=== PATIENT | female | born 1945 | race Caucasian/White ===

== ENCOUNTER 2021-01-22 10:49 | Inpatient (IN) | payer MEDICARE, SELFPAY ==
[2021-01-22] VITALS (12 sets, daily range): BP systolic 117–151; BP diastolic 52–74; PULSE 49–67; RESP 18–26; TEMP 36.3–36.6; O2SAT 0–100
--- NOTE | ~2021-01-22 | XR_ITS ---
EXAMINATION: XR knee RT 3V DATE: 01/22/2021 12:14 INDICATION: Right patellar pain post fall TECHNIQUE: AP, crosstable lateral and sunrise views of the right knee were obtained. COMPARISON: None. FINDINGS: Alignment is normal. No fracture. Joint spaces appear normal on nonweightbearing imaging. Minimal neda int effusion at the right suprapatellar pouch without evident layering lipohemarthrosis. Small enthes ophyte at the proximal pole of the patella. Prominent dense prepatellar soft tissue swelling which gi jennifer the history of trauma would favor hematoma over bursitis. Multiple surgical clips project along t he medial side of the right knee which may be related to prior saphenous vein graft harvest. IMPRESSION: 1. Likely prepatellar hematoma. No acute osseous abnormality. Reviewed, dictated and finalized at location A.
--- NOTE | ~2021-01-22 | US_ITS ---
EXAMINATION: US carotid duplex BI DATE: 01/23/2021 09:10 INDICATION: Syncope TECHNIQUE: Grayscale, color Doppler, and pulsed Doppler images of the cervical carotid arteries were obtained. The degree of vessel stenosis is placed in one of the following categories: normal, <50%, 5 0-69%, >=70% but less than near-occlusion, near-occlusion, or total occlusion. Note that percent sten osis relative to normal distal artery lumen diameter is indirectly measured from velocity measurement s as described by Chavez, et al. Radiology 2003; [id number]. Notes: Normal: Peak systolic velocity <125 centimeters/sec and no plaque <50%. Peak systolic velocity <125 ( EDV <40; ICA/CCA PSV ratio <2.0; used these factors only a tandem lesions or low cardiac output or co ntralateral disease) 50-69 %: PSV 125-230 (EDV 40-100; ratio 2-4) >= 70% but less than near occlusion: PSV greater than 230 (EDV > 100; ratio> 4.0) Near Occlusion: PSV that is variable; markedly narrowed lumen Occlusion: Absent flow on color/spectral Doppler and no lumen on gonsales scale. COMPARISON: None. FINDINGS: RIGHT: The right common carotid artery (CCA) peak systolic velocity (PSV) is 68 cm/s. The right internal car otid artery (ICA) PSV is 67 cm/s. The right ICA end-diastolic velocity (EDV) is 17 cm/s. The right IC A/CCA PSV ratio is 1.0. The external carotid artery (ECA) PSV is 103 cm/s. There is antegrade flow in the right vertebral artery. LEFT: The left CCA PSV is 76 cm/s. The left ICA PSV is 74 cm/s. The left ICA EDV is 15 cm/s. The left ICA/C CA PSV ratio is 1.0. The ECA PSV is 126 cm/s. There is antegrade flow in the left vertebral artery. IMPRESSION: 1. Less than 50% stenosis in the right internal carotid artery by sonographic criteria. 2. Less than 50% stenosis in the left internal carotid artery by sonographic criteria. Reviewed, dictated and finalized at location A. IMPRESSION: 1. Less than 50% stenosis in the right internal carotid artery by sonographic edd hall. 2. Less than 50% stenosis in the left internal carotid artery by sonographic oliver pena.
--- NOTE | ~2021-01-22 | CT_ITS ---
EXAMINATION: CT brain wo con DATE: 01/22/2021 12:01 INDICATION: Head injury post fall TECHNIQUE: Computed tomography (CT) of the head was performed without intravenous contrast. Sagittal and coronal reconstructions were performed. The mA was adjusted according to patient size. Iterative reconstruction technique was employed. The dose-length product was 605.33 mGy-cm. COMPARISON: Brain MR dated 12/09/2017 FINDINGS: No fracture. No acute intracranial hemorrhage, acute infarction or abnormal extra axial fluid collect ion. Again seen is a small left pontine old lacunar infarct. Symmetric prominence of subarachnoid spa [place] overlying the convexities consistent with mild age-appropriate diffuse cerebral volume loss. Yobany tricles are normal and symmetric. No mass/mass effect. Changes of bilateral intraocular lens replacem ent. Chronic right mastoid effusion. Partial opacification of the left sphenoid sinus. Intracranial c alcified cerebral atherosclerosis is noted. IMPRESSION: 1. No fracture or acute intracranial process. 2. Age-related mild diffuse volume loss with symmetric increased prominence of the subarachnoid space s overlying the convexities. 3. Small old left pontine lacunar infarct. 4. Chronic right mastoid effusion. Reviewed, dictated and finalized at location A. IMPRESSION: 1. No fracture or acute intracranial process. 2. Age-related mild diffuse volume loss with symmetric increased prominence of the subarachnoid spaces overlying the convexities. 3. Small old left pontine lacunar infarct. 4. Chronic right mastoid effusion.
--- NOTE | ~2021-01-22 | XR_ITS ---
EXAMINATION: XR hip BI 2V w AP pelvis DATE: 01/22/2021 12:14 INDICATION: Bilateral hip pain post fall TECHNIQUE: Anteroposterior view of the pelvis and anteroposterior and frog-leg lateral views of the l eft hip and anteroposterior and frog-leg lateral views of the right hip and were obtained. COMPARISON: CT abdomen and pelvis dated 11/12/2018 FINDINGS: Alignment is normal. No fracture. Mild bilateral hip osteoarthritis. Small metallic suture projecting over the central pelvis. Again seen are multiple calcified bladder stones projecting over the inferi or pelvis. IMPRESSION: 1. Mild bilateral hip osteoarthritis. No acute osseous abnormality. 2. Multiple bladder stones. Reviewed, dictated and finalized at location A.
--- NOTE | ~2021-01-22 | CT_ITS ---
EXAMINATION: CT lumbar spine wo con DATE: 01/22/2021 12:01 INDICATION: Low back pain post fall TECHNIQUE: Computed tomography (CT) of the lumbar spine was performed without intravenous contrast. A utomated exposure control and iterative reconstruction technique were employed. The dose-length produ ct was 1064.81 mGy-cm. COMPARISON: Lumbar spine MR dated 11/12/2018 FINDINGS: Alignment is normal. Vertebral body heights with Schmorl's nodes along the inferior endplat es of T12-L2. No fracture. Mild disc height loss at T11-T12 and L1-L2. Postoperative change at the th oracic hiatus which may be related to prior hiatal hernia repair. There is calcified atherosclerosis of the aorta and many of the other arteries. Fusiform infrarenal abdominal aortic aneurysm, anterior margin which is excluded from the [id number] but which measures up to 4.1 cm in maximal left-to-r ight diameter. Cervical sigmoid diverticula without adjacent inflammatory change to suggest diverticu litis. The uterus is not identified and has likely been surgically resected. Bilateral approximately 2 cm ovarian cysts/follicles. The following disc levels are specifically discussed: T11-T12: Disc is mildly bulging. There is moderate right and mild to moderate left facet joint osteoa rthritis. There is mild left neural foraminal stenosis. There is minimal central canal stenosis. T12-L1: Disc is mildly bulging. There is moderate right and mild to moderate left facet joint osteoar thritis. There is minimal left neural foraminal stenosis. There is minimal central canal stenosis. L1-L2: Disc is bulging. There is mild left and moderate right facet joint osteoarthritis. There is no neural foraminal stenosis. There is minimal central canal stenosis. L2-L3: Disc is bulging. There is moderate right and mild to moderate left facet joint osteoarthritis. There is mild bilateral neural foraminal stenosis. There is mild central canal stenosis. L3-L4: Disc is bulging. There is hypertrophy of the ligamentum flavum. There is severe right and mod erate left facet joint osteoarthritis. There is mild to moderate left and moderate right neural dustin inal stenosis. There is mild central canal stenosis. L4-L5: Disc is bulging. There is hypertrophy of the ligamentum flavum. There is severe bilateral face t joint osteoarthritis. There is moderate bilateral neural foraminal stenosis. There is mild central canal stenosis. L5-S1: Disc is bulging. There is severe bilateral facet joint osteoarthritis. There is mild bilateral neural foraminal stenosis. There is mild central canal stenosis. IMPRESSION: 1. Moderate lumbar spondylosis. No acute osseous abnormality. 2. Incompletely visualized fusiform infrarenal abdominal aortic aneurysm measuring at least 4.1 cm in maximal diameter. 3. Diverticulosis. Reviewed, dictated and finalized at location A. IMPRESSION: 1. Moderate lumbar spondylosis. No acute osseous abnormality. 2. Incompletely visualized fusiform infrarenal abdominal aortic aneurysm measur ing at least 4.1 cm in maximal diameter. 3. Diverticulosis.
--- NOTE | ~2021-01-22 | MR_ITS ---
EXAMINATION: MR brain/brain stem wo con DATE: 01/24/2021 09:41 INDICATION: Dizziness and nausea. Near syncope. TECHNIQUE: Magnetic resonance imaging (MRI) of the brain and brainstem was performed without intraven ous contrast. Sequences included sagittal and axial T1-weighted SE, axial diffusion-weighted FS SE, a xial T2*-weighted GRE, axial T2-weighted FLAIR Propeller, and axial T2-weighted Propeller. Apparent d iffusion coefficient (ADC) maps were created. COMPARISON: CT dated 01/23/2020 and MRI dated 12/09/2017. FINDINGS: There is generalized atrophy. Small chronic left pontine infarct. There are scattered mild periventricular and subcortical white matter changes, most likely related to small vessel ischemic di sease (microangiopathy). No acute intracranial hemorrhage, infarction, mass or mass effect. Craniover tebral junction is unremarkable. Orbits are symmetric without disconjugate gaze. Paranasal sinuses ar e unremarkable. Structures of the posterior fossa are unremarkable. Right mastoid effusion. IMPRESSION: 1. No acute intracranial abnormality. 2: Chronic left pontine infarct. 3: Chronic age-related findings. Reviewed, dictated and finalized at location A.
--- NOTE | ~2021-01-22 | XR_ITS ---
EXAMINATION: XR chest 1V DATE: 01/22/2021 12:14 INDICATION: Syncope TECHNIQUE: frontal view of the chest was obtained. COMPARISON: Chest radiograph dated 02/05/[address] dated 02/06/2019 FINDINGS: Patient is rotated slightly towards the right. Lungs remain clear with no focal airspace opacities, p ulmonary edema, pleural effusion or pneumothorax. The cardiomediastinal silhouette is within normal l imits for AP technique. Median sternotomy wires and mediastinal surgical clips are seen, likely from prior coronary artery bypass grafting. Additional postoperative changes with suture line and numerous surgical clips in the upper abdomen. Incompletely visualized vertical raphael and lateral mass screw fix ation for lower cervical posterior spinal fusion. IMPRESSION: 1. No acute cardiopulmonary disease. Reviewed, dictated and finalized at location A.
--- NOTE | 2021-01-22 10:55 | ECG_ITS ---
Measurements Intervals [place] Rate: 59 P: 56 IN: 182 QRS: 63 QRSD: 133 T: 77 QT: 467 QTc: 465 Interpretive Statements SINUS BRADYCARDIA RIGHT BUNDLE BRANCH BLOCK MINIMAL Q WAVES- INFERIOR LEADS BASELINE ARTIFACT- I, II, III, AVR, AVL, AVF, V2-V6 ABNORMAL ECG Electronically Signed On 01-22-2021 16:50:04 CDT by Jhonathan Lloyd D.O.
[2021-01-22] MEDS: SODIUM CHLORIDE 0.9% IV 500 ML 999 ML IV CONT (11:04)
[2021-01-22 11:15] LABS: Basophils Absolute Auto 0.1 K/mm3 (0.0-0.1); Basophils Percent Auto 0.7 % (0.2-1.2); Eosinophils Absolute Auto 0.2 K/mm3 (0-0.3); Eosinophils Percent Auto 1.9 % (0-4.4); Hematocrit 43.8 % (37.0-47.0); Hemoglobin 14.4 g/dL (12.0-15.0); Immature Granulocyte Absolute 0.04 K/mm3 (0.00-0.031); Immature Granulocyte Percent A 0.4 % (0-0.5); Lymphocytes Percent Auto 22.1 % (18.3-44.2); Mean Corpuscular HGB Conc 32.9 g/dl (32-36); Mean Corpuscular Hemoglobin 30.1 pg (26-34); Mean Corpuscular Volume 91.4 fl (80-100); Mean Platelet Volume 9.6 fl (7.4-10.4); Monocytes Absolute Auto 0.6 K/mm3 (0.1-0.6); Monocytes Percent Auto 6.9 % (2.6-8.5); Neutrophils Absolute Auto 6.2 K/mm3 (1.3-6.7); Platelet Count Result 274 k/mm3 (150-375); Red Blood Count 4.79 M/mm3 (4.2-5.4); Red Cell Distribution Width 14.1 % (11.5-14.5); White Blood Count 9.1 K/mm3 (4.5-10.0)
[2021-01-22 11:26] LABS: INR 0.9; Partial Thromboplastin Time 26.2 SECONDS (22.3-36.8); Prothrombin Time 13.1 Seconds (11.1-14.7)
--- NOTE | 2021-01-22 11:50 | ED.GENADULT ---
HPI - General Adult General Chief complaint: Fall Stated complaint: fall Source: patient and EMS Mode of arrival: EMS Limitations: no limitations History of Present Illness HPI narrative: Patient 75-year-old female who presents from urgent care for evaluation of syncope and extremity injuries to include head injury that occurred yesterday patient lives at home by herself notes that she blacked out striking her head and injuring her knee patient also notes hip pain patient notes that she has intermittently had these episodes of leg has not been seen for a patient is an unreliable historian noting that she does not would know what medications she has been prescribed in the past and notes that she is noncompliant with her prescribed medications patient on arrival to emergency department complaints of lower extremity pain denying any other complaints at this time but notes she gets lightheaded at times Related Data Home Medications Medication Instructions Recorded Confirmed Unable to Obtain Home Medications 01/22/21 01/22/21 Allergies Allergy/AdvReac Type Severity Reaction Status Date / Time iodine Allergy Severe RASH,DIFFICULTY Verified 01/22/21 10:49 BREATHING erythromycin base Allergy Intermediate RASH, Verified 01/22/21 10:49 SORES IN MOUTH Sulfa (Sulfonamide Allergy Intermediate RASH,SORES Verified 01/22/21 10:49 Antibiotics) IN MOUTH cholestyramine Allergy Unknown RASH AND Verified 01/22/21 10:49 VOMITING Penicillins Allergy Unknown RASH,DIFFICULTY Verified 01/22/21 10:49 BREATHING sulfur dioxide Allergy Unknown Unknown Verified 01/22/21 10:49 MAGNESIUM HYDROXIDE Allergy Intermediate VOMITING Uncoded 06/05/19 07:37 Contrast Media Allergy Unknown RASH,DIFFICULTY Uncoded 06/05/19 07:37 BREATHING Review of Systems Review of Systems: All systems reviewed & are unremarkable except as noted in HPI and below PMFSH Past Medical History Medical History (Updated 01/22/21 @ 14:18 by Dharmesh Cesar PA-C) Coronary artery disease CVA (cerebral vascular accident) Hyperlipidemia Hypertension Tobacco abuse Surgical History Surgical History Stented coronary artery Social History Social History (Updated 01/22/21 @ 11:52 by Dharmesh Cesar PA-C) Smoking status: Current every day smoker Alcohol intake: never Substance use: never Living arrangements: alone Exam Narrative: Exam Narrative: GENERAL: Well-appearing, well-nourished, and in no acute distress. HEAD: Normocephalic, contusion to the right forehead. No cervical EYES: PERRLA and EOMI. ENT: Nares clear, no rhinorrhea or epistaxis. Mucous membranes moist. Oropharynx without tonsillar hypertrophy exudate or other lesions. NECK: Supple. No adenopathy or masses. CHEST: Clear to auscultation. No respiratory distress. No wheezes rales or rhonchi HEART: Regular rate and rhythm. No murmur heard. Normal peripheral pulses. ABDOMEN: Soft, nontender, nondistended EXTREMITIES: Normal range of motion. No edema. No midline cervical or thoracic tenderness. Midline paraspinal lumbar tenderness. Pelvis palpated and stable tenderness of the bilateral hips no deformities. Tenderness of the right knee with small contusion. SKIN: Warm, dry, no rash. NEURO: No focal deficits. Alert and oriented x3. Cranial nerves II through XII grossly intact. Normal speech. Neurovascularly intact. Capillary refill less than 2 seconds PSYCH: Normal mood and affect. Course Course Emergency Course: Patient evaluated at skeletal imaging no high risk changes in this area of her evaluation does have urinary tract infection will be brought into the hospital and evaluated by PT OT hospitalist service patient felt that high risk for discharge home with fall risk also given her syncope patient resting comfortably in no distress at this time. ABCs and vital signs stable and intact. Consultations Cons
[2021-01-22 13:13] LABS: Alanine Aminotransferase 12 U/L (4-35); Albumin Level 3.7 g/dL (3.5-5.1); Alkaline Phosphatase 175 U/L (38-126); Anion Gap 7 mmol/L (8-16); Aspartate Amino Transferase 17 U/L (14-36); Bilirubin,Total 0.4 mg/dL (0.2-1.3); Blood Urea Nitrogen 15 mg/dL (7-17); Carbon Dioxide 26 mmol/L (22-30); Chloride 108 mmol/L (98-107); Estimated CRCL calculation 41 ml/min; Estimated Glomerular Filt Rate > 60; Glucose 91 mg/dL (65-105); Potassium 3.8 mmol/L (3.4-5.0); Sodium 141 mmol/L (137-145)
[2021-01-22 13:36] LABS: Add Urine Microscopic? YES; Appearance Urine Cloudy (Clear); Bacteria Urine 4+ /hpf; Bilirubin Urine Negative (Negative); Blood Urine 2+ (Negative); Color Urine Yellow (Yellow); Glucose Urine UA Negative (Negative); Ketones Urine Negative (Negative); Leukocyte Esterase Ur 1+ LEU/UL (Negative); Mucus Urine Few /lpf; Nitrate Urine Positive (Negative); Protein Urine 1+ mg/dL (Negative); Specific Grav Ur 1.016 (1.001-1.035); Squamous Epithelial Cell Urine Moderate /hpf (Few); Urobilinogen Urine Negative mg/dL (<2.0); WBC Urine 51-75 /hpf
[2021-01-22 13:36] LABS: Troponin I < 0.012 ng/mL (0.000-0.034)
[2021-01-22] MEDS: HYDROcodone/acetaminophen (*CRX) 5-325 MG TABLET 1 TAB PO (14:30)
--- NOTE | 2021-01-22 15:00 | PM.IMHP ---
H&P: HPI History of Present Illness Date/Time: 01/22/21 18:00 Chief Complaint: Fall, possible syncope yesterday. Narrative: This is a 75-year-old female smoker with coronary artery disease status post three-vessel CABG, ischemic cardiomyopathy with an ejection fraction previously as low as 35%, hypertension, hyperlipidemia, COPD, and several other comorbidities who presented to the emergency department earlier today via EMS from a local urgent care for further evaluation after a possible syncopal episode and fall yesterday. 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 She has a difficult done describing these spells but says they have occurred approximately 4 times in the last 6 months. It sounds as though she starts to feel flush with nausea and occasional shortness of breath. At times she also feels lightheaded and will see stars or floaters. Yesterday she ?ended up on the ground? though is not certain how she got there or if she lost consciousness. She then spent some time crawling on the floor trying to find a waste can in order to vomit, and her knee has been hurting since that time. The patient told the provider in the emergency department that she did black out and hit her head however denies that to me. When she is describing episodes she points to her chest when she tells me that a feeling comes over her, but she specifically denies chest pain, pleuritic pain, palpitations, and feelings of racing or irregular heartbeat. She has not had any recent chest pain but several months ago she had mild midsternal chest discomfort with activity that went away with nitroglycerin. 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 At the time my evaluation she has no specific complaints but she is concerned as to what may have transpired yesterday. Review of Systems Review of Systems: Narrative: Twelve systems were reviewed with pertinent positives and negatives as per HPI. She wears a full set of dentures. She denies dysphagia and concerns for aspiration. She has a chronic smoker's cough and will occasionally have coughing jags. She wheezes quite a bit. She uses her rescue inhaler maybe 1 time per day. She also has nebulizers at home that she can use if needed. No recent cold or flu symptoms. She denies exposure to those positive for COVID. She is fully vaccinated for COVID. She has chronic orthopnea, sleeps with the head of her bed raised at on 2 pillows. She has intermittent lower extremity edema, right greater than left, which is unchanged. She suffers from restless legs and has frequent cramping of her legs at nighttime. No history of venous thromboembolism. Denies history of obstructive sleep apnea however she does snore quite a bit and wakes up often. She has issues with fecal incontinence since a hemorrhoidectomy and sphincterotomy. She denies abdominal and epigastric pain. No hematochezia. Occasional urinary issues. No dysuria or hematuria. Except as documented, all other systems were reviewed and are negative. [facility] Past Medical History Medical History (Updated 01/22/21 @ 21:07 by Linda Ross PA-C) Aneurysm of infrarenal abdominal aorta Measuring at least 4.1 centimeters on imaging dated 01/22/2021. Cerebrovascular accident Chronic obstructive pulmonary disease Coronary artery disease Non STEMI in January 2014. Status post angioplasty and three-vessel CABG. Degenerative disc disease History of anemia History of peptic ulcer disease Hyperlipidemia Hypertension Restless leg syndrome Spinal stenosis Tobacco abuse Surgical History Surgical History (Updated 01/22/21 @ 15:28 by Linda Ross PA-C) History of Billroth II operation History of bladder
--- NOTE | 2021-01-22 15:45 | PCPTNOTE ---
Orders received. Attempted eval, but patient has not arrived to room from ED. Will see tomorrow as able.
--- NOTE | 2021-01-22 15:48 | PCOTNOTE ---
Pt not yet in room from ED upon attempt for eval. Will see tomorrow for eval.
--- NOTE | 2021-01-22 16:32 | ADMGEN ---
This patient, Giulia Retana, was admitted to Medical Room 243-01. Patient/family oriented to hospital policies and general routines including ID bracelet, bed and alarms, visiting hours, pain management, procedures, bathroom and other care routines, personal items, smoking policy, room service/diet, and visiting hours. Information on how to activate the Rapid Response Team has been discussed. Patient/Family are encouraged to report perceived risks to care and to ask questions if they do not understand what they are told or what they should do.
[2021-01-22] MEDS: LACTATED RINGERS 1,000 ML 75 ML IV CONT (17:57)
[2021-01-22] MEDS: FAMOTIDINE 20 MG/2 ML VIAL IV PUSH (20:22)
[2021-01-22] MEDS: rOPINIRole HCL 1 MG TABLET PO (22:30)
[2021-01-22] MEDS: ACETAMINOPHEN/CODEINE (*CRX) 300/30 MG TABLET 1 TAB PO (22:32)
[2021-01-22] MEDS: FLUTICASONE/SALMETEROL 115-21 MCG INHALER 1 PUFF 2 PUFF INHALATION (23:02)
[2021-01-23] VITALS (14 sets, daily range): BP systolic 147–189; BP diastolic 53–70; PULSE 47–63; RESP 16–18; TEMP 35.9–36.7; O2SAT 87–98; BMI 29.2
[2021-01-23] MEDS: MORPHINE SULFATE (*CRX) 4 MG/ML INJ IV PUSH (02:40)
[2021-01-23 05:53] LABS: Cholesterol 133 mg/dL (0-200); HDL Direct 36 mg/dL; Triglycerides 152 mg/dL (<150)
[2021-01-23 06:04] LABS: LDL Cholesterol Direct 67 mg/dL
[2021-01-23] MEDS: FLUTICASONE/SALMETEROL 115-21 MCG INHALER 1 PUFF 2 PUFF INHALATION ×2 (08:40→20:02)
--- NOTE | 2021-01-23 08:51 | WPDURCON ---
Assessment and Plan Assessment and plan (1) Bladder stones: Code(s): N21.0 - Calculus in bladder Status: Acute Assessment and Plan: Will plan to follow up as an outpatient with Dr. Kenney for a Cystoscopy in the office for further evaluation. No urgent plans for surgery at this time. (2) Urinary tract infection: Code(s): N39.0 - Urinary tract infection, site not specified Status: Acute Assessment and Plan: Continue treatment with Ceftriaxone and tailor antibiotics to culture results. No other evaluation. Urology Consult Note HPI Date Seen: 01/23/21 Requesting Physician: Lee Guthrie MD Primary Care Provider: Pat MirandaHéctor Consult Narrative Narrative: Giulia Retana is a 75 year old female who initially presented to the ER yesterday after a syncopal episode where she fell and hit her head, hip and knee. She has a complicated medical history of COPD, cardiomyopathy with an ejection fraction of 35%, hypertension, hyperlipidemia, incluidng a history of kidney stones that were passed spontaneously in the past and currently has bladder stones noted on X-Ray which she was aware of already. She has a WBC of 9.1, creatinine 0.90, UA shows positive Nitrates and urine culture is pending. She is hypertensive and bradycardic currently. She denies hematuria, dysuria, flank pain, abdominal pain, frequency or urgency. She does c/o hesitancy occasionally, but normally has no urinary issues. She has not seen a urologist in the past. Review of Systems Cardiovascular: Cardiovascular: Denies chest pain Respiratory: Respiratory: Reports no additional respiratory complaints Gastrointestinal: Gastrointestinal: Denies abdominal pain, Denies nausea and Denies vomiting Genitourinary: Genitourinary: Denies hematuria, Denies dysuria, Denies pelvic pain, Denies flank pain, Reports urinary hesitancy and Denies urinary urgency [facility] Past Medical History Medical History Aneurysm of infrarenal abdominal aorta Measuring at least 4.1 centimeters on imaging dated 01/22/2021. Cerebrovascular accident Chronic obstructive pulmonary disease Coronary artery disease Non STEMI in January 2014. Status post angioplasty and three-vessel CABG. Degenerative disc disease History of anemia History of peptic ulcer disease Hyperlipidemia Hypertension Restless leg syndrome Spinal stenosis Tobacco abuse Surgical History Surgical History History of Billroth II operation History of bladder suspension procedure History of cervical spinal surgery Micro anterior cervical decompression diskectomy and fusion at C5-C6, C6-C7. History of cholecystectomy History of colonoscopy with polypectomy History of hemorrhoidectomy History of partial colectomy History of three vessel coronary artery bypass (~01/2014) [place] to LAD, vein graft to a diagonal, vein graft to PDA. Performed at [facility]. Stented coronary artery Family History Family History Father Suicide and self-inflicted injury Sibling COPD (chronic obstructive pulmonary disease) Heart disease Sibling Lung cancer Mother Alzheimer's dementia Social History Social History Social History: Surrogate decision maker: Anne-Marie Saldana, daughter. Code status: Full code. Smoking packs per day: 1 Smoking cigarettes per day: 20.0 Years smoked: 60 Smoking pack-years: 60.00 Smoking status: Current every day smoker Tobacco type: cigarettes Alcohol intake: never Substance use: never Substance use type: does not use Additional living arrangements comments: Lives alone in her own home in [place]. In the process of moving to [place]. Additional occupation/education comments: Retired. Gender identity (if verb
[2021-01-23] MEDS: ONDANSETRON INJ 4 MG/2 ML VIAL IV PUSH ×2 (09:19→14:47)
[2021-01-23] MEDS: ENOXAPARIN 40 MG/0.4 ML SYRINGE SUB-Q (09:42)
--- NOTE | 2021-01-23 11:42 | PM.CNCAR ---
Assessment and Plan Additional Plan 75-year-old lady with: Coronary artery disease about 7 years status post surgical revascularization by the chart notes apparently has a history of ischemic LV dysfunction. She has been off of all of her medications what ever they might be for the this period of time and despite this she is not in a state of decompensated heart failure. She enters the hospital with what sound to me like episodes of vertigo following which she has a lot of nausea and vomiting and sometimes incontinence of stool. It is not clear to me that she is having syncopal episodes. She states these episodes began about 6-7 months ago and have occurred about 4 5 times. I would recommend trying to contact either her physician or her pharmacy to identify what her baseline medical regimen is so it can be resumed while she is here at [facility]. At this point I do not believe she is having mukund syncopal episodes and I do not believe I have any additional cardiac recommendations to make. I would recommend that she follow-up with Dr. Niharika Booth who has been her longstanding paramedic instructor. As such I am not going to plan on arranging for follow-up in my office following her discharge. Cale Barbosa MD [facility] History of Present Illness History of Present Illness Consult date/time: 01/23/21 11:42 Reason For Visit: syncope/uti Narrative: This is a 75-year-old woman who has a known to me prior to this consultation I am seeing her at the request of the hospitalist according to the orders because of syncope. Patient is hospitalized room 243 she is comfortable sleeping flat in bed and was awakened for this interview. Upon awakening she is comfortable cooperative and offers no complaints. She says that she has been having spells where she feels unwell for about 6 or 7 months. She says that she will suddenly feel very strange inside and then noticed the sensation of her environment spinning or rotating. Following this she typically has the sensation of nausea and vomiting. When she has nausea and vomiting she also tends to frequently become incontinent of stool. She has had several of these episodes she will sometimes fall to the floor and have to crawl to a waste basket for the vomiting. She denies any sense of chest pain pressure or heaviness she does not believe that she has lost consciousness during these episodes. She states she was at her daughter's house watching her home while she was out of town on Saturday and had an episode like this. When her daughter came home on Saturday she told her about it and she brought her to the emergency room for evaluation. Her electrocardiogram shows sinus mechanism with a right bundle branch block. She has not had any significant arrhythmias since being hospitalized on telemetry Edgardo at times is in a sinus bradycardia but I do not see any evidence of AV node dysfunction or pathological Jitendra arrhythmias that would explain syncope. The patient has a history of coronary artery disease she states that she underwent a multivessel coronary bypass operation in 2013 at [facility]. Prior to that she states she was treated with percutaneous stenting by her paramedic instructor, Dr. Booth. She states she has not seen her physicians in the better part of a year because of the bernabe virus pandemic. She did have an appointment with her paramedic instructor during the pandemic but when she saw the waiting room environment she considered unsafe and she left without being seen. Because of that she is symptom been out of her medications for at least several months. The identity of her home medications are unknown to us at [facility]. The chart indicates she has a history of an ischemic cardiomyopathy with previous infarction and an ejection fraction of 30-35%. Once again her medical regimen for this is unknown to me. Review of Systems Constitutional: Constitutional: Reports no additional constitutional complaints Eyes:
[2021-01-23] MEDS: ACETAMINOPHEN/CODEINE (*CRX) 300/30 MG TABLET 0.5 TAB PO (14:47)
[2021-01-23] MEDS: rOPINIRole HCL 1 MG TABLET PO (20:02)
--- NOTE | 2021-01-23 21:09 | ECHO_ITS ---
Patient Info Name: Giulia Retana Age: 75 years : 1945 Gender: Female Ht: 64 in Wt: 152 lbs BSA: 1.78 m2 HR: 69 bpm BP: 147 / 53 mmHg Heart Rhythm: Sinus Rhythm Technical Quality: Good Exam Date: 01/23/2021 1:12 PM Exam Location: [facility] Pulmonary Exam Room: [facility] Patient Status: Inpatient Admit Date: 01/22/2021 Staff Ordering Physician: Linda Ross PA-C Bobj Developer: Madhuri Mills RDCS Attending Provider: Lee Guthrie MD Referring Physician: Vandana MEMBRENO; Exam Type: CA echo doppler color flow Study Info Indications - cda s/p cabg htn Complete two-dimensional, color flow and Doppler transthoracic echocardiogram is performed. Summary 1. Complete two-dimensional, color flow and Doppler transthoracic echocardiogram is performed. 2. Normal LV size, mild LVH, normal LV systolic function, EF more than 70%; normal diastolic function. Mild left atrial enlargement. Mitral valve leaflets mildly thickened, trivial MR. Aortic valve appears thickened, no significant stenosis by Doppler. Trace TR, unable to assess RVSP due to inadequate TR jet velocity. Sinus rhythm. Left Ventricle Left ventricular chamber dimension is normal. Left ventricular systolic function is hyperdynamic, estimated at >70%. There is mildly increased left ventricular wall thickness. The left ventricular diastolic function is normal. Right Ventricle Right ventricular chamber dimension is normal. Right ventricular systolic function is normal. Left Atria Left atrial chamber dimension is mildly enlarged. Right Atria Right atrial chamber dimension is normal. Aortic Valve There is mild aortic valve sclerosis. There is no aortic valve stenosis. Mitral Valve The mitral valve has thickened leaflets. There is trace mitral valve regurgitation. Tricuspid Valve The tricuspid valve leaflets are normal. There is trace tricuspid valve regurgitation. Pericardium/Pleural The pericardium appears epicardial fat pad. There is trivial pericardial effusion. Aorta The aortic root size at the sinus of Valsalva is normal. Left Ventricular Outflow Tract Name Value Normal LVOT 2D LVOT Diameter 2.0 cm LVOT Doppler LVOT Peak Gradient 6 mmHg LVOT Mean Gradient 3 mmHg LVOT VTI 28 cm LVOT VTI/AV VTI Ratio 0.9 LVOT Stroke Volume 84 ml LVOT CO 15.5 l/min LVOT CI 8.9 l/min/m2 Pulmonic Valve Name Value Normal PV Doppler PV Peak Gradient 3 mmHg Mitral Valve Name Value Normal
[2021-01-24] VITALS (11 sets, daily range): BP systolic 116–151; BP diastolic 46–146; PULSE 51–66; RESP 16–25; TEMP 36.3–36.6; O2SAT 93–97
[2021-01-24] MEDS: ACETAMINOPHEN/CODEINE (*CRX) 300/30 MG TABLET 0.5 TAB PO ×3 (03:01→22:00)
[2021-01-24 05:26] LABS: Hematocrit 37.7 % (37.0-47.0); Hemoglobin 12.1 g/dL (12.0-15.0); Mean Corpuscular HGB Conc 32.1 g/dl (32-36); Mean Corpuscular Hemoglobin 30.4 pg (26-34); Mean Corpuscular Volume 94.7 fl (80-100); Mean Platelet Volume 9.5 fl (7.4-10.4); Platelet Count Result 214 k/mm3 (150-375); Red Blood Count 3.98 M/mm3 (4.2-5.4); Red Cell Distribution Width 14.1 % (11.5-14.5); White Blood Count 6.2 K/mm3 (4.5-10.0)
[2021-01-24 05:41] LABS: Anion Gap 5 mmol/L (8-16); Blood Urea Nitrogen 15 mg/dL (7-17); Calcium 8.5 mg/dL (8.4-10.2); Carbon Dioxide 27 mmol/L (22-30); Chloride 107 mmol/L (98-107); Estimated CRCL calculation 44 ml/min; Estimated Glomerular Filt Rate > 60; Glucose 158 mg/dL (65-105); Magnesium 1.9 mg/dL (1.6-2.3); Potassium 3.7 mmol/L (3.4-5.0); Sodium 139 mmol/L (137-145)
--- NOTE | 2021-01-24 07:58 | PM.IMPN ---
Progress Note: A&P Assessment and Plan (1) Urinary tract infection: Code(s): N39.0 - Urinary tract infection, site not specified Status: Acute Assessment and Plan: continue Rocephin urine culture growing Klebsiella pneumoniae (2) Postural dizziness with near syncope: Code(s): R42 - Dizziness and giddiness; R55 - Syncope and collapse Status: Acute Assessment and Plan: improved likely secondary to urinary tract infection MRI of brain obtained and no acute findings (3) Fall from ground level: Code(s): W18.30XA - Fall on same level, unspecified, initial encounter Status: Acute Assessment and Plan: trauma to right hematoma in the patellar area ice packs to it (4) Aneurysm of infrarenal abdominal aorta: Code(s): I71.4 - Abdominal aortic aneurysm, without rupture Status: Chronic Assessment and Plan: stable monitor in the outpatient setting (5) Injury of knee, right: Code(s): S89.91XA - Unspecified injury of right lower leg, initial encounter Status: Acute Assessment and Plan: ice packs to the area no fracture (6) Head injury: Code(s): S09.90XA - Unspecified injury of head, initial encounter Status: Acute Assessment and Plan: CT head and MRI of brain with no acute findings (7) Bladder stones: Code(s): N21.0 - Calculus in bladder Status: Acute Assessment and Plan: follow-up in outpatient setting Subjective Date/time seen: 01/24/21 07:58 Patient was seen and examined on 01/23/21late entry note Review of Systems Review of Systems: Narrative: patient presented to the emergency room due to dizziness, generalized weakness. Constitutional: Constitutional: Reports chills Cardiovascular: Comments: no chest no PND no orthopnea Respiratory: Comments: no cough no sputum production Gastrointestinal: Comments: no nausea no vomiting had some diarrhea. Genitourinary: Comments: no pain or burning with urination Musculoskeletal: Comments: her right knee swelling after patient was crawling on the floor because she was unable to get up due to her dizziness Integumentary/Breasts: Comments: no rash Neurologic: Comments: no sensorimotor deficit Exam Const: General: comfortable, no acute distress, well developed, alert and awake Nutritional Appearance: average body habitus Orientation/consciousness: patient oriented x3 HENMT: Head: normal to inspection, normocephalic and atraumatic Ears: hearing grossly normal bilaterally Face and sinus: normal facial exam Eyes: General: appearance normal, both eyes and all related structures Pupils: Equal, round and reactive pupils present EOM: EOMs intact bilaterally Neck: Neck: full ROM, no lymphadenopathy and no JVD Thyroid: thyroid normal Lymphatic: no lymphadenopathy noted Resp: Effort & Inspection: normal respiratory effort and able to speak in complete sentences Auscultation: clear to auscultation bilaterally Cardio: Jugular venous distension: no JVD Rate: regular rate Rhythm: regular rhythm Heart sounds: S1 normal heart sound present and S2 normal heart sound present GI: GI Palp: Yes Soft to palpation and Yes No hepatosplenomegaly present : General: Yes deferred Skin: Rashes: no rashes Wounds: no wounds Neuro: General: patient oriented x3 and CN's II-XI intact bilaterally Cranial nerves: Yes CN's II-XII intact bilaterally and Yes Equal, round and reactive pupils present Cognition (Neuro): normal cognition Speech: normal speech Gait exam (Neuro): Normal gait present Motor exam (neuro): 5/5 motor strength present throughout Extrem: General: normal to inspection, full ROM, no joint enlargement and no pedal edema Objective Data Vital Signs Vital Signs: Vital Signs - 24 hr 01/23/21 08:00 01/23/21 11:40 01/23/21 12:00 Temperature Pulse Rate 58 L 63 Respiratory Rate Blood Pressure 181/58 H Pu
[2021-01-24] MEDS: FLUTICASONE/SALMETEROL 115-21 MCG INHALER 1 PUFF 2 PUFF INHALATION ×2 (08:55→20:08)
[2021-01-24] MEDS: ENOXAPARIN 40 MG/0.4 ML SYRINGE SUB-Q (08:55)
[2021-01-24] MEDS: EZETIMIBE 10 MG TABLET PO (08:56)
[2021-01-24] MEDS: lisinopriL 5 MG TABLET PO (08:56)
[2021-01-24] MEDS: CYCLOBENZAPRINE HCL 5 MG TABLET PO (15:55)
--- NOTE | 2021-01-24 15:55 | PM.IMPN ---
Progress Note: A&P Assessment and Plan (1) Urinary tract infection: Code(s): N39.0 - Urinary tract infection, site not specified Status: Acute Assessment and Plan: continue Rocephin urine culture identification sensitivities reviewed E coli 100 K CFU (2) Postural dizziness with near syncope: Code(s): R42 - Dizziness and giddiness; R55 - Syncope and collapse Status: Acute Assessment and Plan: likely secondary to urinary tract infection it has subsided (3) Bladder stones: Code(s): N21.0 - Calculus in bladder Status: Acute Assessment and Plan: will follow-up in the outpatient setting (4) Fall from ground level: Code(s): W18.30XA - Fall on same level, unspecified, initial encounter Status: Acute Assessment and Plan: trauma to the right knee with hematoma ice packs to the area PT/OT (5) Aneurysm of infrarenal abdominal aorta: Code(s): I71.4 - Abdominal aortic aneurysm, without rupture Status: Chronic Assessment and Plan: follow-up in the outpatient setting (6) Injury of knee, right: Code(s): S89.91XA - Unspecified injury of right lower leg, initial encounter Status: Acute Assessment and Plan: ice packs to the area Tylenol 3 p.r.n. Subjective Date/time seen: 01/24/21 15:55 ask when she can go Review of Systems Review of Systems: Narrative: no new issues Exam Const: General: comfortable, no acute distress, well developed, alert and awake Nutritional Appearance: average body habitus Orientation/consciousness: patient oriented x3 HENMT: Head: normal to inspection, normocephalic and atraumatic Ears: hearing grossly normal bilaterally Face and sinus: normal facial exam Eyes: General: appearance normal, both eyes and all related structures Pupils: Equal, round and reactive pupils present EOM: EOMs intact bilaterally Neck: Neck: full ROM, no lymphadenopathy and no JVD Thyroid: thyroid normal Lymphatic: no lymphadenopathy noted Resp: Effort & Inspection: normal respiratory effort and able to speak in complete sentences Auscultation: clear to auscultation bilaterally Cardio: Jugular venous distension: no JVD Rate: regular rate Rhythm: regular rhythm Heart sounds: S1 normal heart sound present and S2 normal heart sound present GI: GI Palp: Yes Soft to palpation and Yes No hepatosplenomegaly present : General: Yes deferred Skin: Rashes: no rashes Wounds: no wounds Neuro: General: patient oriented x3 and CN's II-XI intact bilaterally Cranial nerves: Yes CN's II-XII intact bilaterally and Yes Equal, round and reactive pupils present Cognition (Neuro): normal cognition Speech: normal speech Gait exam (Neuro): Normal gait present Motor exam (neuro): 5/5 motor strength present throughout Extrem: General: capillary refill normal and other ( right knee swelling) Objective Data Vital Signs Vital Signs: Vital Signs - 24 hr 01/23/21 16:00 01/23/21 20:00 01/23/21 21:16 Temperature 97.5 F L Pulse Rate 55 L 61 61 Respiratory Rate 18 Blood Pressure 149/58 H Pulse Oximetry 98 98 01/24/21 00:00 01/24/21 04:00 01/24/21 05:59 Temperature 97.6 F Pulse Rate 53 L 59 L 65 Respiratory Rate 16 Blood Pressure 151/63 H Pulse Oximetry 97 01/24/21 08:00 01/24/21 08:31 01/24/21 08:50 Temperature 98 F Pulse Rate 58 L 51 L Respiratory Rate 25 H Blood Pressure 147/146 H Pulse Oximetry 96 93 01/24/21 10:13 01/24/21 12:00 01/24/21 14:00 Temperature 97.9 F Pulse Rate 63 66 58 L Respiratory Rate 20 Blood Pressure 131/46 L Pulse Oximetry 95 Intake/Output Intake/Output: Intake & Output 01/21/21 01/22/21 01/23/21 01/24/21 23:59 23:59 23:59 23:59 Intake Total 1290 1970 820 Output Total 1250 750 Balance 1290 720 70 Meds/Results Medications: Active Medications Generic Name Dose Route Start Last Admin Trade Name Freq PRN Re
[2021-01-24] MEDS: rOPINIRole HCL 1 MG TABLET PO (20:11)
[2021-01-25] MEDS: CYCLOBENZAPRINE HCL 5 MG TABLET PO (01:40)
[2021-01-25 05:31] LABS: Hematocrit 35.7 % (37.0-47.0); Hemoglobin 11.6 g/dL (12.0-15.0); Mean Corpuscular HGB Conc 32.5 g/dl (32-36); Mean Corpuscular Hemoglobin 29.8 pg (26-34); Mean Corpuscular Volume 91.8 fl (80-100); Mean Platelet Volume 9.2 fl (7.4-10.4); Platelet Count Result 217 k/mm3 (150-375); Red Blood Count 3.89 M/mm3 (4.2-5.4); White Blood Count 5.5 K/mm3 (4.5-10.0)
[2021-01-25 05:46] LABS: Anion Gap 4 mmol/L (8-16); Blood Urea Nitrogen 13 mg/dL (7-17); Calcium 8.7 mg/dL (8.4-10.2); Carbon Dioxide 30 mmol/L (22-30); Chloride 107 mmol/L (98-107); Estimated CRCL calculation 50 ml/min; Estimated Glomerular Filt Rate > 60; Glucose 103 mg/dL (65-105); Potassium 3.8 mmol/L (3.4-5.0); Sodium 141 mmol/L (137-145)
[2021-01-25 06:00] VITALS: BP 119/54; PULSE 58; RESP 16; TEMP 36.4; O2SAT 96
[2021-01-25] MEDS: ACETAMINOPHEN/CODEINE (*CRX) 300/30 MG TABLET 0.5 TAB PO (07:19)
[2021-01-25 08:30] VITALS: BP 142/47; PULSE 52; RESP 20; TEMP 36.6; O2SAT 97
[2021-01-25] MEDS: lisinopriL 5 MG TABLET PO (08:52)
[2021-01-25] MEDS: ENOXAPARIN 40 MG/0.4 ML SYRINGE SUB-Q (08:52)
[2021-01-25] MEDS: EZETIMIBE 10 MG TABLET PO (08:52)
[2021-01-25] MEDS: FLUTICASONE/SALMETEROL 115-21 MCG INHALER 1 PUFF 2 PUFF INHALATION (08:58)
[2021-01-25 09:12] VITALS: O2SAT 99
--- NOTE | 2021-01-25 09:40 | PM.DS ---
DS: Admitting Diagnosis Admitting Diagnosis Admitting Diagnosis: syncope/vertigo DS: Discharge Diagnosis Discharge Diagnosis (1) Postural dizziness with near syncope: Code(s): R42 - Dizziness and giddiness; R55 - Syncope and collapse Status: Acute (2) Bladder stones: Code(s): N21.0 - Calculus in bladder Status: Acute (3) Fall from ground level: Code(s): W18.30XA - Fall on same level, unspecified, initial encounter Status: Acute (4) Aneurysm of infrarenal abdominal aorta: Code(s): I71.4 - Abdominal aortic aneurysm, without rupture Status: Chronic (5) Urinary tract infection: Code(s): N39.0 - Urinary tract infection, site not specified Status: Acute (6) Head injury: Code(s): S09.90XA - Unspecified injury of head, initial encounter Status: Acute (7) Injury of knee, right: Code(s): S89.91XA - Unspecified injury of right lower leg, initial encounter Status: Acute DS: Summary Hospital Course Reason for hospitalization: fall and syncope Hospital Course: Radiology Results:ITS Impressions Head CT 01/22/21 12:03 IMPRESSION: 1. No fracture or acute intracranial process. 2. Age-related mild diffuse volume loss with symmetric increased prominence of the subarachnoid spaces overlying the convexities. 3. Small old left pontine lacunar infarct. 4. Chronic right mastoid effusion. Lumbar Spine CT 01/22/21 12:09 IMPRESSION: 1. Moderate lumbar spondylosis. No acute osseous abnormality. 2. Incompletely visualized fusiform infrarenal abdominal aortic aneurysm measuring at least 4.1 cm in maximal diameter. 3. Diverticulosis. Chest X-Ray 01/22/21 12:21 IMPRESSION: 1. No acute cardiopulmonary disease. Hip/Pelvis X-Ray 01/22/21 12:24 IMPRESSION: 1. Mild bilateral hip osteoarthritis. No acute osseous abnormality. 2. Multiple bladder stones. Knee X-Ray 01/22/21 12:28 IMPRESSION: 1. Likely prepatellar hematoma. No acute osseous abnormality. Carotid Doppler Study 01/23/21 09:11 IMPRESSION: 1. Less than 50% stenosis in the right internal carotid artery by sonographic criteria. 2. Less than 50% stenosis in the left internal carotid artery by sonographic criteria. Brain MRI 01/24/21 09:46 IMPRESSION: 1. No acute intracranial abnormality. 2: Chronic left pontine infarct. 3: Chronic age-related findings. # Fall with postural dizziness and near syndope: noted uti. treated with ceftraixone. E coli 100 k CFU on culture. will switch to cephalexin for 5 more days at home for uti. # UTI see above. # possible syncope vs vertigo: CT brain with chornic left pontine stroke. MRI brain with no acute findings. ECHO with noraml EF. noted previous cardiomyopathy. Carotid us with insignificant stenosis bilaterally. # Bladder stones: fu with urology as op basis. # right knee pain: conservative mgmt. xray negative for fracture. # Aneurysm of infrarenal abdominal aorta: follow-up in the outpatient setting. 4.1 cm # hx of CAD s/p cabg and stents. start aspirin. bradycardic and hence no bb. on ezetimibe. # COPD: albuerol inaler. advair diskus # Cardiomyopathy: noted 25 % ef in the past. ECHO with normal EF this admission. fu with cardiology as op basis. # dspositioN :PT/OT suggest home health. wanting to go home. will discharge with close fu with pcp. counseled on PCP follow pu. she reports she had hard time gettting hold ofthem to fill her medications. she is not sure of her usual medications. I suggested she follow up with pcp right away after discharge to reconcile her medicaitons. Status at Discharge Functional status at discharge: uses cane/walker Overall status at discharge: patient is progressing back to baseline Time Spent with Patient Time attestation: Total time spent providing and/or coordinating discharge services:35 mins Exam Narrative: Exam Narrative: General: comfortable, no acute distress, well developed, alert and awake
--- NOTE | 2021-01-25 11:06 | PC.NURSE ---
On 01/25/21, the student, [Ana Wyman ], provided care and completed [facility] documentation on this patient. I have reviewed the student's documentation and agree with the findings.
== END 2021-01-25 11:04 | disposition home health service (06) | DRG 690 ==
LOC: ANHED 14:33 → ANH2MED 16:59
PROVIDERS: Emergency Medicine Emergency Medical Services; Physician Assistant; Admitting Provider Family Medicine; Emergency Provider Emergency Medicine; PCP Internal Medicine Infectious Disease; Visit Provider Internal Medicine
DX: N39.0 Urinary tract infection, site not specified (principal); I42.9 Cardiomyopathy, unspecified; B96.1 Klebsiella pneumoniae [K. pneumoniae] as the cause of diseases classified elsewhere; R42 Dizziness and giddiness; R55 Syncope and collapse; N21.0 Calculus in bladder; S00.83XA Contusion of other part of head, initial encounter; S80.01XA Contusion of right knee, initial encounter; M25.561 Pain in right knee; W18.30XA Fall on same level, unspecified, initial encounter; I65.23 Occlusion and stenosis of bilateral carotid arteries; I25.10 Atherosclerotic heart disease of native coronary artery without angina pectoris; I10 Essential (primary) hypertension; J44.9 Chronic obstructive pulmonary disease, unspecified; F17.210 Nicotine dependence, cigarettes, uncomplicated; I71.4 Abdominal aortic aneurysm, without rupture; E78.5 Hyperlipidemia, unspecified; I25.2 Old myocardial infarction; Z79.899 Other long term (current) drug therapy; Z86.73 Personal history of transient ischemic attack (TIA), and cerebral infarction without residual deficits; Z95.1 Presence of aortocoronary bypass graft; Z95.5 Presence of coronary angioplasty implant and graft; Z98.1 Arthrodesis status
CPT/HCPCS: 36415; 70450; 70551; 71045; 72131; 73521; 73562; 80048; 80053; 80061; 81001; 83735; 84484; 85025; 85027; 85610; 85730; 87077; 87086; 87088; 87186; 93005; 93306; 93880; 96361; 96374; 97110; 97116; 97161; 97165; 97530; 97535; 99285; A9270; J0131; J0696; J1650; J2270; J2405; J7040; J7120

== ENCOUNTER → 2021-03-20 01:21 | Outpatient (CLI) | payer MEDICARE, SELFPAY ==
[2021-03-20 18:48] LABS: SARS-CoV-2 RNA PCR Negative
== END ==
PROVIDERS: PCP Internal Medicine Infectious Disease; Visit Provider Urology
DX: Z01.812 Encounter for preprocedural laboratory examination (principal); Z20.822 Contact with and (suspected) exposure to COVID-19
CPT/HCPCS: C9803; U0003; U0005

== ENCOUNTER 2021-03-23 02:07 | Day surgery (SDC) | payer MEDICARE, SELFPAY ==
[2021-03-10 10:17] VITALS: BMI 27.1
[2021-03-23] VITALS (9 sets, daily range): BP systolic 149–179; BP diastolic 58–81; PULSE 48–60; RESP 16–18; TEMP 36.1–36.7; O2SAT 90–100
--- NOTE | 2021-03-23 06:33 | WPDHPUPDATE1 ---
History and Physical Update Update Date/Time: 03/23/21 06:33 History and Physical has been reviewed, including an updated exam of the patient. There are NO changes in the patient's condition. Risks, benefits, and alternatives have been discussed and questions answered. Patient agrees to proceed with procedure.
[2021-03-23] MEDS: LACTATED RINGERS 1,000 ML 30 ML IV CONT (12:27)
--- NOTE | 2021-03-23 12:56 | WPDANESEPPF ---
Anes - Initial Pre Proc Eval Procedure: Operation Date: 03/23/21 13:30 Proposed Procedures p Cystoscopy, Bladder Stone Extraction, - Corby Kenney MD s Laser Lithotripsy - Corby Kenney MD Date/Time: 03/23/21 12:56 Surgeon: Corby Kenney MD Pre Op Diagnosis: bladder stone Patient Data Age: 75 Gender: F Height: 1.57 m Weight: 67 kg Last Vital Signs Temp 36.7 C 03/23/21 11:45 Pulse 53 L 03/23/21 11:45 Resp 18 03/23/21 11:45 BP 149/58 H 03/23/21 11:45 Pulse Ox 96 03/23/21 11:45 Allergies Allergy/AdvReac Type Severity Reaction Status Date / Time iodine Allergy Severe RASH,DIFFICULTY Verified 03/23/21 12:41 BREATHING erythromycin base Allergy Intermediate RASH, Verified 03/23/21 12:41 SORES IN MOUTH Sulfa (Sulfonamide Allergy Intermediate RASH,SORES Verified 03/23/21 12:41 Antibiotics) IN MOUTH cholestyramine Allergy Unknown RASH AND Verified 03/23/21 12:41 VOMITING Penicillins Allergy Unknown RASH,DIFFICULTY Verified 03/23/21 12:41 BREATHING sulfur dioxide Allergy Unknown Unknown Verified 03/23/21 12:41 MAGNESIUM HYDROXIDE Allergy Intermediate VOMITING Uncoded 03/23/21 12:41 Contrast Media Allergy Unknown RASH,DIFFICULTY Uncoded 03/23/21 12:41 BREATHING Home Medications Medication Instructions Recorded Confirmed Type albuterol sulfate [ProAir HFA] 2 mcg INHALATION Q4-6H PRN 01/22/21 03/23/21 History fluticasone propion-salmeterol 1 inh INHALATION PRN PRN 01/22/21 03/23/21 History [Advair Diskus] acetaminophen-codeine 1 tablet PO Q12H PRN #20 tablet 01/25/21 03/23/21 Rx aspirin [Adult Aspirin Regimen] 81 mg PO DAILY #30 tablet 01/25/21 03/23/21 Rx ezetimibe 10 mg PO DAILY #30 tablet 01/25/21 03/23/21 Rx lisinopril 5 mg PO QAM 30 Days #30 tablet 01/25/21 03/23/21 Rx meclizine 25 mg PO TID PRN #30 tablet 01/25/21 03/23/21 Rx ropinirole 1 mg PO HS #30 tablet 01/25/21 03/23/21 Rx ibuprofen-diphenhydramine cit 1 cap PO HS PRN 03/10/21 03/23/21 History [Advil PM] Patient hx anesthesia problems: none Family hx anesthesia problems: none [facility] Past Medical History Medical History (Updated 01/25/21 @ 10:39 by Alex Kramer MD) Aneurysm of infrarenal abdominal aorta Measuring at least 4.1 centimeters on imaging dated 01/22/2021. Cerebrovascular accident Chronic obstructive pulmonary disease Coronary artery disease Non STEMI in January 2014. Status post angioplasty and three-vessel CABG. Degenerative disc disease History of anemia History of peptic ulcer disease Hyperlipidemia Hypertension Restless leg syndrome Spinal stenosis Tobacco abuse Surgical History Surgical History History of Billroth II operation History of bladder suspension procedure History of cervical spinal surgery Micro anterior cervical decompression diskectomy and fusion at C5-C6, C6-C7. History of cholecystectomy History of colonoscopy with polypectomy History of hemorrhoidectomy History of partial colectomy History of three vessel coronary artery bypass (~01/2014) F[place] to LAD, vein graft to a diagonal, vein graft to PDA. Performed at [facility]. Stented coronary artery Family History Family History Father Suicide and self-inflicted injury Sibling COPD (chronic obstructive pulmonary disease) Heart disease Sibling Lung cancer Mother Alzheimer's dementia Social History Social History Social History: Surrogate decision maker: Anne-Marie Saldana, daughter. Code status: Full code. Smoking packs per day: 1 Smoking cigarettes per day: 20.0 Years smoked: 60 Smoking pack-years: 60.00 Smoking status: Current every day smoker Tobacco type: cigarettes Alcohol intake: never Substance use: never Substance use type: does not use Living arrangements: alone
[2021-03-23] MEDS: GENTAMICIN 80MG/SOD CHL 50 ML 80 MG/50 ML BAG 100 MG IVPB (14:19)
--- NOTE | 2021-03-23 14:47 | P.OP_ITS ---
Procedure Note - Detailed Date of procedure: 03/23/21 Pre-op diagnosis: bladder stone Post-op diagnosis: other (Urethral stricture, bladder tumor) Procedure performed: Cystoscopy, urethral dilatation, TURBT (medium, 3-4cm) Description of procedure: Patient is brought to the operative suite where she is prepped and draped in routine sterile fashion while in a dorsal lithotomy position. Attempted cystoscopy with a 19 F rigid cystoscope but could not because of a tight bladder neck contracture. I dilated that from 14F to 28F with female dilators. I then placed the 19 F rigid cystoscope. The calcifications identified on CT scan were not in her bladder. I can palpate them in the anterior vaginal wall at the level of the bladder neck, between the urethra and vaginal mucosa. 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 The remainder bladder mucosa without hyperemia or additional neoplasms. She has a single orthotopic ureteral orifice bilaterally with clear reflux. With the resectoscope I removed that neoplasm in its entirety with an attempt made to include detrusor muscle for pathological evaluation of invasion. Base and periphery this was cauterized. Resectoscope was removed patient was taken recovery room in good condition. Anesthesia: GLMA Surgeon: Corby Kenney MD [place] Operator: None Estimated blood loss (mL): 0 Drains: No Packing: No Pathology: yes Complications: No immediate complications Condition: stable Disposition: PACU
--- NOTE | 2021-03-23 15:03 | SUR.PHASEI ---
O2 removed at 1502.
[2021-03-23] MEDS: fentaNYL CITRATE INJ (*CRX) 100 MCG/2 ML VIAL 25 MCG IV PUSH (15:10)
--- NOTE | 2021-03-23 17:07 | SUR.PHASEII ---
1645 PT STATES SHE DOESN'T WANT TO WAIT FOR DR LEES TO SIGN HER HYDROCODONE PRESCRIPTION. SHE JUST WANTS TO TAKE HER ANTIBIOTIC PRESCRIPTION AND GO HOME. DAUGHTER NINO AT BEDSIDE AND AGREES WITH PT. 1705 DR LEES AWARE PT NOT WANTING TO WAIT FOR HYDROCODONE PRESCRIPTION TO BE SIGNED. DR PAULAY WITH THIS DECISION.
== END 2021-03-23 16:49 | disposition home or self-care (01) ==
PROVIDERS: PCP Internal Medicine Infectious Disease; Visit Provider Urology
PROC: (CPT 52352; principal; 2021-03-23 13:30)
DX: C67.2 Malignant neoplasm of lateral wall of bladder (principal); N35.92 Unspecified urethral stricture, female; I71.4 Abdominal aortic aneurysm, without rupture; I25.10 Atherosclerotic heart disease of native coronary artery without angina pectoris; I25.2 Old myocardial infarction; I10 Essential (primary) hypertension; E78.5 Hyperlipidemia, unspecified; J44.9 Chronic obstructive pulmonary disease, unspecified; G25.81 Restless legs syndrome; Z86.73 Personal history of transient ischemic attack (TIA), and cerebral infarction without residual deficits; Z95.1 Presence of aortocoronary bypass graft; Z79.51 Long term (current) use of inhaled steroids; Z79.82 Long term (current) use of aspirin; F17.210 Nicotine dependence, cigarettes, uncomplicated
CPT/HCPCS: 52235; 88305; C1769; J1100; J1580; J2405; J2704; J3010; J7120

== ENCOUNTER 2021-05-19 00:38 | Day surgery (SDC) | payer MEDICARE, SELFPAY ==
[2021-05-02 13:15] VITALS: BMI 27.1
[2021-05-19 09:44] VITALS: BP 145/66; PULSE 68; RESP 18; TEMP 36.4; O2SAT 96; BMI 26.3
[2021-05-19] MEDS: LACTATED RINGERS 1,000 ML 150 ML IV CONT (10:08)
--- NOTE | 2021-05-19 10:16 | WPDGICN ---
Assessment and Plan Assessment and plan (1) History of colon polyps: Code(s): Z86.010 - Personal history of colonic polyps Status: Acute Assessment and Plan: Patient has a history of multiple large colon polyps resected 2019. Plan is for follow-up exam to remove any additional polyps that remain. GI Consult Note Consult date/time: 05/19/21 10:16 HPI: Giulia Retana is a 75 year old female Presents for colonoscopy. Patient has a history of multiple large colon polyps identified by colonoscopy in 2019. It was uncertain if all of these were resected. It was anticipated for patient to return last year by however this was delayed because of the COVID pandemic. Patient reports that her current weight appetite bowel movements are normal. She denies abdominal pain. She has had no bleeding. Her family history is noncontributory. Review of Systems Review of Systems: All systems reviewed & are unremarkable except as noted in HPI and below PMFSH Past Medical History Medical History Aneurysm of infrarenal abdominal aorta Measuring at least 4.1 centimeters on imaging dated 01/22/2021. Cerebrovascular accident Chronic obstructive pulmonary disease Coronary artery disease Non STEMI in January 2014. Status post angioplasty and three-vessel CABG. Degenerative disc disease History of anemia History of peptic ulcer disease Hyperlipidemia Hypertension Restless leg syndrome Spinal stenosis Tobacco abuse Surgical History Surgical History History of Billroth II operation History of bladder suspension procedure History of cervical spinal surgery Micro anterior cervical decompression diskectomy and fusion at C5-C6, C6-C7. History of cholecystectomy History of colonoscopy with polypectomy History of hemorrhoidectomy History of partial colectomy History of three vessel coronary artery bypass (~01/2014) FOUNTAIN to LAD, vein graft to a diagonal, vein graft to PDA. Performed at [facility]. Stented coronary artery Family History Family History Father Suicide and self-inflicted injury Sibling COPD (chronic obstructive pulmonary disease) Heart disease Sibling Lung cancer Mother Alzheimer's dementia Social History Social History Social History: Surrogate decision maker: Anne-Marie Saldana, daughter. Code status: Full code. Smoking packs per day: 1 Smoking cigarettes per day: 20.0 Years smoked: 60 Smoking pack-years: 60.00 Smoking status: Current every day smoker Tobacco type: cigarettes Alcohol intake: never Substance use: never Substance use type: does not use Living arrangements: alone Additional living arrangements comments: Lives alone in her own home in [place]. In the process of moving to [place]. Additional occupation/education comments: Retired. Gender identity (if verbalized by the patient): Female Spiritual care concerns: No Meds Home Medications and Allergies Home Medications Medication Instructions Recorded Confirmed Type albuterol sulfate [ProAir HFA] 2 mcg INHALATION Q4-6H PRN 01/22/21 05/02/21 History fluticasone propion-salmeterol 1 inh INHALATION PRN PRN 01/22/21 05/02/21 History [Advair Diskus] acetaminophen-codeine 1 tablet PO Q12H PRN #20 tablet 01/25/21 05/02/21 Rx ezetimibe 10 mg PO DAILY #30 tablet 01/25/21 05/02/21 Rx lisinopril 5 mg PO QAM 30 Days #30 tablet 01/25/21 05/02/21 Rx meclizine 25 mg PO TID PRN #30 tablet 01/25/21 05/02/21 Rx ropinirole 1 mg PO HS #30 tablet 01/25/21 05/02/21 Rx hydrocodone-acetaminophen 1 - 2 tablet PO Q6H PRN #20 tablet 03/23/21 05/02/21 Rx sodium,potassium,mag sulfates 17.5 See Rx Instructions PO .COMPLEX 05/01/21 Rx gram-3.13 gram-1.6 gram oral soln #354 ml All
--- NOTE | 2021-05-19 10:27 | WPDANESEPPF ---
Anes - Initial Pre Proc Eval Procedure: Operation Date: 05/19/21 11:00 Proposed Procedures p Screening Colonoscopy - Shimon Paul MD Date/Time: 05/19/21 10:27 Surgeon: Shimon Paul MD Pre Op Diagnosis: hx of colon polyps Patient Data Age: 75 Gender: F Height: 1.57 m Weight: 65.3 kg Last Vital Signs Temp 36.4 C 05/19/21 09:44 Pulse 68 05/19/21 09:44 Resp 18 05/19/21 09:44 BP 145/66 H 05/19/21 09:44 Pulse Ox 96 05/19/21 09:44 Allergies Allergy/AdvReac Type Severity Reaction Status Date / Time Iodinated Contrast Media Allergy Severe RASH, Verified 05/19/21 09:43 DIFFICULTY BREATHING iodine Allergy Severe RASH,DIFFICULTY Verified 05/19/21 09:43 BREATHING erythromycin base Allergy Intermediate RASH, Verified 05/19/21 09:43 SORES IN MOUTH magnesium hydroxide Allergy Intermediate Vomiting Verified 05/19/21 09:43 Sulfa (Sulfonamide Allergy Intermediate RASH,SORES Verified 05/19/21 09:43 Antibiotics) IN MOUTH cholestyramine Allergy Unknown RASH AND Verified 05/19/21 09:43 VOMITING Penicillins Allergy Unknown RASH,DIFFICULTY Verified 05/19/21 09:43 BREATHING sulfur dioxide Allergy Unknown Unknown Verified 05/19/21 09:43 Home Medications Medication Instructions Recorded Confirmed Type albuterol sulfate [ProAir HFA] 2 mcg INHALATION Q4-6H PRN 01/22/21 05/02/21 History fluticasone propion-salmeterol 1 inh INHALATION PRN PRN 01/22/21 05/02/21 History [Advair Diskus] acetaminophen-codeine 1 tablet PO Q12H PRN #20 tablet 01/25/21 05/02/21 Rx ezetimibe 10 mg PO DAILY #30 tablet 01/25/21 05/02/21 Rx lisinopril 5 mg PO QAM 30 Days #30 tablet 01/25/21 05/02/21 Rx meclizine 25 mg PO TID PRN #30 tablet 01/25/21 05/02/21 Rx ropinirole 1 mg PO HS #30 tablet 01/25/21 05/02/21 Rx hydrocodone-acetaminophen 1 - 2 tablet PO Q6H PRN #20 tablet 03/23/21 05/02/21 Rx sodium,potassium,mag sulfates 17.5 See Rx Instructions PO .COMPLEX 05/01/21 Rx gram-3.13 gram-1.6 gram oral soln #354 ml Patient hx anesthesia problems: none Family hx anesthesia problems: none PMFSH Past Medical History Medical History Aneurysm of infrarenal abdominal aorta Measuring at least 4.1 centimeters on imaging dated 01/22/2021. Cerebrovascular accident Chronic obstructive pulmonary disease Coronary artery disease Non STEMI in January 2014. Status post angioplasty and three-vessel CABG. Degenerative disc disease History of anemia History of peptic ulcer disease Hyperlipidemia Hypertension Restless leg syndrome Spinal stenosis Tobacco abuse Surgical History Surgical History History of Billroth II operation History of bladder suspension procedure History of cervical spinal surgery Micro anterior cervical decompression diskectomy and fusion at C5-C6, C6-C7. History of cholecystectomy History of colonoscopy with polypectomy History of hemorrhoidectomy History of partial colectomy History of three vessel coronary artery bypass (~01/2014) FOUNTAIN to LAD, vein graft to a diagonal, vein graft to PDA. Performed at [facility]. Stented coronary artery Family History Family History Father Suicide and self-inflicted injury Sibling COPD (chronic obstructive pulmonary disease) Heart disease Sibling Lung cancer Mother Alzheimer's dementia Social History Social History Social History: Surrogate decision maker: Anne-Marie Saldana, daughter. Code status: Full code. Smoking packs per day: 1 Smoking cigarettes per day: 20.0 Years smoked: 60 Smoking pack-years: 60.00 Smoking status: Current every day smoker Tobacco type: cigarettes Alcohol intake: never Substance use: never Substance use type: does not use Living arrangements: alone
[2021-05-19 11:30] VITALS: BP 133/67; PULSE 56; RESP 18; O2SAT 96
[2021-05-19 11:40] VITALS: BP 131/64; PULSE 55; RESP 23; O2SAT 95
[2021-05-19 11:50] VITALS: BP 145/67; PULSE 50; RESP 16; O2SAT 97
== END 2021-05-19 11:55 | disposition home or self-care (01) ==
PROVIDERS: PCP Internal Medicine Infectious Disease; Visit Provider Internal Medicine Gastroenterology
PROC: 0DJD8ZZ Inspection of Lower Intestinal Tract, Via Natural or Artificial Opening Endoscopic (ICD-10-PCS; CPT 45378; principal; 2021-05-19 11:00)
DX: Z12.11 Encounter for screening for malignant neoplasm of colon (principal); D12.2 Benign neoplasm of ascending colon; D12.5 Benign neoplasm of sigmoid colon; K63.5 Polyp of colon; K57.30 Diverticulosis of large intestine without perforation or abscess without bleeding; I71.4 Abdominal aortic aneurysm, without rupture; I25.10 Atherosclerotic heart disease of native coronary artery without angina pectoris; I25.2 Old myocardial infarction; I10 Essential (primary) hypertension; J44.9 Chronic obstructive pulmonary disease, unspecified; E78.5 Hyperlipidemia, unspecified; M48.00 Spinal stenosis, site unspecified; F17.210 Nicotine dependence, cigarettes, uncomplicated; G25.81 Restless legs syndrome; Z90.49 Acquired absence of other specified parts of digestive tract; Z86.73 Personal history of transient ischemic attack (TIA), and cerebral infarction without residual deficits; Z95.1 Presence of aortocoronary bypass graft; Z95.5 Presence of coronary angioplasty implant and graft
CPT/HCPCS: 45385; 88305; J2704; J7120

== ENCOUNTER 2021-06-13 13:14 | Emergency (ER) | payer MEDICARE, SELFPAY ==
[2021-06-13] VITALS (8 sets, daily range): BP systolic 120–157; BP diastolic 42–69; PULSE 43–60; RESP 17–21; TEMP 36.9; O2SAT 96–98
--- NOTE | ~2021-06-13 | NM_ITS ---
EXAMINATION: NM pulmonary perfusion DATE: 06/13/2021 19:49 INDICATION: Chest pain. Elevated d-dimer. TECHNIQUE: 5.5 mCi Tc-99m MAA by intravenous route. Scintigraphic images of the chest were obtained. COMPARISON: Chest radiograph dated 06/13/2021 FINDINGS: There is relatively homogeneous perfusion throughout the lungs. No discrete perfusion defects identi fied. IMPRESSION: 1. Low probability for pulmonary embolism. Reviewed, dictated and finalized at location A.
--- NOTE | ~2021-06-13 | XR_ITS ---
EXAMINATION: XR chest 2V DATE: 06/13/2021 13:34 INDICATION: Chest pain. TECHNIQUE: Frontal and lateral views of the chest were obtained. COMPARISON: Chest single view 01/22/2021, chest CT 02/06/2019 FINDINGS: The chest demonstrates clear lungs without pneumonia, pleural effusion, or pneumothorax. Th e heart size is normal. Median sternotomy wires and mediastinal surgical clips are seen, likely from prior coronary artery bypass grafting. There are surgical clips in the abdomen. There are changes of posterior fusion procedure in cervical spine. IMPRESSION: 1. No acute cardiopulmonary disease. Reviewed, dictated and finalized at location A.
--- NOTE | 2021-06-13 13:21 | ECG_ITS ---
Measurements Intervals [place] Rate: 53 P: 51 AL: 182 QRS: 20 QRSD: 154 T: 55 QT: 506 QTc: 475 Interpretive Statements SINUS BRADYCARDIA RIGHT BUNDLE BRANCH BLOCK BASELINE ARTIFACT- I, II, III, AVR, AVL, AVF ABNORMAL ECG Electronically Signed On 06-13-2021 13:33:22 CDT by Jhonathan Lloyd D.O.
--- NOTE | 2021-06-13 13:27 | ED.CHESTPAIN ---
HPI - Chest Pain General Chief Complaint: Chest Pain <Maria Teresa Allen MD - Last Filed: 06/13/21 19:23> Stated Complaint: CHEST PAIN <Maria Teresa Allen MD - Last Filed: 06/13/21 19:23> Time Seen by Provider: 06/13/21 13:27 <Maria Teresa Allen MD - Last Filed: 06/13/21 19:23> Source: patient, family and EMS <Maria Teresa Allen MD - Last Filed: 06/13/21 19:23> Mode of arrival: EMS <Maria Teresa Allen MD - Last Filed: 06/13/21 19:23> Limitations: no limitations <Maria Teresa Allen MD - Last Filed: 06/13/21 19:23> History of Present Illness HPI narrative: The patient is a 75-year-old female smoker with CAD, status post three-vessel CABG, ischemic cardiomyopathy EF of ~ 35%, hypertension, COPD, who presents for evaluation of chest pain. Patient reports onset of chest pain around 8:30 AM this morning, described as a sharp pressure over the center of her chest. No radiation to the jaw, neck, shoulder. Associated with dizziness, lightheadedness. Patient states that she is not currently having any chest pain. Denies current shortness of breath. Patient has been feeling unwell all week and, visited an urgent care on Saturday was diagnosed with double pneumonia and a urinary tract infection, placed on 2 antibiotics (doxycycline and cannot recall other one) and discharged home. <Maria Teresa Allen MD - Last Filed: 06/13/21 19:23> Related Data Home Medications: Home Medications Medication Instructions Recorded Confirmed albuterol sulfate [ProAir HFA] 2 mcg INHALATION Q4-6H PRN 01/22/21 05/02/21 fluticasone propion-salmeterol 1 inh INHALATION PRN PRN 01/22/21 05/02/21 [Advair Diskus] <Maria Teresa Allen MD - Last Filed: 06/13/21 19:23> Allergies/Adverse Reactions: Allergies Allergy/AdvReac Type Severity Reaction Status Date / Time Iodinated Contrast Media Allergy Severe RASH, Verified 06/13/21 13:22 DIFFICULTY BREATHING iodine Allergy Severe RASH,DIFFICULTY Verified 06/13/21 13:22 BREATHING erythromycin base Allergy Intermediate RASH, Verified 06/13/21 13:22 SORES IN MOUTH magnesium hydroxide Allergy Intermediate Vomiting Verified 06/13/21 13:22 Sulfa (Sulfonamide Allergy Intermediate RASH,SORES Verified 06/13/21 13:22 Antibiotics) IN MOUTH cholestyramine Allergy Unknown RASH AND Verified 06/13/21 13:22 VOMITING Penicillins Allergy Unknown RASH,DIFFICULTY Verified 06/13/21 13:22 BREATHING sulfur dioxide Allergy Unknown Unknown Verified 06/13/21 13:22 ibuprofen Allergy Difficulty Verified 06/13/21 13:22 Breathing <Maria Teresa Allen MD - Last Filed: 06/13/21 19:23> Review of Systems Review of Systems: CONSTITUTIONAL: Denies fever, chills, or sweats. EYES: Denies visual changes, redness, or discharge. ENT: Denies rhinorrhea, congestion, sore throat, or otalgia. CARDIOVASCULAR: Reports chest pain, now resolved, denies palpitations, denies edema RESPIRATORY: Reports chronic cough and shortness of breath GASTROINTESTINAL: Denies abdominal pain, nausea, vomiting, or diarrhea. GENITOURINARY: Denies dysuria or hematuria. SKIN: Denies rash or itching. MUSCULOSKELETAL: Denies back pain, joint pain, or myalgia. NEUROLOGIC: Denies headache, numbness, or weakness. <Maria Teresa Allen MD - Last Filed: 06/13/21 19:23> [facility] Past Medical History Medical History: Medical History Aneurysm of infrarenal abdominal aorta Measuring at least 4.1 centimeters on imaging dated 01/22/2021. Cerebrovascular accident Chronic obstructive pulmonary disease Coronary artery disease Non STEMI in January 2014. Status post angioplasty and three-vessel CABG. Degenerative disc disease History of anemia History of peptic ulcer disease Hyperlipidemia Hypertension Restless leg syndrome Spinal stenosis Tobacco abuse <Maria Teresa Allen MD - Last Filed: 06/13/21 19:23> Surgical History Surgical Hist
[2021-06-13 14:28] LABS: Basophils Percent Auto 0.2 % (0.2-1.2); Eosinophils Percent Auto 0.1 % (0-4.4); Hematocrit 42.5 % (37.0-47.0); Hemoglobin 13.4 g/dL (12.0-15.0); Immature Granulocyte Absolute 0.19 K/mm3 (0.00-0.031); Immature Granulocyte Percent A 1.4 % (0-0.5); Lymphocytes Absolute Auto 1.38 K/mm3 (0.9-3.2); Lymphocytes Percent Auto 10.2 % (18.3-44.2); Mean Corpuscular HGB Conc 31.5 g/dl (32-36); Mean Corpuscular Hemoglobin 29.4 pg (26-34); Mean Corpuscular Volume 93.2 fl (80-100); Mean Platelet Volume 9.5 fl (7.4-10.4); Monocytes Absolute Auto 0.6 K/mm3 (0.1-0.6); Monocytes Percent Auto 4.6 % (2.6-8.5); Neutrophils Absolute Auto 11.3 K/mm3 (1.3-6.7); Neutrophils Percent Auto 83.5 % (45.5-73.1); Platelet Count Result 406 k/mm3 (150-375); Red Blood Count 4.56 M/mm3 (4.2-5.4); Red Cell Distribution Width 14.3 % (11.5-14.5); White Blood Count 13.6 K/mm3 (4.5-10.0)
[2021-06-13 14:39] LABS: Anion Gap 11 mmol/L (8-16); Blood Urea Nitrogen 44 mg/dL (7-17); Calcium 10.3 mg/dL (8.4-10.2); Carbon Dioxide 22 mmol/L (22-30); Chloride 108 mmol/L (98-107); Estimated CRCL calculation 32 ml/min; Estimated Glomerular Filt Rate 44; Glucose 108 mg/dL (65-110); Potassium 4.1 mmol/L (3.4-5.0); Sodium 141 mmol/L (137-145)
[2021-06-13 14:41] LABS: INR 0.9; Prothrombin Time 12.3 Seconds (11.1-14.7)
[2021-06-13 14:42] LABS: Partial Thromboplastin Time 21.3 SECONDS (22.3-36.8)
[2021-06-13 14:51] LABS: Troponin I < 0.012 ng/mL (0.000-0.034)
[2021-06-13] MEDS: SODIUM CHLORIDE 0.9% IV 500 ML 999 ML IV CONT (15:10)
[2021-06-13 15:34] LABS: Add Urine Microscopic? YES; Appearance Urine Cloudy (Clear); Bilirubin Urine Negative (Negative); Blood Urine Negative (Negative); Color Urine Yellow (Yellow); Glucose Urine UA Negative (Negative); Ketones Urine Negative (Negative); Leukocyte Esterase Ur Negative LEU/UL (Negative); Mucus Urine Rare /lpf; Nitrate Urine Negative (Negative); Protein Urine Negative (Negative); RBC Urine 0-2 /hpf (0-2); Urobilinogen Urine Negative mg/dL (<2.0)
[2021-06-13 15:45] LABS: D Dimer 3.05 ug/mL (<0.48)
[2021-06-13 16:58] LABS: Troponin I < 0.012 ng/mL (0.000-0.034)
--- NOTE | 2021-06-13 17:57 | PC.NURSE ---
Spoke to Diamante in radiology, will call [facility] staff. Dr. Dunlap aware.
== END 2021-06-13 20:39 | disposition home or self-care (01) ==
PROVIDERS: Emergency Provider Emergency Medicine; PCP Internal Medicine Infectious Disease
DX: R07.89 Other chest pain (principal); R00.1 Bradycardia, unspecified; I25.10 Atherosclerotic heart disease of native coronary artery without angina pectoris; Z95.1 Presence of aortocoronary bypass graft; I10 Essential (primary) hypertension; J44.9 Chronic obstructive pulmonary disease, unspecified; E78.5 Hyperlipidemia, unspecified; F17.210 Nicotine dependence, cigarettes, uncomplicated
CPT/HCPCS: 36415; 71046; 78580; 80048; 81001; 84484; 85025; 85380; 85610; 85730; 93005; 99284; A9540; J7040

== ENCOUNTER 2021-10-17 08:03 | Outpatient (CLI) | payer MEDICARE, SELFPAY ==
--- NOTE | ~2021-10-17 | XR_ITS ---
EXAMINATION: XR forearm RT 2V DATE: 10/17/2021 08:40 INDICATION: Right forearm pain. TECHNIQUE: 2 views of right forearm were obtained. COMPARISON: None. FINDINGS: Bone alignment is normal. No fracture. There is mild osteoarthritis of the elbow joint and first carpometacarpal joint. No elbow joint effusion. IMPRESSION: 1. No fracture. 2. Mild polyarticular osteoarthritis. Reviewed, dictated and finalized at location A. 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
[2021-10-17 09:15] LABS: Cholesterol 168 mg/dL (0-200); HDL Direct 46 mg/dL; Triglycerides 133 mg/dL (<150)
[2021-10-17 09:26] LABS: LDL Cholesterol Direct 87 mg/dL
== END 2021-10-17 08:04 | disposition home or self-care (01) ==
LOC: ANHIMG 08:12
PROVIDERS: PCP Internal Medicine Infectious Disease; Visit Provider Internal Medicine Infectious Disease
DX: M19.031 Primary osteoarthritis, right wrist (principal); E78.9 Disorder of lipoprotein metabolism, unspecified
CPT/HCPCS: 36415; 73090; 80061

== ENCOUNTER 2022-04-16 09:41 | Outpatient (CLI) | payer MEDICARE, SELFPAY ==
--- NOTE | ~2022-04-16 | CT_ITS ---
EXAMINATION:CT lung screening DATE: 04/16/2022 10:02 INDICATION: Personal history of tobacco dependence. Current smoker with 40 pack year history. TECHNIQUE: Computed tomography (CT) of the chest was performed without intravenous contrast. Automate d exposure control and iterative reconstruction technique were employed. The dose-length product (DLP ) was 77.07 mGy-cm. COMPARISON: Chest CT 02/06/2019 FINDINGS: There is moderate emphysema. There is mild scarring at the lung apices. There is mild atele ctasis bilaterally. There is mild rounded atelectasis in left lower lobe abutting mild pleural thicke edgar. No pleural effusion. The heart size is normal. There are coronary artery calcifications. No per icardial effusion. There are changes of coronary artery bypass grafting. There are surgical clips shaheen und the gastroesophageal junction. There are surgical changes of the stomach. There are changes of ch olecystectomy. There are changes of posterior fusion procedure in cervical spine. There is moderate c ervical spondylosis. IMPRESSION: 1. Lung-RADS category 2: Benign appearance or behavior. Continue annual screening with noncontrast lo w-dose chest CT in 12 months. Reviewed, dictated and finalized at location B. IMPRESSION: 1. Lung-RADS category 2: Benign appearance or behavior. Continue annual screeni ng with noncontrast low-dose chest CT in 12 months.
== END 2022-04-16 09:42 | disposition home or self-care (01) ==
LOC: ANHIMG 09:45
PROVIDERS: PCP Internal Medicine Infectious Disease; Visit Provider Internal Medicine Infectious Disease
DX: Z12.2 Encounter for screening for malignant neoplasm of respiratory organs (principal); F17.210 Nicotine dependence, cigarettes, uncomplicated
CPT/HCPCS: 71271

== ENCOUNTER 2022-06-25 17:51 | Emergency (ER) | payer OTHER, MEDICARE, SELFPAY ==
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
[2022-06-25 17:53] VITALS: BP 152/73; PULSE 79; RESP 20; TEMP 36.2; O2SAT 96
[2022-06-25 19:05] VITALS: BP 142/75; PULSE 70; RESP 18; TEMP 36.8; O2SAT 94
--- NOTE | 2022-06-25 19:41 | PC.NURSE ---
Pt off floor to radiology.
[2022-06-25] MEDS: ONDANSETRON HCL ODT 4 MG TABLET PO (19:56)
[2022-06-25] MEDS: traMADol HCL (*CRX) 50 MG TABLET PO (19:57)
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
[2022-06-25] MEDS: methocarbamoL 500 MG TABLET PO (21:19)
[2022-06-25 21:20] VITALS: BP 141/70; PULSE 66; RESP 16; O2SAT 96
== END 2022-06-25 21:20 | disposition home or self-care (01) ==
PROVIDERS: Emergency Provider Nurse Practitioner Family; PCP Internal Medicine Infectious Disease
DX: S16.1XXA Strain of muscle, fascia and tendon at neck level, initial encounter (principal); S29.012A Strain of muscle and tendon of back wall of thorax, initial encounter; S39.012A Strain of muscle, fascia and tendon of lower back, initial encounter; F17.210 Nicotine dependence, cigarettes, uncomplicated; I10 Essential (primary) hypertension; E78.5 Hyperlipidemia, unspecified; G25.81 Restless legs syndrome; Z86.73 Personal history of transient ischemic attack (TIA), and cerebral infarction without residual deficits; V43.52XA Car driver injured in collision with other type car in traffic accident, initial encounter
CPT/HCPCS: 70450; 72125; 72128; 72131; 73502; 73610; 99284; A9270

== ENCOUNTER 2022-06-27 17:04 | Emergency (ER) | payer MEDICARE, SELFPAY ==
[2022-06-27] VITALS (12 sets, daily range): BP systolic 100–154; BP diastolic 49–72; PULSE 56–84; RESP 12–18; TEMP 36.9; O2SAT 96–99
--- NOTE | ~2022-06-27 | CT_ITS ---
EXAMINATION: CT brain wo con DATE: 06/27/2022 18:43 INDICATION: Severe headache, rule out intracranial hemorrhage . TECHNIQUE: Computed tomography (CT) of the head was performed without intravenous contrast. The mA wa s adjusted according to patient size. Iterative reconstruction technique was employed. The dose-lengt h product was 605.33 mGy-cm. COMPARISON: 06/25/2022 FINDINGS: No acute intracranial hemorrhage or extra-axial fluid collection. Stable prominent bifrontal CSF dens ity extra-axial fluid collections which may represent chronic subdural hematomas or cystic hygromas. No hydrocephalus, mass, or herniation. No acute ischemic infarct. Unremarkable dural venous sinus attenuation. No acute osseous abnormality. Coastal thickening/opacification in multiple ethmoid air cells partial opacification and aerated secr etions in the left sphenoid. Trace left and moderate right mastoid fluid. Remaining aerated spaces ar e clear. Mild atrophy and chronic white matter change. Atherosclerotic intracranial calcifications. Bilateral lens replacements. IMPRESSION: No acute intracranial process. Sinus findings may reflect sinusitis in the appropriate clinical bradley xt. Reviewed, dictated and finalized at location K. IMPRESSION: No acute intracranial process. Sinus findings may reflect sinusitis in the appr opriate clinical context.
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
[2022-06-27] MEDS: PROCHLORPERAZINE EDISYLATE 10 MG/2 ML VIAL IV PUSH (18:57)
[2022-06-27] MEDS: SODIUM CHLORIDE 0.9% IV 500 ML 999 ML IV CONT (18:57)
[2022-06-27] MEDS: oxyCODONE/ACETAMINOPHEN (*CRX) 5-325 MG TABLET 1 TABLET PO (18:58)
== END 2022-06-27 20:42 | disposition home or self-care (01) ==
PROVIDERS: Emergency Provider Emergency Medicine; PCP Internal Medicine Infectious Disease
DX: S06.0X0A Concussion without loss of consciousness, initial encounter (principal); R11.0 Nausea; J44.9 Chronic obstructive pulmonary disease, unspecified; I25.10 Atherosclerotic heart disease of native coronary artery without angina pectoris; I25.2 Old myocardial infarction; E78.5 Hyperlipidemia, unspecified; I10 Essential (primary) hypertension; G25.81 Restless legs syndrome; Z86.73 Personal history of transient ischemic attack (TIA), and cerebral infarction without residual deficits; Z86.010 Personal history of colon polyps; Z86.2 Personal history of diseases of the blood and blood-forming organs and certain disorders involving the immune mechanism; Z90.49 Acquired absence of other specified parts of digestive tract; Z95.1 Presence of aortocoronary bypass graft; Z95.5 Presence of coronary angioplasty implant and graft; V49.9XXA Car occupant (driver) (passenger) injured in unspecified traffic accident, initial encounter
CPT/HCPCS: 70450; 96361; 96374; 99284; A9270; J0780; J7040

== ENCOUNTER 2022-07-15 21:02 | Inpatient (IN) | payer MEDICARE, MEDICAID, SELFPAY ==
--- NOTE | ~2022-07-15 | XR_ITS ---
EXAMINATION: XR chest 2V DATE: 07/18/2022 09:36 INDICATION: Hypoxia. TECHNIQUE: Frontal and lateral views of the chest were obtained. COMPARISON: Chest 2 views 07/15/2022, chest CT 07/15/2022 FINDINGS: There are lucencies in the lungs, consistent with emphysema. There are small pleural effusi ons. There are airspace opacities at the lung bases. No pneumothorax. The heart size is normal. Media n sternotomy wires are noted. There is electronic implant in left anterior chest wall. There are surg ical clips in the abdomen. There are changes of posterior fusion procedure in cervical spine. IMPRESSION: 1. Emphysema. 2. Small pleural effusions. 3. Worsened airspace opacities at the lung bases, consistent with atelectasis versus pneumonia. Reviewed, dictated and finalized at location A. IMPRESSION: 1. Emphysema. 2. Small pleural effusions. 3. Worsened airspace opacities at the lung bases, consistent with atelectasis v ersus pneumonia.
--- NOTE | ~2022-07-15 | XR_ITS ---
EXAMINATION: XR chest 2V Exam Date/Time: 07/15/2022 21:20 CDT HISTORY: midsternal chest pain,chills, body aches Comparison: 06/13/2021. RESULT: Lines, tubes, and devices: Intact sternotomy wires. Incompletely visualized cervical hardware. Loop recorder. Mediastinal vascular clips. Upper abdominal surgical clips. Lungs and pleura: Diffuse reticular pattern. Linear opacities in the left midlung likely represent a rtifact. Cardiomediastinal silhouette: Stable. Other: No acute osseous or upper abdominal finding. IMPRESSION: Pulmonary opacities likely representing mild interstitial edema and/or senescent lung changes. Reviewed, dictated and finalized at location K. IMPRESSION: Pulmonary opacities likely representing mild interstitial edema and/or senescen t lung changes.
--- NOTE | ~2022-07-15 | MR_ITS ---
EXAMINATION: MR MRCP wo/w con/w 3D wo ind DATE: 07/16/2022 17:46 INDICATION: Elevated liver enzymes and abdominal pain TECHNIQUE: Magnetic resonance imaging (MRI) of the abdomen was performed without and with 12 mL Multi kenia intravenous contrast. Sequences included coronal T2-weighted SS-FSE, coronal T2-weighted FS SS- FSE, coronal T2-weighted FS FIESTA, axial T2-weighted FS FIESTA, axial T2-weighted FIESTA, sagittal T 2-weighted SS-FSE, axial T1-weighted dual-echo FSPGR, axial T2-weighted SS-FSE, axial T1-weighted LAV A, axial T2-weighted STIR FSE. Thick-slab T2-weighted FRFSE-XL images were obtained for magnetic reso nance cholangiopancreatography (MRCP). Rotating maximum intensity projection 3-D reconstructions of t he volumetric data were created by the technologist. Postcontrast sequences included a time course of axial T1-weighted LAVA. COMPARISON: CT dated 07/15/2022 and ultrasound dated 07/16/2022 FINDINGS: ABDOMEN MRI: Evaluation moderately limited by motion artifact particularly on the postcontrast images. Heart size is normal. No pericardial effusion. Magnetic field artifact anterior to the heart likely related to p rior median sternotomy. Additional postoperative change of prior gastric bypass. Small bilateral post erior layering pleural effusions. Mild linear discoid atelectasis at the bilateral lower lobes. Mild to moderate intrahepatic biliary ductal dilation. Gallbladder is nonvisualized and likely surgically absent. Spleen, bilateral adrenal glands and kidneys are normal. Mild dilation of the main pancreatic duct measuring approximately 4 mm in diameter at the body of the pancreas. No interstitial or peripa ncreatic fluid signal at the pancreas to suggest acute pancreatitis. 5.0 x 4.6 cm fusiform infrarenal abdominal aortic aneurysm. No dilated bowel to suggest obstruction. No pathologically enlarged abdom inal lymphadenopathy. Mild thoracolumbar spondylosis. Normal marrow signal throughout. ABDOMEN MRCP: In addition to the mild to moderate intrahepatic biliary ductal dilation there is moderate dilation o f the common bile duct which measures up to 1.6 cm in maximal diameter. There is an obstructing 1.9 c m long, 9 mm diameter gallstone in the distal common bile duct. There is some posterior layering slud ge in the more proximal common bile duct. As previously noted there is also dilation of the main panc reatic duct which measures up to 4.5 mm in diameter at the head of the pancreas, 4 mm at the body of the pancreas tapering in the tail. IMPRESSION: 1. Large obstructing gallstone in the distal common bile duct with mild to moderate intrahepatic bili kacey ductal dilation. Consider ERCP for stone extraction. 2. There is also mild dilation of the main pancreatic duct but no interstitial or peripancreatic nida a to suggest acute pancreatitis. Correlate with amylase and lipase levels. 3. Very small bilateral posterior layering pleural effusions with mild discoid atelectasis in bilater al lower lobes. 4. 5 cm infrarenal abdominal aortic aneurysm. Reviewed, dictated and finalized at location A. IMPRESSION: 1. Large obstructing gallstone in the distal common bile duct with mild to mode rate intrahepatic biliary ductal dilation. Consider ERCP for stone extraction. 2. There is also mild dilation of the main pancreatic duct but no interstitial or peripancreatic edema to suggest acute pancreatitis. Correlate with amylase a nd lipase levels. 3. Very small bilateral posterior layering pleural effusions with mild discoid atelectasis in bilateral lower lobes. 4. 5 cm infrarenal abdominal aortic aneurysm.
--- NOTE | ~2022-07-15 | US_ITS ---
EXAMINATION: US abdomen limited DATE: 07/16/2022 09:12 INDICATION: Elevated liver enzymes TECHNIQUE: Multiple grayscale and Doppler ultrasound images of the abdomen were obtained. COMPARISON: CTs from yesterday and 04/16/2022 FINDINGS: Bowel gas obscures visualization of the pancreas. The visualized portions of the pancreas a re unremarkable. The liver is normal with normal echogenicity and echotexture. No surface nodularity. Normal hepatopetal flow in the main portal vein. The gallbladder is surgically absent. The dilated c ommon bile duct measures 16 mm which is increased from prior CT examinations. IMPRESSION: 1. Increasing dilatation of the common bile duct of unclear etiology although distal duct is not well evaluated on this examination. Further evaluation with MRCP is recommended. Reviewed, dictated and finalized at location B. IMPRESSION: 1. Increasing dilatation of the common bile duct of unclear etiology although d istal duct is not well evaluated on this examination. Further evaluation with M ELECTROMATIC TYPIST is recommended.
--- NOTE | ~2022-07-15 | CT_ITS ---
EXAMINATION: CT chest abdomen pelvis wo con DATE: 07/15/2022 21:50 INDICATION: Chest wall pain, upper abdominal pain and back pain. TECHNIQUE: Computed tomography (CT) of the chest, abdomen, and pelvis was performed without intraveno us contrast. Automated exposure control and iterative reconstruction technique were employed. The dos e-length product was 872.68 mGy-cm. COMPARISON: Chest CT dated 04/16/[address] abdomen and pelvis dated 11/12/2018 FINDINGS: CHEST CT: Moderate emphysema. There are some peripheral atelectasis/scarring with associated architectural dist ortion at the posterior left lower lobe. No pneumonia, pulmonary edema, pleural effusion or pneumotho rax. Heart size is normal. Atherosclerotic coronary artery calcifications. Median sternotomy wires an d changes of prior coronary artery bypass grafting. Fatty atrophy along the ventricular septum consis tent with sequela of chronic infarct. No pericardial effusion. No pathologically enlarged thoracic ly mphadenopathy. Mild thoracic dextrocurvature with mild spondylosis. ABDOMEN/PELVIS CT: Dilated common bile duct and associated mild to moderate intrahepatic biliary ductal dilation. This c ould be related to prior cholecystectomy with surgical clips at the gallbladder fossa. Additional pos toperative change of prior gastric bypass procedure. Splenic calcified calcifications consistent with old granulomatous disease. Pancreas and bilateral adrenal glands are normal. Atherosclerotic calcifi c a cyst at the bilateral renal julien. No hydronephrosis. Retained lobulations of the kidneys. D iffuse form infrarenal abdominal aortic aneurysm measuring up to 5.1 x 4.5 cm maximal diameter. There is mild colonic diverticulosis with a sigmoid predominance. There is no adjacent inflammatory loredo e to suggest diverticulitis. No bowel obstruction. The uterus is not identified and has likely been s urgically resected. Unchanged height attenuation material in the soft tissues about the base of the n ormal-appearing bladder suggesting periurethral injected material for treatment of incontinence. No f ree intraperitoneal gas or fluid. No pathologically enlarged abdominal or pelvic lymphadenopathy. Mil d lumbar spondylosis. IMPRESSION: 1. Moderate emphysema. No acute cardiopulmonary disease. 2. Dilated common bile duct and intrahepatic biliary ductal dilation which may be related to prior ch olecystectomy but would correlate with liver function tests. If there is clinical concern for biliary obstruction would consider MRCP for further evaluation. 3. 5.1 cm infrarenal abdominal aortic aneurysm. Reviewed, dictated and finalized at location A. IMPRESSION: 1. Moderate emphysema. No acute cardiopulmonary disease. 2. Dilated common bile duct and intrahepatic biliary ductal dilation which may be related to prior cholecystectomy but would correlate with liver function martha ts. If there is clinical concern for biliary obstruction would consider MRCP fo r further evaluation. 3. 5.1 cm infrarenal abdominal aortic aneurysm.
--- NOTE | 2022-07-15 21:03 | ECG_ITS ---
Measurements Intervals [place] Rate: 102 P: 93 MI: 185 QRS: 80 QRSD: 130 T: 72 QT: 374 QTc: 488 Interpretive Statements SINUS TACHYCARDIA RIGHT BUNDLE BRANCH BLOCK BASELINE ARTIFACT- I, II, III, AVR, AVL, AVF, V1-V6 ABNORMAL ECG COMPARED TO ECG 06/13/2021 13:24:53 SINUS TACHYCARDIA NOW PRESENT Electronically Signed On 07-16-2022 7:08:22 CDT by Jhonathan Lloyd D.O.
[2022-07-15 21:04] VITALS: BP 151/66; PULSE 104; RESP 30; TEMP 37.1; O2SAT 95
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
[2022-07-15] MEDS: NITROGLYCERIN SL 0.4 MG TABLET SUBLINGUAL (21:40)
[2022-07-15] MEDS: MORPHINE SULFATE (*CRX) 2 MG/ML INJ IV PUSH (21:40)
[2022-07-15 21:54] VITALS: BP 132/58; PULSE 111; RESP 36; O2SAT 95
[2022-07-15 21:58] LABS: Basophils Percent Auto 0.3 % (0.2-1.2); Eosinophils Percent Auto 0.1 % (0-4.4); Hematocrit 40.8 % (37.0-47.0); Hemoglobin 13.2 g/dL (12.0-15.0); Immature Granulocyte Absolute 0.03 K/mm3 (0.00-0.031); Immature Granulocyte Percent A 0.4 % (0-0.5); Lymphocytes Absolute Auto 0.29 K/mm3 (0.9-3.2); Lymphocytes Percent Auto 3.9 % (18.3-44.2); Mean Corpuscular HGB Conc 32.4 g/dl (32-36); Mean Corpuscular Hemoglobin 29.7 pg (26-34); Mean Corpuscular Volume 91.7 fl (80-100); Monocytes Absolute Auto 0.1 K/mm3 (0.1-0.6); Monocytes Percent Auto 1.1 % (2.6-8.5); Neutrophils Absolute Auto 7.1 K/mm3 (1.3-6.7); Neutrophils Percent Auto 94.2 % (45.5-73.1); Platelet Count Result 250 k/mm3 (150-375); Red Blood Count 4.45 M/mm3 (4.2-5.4); Red Cell Distribution Width 14.8 % (11.5-14.5); White Blood Count 7.5 K/mm3 (4.5-10.0)
--- NOTE | 2022-07-15 22:03 | ECG_ITS ---
Measurements Intervals [place] Rate: 97 P: 80 LA: 188 QRS: 70 QRSD: 132 T: 89 QT: 391 QTc: 498 Interpretive Statements SINUS RHYTHM RIGHT BUNDLE BRANCH BLOCK BASELINE ARTIFACT- I, II, III, AVR, AVL, AVF ABNORMAL ECG COMPARED TO ECG 07/15/2022 21:07:44 HEART RATE HAS DECREASED Electronically Signed On 07-16-2022 7:10:48 CDT by Jhonathan Lloyd D.O.
[2022-07-15 22:09] LABS: INR 1.1; Partial Thromboplastin Time 25.4 SECONDS (22.3-36.8); Prothrombin Time 13.5 Seconds (11.1-14.7)
[2022-07-15 22:17] LABS: Alanine Aminotransferase 493 U/L (6-35); Albumin Level 4.1 g/dL (3.5-5.1); Alkaline Phosphatase 828 U/L (38-126); Anion Gap 10 mmol/L (8-16); Bilirubin,Total 2.1 mg/dL (0.2-1.3); Blood Urea Nitrogen 22 mg/dL (7-17); Calcium 9.7 mg/dL (8.4-10.2); Carbon Dioxide 23 mmol/L (22-30); Chloride 107 mmol/L (98-107); Estimated CRCL calculation 37 ml/min; Estimated Glomerular Filt Rate > 60; Glucose 182 mg/dL (65-110); Lipase 91 U/L (23-300); Potassium 4.1 mmol/L (3.4-5.0); Sodium 140 mmol/L (137-145)
[2022-07-15 22:21] LABS: Troponin I < 0.012 ng/mL (0.000-0.034)
[2022-07-15 22:32] VITALS: BP 113/54; PULSE 105; RESP 22; TEMP 39.7; O2SAT 97
[2022-07-15 22:40] LABS: Aspartate Amino Transferase 1206 U/L (14-36)
[2022-07-15 22:44] LABS: Appearance Urine Turbid (Clear); Bilirubin Urine 1+ (Negative); Blood Urine 1+ (Negative); Color Urine Amber (Yellow); Glucose Urine UA Negative (Negative); Ketones Urine Negative (Negative); Leukocyte Esterase Ur Negative LEU/UL (Negative); Nitrate Urine Positive (Negative); Protein Urine 1+ mg/dL (Negative); Urobilinogen Urine >=8.0 mg/dL (<2.0)
[2022-07-15 22:48] LABS: Bacteria Urine Trace /hpf; Mucus Urine Rare /lpf; Squamous Epithelial Cell Urine Few /hpf (Few)
[2022-07-15 22:53] LABS: Add Urine Microscopic? YES
--- NOTE | 2022-07-15 23:24 | PC.NURSE ---
Report received from LANIE Platt. Assumed care of patient at this time.
[2022-07-15 23:45] LABS: SARS-CoV-2 RNA PCR Negative
[2022-07-15] MEDS: SODIUM CHLORIDE 0.9% IV 1,000 ML 999 ML IV CONT (23:52)
[2022-07-16] VITALS (12 sets, daily range): BP systolic 92–120; BP diastolic 42–51; PULSE 61–84; RESP 17–22; TEMP 36–38; O2SAT 90–95; BMI 24.3
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
--- NOTE | 2022-07-16 00:55 | ADMGEN ---
This patient, Giulia Retana, was admitted to 3 [facility] Surg Room 303-01. Patient/family oriented to hospital policies and general routines including ID bracelet, bed and alarms, visiting hours, pain management, procedures, bathroom and other care routines, personal items, smoking policy, room service/diet, and visiting hours. Information on how to activate the Rapid Response Team has been discussed. Patient/Family are encouraged to report perceived risks to care and to ask questions if they do not understand what they are told or what they should do.
[2022-07-16] MEDS: MORPHINE SULFATE (*CRX) 4 MG/ML INJ 2 MG IV PUSH ×5 (01:39→20:14)
[2022-07-16] MEDS: AZTREONAM 2 GM in SODIUM CHLORIDE 0.9% IV 100 ML 200 ML IVPB ×4 (01:39→23:47)
[2022-07-16] MEDS: SODIUM CHLORIDE 0.9% IV 1,000 ML 75 ML IV CONT ×2 (01:40→23:46)
[2022-07-16 02:11] LABS: Troponin I 0.015 ng/mL (0.000-0.034)
[2022-07-16 03:44] LABS: Troponin I 0.015 ng/mL (0.000-0.034)
[2022-07-16] MEDS: FLUTICASONE/SALMETEROL 115-21 MCG INHALER 1 PUFF 2 PUFF INHALATION ×2 (07:54→20:09)
--- NOTE | 2022-07-16 08:50 | PC.NURSE ---
Patient off of unit to US
[2022-07-16 09:14] LABS: Alanine Aminotransferase 562 U/L (6-35); Alkaline Phosphatase 689 U/L (38-126); Anion Gap 10 mmol/L (8-16); Bilirubin,Total 2.1 mg/dL (0.2-1.3); Blood Urea Nitrogen 25 mg/dL (7-17); Carbon Dioxide 19 mmol/L (22-30); Chloride 109 mmol/L (98-107); Estimated CRCL calculation 31 ml/min; Estimated Glomerular Filt Rate 48; Glucose 166 mg/dL (65-110); Potassium 3.1 mmol/L (3.4-5.0); Sodium 138 mmol/L (137-145)
[2022-07-16 09:33] LABS: Basophils Absolute Auto 0.1 K/mm3 (0.0-0.1); Basophils Percent Auto 0.5 % (0.2-1.2); Eosinophils Percent Auto 0.2 % (0-4.4); Hematocrit 34.1 % (37.0-47.0); Hemoglobin 11.1 g/dL (12.0-15.0); Immature Granulocyte Absolute 0.06 K/mm3 (0.00-0.031); Immature Granulocyte Percent A 0.4 % (0-0.5); Lymphocytes Absolute Auto 0.89 K/mm3 (0.9-3.2); Lymphocytes Percent Auto 5.7 % (18.3-44.2); Mean Corpuscular HGB Conc 32.6 g/dl (32-36); Mean Corpuscular Hemoglobin 29.9 pg (26-34); Mean Corpuscular Volume 91.9 fl (80-100); Mean Platelet Volume 9.6 fl (7.4-10.4); Monocytes Absolute Auto 0.6 K/mm3 (0.1-0.6); Monocytes Percent Auto 4.1 % (2.6-8.5); Neutrophils Absolute Auto 13.9 K/mm3 (1.3-6.7); Neutrophils Percent Auto 89.1 % (45.5-73.1); Platelet Count Result 219 k/mm3 (150-375); Red Blood Count 3.71 M/mm3 (4.2-5.4); White Blood Count 15.6 K/mm3 (4.5-10.0)
[2022-07-16 10:00] LABS: Aspartate Amino Transferase 1027 U/L (14-36)
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
--- NOTE | 2022-07-16 15:57 | WPDGICN ---
Assessment and Plan Assessment and plan (1) Abnormal transaminases: Code(s): R74.8 - Abnormal levels of other serum enzymes Status: Acute Assessment and Plan: most likely biliary related, she is post cholecystectomy CT scan reviewed and dilated bile duct, MRCP was ordered to assess biliary tract and rule out obstruction/stone. The main problem is that she had previous gastric surgery, seems Billroth II for which she will need to be transferred to tertiary hospital- given abnormal anatomy will be very challenging attempt ERCP here. continue trend lft's on iv antibiotics (2) Upper abdominal pain: Code(s): R10.10 - Upper abdominal pain, unspecified Status: Acute Assessment and Plan: medical management (3) Cholangitis: Code(s): K83.09 - Other cholangitis Status: Acute Assessment and Plan: probably diagnosis given presentation, chills, elevated wbc with high transaminases on iv antibiotics (4) History of Billroth II operation: Code(s): Z98.0 - Intestinal bypass and anastomosis status Status: Acute Assessment and Plan: pending MRCP but suggest to transfer to another hospital in case she needs ercp (5) Coronary artery disease: Code(s): I25.10 - Atherosclerotic heart disease of [place] coronary artery without angina pectoris Status: Acute (6) Aneurysm of infrarenal abdominal aorta: Code(s): I71.4 - Abdominal aortic aneurysm, without rupture Status: Chronic GI Consult Note Consult date/time: 07/16/22 15:57 Reason for consult: elevated liver enzymes, upper abdominal pain HPI: Giulia Retana is a 76 year old female with past medical history significant for stroke, AAA, chronic obstructive pulmonary disease, coronary disease, hypertension, restless leg syndrome, spinal stenosis, tobacco dependence and also cholecystectomy and remote gastric surgery (based on records it seems she had Billroth type 2 years ago because ulcer). She came here with progressive upper abdominal pain that got severe, she thought that could be heart related, also had chills and generalized malaise with nausea.?Blood work showed bilirubin of 2.1, AST 1200, ALT 498, alk phos 800, wbc 15, normal lipase. CT scan reviewed, moderate emphysema. No acute cardiopulmonary disease, dilated common bile duct and intrahepatic biliary ductal dilation which may be related to prior cholecystectomy but would correlate with liver function tests. If there is clinical concern for biliary obstruction would consider MRCP for further evaluation, 5.1 cm infrarenal abdominal aortic aneurysm. Review of Systems Review of Systems: epigastric pain Constitutional: Constitutional: Reports chills, Reports fever(s) and Reports malaise Eyes: Eyes: Denies change in vision ENT: Denies dysphagia and Denies odynophagia Cardiovascular: Cardiovascular: Denies chest pain, Denies syncope, Denies irregular heart rhythm, Denies lightheadedness and Denies palpitations Respiratory: Respiratory: Denies chest congestion, Denies excessive phlegm production, Denies pain on inspiration and Reports dyspnea Gastrointestinal: Gastrointestinal: Reports abdominal pain, Reports dyspepsia, Reports heartburn, Denies diarrhea, Denies nausea and Denies vomiting Genitourinary: Genitourinary: Denies dysuria Musculoskeletal: Musculoskeletal: Denies joint swelling and Reports neck pain Integumentary/Breasts: Skin/Breast: Denies rash Neurologic: Denies vertigo, Denies dizziness, Denies focal weakness and Denies Sensory deficit (Neuro) Psychiatric: Psychiatric: Reports no additional psychiatric complaints and Reports as per HPI Endocrine: Endocrine: Denies cold intolerance, Denies flushing, Denies heat intolerance, Denies polyphagia, Denies polydipsia and Denies palpitations Hematologic/Lymphatic: Hematologic/Lymphatic: Reports no additional hematologic/lymphatic complaints and Reports as per HPI Allergic/Immunologic: A
[2022-07-16] MEDS: rOPINIRole HCL 1 MG TABLET PO (20:14)
[2022-07-17] VITALS (11 sets, daily range): BP systolic 131–149; BP diastolic 57–60; PULSE 63–77; RESP 16–21; TEMP 35.6–36.4; O2SAT 91–93
[2022-07-17] MEDS: MORPHINE SULFATE (*CRX) 4 MG/ML INJ 2 MG IV PUSH ×4 (02:05→23:31)
[2022-07-17 06:57] LABS: Basophils Percent Auto 0.5 % (0.2-1.2); Eosinophils Absolute Auto 0.2 K/mm3 (0-0.3); Eosinophils Percent Auto 2.4 % (0-4.4); Hematocrit 36.2 % (37.0-47.0); Hemoglobin 11.6 g/dL (12.0-15.0); Immature Granulocyte Absolute 0.04 K/mm3 (0.00-0.031); Immature Granulocyte Percent A 0.5 % (0-0.5); Lymphocytes Absolute Auto 0.98 K/mm3 (0.9-3.2); Lymphocytes Percent Auto 11.1 % (18.3-44.2); Mean Corpuscular Hemoglobin 29.6 pg (26-34); Mean Corpuscular Volume 92.3 fl (80-100); Monocytes Absolute Auto 0.5 K/mm3 (0.1-0.6); Monocytes Percent Auto 5.6 % (2.6-8.5); Neutrophils Percent Auto 79.9 % (45.5-73.1); Platelet Count Result 220 k/mm3 (150-375); Red Blood Count 3.92 M/mm3 (4.2-5.4); Red Cell Distribution Width 15.3 % (11.5-14.5); White Blood Count 8.8 K/mm3 (4.5-10.0)
[2022-07-17 07:04] LABS: Alanine Aminotransferase 342 U/L (6-35); Albumin Level 3.4 g/dL (3.5-5.1); Alkaline Phosphatase 640 U/L (38-126); Anion Gap 13 mmol/L (8-16); Aspartate Amino Transferase 205 U/L (14-36); Bilirubin,Total 3.2 mg/dL (0.2-1.3); Blood Urea Nitrogen 17 mg/dL (7-17); Calcium 8.7 mg/dL (8.4-10.2); Carbon Dioxide 19 mmol/L (22-30); Chloride 109 mmol/L (98-107); Estimated CRCL calculation 41 ml/min; Estimated Glomerular Filt Rate > 60; Glucose 105 mg/dL (65-110); Magnesium 2.1 mg/dL (1.6-2.3); Potassium 3.6 mmol/L (3.4-5.0); Sodium 141 mmol/L (137-145)
[2022-07-17] MEDS: FLUTICASONE/SALMETEROL 115-21 MCG INHALER 1 PUFF 2 PUFF INHALATION ×2 (07:53→19:51)
[2022-07-17] MEDS: AZTREONAM 2 GM in SODIUM CHLORIDE 0.9% IV 100 ML 200 ML IVPB ×2 (08:46→17:01)
--- NOTE | 2022-07-17 10:30 | P.PNIM_ITS ---
Progress Note: A&P Assessment and Plan (1) Bacteremia: Code(s): R78.81 - Bacteremia Status: Acute Assessment and Plan: * Blood culture gram negative bacilli in both bottles * Currently on aztreonam will continue for now * ID pharm to help * Awaiting sensitivities * Probably comes from the urine * Cultures still pending (2) Acute UTI: Code(s): N39.0 - Urinary tract infection, site not specified Status: Acute Assessment and Plan: * UA indicated infection * started on Rocephin * await cultures (3) Biliary obstruction: Code(s): K83.1 - Obstruction of bile duct Status: Acute Assessment and Plan: * MRCP indicates large stone in the bile duct * ERCP was indicated * Will need transfer since she has had a previous surgery * Continue to trend labs (4) Abnormal transaminases: Code(s): R74.8 - Abnormal levels of other serum enzymes Status: Acute Assessment and Plan: * will trend transaminases * right upper quadrant ultrasound showed increasing dilatation of the common bile duct, of unclear etiology * GI consult thank you for your help * MRCP found large obstructing stone * Will precede to try to transfer to another facility for ERCP * AST/ALT 205/342, alk phos 640 (5) Coronary artery disease: Code(s): I25.10 - Atherosclerotic heart disease of [place] coronary artery without angina pectoris Status: Acute Assessment and Plan: resume home meds (6) Chronic obstructive pulmonary disease: Code(s): J44.9 - Chronic obstructive pulmonary disease, unspecified Status: Acute Assessment and Plan: resume home meds breathing treatments as needed (7) Aneurysm of infrarenal abdominal aorta: Code(s): I71.4 - Abdominal aortic aneurysm, without rupture Status: Chronic Assessment and Plan: follow-up in outpatient setting Time Spent With Patient Time with patient: Greater than 35 minutes Subjective Date/time seen: 07/17/22 1030 Interval history: 07/17/22 1030 Patient was lying in bed. She was tell me that she had some work done at [facility] for her abdomen. She stated that she does not really want to go to [place] however she will she has 2. She states her pain is intermittent at this time. She is tolerating fluids okay. She denies any chest pain however states she is always short of breath. She also stated that she has abdominal pain that is in the middle and on the left lower side. Liver enzymes are trending downward and currently are AST [address] Cantrell accepting biliary physician at [facility]. She could be either go to [facility] or [facility]. They are stating that it could be greater than 48 hours for a bed. 07/16/22 1045 Patient appears drowsy. She complained stating that she was having pain in her head, neck, and arm. She is also complaining of abdominal pain. She denies chest pain, nausea, vomiting, diarrhea, constipation weakness, or fatigue. She did state that she is having dry mouth and currently has a pain of 8/10. Abd ultrasound was negative for acute abnormalities. 07/16/22? 00:21 ?This is a 76-year-old female with past medical history significant for stroke, chronic obstructive pulmonary disease, coronary disease, degenerative disc disease, dyslipidemia, hypertension, restless leg syndrome,
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
[2022-07-17] MEDS: ONDANSETRON INJ 4 MG/2 ML VIAL IV PUSH ×2 (12:21→23:31)
--- NOTE | 2022-07-17 12:55 | WPDGIPROGNO ---
Progress Note: A&P Assessment and Plan (1) Cholangitis due to bile duct calculus with obstruction: Code(s): K80.31 - Calculus of bile duct with cholangitis, unspecified, with obstruction Status: Acute Assessment and Plan: she has cholangitis based on MRCP findings and clinical presentation with elevated liver enzymes and now bacteremia unfortunately we can not do ERCP here because she had previous gastric bypass. She has to be transferred to tertiary hospital, this was discussed with her daughter at bedside and also hospitalist. Patient is being treated medically here with antibiotics and supportive care but can not treat biliary obstruction otherwise (2) Bacteremia: Code(s): R78.81 - Bacteremia Status: Acute Assessment and Plan: on antibiotics she needs ERCP at another facility because previous gastric surgery (3) Upper abdominal pain: Code(s): R10.10 - Upper abdominal pain, unspecified Status: Acute Assessment and Plan: persistent (4) Abnormal transaminases: Code(s): R74.8 - Abnormal levels of other serum enzymes Status: Acute Assessment and Plan: transaminases better but bili going up- this is due to large stone in bile duct (MRCP was reviewed) (5) History of gastric bypass: Code(s): Z98.84 - Bariatric surgery status Status: Acute (6) Nausea and vomiting in adult: Code(s): R11.2 - Nausea with vomiting, unspecified Status: Acute Assessment and Plan: ongoing antiemetics npo for now iv fluids Subjective Date/time seen: 07/17/22 12:55 Interval history: she is sick, just had emesis and is feeling lightheaded, still with abdominal pain and blood cultures + GNR Review of Systems Review of Systems: All systems reviewed & are unremarkable except as noted in HPI and below Exam Const: Other: acutely ill, nauseous HENMT: General nose exam: Normal nares present Eyes: General: appearance normal, both eyes and all related structures Neck: Neck: supple Resp: Auscultation: clear to auscultation bilaterally Cardio: Rate: regular rate GI: GI Palp: Yes Tenderness to palpation present (GI) and Yes Guarding due to palpation present (GI) (+ RUQ guarding and lime [place]n tender) Other: hypoactive bowel sounds Skin: General skin exam: normal color Neuro: Speech: normal speech Extrem: General: normal to inspection Objective Data Vital Signs Vital Signs: Vital Signs - 24 hr 07/16/22 14:00 07/16/22 16:00 07/16/22 20:13 Temperature 97.4 F L Pulse Rate 76 79 64 Respiratory Rate 18 Blood Pressure 120/51 L Pulse Oximetry 90 91 Oxygen Delivery Room Air 07/16/22 22:00 07/17/22 00:00 07/17/22 04:00 Temperature 97.3 F L Pulse Rate 73 72 69 Respiratory Rate 20 Blood Pressure 115/51 L Pulse Oximetry 90 Oxygen Delivery 07/17/22 06:00 07/17/22 07:53 07/17/22 08:00 Temperature 97.2 F L Pulse Rate 65 70 Respiratory Rate 20 Blood Pressure 131/60 Pulse Oximetry 92 93 Oxygen Delivery Room Air Room Air 07/17/22 08:00 07/17/22 12:00 Temperature Pulse Rate 63 73 Respiratory Rate Blood Pressure Pulse Oximetry Oxygen Delivery Intake/Output Intake/Output: Intake & Output 07/14/22 07/15/22 07/16/22 07/17/22 23:59 23:59 23:59 23:59 Intake Total 100 1800 470 Output Total 1200 1500 Balance 100 600 -1030 Meds/Results Medications: Active Medications Generic Name Dose Route Start Last Admin Trade Name Freq PRN Reason Stop Dose Admin Albuterol 2 puff 07/16/22 05:04 Albuterol Sulfate (*Sp) Aerosol 1 Puff INHALATION Q4-6H PRN Short of breath Aztreonam 2 gm/ Sodium 100 mls @ 200 mls/hr 07/16/22 00:00 07/17/22 09:20 Chloride IVPB Infused Q8H YOVANNY Infusion Sodium Chloride 1,000 mls @ 75 mls/hr 07/15/22 23:40 07/16/22 23:46 Normal Saline Iv IV CONT 75 mls/hr .[id number] YOVANNY Administration Meclizine HCl 25 mg
[2022-07-17] MEDS: metroNIDAZOLE 250 MG TABLET 500 MG PO ×2 (13:45→17:01)
[2022-07-17] MEDS: rOPINIRole HCL 1 MG TABLET PO (20:50)
[2022-07-17] MEDS: SODIUM CHLORIDE 0.9% IV 1,000 ML 75 ML IV CONT (20:54)
[2022-07-18] VITALS (11 sets, daily range): BP systolic 131–143; BP diastolic 58–60; PULSE 53–70; RESP 16–20; TEMP 36.3–36.6; O2SAT 84–98
[2022-07-18] MEDS: AZTREONAM 2 GM in SODIUM CHLORIDE 0.9% IV 100 ML 200 ML IVPB ×2 (00:34→08:20)
[2022-07-18] MEDS: metroNIDAZOLE 250 MG TABLET 500 MG PO ×3 (00:35→11:14)
[2022-07-18] MEDS: MORPHINE SULFATE (*CRX) 4 MG/ML INJ 2 MG IV PUSH ×3 (03:30→19:29)
[2022-07-18 06:49] LABS: Basophils Percent Auto 0.4 % (0.2-1.2); Eosinophils Absolute Auto 0.2 K/mm3 (0-0.3); Eosinophils Percent Auto 2.6 % (0-4.4); Hematocrit 32.8 % (37.0-47.0); Hemoglobin 10.6 g/dL (12.0-15.0); Immature Granulocyte Absolute 0.06 K/mm3 (0.00-0.031); Immature Granulocyte Percent A 0.8 % (0-0.5); Lymphocytes Absolute Auto 1.05 K/mm3 (0.9-3.2); Lymphocytes Percent Auto 13.9 % (18.3-44.2); Mean Corpuscular HGB Conc 32.3 g/dl (32-36); Mean Corpuscular Hemoglobin 29.7 pg (26-34); Mean Corpuscular Volume 91.9 fl (80-100); Mean Platelet Volume 9.9 fl (7.4-10.4); Monocytes Absolute Auto 0.5 K/mm3 (0.1-0.6); Neutrophils Absolute Auto 5.8 K/mm3 (1.3-6.7); Neutrophils Percent Auto 76.3 % (45.5-73.1); Platelet Count Result 220 k/mm3 (150-375); Red Blood Count 3.57 M/mm3 (4.2-5.4); Red Cell Distribution Width 15.3 % (11.5-14.5); White Blood Count 7.6 K/mm3 (4.5-10.0)
[2022-07-18 06:55] LABS: Alanine Aminotransferase 223 U/L (6-35); Alkaline Phosphatase 526 U/L (38-126); Anion Gap 12 mmol/L (8-16); Aspartate Amino Transferase 60 U/L (14-36); Bilirubin,Total 1.5 mg/dL (0.2-1.3); Blood Urea Nitrogen 16 mg/dL (7-17); Calcium 8.5 mg/dL (8.4-10.2); Carbon Dioxide 19 mmol/L (22-30); Chloride 110 mmol/L (98-107); Estimated CRCL calculation 41 ml/min; Estimated Glomerular Filt Rate > 60; Glucose 92 mg/dL (65-110); Magnesium 2.2 mg/dL (1.6-2.3); Potassium 3.6 mmol/L (3.4-5.0); Sodium 141 mmol/L (137-145)
[2022-07-18] MEDS: FLUTICASONE/SALMETEROL 115-21 MCG INHALER 1 PUFF 2 PUFF INHALATION ×2 (08:03→20:22)
[2022-07-18] MEDS: ONDANSETRON INJ 4 MG/2 ML VIAL IV PUSH (09:47)
--- NOTE | 2022-07-18 10:53 | WPDGIPROGNO ---
Progress Note: A&P Assessment and Plan (1) Cholangitis due to bile duct calculus with obstruction: Code(s): K80.31 - Calculus of bile duct with cholangitis, unspecified, with obstruction Status: Acute Assessment and Plan: she has cholangitis based on MRCP findings and clinical presentation with elevated liver enzymes and now E coli bacteremia awaiting transfer to [facility], we can not do ERCP here because she had previous gastric bypass. Patient is being treated medically here with antibiotics and supportive care but can not treat biliary obstruction otherwise (2) Bacteremia: Code(s): R78.81 - Bacteremia Status: Acute Assessment and Plan: on antibiotics she needs ERCP at another facility because previous gastric surgery (3) Upper abdominal pain: Code(s): R10.10 - Upper abdominal pain, unspecified Status: Acute Assessment and Plan: persistent (4) Abnormal transaminases: Code(s): R74.8 - Abnormal levels of other serum enzymes Status: Acute Assessment and Plan: transaminases slowly trending down but ultimate treatment is ERCP to remove large biliary stone. (5) History of gastric bypass: Code(s): Z98.84 - Bariatric surgery status Status: Acute (6) Nausea and vomiting in adult: Code(s): R11.2 - Nausea with vomiting, unspecified Status: Acute Assessment and Plan: ongoing antiemetics iv fluids Subjective Date/time seen: 07/18/22 10:53 Interval history: she is still quite uncomfortable and nauseous despite she is only having ice chips. Review of Systems Review of Systems: All systems reviewed & are unremarkable except as noted in HPI and below Exam Const: Other: acutely ill, nauseous HENMT: General nose exam: Normal nares present Eyes: General: appearance normal, both eyes and all related structures Neck: Neck: supple Resp: Auscultation: clear to auscultation bilaterally Cardio: Rate: regular rate GI: GI Palp: Yes Tenderness to palpation present (GI) and Yes Guarding due to palpation present (GI) (+ RUQ guarding and force variation equipment tender) Other: hypoactive bowel sounds Skin: General skin exam: normal color Neuro: Speech: normal speech Extrem: General: normal to inspection Objective Data Vital Signs Vital Signs: Vital Signs - 24 hr 07/17/22 12:00 07/17/22 14:00 07/17/22 16:00 Temperature 96.1 F L Pulse Rate 73 77 68 Respiratory Rate 21 H Blood Pressure 144/57 H Pulse Oximetry 91 Oxygen Delivery 07/17/22 19:52 07/17/22 21:52 07/17/22 20:00 Temperature 97.6 F Pulse Rate 69 70 Respiratory Rate 16 Blood Pressure 149/60 H Pulse Oximetry 93 92 Oxygen Delivery Room Air 07/18/22 00:00 07/18/22 04:00 07/18/22 06:00 Temperature 97.8 F Pulse Rate 70 67 67 Respiratory Rate 18 Blood Pressure 138/60 Pulse Oximetry 96 Oxygen Delivery 07/18/22 07:44 07/18/22 08:14 07/18/22 08:00 Temperature Pulse Rate 61 Respiratory Rate Blood Pressure Pulse Oximetry 84 L Oxygen Delivery Room Air Room Air Intake/Output Intake/Output: Intake & Output 07/15/22 07/16/22 07/17/22 07/18/22 23:59 23:59 23:59 23:59 Intake Total 100 1800 1890 740 Output Total 1200 1900 800 Balance 100 600 -10 -60 Meds/Results Medications: Active Medications Generic Name Dose Route Start Last Admin Trade Name Freq PRN Reason Stop Dose Admin Albuterol 2 puff 07/16/22 05:04 Albuterol Sulfate (*Sp) Aerosol 1 Puff INHALATION Q4-6H PRN Short of breath Aztreonam 2 gm/ Sodium 100 mls @ 200 mls/hr 07/16/22 00:00 07/18/22 08:55 Chloride IVPB Infused Q8H YOVANNY Infusion Sodium Chloride 1,000 mls @ 75 mls/hr 07/15/22 23:40 07/17/22 20:54 Normal Saline Iv IV CONT 75 mls/hr .[id number] YOVANNY Administration Meclizine HCl 25 mg 07/16/22 05:04 Meclizine Hcl 25 Mg Tablet PO TID PRN dizziness Methocarbamol 500 mg 0
[2022-07-18] MEDS: ERTAPENEM 1 GM/NS 50 ML 1 GM/50 ML BAG IVPB (13:40)
--- NOTE | 2022-07-18 13:45 | P.PNIM_ITS ---
Progress Note: A&P Assessment and Plan (1) Cholangitis due to bile duct calculus with obstruction: Code(s): K80.31 - Calculus of bile duct with cholangitis, unspecified, with obstruction Status: Acute Assessment and Plan: MRCP demonstrates large obstructing gallstone the distal CBD with mild to moderate intrahepatic biliary ductal dilation * ERCP not able to be performed at this facility due to history of gastric bypass * patient needs transfer to tertiary care facility * accepted to [facility] under care of Dr. Cantrell, awaiting bed availability. I am not able to determine date/time of acceptance * 07/18: I called [facility] transfer center and patient has been placed on wait list. * 07/18: call to [facility], wait list full at this time. Recommended call back tomorrow. * Appreciate gastroenterology consultation (2) Bacteremia: Code(s): R78.81 - Bacteremia Status: Acute Assessment and Plan: blood cultures with growth of E coli in 2/2 bottles. Suspect urinary source as urine culture also with growth of E coli * discussed ID PharmD today. Will discontinue aztreonam and metronidazole at this time and transition to ertapenem 1 g Q 24 hours for at least 7 days * leukocytosis resolved. Fever resolved. Monitor vital signs and labs (3) Acute UTI: Code(s): N39.0 - Urinary tract infection, site not specified Status: Acute Assessment and Plan: urine culture with growth of >100k E coli * multiple drug resistant organism based on susceptibility * continue IV ertapenem as described above (4) Abnormal transaminases: Code(s): R74.8 - Abnormal levels of other serum enzymes Status: Acute Assessment and Plan: secondary to biliary obstruction as described above * LFTs trending down * total bili 1.5 today * continue to monitor * appreciate GI evaluation (5) Hypoxia: Code(s): R09.02 - Hypoxemia Status: Acute Assessment and Plan: patient back down to 84% on room air today. * Currently requiring 2 L supplemental O2 per nasal cannula * CXR today showed emphysema with small pleural effusions and worsened airspace opacities at the lung bases consistent with atelectasis vs pneumonia * Patient with history of COPD, does not appear to be in acute exacerbation at this time. * Continue supplemental oxygen as needed with goal O2 sat 90% or above. Wean to goal. * Continue home inhalers * begin incentive spirometry * pneumonia seems less likely based on clinical picture. Monitor respiratory status closely. (6) Aneurysm of infrarenal abdominal aorta: Code(s): I71.4 - Abdominal aortic aneurysm, without rupture Status: Chronic Assessment and Plan: 5.1 infrarenal abdominal aortic aneurysm noted on CT * will need outpatient follow-up for surveillance Subjective Date/time seen: 07/18/22 13:45 Interval history: date of service: 07/18/2022 Giulia Retana is a 76-year-old female with a history of CVA, COPD, CAD, anemia, hypertension, hyperlipidemia, spinal stenosis, and tobacco abuse who is seen in follow-up for cholangitis bacteremia. She states she feels 95% better today. she endorses right upper quadrant pain. she feels nauseous and admits to vomiting this morning. She states she feels slightly lightheaded when she walks to the bathroom. She endorses always being short of breath and states today is no change in her respiratory status. She denies wheezing or cough. She complains of pain in her bilateral hips which is bee
--- NOTE | 2022-07-18 13:45 | PM.IMPN ---
Progress Note: A&P Assessment and Plan (1) Cholangitis due to bile duct calculus with obstruction: Code(s): K80.31 - Calculus of bile duct with cholangitis, unspecified, with obstruction Status: Acute Assessment and Plan: MRCP demonstrates large obstructing gallstone the distal CBD with mild to moderate intrahepatic biliary ductal dilation ERCP not able to be performed at this facility due to history of gastric bypass patient needs transfer to tertiary care facility accepted to [facility] under care of Dr. Cantrell, awaiting bed availability. I am not able to determine date/time of acceptance 07/18: I called [facility] transfer center and patient has been placed on wait list. 07/18: call to [facility], wait list full at this time. Recommended call back tomorrow. Appreciate gastroenterology consultation (2) Bacteremia: Code(s): R78.81 - Bacteremia Status: Acute Assessment and Plan: blood cultures with growth of E coli in 2/2 bottles. Suspect urinary source as urine culture also with growth of E coli discussed ID PharmD today. Will discontinue aztreonam and metronidazole at this time and transition to ertapenem 1 g Q 24 hours for at least 7 days leukocytosis resolved. Fever resolved. Monitor vital signs and labs (3) Acute UTI: Code(s): N39.0 - Urinary tract infection, site not specified Status: Acute Assessment and Plan: urine culture with growth of >100k E coli multiple drug resistant organism based on susceptibility continue IV ertapenem as described above (4) Abnormal transaminases: Code(s): R74.8 - Abnormal levels of other serum enzymes Status: Acute Assessment and Plan: secondary to biliary obstruction as described above LFTs trending down total bili 1.5 today continue to monitor appreciate GI evaluation (5) Hypoxia: Code(s): R09.02 - Hypoxemia Status: Acute Assessment and Plan: patient back down to 84% on room air today. Currently requiring 2 L supplemental O2 per nasal cannula CXR today showed emphysema with small pleural effusions and worsened airspace opacities at the lung bases consistent with atelectasis vs pneumonia Patient with history of COPD, does not appear to be in acute exacerbation at this time. Continue supplemental oxygen as needed with goal O2 sat 90% or above. Wean to goal. Continue home inhalers begin incentive spirometry pneumonia seems less likely based on clinical picture. Monitor respiratory status closely. (6) Aneurysm of infrarenal abdominal aorta: Code(s): I71.4 - Abdominal aortic aneurysm, without rupture Status: Chronic Assessment and Plan: 5.1 infrarenal abdominal aortic aneurysm noted on CT will need outpatient follow-up for surveillance Subjective Date/time seen: 07/18/22 13:45 Interval history: date of service: 07/18/2022 Giulia Retana is a 76-year-old female with a history of CVA, COPD, CAD, anemia, hypertension, hyperlipidemia, spinal stenosis, and tobacco abuse who is seen in follow-up for cholangitis bacteremia. She states she feels 95% better today. she endorses right upper quadrant pain. she feels nauseous and admits to vomiting this morning. She states she feels slightly lightheaded when she walks to the bathroom. She endorses always being short of breath and states today is no change in her respiratory status. She denies wheezing or cough. She complains of pain in her bilateral hips which is been a chronic problem for her for some time. She denies fevers or chills. States she was not able to tolerate her diet today Review of Systems Review of Systems: All systems reviewed & are unremarkable except as noted in HPI and below Exam Narrative: General: well-nourished, well-appearing 76-year-old female, sitting up in bed, comfortable, NARD Neuro: awake, alert and oriented x4, speech clear, no
[2022-07-18] MEDS: SODIUM CHLORIDE 0.9% IV 1,000 ML 75 ML IV CONT (15:56)
[2022-07-18] MEDS: rOPINIRole HCL 1 MG TABLET PO (19:29)
[2022-07-19] VITALS: PULSE 64
[2022-07-19] MEDS: MORPHINE SULFATE (*CRX) 4 MG/ML INJ 2 MG IV PUSH ×2 (03:31→12:19)
[2022-07-19 04:00] VITALS: PULSE 70
[2022-07-19 05:31] VITALS: BP 150/60; PULSE 65; RESP 18; TEMP 36.5; O2SAT 92
[2022-07-19] MEDS: SODIUM CHLORIDE 0.9% IV 1,000 ML 75 ML IV CONT (06:50)
[2022-07-19 07:42] LABS: Hematocrit 31.6 % (37.0-47.0); Hemoglobin 10.2 g/dL (12.0-15.0); Mean Corpuscular HGB Conc 32.3 g/dl (32-36); Mean Corpuscular Hemoglobin 29.6 pg (26-34); Mean Corpuscular Volume 91.6 fl (80-100); Mean Platelet Volume 10.1 fl (7.4-10.4); Platelet Count Result 232 k/mm3 (150-375); Red Blood Count 3.45 M/mm3 (4.2-5.4); Red Cell Distribution Width 15.7 % (11.5-14.5); White Blood Count 7.1 K/mm3 (4.5-10.0)
[2022-07-19 07:49] LABS: Anion Gap 8 mmol/L (8-16); Blood Urea Nitrogen 12 mg/dL (7-17); Calcium 8.6 mg/dL (8.4-10.2); Carbon Dioxide 21 mmol/L (22-30); Chloride 108 mmol/L (98-107); Estimated CRCL calculation 54 ml/min; Estimated Glomerular Filt Rate > 60; Glucose 95 mg/dL (65-110); Potassium 3.4 mmol/L (3.4-5.0); Sodium 137 mmol/L (137-145)
[2022-07-19] MEDS: FLUTICASONE/SALMETEROL 115-21 MCG INHALER 1 PUFF 2 PUFF INHALATION (07:57)
[2022-07-19 08:00] VITALS: PULSE 54; PULSE 86; RESP 18; O2SAT 92
[2022-07-19 09:16] LABS: Alanine Aminotransferase 152 U/L (6-35); Alkaline Phosphatase 565 U/L (38-126); Aspartate Amino Transferase 32 U/L (14-36); Bilirubin,Total 1.1 mg/dL (0.2-1.3)
[2022-07-19 12:00] VITALS: PULSE 65
[2022-07-19] MEDS: ERTAPENEM 1 GM/NS 50 ML 1 GM/50 ML BAG IVPB (12:24)
--- NOTE | 2022-07-19 13:22 | P.TS_ITS ---
Transfer Discharge Sum: Prov Provider Date of admission: 07/17/22 16:18 Primary care physician: Pat Atwood, MKonrad Admitting clinician: Radha Lyman MD Consults: 07/15/22 Consult to Physician Routine Comment: Consulting Provider: Abhinav Foy Reason for consultation: Concern for retained gallstone Has provider been notified: Yes DS: Admitting Diagnosis Discharge Date 07/19/2022 Admitting Diagnosis Cholangitis DS: Discharge Diagnosis Discharge Diagnosis (1) Cholangitis due to bile duct calculus with obstruction: Code(s): K80.31 - Calculus of bile duct with cholangitis, unspecified, with obstruction Status: Acute Assessment and Plan: MRCP demonstrates large obstructing gallstone the distal CBD with mild to moderate intrahepatic biliary ductal dilation * ERCP not able to be performed at this facility due to history of gastric bypass * Managed by Gastroenterology * Transferred to [facility] under care of Dr. Cantrell on 07/19/22. (2) Bacteremia: Code(s): R78.81 - Bacteremia Status: Acute Assessment and Plan: Blood cultures with growth of E coli in 2/2 bottles. Most likely urinary source as urine culture also with growth of E coli * 07/18 aztreonam and metronidazole discontinued * 07/18 started on IV ertapenem 1 g q24h, continued * Leukocytosis resolved. Fever resolved. (3) Acute UTI: Code(s): N39.0 - Urinary tract infection, site not specified Status: Acute Assessment and Plan: urine culture with growth of >100k E coli * multiple drug resistant organism based on susceptibility * continue IV ertapenem as described above (4) Abnormal transaminases: Code(s): R74.8 - Abnormal levels of other serum enzymes Status: Acute Assessment and Plan: secondary to biliary obstruction as described above * LFTs trending down * total bili normalized at 1.1 * appreciate GI evaluation * monitor at tertiary care facility (5) Hypoxia: Code(s): R09.02 - Hypoxemia Status: Acute Assessment and Plan: patient hypoxic down to 84% on room air 07/18 * Required 1 L supplemental O2 per nasal cannula * CXR showed emphysema with small pleural effusions and worsened airspace opacities at the lung bases consistent with atelectasis vs pneumonia * Patient with history of COPD, does not appear to be in acute exacerbation * Continue supplemental oxygen as needed with goal O2 sat 90% or above. Wean to goal. * Continue home inhalers * Incentive spirometry (6) Aneurysm of infrarenal abdominal aorta: Code(s): I71.4 - Abdominal aortic aneurysm, without rupture Status: Chronic Assessment and Plan: 5.1 infrarenal abdominal aortic aneurysm noted on CT * will need outpatient follow-up for surveillance Transfer Discharge Sum: Med Medications Active and Home Medications: Home Medications albuterol sulfate 90 mcg/actuation aerosol inhaler (ProAir HFA) 2 mcg inhalation Q4-6H PRN Short of breath 01/22/21 [History Confirmed 07/16/22] fluticasone 250 mcg-salmeterol 50 mcg/dose blistr powdr for inhalation (Advair Diskus) 1 inh inhalation PRN PRN SOB 01/22/21 [History Confirmed 07/16/22] meclizine 25 mg tablet 25 mg PO TID PRN dizziness #30 tabs 01/25/21 [Rx Confirmed 07/16/22] ropinirole 1 mg tablet 1 mg PO HS #30 tabs 01/25/21 [Rx Confirmed 07/16/22] me
--- NOTE | 2022-07-19 13:22 | PM.TDS ---
Transfer Discharge Sum: Prov Provider Date of admission: 07/17/22 16:18 Primary care physician: Pat MirandaHéctor Admitting clinician: Radha Lyman MD Consults: 07/15/22 Consult to Physician Routine Comment: Consulting Provider: Abhinav Foy Reason for consultation: Concern for retained gallstone Has provider been notified: Yes DS: Admitting Diagnosis Discharge Date 07/19/2022 Admitting Diagnosis Cholangitis DS: Discharge Diagnosis Discharge Diagnosis (1) Cholangitis due to bile duct calculus with obstruction: Code(s): K80.31 - Calculus of bile duct with cholangitis, unspecified, with obstruction Status: Acute Assessment and Plan: MRCP demonstrates large obstructing gallstone the distal CBD with mild to moderate intrahepatic biliary ductal dilation ERCP not able to be performed at this facility due to history of gastric bypass Managed by Gastroenterology Transferred to [facility] under care of Dr. Cantrell on 07/19/22. (2) Bacteremia: Code(s): R78.81 - Bacteremia Status: Acute Assessment and Plan: Blood cultures with growth of E coli in 2/2 bottles. Most likely urinary source as urine culture also with growth of E coli 07/18 aztreonam and metronidazole discontinued 07/18 started on IV ertapenem 1 g q24h, continued Leukocytosis resolved. Fever resolved. (3) Acute UTI: Code(s): N39.0 - Urinary tract infection, site not specified Status: Acute Assessment and Plan: urine culture with growth of >100k E coli multiple drug resistant organism based on susceptibility continue IV ertapenem as described above (4) Abnormal transaminases: Code(s): R74.8 - Abnormal levels of other serum enzymes Status: Acute Assessment and Plan: secondary to biliary obstruction as described above LFTs trending down total bili normalized at 1.1 appreciate GI evaluation monitor at tertiary care facility (5) Hypoxia: Code(s): R09.02 - Hypoxemia Status: Acute Assessment and Plan: patient hypoxic down to 84% on room air 07/18 Required 1 L supplemental O2 per nasal cannula CXR showed emphysema with small pleural effusions and worsened airspace opacities at the lung bases consistent with atelectasis vs pneumonia Patient with history of COPD, does not appear to be in acute exacerbation Continue supplemental oxygen as needed with goal O2 sat 90% or above. Wean to goal. Continue home inhalers Incentive spirometry (6) Aneurysm of infrarenal abdominal aorta: Code(s): I71.4 - Abdominal aortic aneurysm, without rupture Status: Chronic Assessment and Plan: 5.1 infrarenal abdominal aortic aneurysm noted on CT will need outpatient follow-up for surveillance Transfer Discharge Sum: Med Medications Active and Home Medications: Home Medications albuterol sulfate 90 mcg/actuation aerosol inhaler (ProAir HFA) 2 mcg inhalation Q4-6H PRN Short of breath 01/22/21 [History Confirmed 07/16/22] fluticasone 250 mcg-salmeterol 50 mcg/dose blistr powdr for inhalation (Advair Diskus) 1 inh inhalation PRN PRN SOB 01/22/21 [History Confirmed 07/16/22] meclizine 25 mg tablet 25 mg PO TID PRN dizziness #30 tabs 01/25/21 [Rx Confirmed 07/16/22] ropinirole 1 mg tablet 1 mg PO HS #30 tabs 01/25/21 [Rx Confirmed 07/16/22] methocarbamol 500 mg tablet 500 mg PO TID PRN muscle spasm #20 tabs 06/25/22 [Rx Confirmed 07/16/22] acetaminophen 500 mg tablet 1,000 mg PO TID PRN kana 7 days #42 tabs 06/27/22 [Rx Confirmed 07/16/22] ondansetron 4 mg disintegrating tablet 4 mg PO Q8H PRN nausea and vomiting #10 tabs 06/27/22 [Rx Confirmed 07/16/22] hydrocodone 5 mg-acetaminophen 325 mg tablet 1 tablet Q6H PRN pain 07/16/22 [History Confirmed 07/16/22] Active Medications Albuterol (Albuterol Sulfate (*Sp) Aerosol 1 Puff) 2 puff INHALATION Q4-6H PRN PRN Reason: Short of breath Sodium Chlo
--- NOTE | 2022-07-19 13:28 | WPDGIPROGNO ---
Progress Note: A&P Assessment and Plan (1) Cholangitis due to bile duct calculus with obstruction: Code(s): K80.31 - Calculus of bile duct with cholangitis, unspecified, with obstruction Status: Acute Assessment and Plan: here with cholangitis based on MRCP findings, clinical presentation with elevated liver enzymes and now E coli bacteremia awaiting transfer to [facility], we can not do ERCP here because she had previous gastric bypass. Patient is being treated medically here with antibiotics and supportive care but can not treat biliary obstruction otherwise (2) Bacteremia: Code(s): R78.81 - Bacteremia Status: Acute Assessment and Plan: on antibiotics she needs ERCP at another facility because previous gastric surgery (3) Upper abdominal pain: Code(s): R10.10 - Upper abdominal pain, unspecified Status: Acute Assessment and Plan: persistent, on pain meds as nedded (4) Abnormal transaminases: Code(s): R74.8 - Abnormal levels of other serum enzymes Status: Acute Assessment and Plan: trending down but ultimate treatment is ERCP to remove large biliary stone. (5) History of gastric bypass: Code(s): Z98.84 - Bariatric surgery status Status: Acute (6) Nausea and vomiting in adult: Code(s): R11.2 - Nausea with vomiting, unspecified Status: Acute Assessment and Plan: CL diet ongoing antiemetics iv fluids Subjective Date/time seen: 07/19/22 13:28 Interval history: still with abdominal pain, poor appetite, less nausea Review of Systems Review of Systems: All systems reviewed & are unremarkable except as noted in HPI and below Exam Const: Other: mroe comfortable today HENMT: General nose exam: Normal nares present Eyes: General: appearance normal, both eyes and all related structures Neck: Neck: supple Resp: Auscultation: clear to auscultation bilaterally Cardio: Rate: regular rate GI: GI Palp: Yes Tenderness to palpation present (GI) and Yes Guarding due to palpation present (GI) (+ 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) Other: hypoactive bowel sounds Skin: General skin exam: normal color Neuro: Speech: normal speech Extrem: General: normal to inspection Objective Data Vital Signs Vital Signs: Vital Signs - 24 hr 07/18/22 14:09 07/18/22 16:00 07/18/22 20:26 Temperature 97.9 F Pulse Rate 56 L 53 L Respiratory Rate 16 Blood Pressure 131/58 L Pulse Oximetry 98 93 Oxygen Delivery Nasal Cannula Oxygen Flow Rate 2 07/18/22 20:00 07/18/22 21:44 07/19/22 00:00 Temperature 97.4 F L Pulse Rate 62 62 64 Respiratory Rate 20 Blood Pressure 143/60 H Pulse Oximetry 93 Oxygen Delivery Oxygen Flow Rate 07/19/22 04:00 07/19/22 05:31 07/19/22 08:00 Temperature 97.7 F Pulse Rate 70 65 86 Respiratory Rate 18 Blood Pressure 150/60 H Pulse Oximetry 92 92 Oxygen Delivery Nasal Cannula Oxygen Flow Rate 1 07/19/22 08:00 07/19/22 08:00 07/19/22 12:00 Temperature Pulse Rate 86 54 L 65 Respiratory Rate 18 Blood Pressure Pulse Oximetry Oxygen Delivery Oxygen Flow Rate Intake/Output Intake/Output: Intake & Output 07/16/22 07/17/22 07/18/22 07/19/22 23:59 23:59 23:59 23:59 Intake Total 1800 1890 2580 1510 Output Total 1200 1900 1400 500 Balance 600 -10 1180 1010 Meds/Results Medications: Active Medications Generic Name Dose Route Start Last Admin Trade Name Freq PRN Reason Stop Dose Admin Albuterol 2 puff 07/16/22 05:04 Albuterol Sulfate (*Sp) Aerosol 1 Puff INHALATION Q4-6H PRN Short of breath Sodium Chloride 1,000 mls @ 75 mls/hr 07/15/22 23:40 07/19/22 11:13 Normal Saline Iv IV CONT 0 mls/hr .[id number] YOVANNY Infusion Ertapenem 1 gm in 50 mls @ 100 mls/hr 07/18/22 13:00 07/19/22 12:24 Invanz 1 Gm/Ns 50 Ml IVPB 100 mls/hr Q24H YOVANNY Administration Meclizine HCl 25 mg 07/16/22
[2022-07-19 13:54] VITALS: BP 130/49; PULSE 59; RESP 16; TEMP 36.8; O2SAT 93
== END 2022-07-19 17:00 | disposition short-term general hospital (02) | DRG 445 ==
LOC: ANHED 23:44 → ANH3MEDSUR 07-16 00:11
PROVIDERS: Emergency Medicine; Nurse Practitioner; Physician Assistant; Admitting Provider Internal Medicine; Emergency Provider Emergency Medicine; PCP Internal Medicine Infectious Disease; Visit Provider Family Medicine
DX: K80.31 Calculus of bile duct with cholangitis, unspecified, with obstruction (principal); N39.0 Urinary tract infection, site not specified; R78.81 Bacteremia; Z98.84 Bariatric surgery status; B96.20 Unspecified Escherichia coli [E. coli] as the cause of diseases classified elsewhere; R09.02 Hypoxemia; D64.9 Anemia, unspecified; E78.5 Hyperlipidemia, unspecified; F17.210 Nicotine dependence, cigarettes, uncomplicated; G89.29 Other chronic pain; G25.81 Restless legs syndrome; I71.4 Abdominal aortic aneurysm, without rupture; I25.2 Old myocardial infarction; I25.10 Atherosclerotic heart disease of native coronary artery without angina pectoris; I10 Essential (primary) hypertension; J43.9 Emphysema, unspecified; M25.551 Pain in right hip; M25.552 Pain in left hip; M48.00 Spinal stenosis, site unspecified; Z20.822 Contact with and (suspected) exposure to COVID-19; Z86.73 Personal history of transient ischemic attack (TIA), and cerebral infarction without residual deficits; Z95.1 Presence of aortocoronary bypass graft; Z95.5 Presence of coronary angioplasty implant and graft; Z98.0 Intestinal bypass and anastomosis status
CPT/HCPCS: 36415; 71046; 71250; 74176; 74183; 76376; 76705; 80048; 80053; 80076; 81001; 83690; 83735; 84484; 85025; 85027; 85610; 85730; 87040; 87077; 87086; 87186; 93005; 94640; 96361; 96365; 96366; 96367; 96375; 96376; 99285; A9270; A9577; C9803; G0378; J0131; J0696; J1335; J2270; J2405; J7030; U0003; U0005

== ENCOUNTER 2022-10-22 11:42 | Outpatient (CLI) | payer MEDICARE, SELFPAY ==
--- NOTE | ~2022-10-22 | MR_ITS ---
MRI of the cervical spine Clinical History: Headache Technique: Axial T2-weighted and gradient images, and sagittal T1-weighted, T2-weighted, and STIR aby ges were acquired. Findings: No acute fracture identified. There is fusion of the C4, C5, and C6 vertebral bodies. Grade I anterolisthesis of C3 over C4 measures approximately 3 mm. There is also posterior fusion hardware extending from C4 to C7. No suspicious bone marrow signal abnormality identified. At C2-C3, there is no disc bulge or herniation. No spinal canal stenosis, cord compression, or neural foraminal narrowing. At C3-C4, there is disc osteophyte complex, resulting in mild to borderline moderate ventral cord com pression. Neural foramina are probably preserved. At the C4-C5 region, there is no disc bulge, there is canal stenosis resulting in mild ventral cord c ompression. Neural foramina appear preserved. At C5-C6, there is no disc bulge, but there is moderate canal stenosis, again resulting in ventral co rd compression. Neural foramina are probably preserved. At C6-C7, there is advanced degenerative disc narrowing. There is mild canal stenosis without mukund c ord compression. Neural foramina are preserved. No definite abnormal spinal cord signal seen. No prevertebral soft tissue swelling. Paravertebral sof t tissues are unremarkable. Impression: Fusion of the C4-C6 vertebral bodies, posterior fusion hardware from C4 through C7. Mild to borderline moderate ventral cord compression at C3-C4 related to disc osteophyte complex. Osseous canal stenosis at C4-C5 and C5-C6 resulting in mild to moderate ventral cord compression at t hese levels, C5-C6 worse than C4-C5. Grade 1 anterolisthesis of C3 over C4, as detailed above. Reviewed, dictated and finalized at [facility]. 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 Mild to borderline moderate ventral cord compression at C3-C4 related to disc o steophyte complex. Osseous canal stenosis at C4-C5 and C5-C6 resulting in mild to moderate ventral cord compression at these levels, C5-C6 worse than C4-C5. Grade 1 anterolisthesis of C3 over C4, as detailed above.
--- NOTE | ~2022-10-22 | CT_ITS ---
EXAMINATION: CT brain wo con DATE: 10/22/2022 13:00 INDICATION: Severe headache TECHNIQUE: Computed tomography (CT) of the head was performed without intravenous contrast. Sagittal and coronal reconstructions were performed. The mA was adjusted according to patient size. Iterative reconstruction technique was employed. The dose-length product was 605.33 mGy-cm. COMPARISON: head CT dated 06/27/2022 FINDINGS: Unchanged small old lacunar infarct at the head of the right caudate nucleus. No acute intracranial h emorrhage, acute infarction or abnormal extra axial fluid collection. There is mild scattered white m atter hypoattenuation consistent with chronic small vessel ischemic disease. Symmetric prominence of the sulci and and subarachnoid spaces overlying the convexities most prominent anteriorly, consistent with mild to moderate age-appropriate diffuse cerebral volume loss. Ventricles are normal and symme tric. No mass/mass effect. Changes of bilateral intraocular lens replacement. The orbits and mastoid air cells are normal. Mild mucosal thickening the bilateral ethmoid and sphenoid sinuses. Bubbly mucu s in the right sphenoid sinus which could be seen with acute sinusitis. Prior left antral window proc edure at the medial wall of the left maxillary sinus. Chronic bilateral mastoid effusions, right grea ter than left. IMPRESSION: 1. No acute intracranial process. 2. Small old lacunar infarct at the head of the right caudate nucleus. 3. Age-related changes including mild to moderate diffuse volume loss with frontal lobe predominance and mild scattered white matter hypoattenuation consistent with chronic small vessel ischemic disease . 4. Sinus disease with bubbly mucus in the right sphenoid sinus suggesting acute sinusitis. Reviewed, dictated and finalized at location [facility]. 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 No acute intracranial process. 2. Small old lacunar infarct at the head of the right caudate nucleus. 3. Age-related changes including mild to moderate diffuse volume loss with fron leif lobe predominance and mild scattered white matter hypoattenuation consisten t with chronic small vessel ischemic disease. 4. Sinus disease with bubbly mucus in the right sphenoid sinus suggesting acute sinusitis.
== END 2022-10-22 11:43 | disposition home or self-care (01) ==
PROVIDERS: PCP Internal Medicine Infectious Disease; Visit Provider Psychiatry & Neurology Neurology
DX: R51.9 Headache, unspecified (principal); Z98.1 Arthrodesis status
CPT/HCPCS: 70450; 72141

== ENCOUNTER 2022-11-30 13:07 | Outpatient (CLI) | payer MEDICARE, MEDICAID, SELFPAY ==
--- NOTE | ~2022-11-30 | CT_ITS ---
EXAMINATION: CT diagnostic chest wo con DATE: 11/30/2022 13:37 INDICATION: Solitary pulmonary nodule TECHNIQUE: Computed tomography (CT) of the chest was performed without intravenous contrast. The dose -length product (DLP) was 66.94 mGy-cm. Automated exposure control and iterative reconstruction techn ique were employed. COMPARISON: 07/05/2022 FINDINGS: There is an area of chronic subpleural atelectasis/scarring in the left lower lobe. The liana gs are free of acute opacities. No pleural effusion or pneumothorax. There is moderate emphysema. The re are chronic filling defects in bronchi in the medial aspect of the right lower lobe without signif icant interval change. No suspicious pulmonary nodules are identified. There are changes of coronary artery bypass grafting. No pathologically enlarged thoracic lymph nodes are identified. A right lower paratracheal lymph node is upper limits of normal in size. Subendocardial fat deposition in the inte rventricular septum of the heart is consistent with sequela of prior infarction. There are stents in the body and antrum of the stomach. There is mild thoracic spondylosis. There are partially imaged ch anges of fusion procedure in the cervical spine. IMPRESSION: 1. No suspicious pulmonary nodule identified. 2. Chronic filling defects in the bronchi of the medial right lower lobe without significant change a nd of unclear significance. Consider bronchoscopy. 3. Moderate emphysema. Reviewed, dictated and finalized at location F. [employer] IMPRESSION: 1. No suspicious pulmonary nodule identified. 2. Chronic filling defects in the bronchi of the medial right lower lobe withou t significant change and of unclear significance. Consider bronchoscopy. 3. Moderate emphysema.
== END 2022-11-30 13:08 | disposition home or self-care (01) ==
LOC: ANHIMG 13:11
PROVIDERS: PCP Internal Medicine Infectious Disease; Visit Provider Internal Medicine Infectious Disease
DX: R91.1 Solitary pulmonary nodule (principal); J43.9 Emphysema, unspecified
CPT/HCPCS: 71250

== ENCOUNTER 2023-01-14 13:47 | Outpatient (CLI) | payer MEDICARE, MEDICAID, SELFPAY ==
[2023-01-14 15:26] LABS: NT Pro B Type Natriuretic Pept 262 pg/mL (19.9-100); Troponin I < 0.012 ng/mL (0.000-0.034)
--- NOTE | 2023-01-14 16:42 | WPDSIXMINUTE ---
Six Minute Walk Procedure Procedure Performed Pulmonary Stress Test (6 min walk) Six Minute Walk Six Minute Walk: This is a 6 minute walk test. The test was performed and interpreted in accordance with the 2014 ERS/ATS task force guidelines. The patient used a wheeled walker during this test. Findings: The patient's resting room air oxygen saturation measured by pulse oximetry was 94% and heart rate was 71 bpm. Patient ambulated for 152 meters and oxygen saturation remained 89 to 96%. Heart rate at the end of the study was 69 bpm. The patient did not qualify for supplemental oxygen at rest or with ambulation. There are no prior studies for comparison.
--- NOTE | 2023-01-14 16:44 | WPDPFTINT ---
PFT Procedure Performed PFT Procedure Performed Spirometry with Pre/Post Bronchodilator Plethysmography (Lung Vol) Diffusing Cap (DLCO) Flow Vol Loop PFT Interpretation This is a pulmonary function test with pre and post-bronchodilator spirometry, plethysmography and diffusing capacity. The test was performed and results interpreted in accordance with the 2019 and 2005 ATS/ERS Task Force guidelines respectively using the Global Lung Function Initiative-2012 reference equations. Patient demonstrated good effort and cooperation. Reproducibility criteria were met. The quality of the pre bronchodilator spirometry maneuver was Grade A and post bronchodilator spirometry maneuver was Grade A. Findings: Spirometry: There is decreased maximal expiratory airflow at all lung volumes with concave expiratory flow tracing. The contour the inspiratory flow tracing is normal. The pre bronchodilator FVC is 2.25 L, 92% predicted. The pre bronchodilator FEV1 is 1.13 L, 60% predicted. The pre bronchodilator FEV1: FVC ratio is 50%. The post bronchodilator FVC is 1.74 L, representing a 23% decrease. The post bronchodilator FEV1 is 0.82 L, representing a 27% decrease. The post bronchodilator FEV1: FVC ratio is 47%. Plethysmography: The total lung capacity is 3.91 L, 83% predicted. Functional residual capacity is 2.65 L, 98% predicted. The residual volume is 1.66 L, 75% predicted. Diffusing capacity: The diffusing capacity unadjusted for hemoglobin and carboxyhemoglobin is 7.1, 38% predicted. The diffusing capacity adjusted for alveolar volume is 2.67, 62% predicted. Impression: There is a moderate obstructive abnormality without significant improvement after inhaling a single dose of albuterol. The lung volumes are normal. The diffusing capacity unadjusted for hemoglobin and carboxyhemoglobin is severely decreased and remains mildly decreased when adjusted for alveolar volume. There are no prior studies for comparison
[2023-01-16 11:19] LABS: NIL 0.01 IU/mL; Quantiferon TB Plus, 1T NEGATIVE (NEGATIVE)
[2023-01-17 13:22] LABS: Immunoglobulin G, Serum 1000 mg/dL (600-1540); Immunoglobulin G1 541 mg/dL (382-929); Immunoglobulin G2 230 mg/dL (241-700); Immunoglobulin G3 106 mg/dL (22-178); Immunoglobulin G4 21.8 mg/dL (4.0-86.0)
[2023-01-17 13:44] LABS: Alpha-1-Antitrypsin, QN 195 mg/dL (83-199)
== END 2023-01-14 13:48 | disposition home or self-care (01) ==
PROVIDERS: PCP Internal Medicine Infectious Disease; Visit Provider Nurse Practitioner
DX: J43.9 Emphysema, unspecified (principal); R06.09 Other forms of dyspnea; R05.3 Chronic cough; R94.2 Abnormal results of pulmonary function studies
CPT/HCPCS: 36415; 82103; 82104; 82784; 82785; 82787; 83880; 84484; 86003; 86480; 87015; 87070; 87116; 87205; 87206; 94060; 94618; 94726; 94729

== ENCOUNTER 2023-01-17 03:16 | Inpatient (IN) | payer MEDICARE, MEDICAID, SELFPAY ==
[2023-01-17] VITALS (51 sets, daily range): BP systolic 107–168; BP diastolic 49–68; PULSE 43–102; RESP 9–24; TEMP 35.7–36.8; O2SAT 83–100; BMI 24.3
--- NOTE | ~2023-01-17 | US_ITS ---
EXAMINATION: US renal BI DATE: 01/18/2023 10:44 INDICATION: Hydronephrosis. TECHNIQUE: Multiple ultrasound grayscale images of the kidneys were obtained. COMPARISON: CT abdomen and pelvis 01/17/2023 FINDINGS: The right kidney measures 10.2 x 5.3 x 4.6 cm. The left kidney measures 10.1 x 4.8 x 3.7 cm. The kidn eys demonstrate normal parenchymal echogenicity. There is mild right hydronephrosis. The bladder is d ecompressed by a Ochoa catheter. IMPRESSION: 1. Mild right hydronephrosis with improvement after Ochoa catheter placement. Reviewed, dictated and finalized at location A.
--- NOTE | ~2023-01-17 | NM_ITS ---
EXAMINATION: NM pulmonary perfusion DATE: 01/18/2023 15:30 INDICATION: Hypoxia. TECHNIQUE: 5.4 mCi Tc-99m MAA was administered intravenously for perfusion images. Scintigraphic aby ges of the chest were obtained. COMPARISON: Perfusion imaging 06/13/2021, ventilation perfusion imaging 02/05/2019, chest CT 01/18/2023, chest single view 01/17/2023 FINDINGS: Perfusion images show small defects in the lower lobes. There is chronic decreased perfusion bilatera lly correlating with emphysema by CT. IMPRESSION: 1. Pulmonary embolism absent (very low probability). Reviewed, dictated and finalized at location A.
--- NOTE | ~2023-01-17 | CT_ITS ---
Non-contrast CT scan of the Abdomen and Pelvis Clinical indication: Left lower quadrant pain Technique: 2.5 mm axial scans were obtained through the abdomen and pelvis without intravenous or or al contrast. Dose reduction technique was used on this scan by utilizing automated exposure control a nd iterative reconstruction technique. The dose-length product (DLP) was 556.55 mGy-cm. COMPARISON: 07/15/2022 Findings: Images through the lung bases reveal chronic scarring/atelectasis at the left lung base. There is moderate right hydronephrosis and mild left hydronephrosis. There are probable renal vascula r calcifications without definite stone. No ureteral stone evident. Cholecystectomy clips and pneumobilia are present. Probable stent in the distal common bile duct. The spleen, pancreas, and adrenals appear normal. Infrarenal abdominal aortic aneurysm measures up to 5. 1 cm in maximum diameter.. There is no evidence of bowel obstruction. There is been presumed reversal of the Madonna-en-Y procedure , with a surgical hardware device now within the gastric lumen linking the previously porti ons of the stomach. Images through the pelvis were performed. There is no evidence of ascites or lymphadenopathy. Urinary bladder is markedly distended. Again noted is hyperdense material at the right posterior bladder bas e region, unchanged from prior exam. Patient is post hysterectomy. Small cystic mass in the left adne xal region is unchanged. Impression: Moderate right hydronephrosis and mild left hydronephrosis, with distended urinary bladder. Correlate for bladder outlet obstruction/urinary retention. 5.1 cm infrarenal abdominal aortic aneurysm, essentially stable from prior exam. Surgical hardware within the stomach linking previously portions of the stomach. Probable s tent in the common bile duct. Correlate with surgical history. Probable injected, postprocedural hyperdense material at the right bladder base, unchanged. Stable small cystic mass in the left adnexal region. Reviewed, dictated and finalized at location M. Impression: Moderate right hydronephrosis and mild left hydronephrosis, with distended urin kacey bladder. Correlate for bladder outlet obstruction/urinary retention. 5.1 cm infrarenal abdominal aortic aneurysm, essentially stable from prior exam . Surgical hardware within the stomach linking previously portions of t he stomach. Probable stent in the common bile duct. Correlate with surgical his tory. Probable injected, postprocedural hyperdense material at the right bladder base , unchanged. Stable small cystic mass in the left adnexal region.
--- NOTE | ~2023-01-17 | XR_ITS ---
XR chest 1V portable 01/20/2023 08:23 Indication: Hypoxia Procedure: AP portable chest Comparison: Comparison to multiple prior studies sequentially, with oldest reviewed study dated 06/13. Findings: Status post median sternotomy for CABG. Borderline heart size. Mild interstitial edema. The re is atherosclerosis of the aorta. No significant effusion or pneumothorax. No acute osseous abnorma lity. Impression: 1: Progression of mild interstitial edema. Reviewed, dictated and finalized at location A. Impression: 1: Progression of mild interstitial edema.
--- NOTE | ~2023-01-17 | US_ITS ---
EXAMINATION: US venous doppler [facility] DATE: 01/18/2023 09:17 INDICATION: Hypoxia TECHNIQUE: Grayscale ultrasound images without and with compression and Doppler ultrasound images of the bilateral lower extremity veins were obtained. COMPARISON: None. FINDINGS: The visualized portions of right common femoral vein, profunda (deep) femoral vein, femoral vein, pop liteal vein, posterior tibial veins, peroneal veins, gastrocnemius vein and greater saphenous vein ou tflow are patent. The visualized portions of left common femoral vein, profunda femoral vein, femoral vein, popliteal v ein, posterior tibial veins, peroneal veins, gastrocnemius vein and greater saphenous vein outflow ar e patent. IMPRESSION: 1. No deep venous thrombosis in either lower limb. Reviewed, dictated and finalized at location B.
--- NOTE | ~2023-01-17 | CT_ITS ---
CT Scan of the Chest without Contrast: Clinical Indication: Hypoxia Technique: Contiguous sections were acquired throughout the chest without intravenous contrast. Dose reduction technique was used on this scan by utilizing automated exposure control and iterative recon struction technique. The dose-length product (DLP) was 152.68 mGy-cm. COMPARISON: 11/30/2022 Findings: There is no evidence of any significant mediastinal, hilar or axillary lymphadenopathy. There are ath erosclerotic calcifications of the aorta. No aortic aneurysm. Coronary artery calcifications are pres ent. There is no evidence of pleural or pericardial effusion. There is minimal bibasilar atelectatic change. Moderate emphysema noted. Images through the upper abdomen reveal cholecystectomy clips and pneumobilia. Surgical hardware pres ent in the stomach. Impression: Moderate emphysema. Reviewed, dictated and finalized at [facility]. Impression: Moderate emphysema.
--- NOTE | ~2023-01-17 | XR_ITS ---
Portable chest x-ray Comparison: 07/18/2022 Clinical History: Shortness of breath Findings: Questionable minimal interstitial prominence. No consolidation or pleural effusion. Cardi omediastinal silhouette is stable. Cardiac monitoring device is present. Bones and soft tissues are u nremarkable. Impression: Questionable mild chronic interstitial disease. No consolidation or pleural effusion. Reviewed, dictated and finalized at location . Impression: Questionable mild chronic interstitial disease. No consolidation or pleural eff usion.
--- NOTE | 2023-01-17 03:19 | ECG_ITS ---
Measurements Intervals [place] Rate: 66 P: 28 MN: 203 QRS: 66 QRSD: 161 T: 58 QT: 477 QTc: 501 Interpretive Statements SINUS RHYTHM BORDERLINE AV CONDUCTION DELAY RIGHT BUNDLE BRANCH BLOCK BASELINE ARTIFACT- III, V4-V6 ABNORMAL ECG COMPARED TO ECG 07/15/2022 22:42:59 NO SIGNIFICANT CHANGES Electronically Signed On 01-17-2023 6:34:44 CDT by Jhonathan Lloyd D.O.
[2023-01-17] MEDS: ONDANSETRON INJ 4 MG/2 ML VIAL IV PUSH ×2 (04:04→05:39)
[2023-01-17 04:12] LABS: Basophils Absolute Auto 0.1 K/mm3 (0.0-0.1); Basophils Percent Auto 0.6 % (0.2-1.2); Eosinophils Absolute Auto 0.5 K/mm3 (0-0.3); Eosinophils Percent Auto 5.4 % (0-4.4); Hematocrit 40.9 % (37.0-47.0); Hemoglobin 13.2 g/dL (12.0-15.0); Immature Granulocyte Absolute 0.03 K/mm3 (0.00-0.031); Immature Granulocyte Percent A 0.3 % (0-0.5); Lymphocytes Absolute Auto 2.63 K/mm3 (0.9-3.2); Lymphocytes Percent Auto 26.9 % (18.3-44.2); Mean Corpuscular HGB Conc 32.3 g/dl (32-36); Mean Platelet Volume 9.3 fl (7.4-10.4); Monocytes Absolute Auto 0.7 K/mm3 (0.1-0.6); Monocytes Percent Auto 7.2 % (2.6-8.5); Neutrophils Absolute Auto 5.8 K/mm3 (1.3-6.7); Neutrophils Percent Auto 59.6 % (45.5-73.1); Platelet Count Result 319 k/mm3 (150-375); Red Cell Distribution Width 14.9 % (11.5-14.5); White Blood Count 9.8 K/mm3 (4.5-10.0)
--- NOTE | 2023-01-17 04:16 | ED.GENADULT ---
HPI - General Adult General Chief complaint: Nausea/Vomiting/Diarrhea Stated complaint: N/V, CRAFT, DIZZINESS Time Seen by Provider: 01/17/23 03:38 History of Present Illness HPI narrative: this is a 77-year-old female presenting ED with chief complaint of nausea vomiting diarrhea. Patient says she woke up this morning feeling dizzy and sweaty. She had 5-6 episodes of nonbloody nonbilious nausea and vomiting. She has also had several episodes of diarrhea. She admits to shortness of breath although she says it is essentially at her baseline. She denies chest pain, fever, chills. Endorses a crampy suprapubic pain. She denies any urinary symptoms. The patient called EMS this morning. When they arrived she was too weak to answer the door and they had to break her door down. The patient lives alone. Related Data Home Medications Medication Instructions Recorded Confirmed albuterol sulfate 90 mcg/actuation 2 mcg inhalation Q4-6H PRN Short 01/22/21 07/16/22 aerosol inhaler (ProAir HFA) of breath fluticasone 250 mcg-salmeterol 50 1 inh inhalation PRN PRN SOB 01/22/21 07/16/22 mcg/dose blistr powdr for inhalation (Advair Diskus) hydrocodone 5 mg-acetaminophen 325 1 tablet Q6H PRN pain 07/16/22 07/16/22 mg tablet rimegepant 75 mg disintegrating 75 mg PO ONCE PRN 01/16/23 tablet (Nurtec ODT) Allergies Allergy/AdvReac Type Severity Reaction Status Date / Time Iodinated Contrast Media Allergy Severe RASH, Verified 01/16/23 15:35 DIFFICULTY BREATHING iodine Allergy Severe RASH,DIFFICULTY Verified 01/16/23 15:35 BREATHING erythromycin base Allergy Intermediate RASH, Verified 01/16/23 15:35 SORES IN MOUTH magnesium hydroxide Allergy Intermediate Vomiting Verified 01/16/23 15:35 Sulfa (Sulfonamide Allergy Intermediate RASH,SORES Verified 01/16/23 15:35 Antibiotics) IN MOUTH cholestyramine Allergy Unknown RASH AND Verified 01/16/23 15:35 VOMITING Penicillins Allergy Unknown RASH,DIFFICULTY Verified 01/16/23 15:35 BREATHING sulfur dioxide Allergy Unknown Unknown Verified 01/16/23 15:35 ibuprofen Allergy Difficulty Verified 01/16/23 15:35 Breathing PMFSH Past Medical History Medical History Aneurysm of infrarenal abdominal aorta Measuring at least 4.1 centimeters on imaging dated 01/22/2021. Cerebrovascular accident Cholangitis due to bile duct calculus with obstruction Chronic obstructive pulmonary disease Coronary artery disease Non STEMI in January 2014. Status post angioplasty and three-vessel CABG. Degenerative disc disease History of anemia History of peptic ulcer disease Hyperlipidemia Hypertension Nausea and vomiting in adult Restless leg syndrome Spinal stenosis Tobacco abuse Upper abdominal pain Surgical History Surgical History History of Billroth II operation History of bladder suspension procedure History of cervical spinal surgery Micro anterior cervical decompression diskectomy and fusion at C5-C6, C6-C7. History of cholecystectomy History of colonoscopy with polypectomy History of gastric bypass History of hemorrhoidectomy History of partial colectomy History of three vessel coronary artery bypass (~01/2014) FOUNTAIN to LAD, vein graft to a diagonal, vein graft to PDA. Performed at [facility]. Stented coronary artery Family History Family History Father Suicide and self-inflicted injury Sibling COPD (chronic obstructive pulmonary disease) Heart disease Sibling Lung cancer Mother Alzheimer's dementia Social History Social History Social History: Surrogate decision maker: Anne-Marie Saldana, daughter. Code status: Full code. Smoking packs per day: 1 Smoking cigarettes per day: 20.0 Years smoked: 60 Smoking pack-
[2023-01-17] MEDS: SODIUM CHLORIDE 0.9% IV 1,000 ML 999 ML IV CONT (04:53)
[2023-01-17 05:38] LABS: Influenza A QL RT-PCR Negative (Negative); Influenza B QL RT-PCR Negative (Negative); RSV RNA, RT-PCR Negative (Negative); SARS-CoV-2 RNA PCR Negative
[2023-01-17] MEDS: PROCHLORPERAZINE EDISYLATE 10 MG/2 ML VIAL IV PUSH (05:40)
[2023-01-17] MEDS: HYDROmorphone HCL INJ (*CRX) 1 MG/ML SYR 0.5 MG IV PUSH (06:02)
[2023-01-17 06:15] LABS: Appearance Urine Clear (Clear); Bacteria Urine 4+ /hpf; Bilirubin Urine Negative (Negative); Blood Urine 1+ (Negative); Color Urine Yellow (Yellow); Glucose Urine UA Negative (Negative); Ketones Urine Negative (Negative); Leukocyte Esterase Ur Trace LEU/UL (Negative); Need Manual Microscopic Reviewed; Nitrate Urine Positive (Negative); Non Pathogenic Casts 0-2; Protein Urine Negative (Negative); RBC Urine 0-2 /hpf (0-2); Specific Grav Ur 1.014 (1.001-1.035); Squamous Epithelial Cell Urine None seen /hpf (Few); Urobilinogen Urine 0.2 mg/dL (<2.0)
--- NOTE | 2023-01-17 06:15 | PC.NURSE ---
pt placed on o2 at this time due to a low os of fitonen 82 and 84%
[2023-01-17 06:16] LABS: Add Urine Microscopic? YES
[2023-01-17 06:50] LABS: Alanine Aminotransferase 16 U/L (6-35); Albumin Level 3.8 g/dL (3.5-5.1); Alkaline Phosphatase 260 U/L (38-126); Anion Gap 5 mmol/L (8-16); Aspartate Amino Transferase 17 U/L (14-36); Bilirubin,Total 0.4 mg/dL (0.2-1.3); Blood Urea Nitrogen 14 mg/dL (7-17); Calcium 8.5 mg/dL (8.4-10.2); Carbon Dioxide 23 mmol/L (22-30); Chloride 113 mmol/L (98-107); Estimated CRCL calculation 46 ml/min; Estimated Glomerular Filt Rate > 60; Glucose 175 mg/dL (65-110); Lipase 56 U/L (23-300); Potassium 3.9 mmol/L (3.4-5.0); Sodium 141 mmol/L (137-145)
[2023-01-17] MEDS: IPRATROPIUM BR 0.02% INH SOLN 0.5 MG/2.5 ML VIAL 1.5 MG INHALATION (07:20)
[2023-01-17] MEDS: ALBUTEROL SULFATE NEB 2.5 MG/3 ML INH 7.5 MG INHALATION (07:21)
[2023-01-17] MEDS: methylPREDNISolone SOD SUCC 125 MG VIAL IV PUSH (07:22)
--- NOTE | 2023-01-17 12:38 | PC.NURSE ---
Pt daughter called for an update. Let her know that pt has a bed and will be going to her admission room shortly
--- NOTE | 2023-01-17 13:19 | ADMGEN ---
This patient, Giulia Retana, was admitted to [facility]. Patient/family oriented to hospital policies and general routines including ID bracelet, bed and alarms, visiting hours, pain management, procedures, bathroom and other care routines, personal items, smoking policy, room service/diet, and visiting hours. Information on how to activate the Rapid Response Team has been discussed. Patient/Family are encouraged to report perceived risks to care and to ask questions if they do not understand what they are told or what they should do.
--- NOTE | 2023-01-17 16:35 | PM.IMHP ---
H&P: HPI History of Present Illness Date/Time: 01/17/23 16:35 Chief Complaint: Nausea vomiting diarrhea Narrative: This is a 77-year-old female patient who came to the emergency room with complaint of nausea vomiting diarrhea. She woke up feeling dizzy and sweating this morning. She had approximately 5-6 episodes of nonbloody nausea vomiting. She also had several episodes of diarrhea. She denied any fever chills. She admits she has also been short of breath. Oxygen was applied at 2 L per nasal cannula at in the emergency room. She endorses a crampy suprapubic pain. She denies any urinary symptoms. The patient does live home alone. Patient stated that she was too weak to answer the door when EMS came in this morning so they had to break down her door. Her blood sugar was 175. Nitrite was positive. Bacteria is 4+. Influenza a B RSV and COVID are negative. The patient was given Zofran, IV fluids, Compazine, Zofran, Dilaudid, nebulizer treatments, Solu-Medrol and Rocephin. The patient had 1 episode where her heart rate was down in the 40s and she was placed on telemetry chest x-ray was read as questionable mild chronic interstitial disease no consolidation or pleural effusion. Abdominal pelvis CT was read as a follow Moderate right hydronephrosis and mild left hydronephrosis, with distended urinary bladder. Correlate for bladder outlet obstruction/urinary retention. 5.1 cm infrarenal abdominal aortic aneurysm, essentially stable from prior exam. Surgical hardware within the stomach linking previously portions of the stomach. Probable stent in the common bile duct. Correlate with surgical history. Probable injected, postprocedural hyperdense material at the right bladder base, unchanged. Stable small cystic mass in the left adnexal region.. The patient is being admitted to observation status on the date of service of 01/17/2023 Review of Systems Review of Systems: All systems reviewed & are unremarkable except as noted in HPI and below Constitutional: Constitutional: Reports as per HPI and Reports no additional constitutional complaints Eyes: Eyes: Reports as per HPI and Reports no additional eye complaints ENT: Reports system reviewed and no additional complaints, except as documented and Reports Normal hearing present Cardiovascular: Cardiovascular: Reports no additional cardiovascular complaints Respiratory: Respiratory: Reports no additional respiratory complaints and Reports no additional respiratory complaints Gastrointestinal: Gastrointestinal: Reports as per HPI and Reports no additional gastrointestinal complaints Musculoskeletal: Musculoskeletal: Reports no additional musculoskeletal complaints Integumentary/Breasts: Skin/Breast: Reports system reviewed and no additional complaints, except as docu and Reports as per HPI Neurologic: Reports system reviewed and no additional complaints, except as documented, Reports as per HPI and Reports Normal hearing present Psychiatric: Psychiatric: Reports no additional psychiatric complaints and Reports as per HPI Endocrine: Endocrine: Reports no additional endocrine complaints Hematologic/Lymphatic: Hematologic/Lymphatic: Reports no additional hematologic/lymphatic complaints Allergic/Immunologic: Allergic/Immunologic: Reports no additional allergic/immunologic complaints [facility] Past Medical History Medical History (Updated 01/17/23 @ 16:52 by Suly Caballero NP) Aneurysm of infrarenal abdominal aorta Measuring at least 4.1 centimeters on imaging dated 01/22/2021. Cerebrovascular accident Cholangitis due to bile duct calculus with obstruction Chronic obstructive pulmonary disease Congestive heart failure Coronary artery disease Non STEMI in January 2014. Status post angioplasty and three-vessel CABG. Degenerative disc disease History of anemia History of peptic ulcer disease Hyperlipidemia Hypertension Nausea and vomiting in adult Restless leg syndrome
[2023-01-17] MEDS: SODIUM CHLORIDE 0.9% IV 1,000 ML 75 ML IV CONT (17:16)
[2023-01-17] MEDS: SODIUM CHLORIDE 0.9% IV 250 ML 100 ML IV CONT (17:16)
[2023-01-17] MEDS: methylPREDNISolone SOD SUCC 125 MG VIAL 60 MG IV PUSH (18:36)
[2023-01-18] VITALS (9 sets, daily range): BP systolic 131–168; BP diastolic 57–62; PULSE 52–62; RESP 16–24; TEMP 36.2–36.9; O2SAT 59–96
[2023-01-18] MEDS: methylPREDNISolone SOD SUCC 125 MG VIAL 60 MG IV PUSH ×4 (00:21→17:39)
[2023-01-18 07:21] LABS: Basophils Percent Auto 0.2 % (0.2-1.2); Hematocrit 36.2 % (37.0-47.0); Hemoglobin 11.5 g/dL (12.0-15.0); Immature Granulocyte Absolute 0.09 K/mm3 (0.00-0.031); Immature Granulocyte Percent A 0.7 % (0-0.5); Lymphocytes Percent Auto 8.2 % (18.3-44.2); Mean Corpuscular HGB Conc 31.8 g/dl (32-36); Mean Corpuscular Hemoglobin 30.3 pg (26-34); Mean Corpuscular Volume 95.3 fl (80-100); Mean Platelet Volume 9.1 fl (7.4-10.4); Monocytes Absolute Auto 0.3 K/mm3 (0.1-0.6); Neutrophils Absolute Auto 10.9 K/mm3 (1.3-6.7); Neutrophils Percent Auto 88.9 % (45.5-73.1); Platelet Count Result 262 k/mm3 (150-375); Red Cell Distribution Width 14.9 % (11.5-14.5); White Blood Count 12.2 K/mm3 (4.5-10.0)
[2023-01-18 07:37] LABS: Lactic Acid Reflex 2.5 mmol/L (0.7-2.0)
[2023-01-18 07:40] LABS: Alanine Aminotransferase 17 U/L (6-35); Albumin Level 3.4 g/dL (3.5-5.1); Alkaline Phosphatase 170 U/L (38-126); Anion Gap 5 mmol/L (8-16); Aspartate Amino Transferase 17 U/L (14-36); Bilirubin,Total 0.3 mg/dL (0.2-1.3); Blood Urea Nitrogen 21 mg/dL (7-17); Calcium 8.6 mg/dL (8.4-10.2); Carbon Dioxide 22 mmol/L (22-30); Chloride 114 mmol/L (98-107); Estimated CRCL calculation 41 ml/min; Estimated Glomerular Filt Rate > 60; Glucose 190 mg/dL (65-110); Potassium 4.2 mmol/L (3.4-5.0); Sodium 141 mmol/L (137-145)
[2023-01-18 08:17] LABS: Thyroid Stimulating Hormone Reflex 0.306 uIU/mL (0.465-4.68)
--- NOTE | 2023-01-18 09:23 | PC.NURSE ---
RETURNS FROM VENOUS DOPPLERS OF BLE. DR. LEES SAW PT. WHILE OFF FLOOR. DR. CURRY HERE TO SEE PT. UPDATED.
--- NOTE | 2023-01-18 09:48 | WPDURCON ---
Assessment and Plan Assessment and plan (1) Incomplete bladder emptying: Code(s): R33.9 - Retention of urine, unspecified Status: Acute (2) Bilateral hydronephrosis: Code(s): N13.30 - Unspecified hydronephrosis Status: Acute Assessment and Plan: Incomplete bladder emptying is likely related to a hypotonic bladder although outlet obstruction can not be completely excluded, particularly given her history of periurethral bulking agent injection. Bilateral hydronephrosis with renal of serum creatinine is almost certainly due to incomplete bladder emptying as suggest a longstanding problem given the normal renal function. I will get a renal ultrasound with Ochoa catheter in to see if the hydronephrosis resolves. Will start Flomax for incomplete bladder emptying and plan a voiding trial 1-2 days. Urology Consult Note HPI Date Seen: 01/18/23 Requesting Physician: Lee Guthrie MD Primary Care Provider: Pat AtwoodHéctor Consult Narrative Narrative: Giulia Retana is a 77 year old female who is known to our practice with a longstanding history of urinary incontinence. Actually this dates back several decades and she had previously seen a female urologist at [facility] who treated her with periurethral bulking agent injection. She presented to the emergency department with nausea vomiting and diarrhea which been attributed to a urinary tract infection. During the course of evaluation a CT scan demonstrated incomplete bladder emptying and mild to moderate bilateral hydronephrosis. A Ochoa catheter has subsequently been placed. Patient denies in sensation of incomplete bladder emptying immediately prior to admission. Her serum creatinine remains normal and stable, suggesting that this incomplete bladder emptying as a long-standing problem. Review of Systems Review of Systems: All systems reviewed & are unremarkable except as noted in HPI and below PMFSH Past Medical History Medical History (Updated 01/18/23 @ 09:51 by Corby Kenney MD) Aneurysm of infrarenal abdominal aorta Measuring at least 4.1 centimeters on imaging dated 01/22/2021. Cerebrovascular accident Cholangitis due to bile duct calculus with obstruction Chronic obstructive pulmonary disease Congestive heart failure Coronary artery disease Non STEMI in January 2014. Status post angioplasty and three-vessel CABG. Degenerative disc disease History of anemia History of peptic ulcer disease Hyperlipidemia Hypertension Nausea and vomiting in adult Restless leg syndrome Spinal stenosis Tobacco abuse Upper abdominal pain Surgical History Surgical History (Updated 01/17/23 @ 16:52 by Suly Caballero NP) H/O cataract extraction History of Billroth II operation History of bladder suspension procedure History of cervical spinal surgery Micro anterior cervical decompression diskectomy and fusion at C5-C6, C6-C7. History of cholecystectomy History of colonoscopy with polypectomy History of gastric bypass History of hemorrhoidectomy History of partial colectomy History of salpingo-oophorectomy History of three vessel coronary artery bypass (~01/2014) FOUNTAIN to LAD, vein graft to a diagonal, vein graft to PDA. Performed at [facility]. Stented coronary artery Family History Family History Father Suicide and self-inflicted injury Sibling COPD (chronic obstructive pulmonary disease) Heart disease Sibling Lung cancer Mother Alzheimer's dementia Social History Social History (Updated 01/17/23 @ 16:54 by Suly Caballero NP) Social History: The patient is . She has 3 children. She is retired. Surrogate decision maker: Anne-Marie Saldana, daughter. Code status: Full code. Smoking packs per day: 1 Smoking cigarettes per day: 20.0 Years smoked: 60 Smoking pack-years: 60.00 Smoking status: Never smoker Tobacco type: c
[2023-01-18 10:07] LABS: Free T4 Free Thyroxine Reflex 1.04 ng/dL (0.78-2.19)
[2023-01-18] MEDS: FLUTICASONE/UMECLIDIN/VILANTER 100-62.5-25 MCG ELLIPTA 1 PUFF INHALATION (10:07)
[2023-01-18 10:10] LABS: Alveolar/Arterial O2 Gradient 74.2 mmHg; Base Excess ABG -3.1 mEq/l (+/-2.0); Carboxyhemoglobin 0.7 % THb (0-2.0); Fractional Inspired Oxygen 24 %; HCO3 ABG 20.4 mEq/l (22.0-26.0); Methemoglobin ABG 0.2 %THb (0-1.5); Oxygen Content ABG 16.7 %vol (16.0-22.0); Oxygen Saturation ABG 91.5 % (95.0-100.0); Oxyhemoglobin 90.7 % THb (90.0-100.0); PCO2 ABG 31.9 mmHg (35.0-45.0); PO2 FiO2 Ratio Arterial Blood 2.46 %; Reduced Hemoglobin 8.4 %THb (0-5.0); Total Hemoglobin 13.1 g/dL (12.0-18.0); pH ABG 7.424 (7.350-7.450)
[2023-01-18 10:11] LABS: Site Drawn RIGHT RADIAL
[2023-01-18 10:19] LABS: Reflex Lactic Acid Yes or No Add Lactic
[2023-01-18 10:56] LABS: Lactic Acid 2.7 mmol/L (0.7-2.0)
[2023-01-18 11:22] LABS: Device NASAL CANNULA
[2023-01-18 11:56] LABS: Total Triiodothyronine (T3) 0.78 NG/ML (0.97-1.69)
--- NOTE | 2023-01-18 11:57 | PC.NURSE ---
RESULTS OF ABG'S, LACTIC ACID, BLE VENOUS DOPPLERS, RENAL US CALLED TO DR. CURRY. ORDERS RECEIVED TO SL IVF'S AND GET CT CHEST WITHOUT CONTRAST STAT.
--- NOTE | 2023-01-18 12:26 | PC.NURSE ---
DOWN VIA WC TO CT CHEST WITHOUT CONTRAST.
--- NOTE | 2023-01-18 12:40 | PC.NURSE ---
REPORT CALLED TO 3RD M/S NURSE SEBASTIAN RN. PT STILL OFF FLOOR FOR CT CHEST. PT. IS TO MOVE OUT TO 314. ROOM BEING CLEANED AT THIS TIME.
--- NOTE | 2023-01-18 12:52 | PC.NURSE ---
RETURNS TO PLATE [facility] [address] CHEST WITHOUT CONTRAST. HAS BEEN UP IN CHAIR ALL MORNING. NOW BACK TO BED. ON 1L O2 NC.
[2023-01-18] MEDS: SALINE LOCK FLUSH 2 ML IV PUSH ×2 (13:11→22:30)
--- NOTE | 2023-01-18 13:44 | PM.IMPN ---
Progress Note: A&P Assessment and Plan (1) Acute UTI: Code(s): N39.0 - Urinary tract infection, site not specified Status: Acute Assessment and Plan: Continue with Rocephin Continue with IV fluids for now Repeat lactic in the a.m. The patient was having diarrhea so the patient may have E coli in her urine. Urine cultures have been sent and blood cultures are pending Tailor antibiotics to cultures and sensitivities (2) Congestive heart failure: Code(s): I50.9 - Heart failure, unspecified Status: Acute Assessment and Plan: Holding lisinopril due to low blood pressure No previous echo seen in the system the patient is not having any signs and symptoms of fluid overload at this time. (3) Respiratory failure: Code(s): J96.90 - Respiratory failure, unspecified, unspecified whether with hypoxia or hypercapnia Status: Acute Assessment and Plan: Patient is on oxygen at 2 L per nasal cannula patient has a history of COPD continue with patient's inhalers (4) Diarrhea: Code(s): R19.7 - Diarrhea, unspecified Status: Acute Assessment and Plan: Stool cultures are pending. (5) Hypoxia: Code(s): R09.02 - Hypoxemia Status: Acute Assessment and Plan: Patient is currently on oxygen at 2 L per nasal cannula. The patient was given a dose of Solu-Medrol and a nebulizer treatment in the emergency room. Continue with inhalers from home. Wean off of oxygen when feasible. Questionable mild chronic interstitial disease. No consolidation or pleural effusion. May need a home O2 evaluation Continue with Solu-Medrol (6) Hypertension: Code(s): I10 - Essential (primary) hypertension Status: Acute Assessment and Plan: The patient's blood pressure is soft at this time. Holding lisinopril due to her low blood pressure P.r.n. hydralazine in the event that her blood pressure would increase. (7) Coronary artery disease: Code(s): I25.10 - Atherosclerotic heart disease of [place] coronary artery without angina pectoris Status: Acute Assessment and Plan: She has a history of a three-vessel CABG. (8) Chronic obstructive pulmonary disease: Code(s): J44.9 - Chronic obstructive pulmonary disease, unspecified Status: Acute Assessment and Plan: Continue with home inhalers Continue with Solu-Medrol Plan Acute UTI Lactic acid elevated 2.7 Continue Rocpehin F/u blood and urine cultures Acute hypoxemic respiratory failure PE vs COPD exacerbation abg pO2 [address] chest showed moderate Emphysemia V/Q scan ordered titrate oxygen monitor COPD exacerbation Continue steroids Bronchodilators monitor Urinary retention with bilateral hydronephrosis likely from incomplete bladder emptying per urology On krishnamurthy continue Tamsulosin i monitor CHF Cautious IVF CT chest no Pulm edema titrate home meds with clinical course Diarrhea Stool culture pending HTN titrate home meds with clinical course AAA 5.[address] AP CTS referral CAD titrate home meds with clinical course DVT prophylaxis Sq lovenox Subjective Date/time seen: 01/18/23 13:44 Review of Systems Review of Systems: Patient alert and comfortable and in no obvious distress, on supplemental oxygen. No chest pain or SOB, no dysuria noted. CT abd showed AAA 5.1 cm All systems reviewed & are unremarkable except as noted in HPI and below Constitutional: Constitutional: Reports as per HPI and Reports no additional constitutional complaints Eyes: Eyes: Reports as per HPI and Reports no additional eye complaints ENT: Reports system reviewed and no additional complaints, except as documented and Reports Normal hearing present Cardiovascular: Cardiovascular: Reports no additional cardiovascular complaints Respiratory: Respiratory: Reports no additional respiratory complaints and Rep
--- NOTE | 2023-01-18 14:00 | PC.NURSE ---
ATE 100% OF LUNCH AFTER RETURN FORM CT CHEST. PT. NOTIFIED FAMILY OF MOVE TO ROOM 314. REMAINS ON 1L O2 NC. MOVED VIA BED TO 314 WITH ALL PERSONAL BELONGINGS AND CHART, MEDS. UPDATED RNSEBASTIAN, ON ARRIVAL OF NEW ORDERS.
[2023-01-18] MEDS: HYDROcodone/acetaminophen (*CRX) 5-325 MG TABLET 1 TAB PO (20:57)
[2023-01-18] MEDS: TAMSULOSIN HCL 0.4 MG CAPSULE PO (20:57)
[2023-01-19] MEDS: methylPREDNISolone SOD SUCC 125 MG VIAL 60 MG IV PUSH ×4 (00:48→17:29)
[2023-01-19] MEDS: SALINE LOCK FLUSH 2 ML IV PUSH ×3 (05:22→20:11)
[2023-01-19 06:37] VITALS: BP 165/60; PULSE 57; RESP 20; TEMP 36.2; O2SAT 97
[2023-01-19 06:39] LABS: Basophils Percent Auto 0.2 % (0.2-1.2); Hematocrit 38.6 % (37.0-47.0); Hemoglobin 12.2 g/dL (12.0-15.0); Immature Granulocyte Absolute 0.18 K/mm3 (0.00-0.031); Immature Granulocyte Percent A 1.5 % (0-0.5); Lymphocytes Absolute Auto 0.99 K/mm3 (0.9-3.2); Mean Corpuscular HGB Conc 31.6 g/dl (32-36); Mean Corpuscular Hemoglobin 30.2 pg (26-34); Mean Corpuscular Volume 95.5 fl (80-100); Mean Platelet Volume 9.4 fl (7.4-10.4); Monocytes Absolute Auto 0.3 K/mm3 (0.1-0.6); Monocytes Percent Auto 2.3 % (2.6-8.5); Neutrophils Absolute Auto 10.9 K/mm3 (1.3-6.7); Platelet Count Result 270 k/mm3 (150-375); Red Blood Count 4.04 M/mm3 (4.2-5.4); White Blood Count 12.4 K/mm3 (4.5-10.0)
[2023-01-19 06:49] LABS: Alanine Aminotransferase 27 U/L (6-35); Albumin Level 3.6 g/dL (3.5-5.1); Alkaline Phosphatase 176 U/L (38-126); Anion Gap 5 mmol/L (8-16); Aspartate Amino Transferase 32 U/L (14-36); Bilirubin,Total 0.3 mg/dL (0.2-1.3); Blood Urea Nitrogen 28 mg/dL (7-17); Calcium 8.8 mg/dL (8.4-10.2); Carbon Dioxide 24 mmol/L (22-30); Chloride 112 mmol/L (98-107); Estimated CRCL calculation 41 ml/min; Estimated Glomerular Filt Rate > 60; Glucose 167 mg/dL (65-110); Potassium 4.4 mmol/L (3.4-5.0); Sodium 141 mmol/L (137-145)
[2023-01-19] MEDS: ENOXAPARIN 40 MG/0.4 ML SYRINGE SUB-Q (08:16)
[2023-01-19 09:19] VITALS: O2SAT 92
[2023-01-19] MEDS: FLUTICASONE/UMECLIDIN/VILANTER 100-62.5-25 MCG ELLIPTA 1 PUFF INHALATION (09:23)
--- NOTE | 2023-01-19 10:51 | WPDUROPN2 ---
Progress Note: A&P Assessment and Plan (1) Incomplete bladder emptying: Code(s): R33.9 - Retention of urine, unspecified Status: Acute (2) Bilateral hydronephrosis: Code(s): N13.30 - Unspecified hydronephrosis Status: Acute Assessment and Plan: Bilat. hydronephrosis and incomplete bladder emptying likely due to hypotonic bladder. Hydronephrosis resolved with catheter placement. Given lack of significant renal dysfunction I suspect this is a longstanding problem. In absence of symptomatic voiding difficulty, recurrent UTI or renal deterioration this may not be clinically significant. Will plan voiding trial tomorrow morning. When ready, should be discharge on Tamsulosin. F/U with within 2-3 weeks to check residual volume. Subjective Subjective Date/Time Seen: 01/19/23 10:51 Comfortable, tolerating catheter Review of Systems Cardiovascular: Cardiovascular: Denies chest pain, Denies lightheadedness, Denies palpitations and Denies dyspnea Respiratory: Respiratory: Denies dyspnea Gastrointestinal: Gastrointestinal: Denies diarrhea, Denies nausea and Denies vomiting Genitourinary: Genitourinary: Denies hematuria and Denies dysuria Endocrine: Endocrine: Denies palpitations Objective Data Vital Signs Vital Signs: Vital Signs - 24 hr 01/18/23 12:00 01/18/23 16:00 01/18/23 21:02 Temperature 98.3 F 97.5 F L 97.1 F L Pulse Rate 62 53 L 57 L Respiratory Rate 18 19 20 Blood Pressure 166/61 H 166/59 H 168/60 H Pulse Oximetry 59 L 94 96 Oxygen Delivery Oxygen Flow Rate 01/18/23 20:00 01/19/23 06:37 01/19/23 09:19 Temperature 97.2 F L Pulse Rate 57 L Respiratory Rate 20 Blood Pressure 165/60 H Pulse Oximetry 94 97 92 Oxygen Delivery Nasal Cannula Room Air Oxygen Flow Rate 4 01/19/23 08:00 Temperature Pulse Rate Respiratory Rate Blood Pressure Pulse Oximetry Oxygen Delivery Room Air Oxygen Flow Rate Intake/Output Intake/Output: Intake & Output 01/16/23 01/17/23 01/18/23 01/19/23 23:59 23:59 23:59 23:59 Intake Total 1880 3210 530 Output Total 450 325 850 Balance 1430 2885 -320 Meds/Results Medications: Active Medications Generic Name Dose Route Start Last Admin Trade Name Freq PRN Reason Stop Dose Admin Acetaminophen 1,000 mg 01/17/23 16:45 Acetaminophen 500 Mg Tablet PO TID PRN kana Hydrocodone Bitart/Acetaminophen 1 tab 01/17/23 16:45 01/18/23 20:57 Hydrocodone/Acetaminophen (*Crx) 5-325 Mg Tablet PO 1 tab Q12H PRN Administration pain Albuterol 1 puff 01/17/23 16:45 Albuterol Sulfate (*Sp) Aerosol 1 Puff INHALATION Q4-6H PRN Short of breath Enoxaparin Sodium 40 mg 01/19/23 09:00 01/19/23 08:16 Enoxaparin 40 Mg/0.4 Ml Syringe SUB-Q 40 mg DAILY YOVANNY Administration Fluticasone/Umeclidinium/Vilanterol 1 puff 01/18/23 08:00 01/19/23 09:23 Fluticasone/Umeclidin/Vilanter 100-62.5-25 Mcg Ellipta INHALATION 1 puff DAILYRT YOVANNY Administration Hydralazine HCl 10 mg 01/17/23 17:10 Hydralazine Hcl 20 Mg/Ml Vial IV PUSH Q8H PRN Blood Pressure - High Ceftriaxone Sodium 1 gm in 50 mls @ 100 mls/hr 01/18/23 06:00 01/19/23 06:53 Rocephin 1 Gm/Ns 50 Ml IVPB Infused Q24H YOVANNY Infusion Methylprednisolone Sodium Succinate 60 mg 01/17/23 18:00 01/19/23 05:20 Methylprednisolone Sod Succ 125 Mg Vial IV PUSH 60 mg Q6HR YOVANNY Administration Miscellaneous Information 0 each 01/18/23 00:01 Ipratropium Duplication With Incruse Ellipta - Please Clarify XX 02/17/23 00:00 CLARIFY YOVANNY Non-Formulary Medication 3 ml 01/18/23 17:00 Duoneb NEBULIZE 02/17/23 16:59 Q4HR YOVANNY Ondansetron HCl 4 mg 01/17/23 16:45 Ondansetron Inj 4 Mg/2 Ml Vial IV PUSH Q4H PRN Nausea And Vomiting Sodium Chloride 2 ml 01/18/23 14:00 01/19/23 05:22 Saline Lock Flush IV PUSH 2 ml Q8HR YOVANNY Administration Tamsulosin HCl 0
[2023-01-19] MEDS: HYDROcodone/acetaminophen (*CRX) 5-325 MG TABLET 1 TAB PO ×2 (11:05→22:46)
--- NOTE | 2023-01-19 11:46 | PM.IMPN ---
Progress Note: A&P Assessment and Plan (1) Acute UTI: Code(s): N39.0 - Urinary tract infection, site not specified Status: Acute Assessment and Plan: Continue with Rocephin Continue with IV fluids for now Repeat lactic in the a.m. The patient was having diarrhea so the patient may have E coli in her urine. Urine cultures have been sent and blood cultures are pending Tailor antibiotics to cultures and sensitivities (2) Congestive heart failure: Code(s): I50.9 - Heart failure, unspecified Status: Acute Assessment and Plan: Holding lisinopril due to low blood pressure No previous echo seen in the system the patient is not having any signs and symptoms of fluid overload at this time. (3) Respiratory failure: Code(s): J96.90 - Respiratory failure, unspecified, unspecified whether with hypoxia or hypercapnia Status: Acute Assessment and Plan: Patient is on oxygen at 2 L per nasal cannula patient has a history of COPD continue with patient's inhalers (4) Diarrhea: Code(s): R19.7 - Diarrhea, unspecified Status: Acute Assessment and Plan: Stool cultures are pending. (5) Hypoxia: Code(s): R09.02 - Hypoxemia Status: Acute Assessment and Plan: Patient is currently on oxygen at 2 L per nasal cannula. The patient was given a dose of Solu-Medrol and a nebulizer treatment in the emergency room. Continue with inhalers from home. Wean off of oxygen when feasible. Questionable mild chronic interstitial disease. No consolidation or pleural effusion. May need a home O2 evaluation Continue with Solu-Medrol (6) Hypertension: Code(s): I10 - Essential (primary) hypertension Status: Acute Assessment and Plan: The patient's blood pressure is soft at this time. Holding lisinopril due to her low blood pressure P.r.n. hydralazine in the event that her blood pressure would increase. (7) Coronary artery disease: Code(s): I25.10 - Atherosclerotic heart disease of [place] coronary artery without angina pectoris Status: Acute Assessment and Plan: She has a history of a three-vessel CABG. (8) Chronic obstructive pulmonary disease: Code(s): J44.9 - Chronic obstructive pulmonary disease, unspecified Status: Acute Assessment and Plan: Continue with home inhalers Continue with Solu-Medrol Plan K pneumonia UTI Lactic acid elevated 2.7 Continue Rocpehin day 2 urine culture klebsiella pneumonia, sensitive to Rocephin Acute hypoxemic respiratory failure PE vs COPD exacerbation abg pO2 [address] chest showed moderate Emphysemia V/Q scan low probability of PE titrate oxygen monitor COPD exacerbation Continue steroids Bronchodilators monitor Urinary retention with bilateral hydronephrosis likely from incomplete bladder emptying per urology On krishnamurthy continue Tamsulosin voiding trial tomorrow monitor CHF Cautious IVF CT chest no Pulm edema titrate home meds with clinical course Diarrhea Stool culture pending HTN titrate home meds with clinical course AAA 5.[address] AP CTS referral CAD titrate home meds with clinical course DVT prophylaxis Sq lovenox possible discharge tomorrow Subjective Date/time seen: 01/19/23 11:46 Patient alert and oriented at bedside, no overnight events reported she has 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
[2023-01-19 12:37] LABS: Lactic Acid Reflex 2.3 mmol/L (0.7-2.0)
[2023-01-19 14:00] VITALS: BP 161/58; PULSE 63; RESP 20; TEMP 36.3; O2SAT 94
[2023-01-19 15:23] LABS: Reflex Lactic Acid Yes or No Add Lactic
[2023-01-19 16:14] LABS: Lactic Acid 2.2 mmol/L (0.7-2.0)
[2023-01-19] MEDS: TAMSULOSIN HCL 0.4 MG CAPSULE PO (20:11)
[2023-01-19] MEDS: ACETAMINOPHEN 500 MG TABLET 1000 MG PO (20:16)
[2023-01-19 21:39] VITALS: BP 165/60; PULSE 53; RESP 16; TEMP 36.3; O2SAT 91
[2023-01-19 22:30] VITALS: PULSE 75; O2SAT 96
[2023-01-20] MEDS: methylPREDNISolone SOD SUCC 125 MG VIAL 60 MG IV PUSH ×4 (00:09→17:13)
[2023-01-20 02:22] VITALS: PULSE 62; RESP 19
[2023-01-20] MEDS: ALBUTEROL SULFATE (*SP) AEROSOL 1 PUFF INHALATION ×2 (02:23→10:21)
[2023-01-20 05:19] VITALS: BP 141/52; PULSE 47; RESP 20; TEMP 36.8; O2SAT 96
[2023-01-20] MEDS: SALINE LOCK FLUSH 2 ML IV PUSH ×2 (05:36→13:52)
--- NOTE | 2023-01-20 08:42 | WPDUROPN2 ---
Progress Note: A&P Assessment and Plan (1) Bilateral hydronephrosis: Code(s): N13.30 - Unspecified hydronephrosis Status: Acute (2) Incomplete bladder emptying: Code(s): R33.9 - Retention of urine, unspecified Status: Acute Assessment and Plan: Voiding trial on Tamsulosin today. As long as creat. does not increase will leave catheter out. Subjective Subjective Date/Time Seen: 01/20/23 08:42 Comfortable, talkative Review of Systems Cardiovascular: Cardiovascular: Denies chest pain, Denies lightheadedness, Denies palpitations and Denies dyspnea Respiratory: Respiratory: Denies dyspnea Gastrointestinal: Gastrointestinal: Denies diarrhea, Denies nausea and Denies vomiting Genitourinary: Genitourinary: Denies hematuria and Denies dysuria Endocrine: Endocrine: Denies palpitations Exam Const: General: no acute distress Resp: Effort & Inspection: normal respiratory effort GI: Inspection: non-distended GI Palp: No abdominal tenderness and No Guarding due to palpation present (GI) Auscultation: normal bowel sounds Objective Data Vital Signs Vital Signs: Vital Signs - 24 hr 01/19/23 09:19 01/19/23 14:00 01/19/23 21:39 Temperature 97.3 F L 97.4 F L Pulse Rate 63 53 L Respiratory Rate 20 16 Blood Pressure 161/58 H 165/60 H Pulse Oximetry 92 94 91 Oxygen Delivery Room Air 01/19/23 20:00 01/19/23 22:30 01/20/23 02:22 Temperature Pulse Rate 75 62 Respiratory Rate 19 Blood Pressure Pulse Oximetry 96 Oxygen Delivery Room Air Room Air 01/20/23 05:19 Temperature 98.2 F Pulse Rate 47 L Respiratory Rate 20 Blood Pressure 141/52 H Pulse Oximetry 96 Oxygen Delivery Intake/Output Intake/Output: Intake & Output 01/17/23 01/18/23 01/19/23 01/20/23 23:59 23:59 23:59 23:59 Intake Total 1880 3210 680 100 Output Total 450 325 850 450 Balance 1430 7902 -170 350 Meds/Results Medications: Active Medications Generic Name Dose Route Start Last Admin Trade Name Freq PRN Reason Stop Dose Admin Acetaminophen 1,000 mg 01/17/23 16:45 01/19/23 20:16 Acetaminophen 500 Mg Tablet PO 1,000 mg TID PRN Administration kana Hydrocodone Bitart/Acetaminophen 1 tab 01/17/23 16:45 01/19/23 22:46 Hydrocodone/Acetaminophen (*Crx) 5-325 Mg Tablet PO 1 tab Q12H PRN Administration pain Albuterol 1 puff 01/17/23 16:45 01/20/23 02:23 Albuterol Sulfate (*Sp) Aerosol 1 Puff INHALATION 1 puff Q4-6H PRN Administration Short of breath Albuterol 2.5 mg 01/20/23 04:00 Albuterol Sulfate Neb 2.5 Mg/3 Ml Inh INHALATION Q4HRT YOVANNY Enoxaparin Sodium 40 mg 01/19/23 09:00 01/19/23 08:16 Enoxaparin 40 Mg/0.4 Ml Syringe SUB-Q 40 mg DAILY YOVANNY Administration Fluticasone/Umeclidinium/Vilanterol 1 puff 01/18/23 08:00 01/19/23 09:23 Fluticasone/Umeclidin/Vilanter 100-62.5-25 Mcg Ellipta INHALATION 1 puff DAILYRT YOVANNY Administration Hydralazine HCl 10 mg 01/17/23 17:10 Hydralazine Hcl 20 Mg/Ml Vial IV PUSH Q8H PRN Blood Pressure - High Ceftriaxone Sodium 1 gm in 50 mls @ 100 mls/hr 01/18/23 06:00 01/20/23 06:10 Rocephin 1 Gm/Ns 50 Ml IVPB Infused Q24H [facility] Infusion Ipratropium Ray 0.5 mg 01/20/23 04:00 Ipratropium Br 0.02% Inh Soln 0.5 Mg/2.5 Ml Vial INHALATION Q4HRT [facility] Methylprednisolone Sodium Succinate 60 mg 01/17/23 18:00 01/20/23 05:37 Methylprednisolone Sod Succ 125 Mg Vial IV PUSH 60 mg Q6HR YOVANNY Administration Miscellaneous Information 0 each 01/18/23 00:01 Ipratropium Duplication With Incruse Ellipta - Please Clarify XX 02/17/23 00:00 CLARIFY YOVANNY Ondansetron HCl 4 mg 01/17/23 16:45 Ondansetron Inj 4 Mg/2 Ml Vial IV PUSH Q4H PRN Nausea And Vomiting Sodium Chloride 2 ml 01/18/23 14:00 01/20/23 05:36 Saline Lock Flush IV PUSH 2 ml Q8HR YOVANNY Administration Tamsulosin HCl 0.4 mg 01/18/23 21:00
[2023-01-20] MEDS: ENOXAPARIN 40 MG/0.4 ML SYRINGE SUB-Q (09:29)
[2023-01-20] MEDS: FLUTICASONE/UMECLIDIN/VILANTER 100-62.5-25 MCG ELLIPTA 1 PUFF INHALATION (10:21)
[2023-01-20 10:22] VITALS: O2SAT 95
[2023-01-20 14:00] VITALS: BP 159/62; PULSE 55; RESP 20; TEMP 36.5; O2SAT 96
[2023-01-20 14:03] LABS: Hematocrit 37.7 % (37.0-47.0); Hemoglobin 12.7 g/dL (12.0-15.0); Mean Corpuscular HGB Conc 33.7 g/dl (32-36); Mean Corpuscular Hemoglobin 30.9 pg (26-34); Mean Corpuscular Volume 91.7 fl (80-100); Mean Platelet Volume 9.3 fl (7.4-10.4); Platelet Count Result 291 k/mm3 (150-375); Red Blood Count 4.11 M/mm3 (4.2-5.4); Red Cell Distribution Width 14.7 % (11.5-14.5); White Blood Count 10.9 K/mm3 (4.5-10.0)
[2023-01-20 14:11] LABS: Lactic Acid Reflex 3.8 mmol/L (0.7-2.0)
[2023-01-20 14:13] LABS: Alanine Aminotransferase 107 U/L (6-35); Albumin Level 3.7 g/dL (3.5-5.1); Alkaline Phosphatase 208 U/L (38-126); Anion Gap 6 mmol/L (8-16); Aspartate Amino Transferase 90 U/L (14-36); Bilirubin,Total 0.4 mg/dL (0.2-1.3); Blood Urea Nitrogen 27 mg/dL (7-17); Calcium 8.6 mg/dL (8.4-10.2); Carbon Dioxide 24 mmol/L (22-30); Chloride 104 mmol/L (98-107); Estimated CRCL calculation 41 ml/min; Estimated Glomerular Filt Rate > 60; Glucose 318 mg/dL (65-110); Potassium 3.9 mmol/L (3.4-5.0); Sodium 134 mmol/L (137-145)
[2023-01-20 17:01] LABS: Reflex Lactic Acid Yes or No Add Lactic
--- NOTE | 2023-01-20 17:10 | PM.DS ---
DS: Admitting Diagnosis Discharge Date 01/20/23 Admitting Diagnosis UTI DS: Discharge Diagnosis Discharge Diagnosis Plan K pneumonia? UTI completed 3 days of Rocephin urine culture klebsiella pneumonia, sensitive to Rocephin Acute hypoxemic respiratory failure PE vs COPD exacerbation abg pO2 [address] chest showed moderate Emphysemia V/Q scan low probability of PE titrate oxygen monitor COPD exacerbation Continue steroids Bronchodilators monitor Urinary retention with bilateral hydronephrosis likely from incomplete bladder emptying per urology On krishnamurthy Continue Tamsulosin f/u with Urology monitor CHF Cautious IVF CT chest no Pulm edema titrate home meds with clinical course bowel incontinence from previous hermorrhoidal surgery f/u with PCP HTN titrate home meds with clinical course AAA 5.[address] AP referred to cardiology CAD titrate home meds with clinical course DS: Summary Hospital Course Hospital Course: managed for COPD exacerbation anf Klebsiella UTI. resolved with steroids and bronchodilators, receive 3 days fo Rocephin. Also had urianry retetntion and urology was consulted. Placed on Tamsulosin and will f/u with urology. Also f/u with PCP in 3 - 5 days and F/u [facility] hospital cardiology for AAA Time Spent with Patient Time attestation: Total time spent providing and/or coordinating discharge services: DS: Data Data Completed and Pending Labs on day of discharge: Labs from last 24 hours 01/20/23 01/20/23 01/20/23 13:57 13:57 13:57 WBC 10.9 H RBC 4.11 L Hgb 12.7 Hct 37.7 MCV 91.7 MCH 30.9 MCHC 33.7 RDW 14.7 H Plt Count 291 MPV 9.3 Sodium 134 L Potassium 3.9 Chloride 104 Carbon Dioxide 24 Anion Gap 6 L BUN 27 H Creatinine 0.80 Estim Creat Clear Calc 41 Estimated GFR > 60 Glucose 318 H Lactic Acid 3.8 H Calcium 8.6 Total Bilirubin 0.4 AST 90 H ALT 107 H Alkaline Phosphatase 208 H Total Protein 6.0 L Albumin 3.7 Preliminary micro results at discharge 01/17/23 15:50 Blood Culture - Preliminary Blood 01/17/23 15:58 Blood Culture - Preliminary Blood Discharge Plan Discharge Attending physician on discharge: Kelsey Rico Consulting providers: Corby Kenney Discharging Clinician: Nnanna,Onyema Anticipated Discharge Date/Time: 01/20/23 17:09 Patient Disposition: Home, Self-Care Activity: as tolerated Diet: as tolerated Stand Alone Forms: General Discharge Information Follow-up/Referrals: Myles*,Héctor Stewart [Primary Care Provider] - (f/u with PCP in 3-5 days) Corby Kenney MD [Physician] - (f/u as instructed ) Discharge Medications: New tamsulosin 0.4 mg Capsule 0.4 mg PO QHS Qty: 30 0RF Continued Nurtec ODT 75 mg tablet,disintegrating 75 mg PO ONCE PRN (Reason: Migraine Headache) Rx Instructions: Patient given sample 01/16/2023(4 tabs) Lot#[id number] Exp:03/2025 acetaminophen 500 mg tablet 1,000 mg PO TID PRN (Reason: kana) 7 Days Qty: 42 0RF albuterol sulfate [ProAir HFA] 90 mcg/actuation HFA aerosol inhaler 2 mcg INHALATION Q4-6H PRN (Reason: Short of breath) hydrocodone-acetaminophen 5-325 mg tablet 1 tablet PO Q12H PRN (Reason: pain) lisinopril 10 mg tablet 10 mg PO DAILY Trelegy Ellipta 100-62.5-25 mcg blister with device 1 inh INHALATION DAILY Date of admission: 01/17/23 10:10 Primary Care Provider: RuthPat Admitting Provider: Lee Guthrie Attending physician on admission: Lee Guthrie Condition: Guarded Prognosis
[2023-01-20 18:01] LABS: Lactic Acid 3.3 mmol/L (0.7-2.0)
== END 2023-01-20 18:30 | disposition home or self-care (01) | DRG 690 ==
LOC: ANHED 07:21 → ANHCPC 01-18 10:17 → ANH3MEDSUR 01-20 17:10 → ANH2MED 01-22 13:10 → ANH3MEDSUR 01-22 13:10 → ANHCPC 01-22 13:10
PROVIDERS: Nurse Practitioner; Admitting Provider Family Medicine; Emergency Provider Emergency Medicine; PCP Internal Medicine Infectious Disease; Visit Provider Internal Medicine
DX: N39.0 Urinary tract infection, site not specified (principal); J44.1 Chronic obstructive pulmonary disease with (acute) exacerbation; B96.1 Klebsiella pneumoniae [K. pneumoniae] as the cause of diseases classified elsewhere; Z20.822 Contact with and (suspected) exposure to COVID-19; R33.9 Retention of urine, unspecified; N13.30 Unspecified hydronephrosis; R15.9 Full incontinence of feces; I11.0 Hypertensive heart disease with heart failure; I50.9 Heart failure, unspecified; I71.40 Abdominal aortic aneurysm, without rupture, unspecified; I25.10 Atherosclerotic heart disease of native coronary artery without angina pectoris; E78.5 Hyperlipidemia, unspecified; M48.00 Spinal stenosis, site unspecified; G25.81 Restless legs syndrome; D64.9 Anemia, unspecified; R19.7 Diarrhea, unspecified; N31.2 Flaccid neuropathic bladder, not elsewhere classified; F17.210 Nicotine dependence, cigarettes, uncomplicated; Z87.11 Personal history of peptic ulcer disease; I25.2 Old myocardial infarction; Z95.1 Presence of aortocoronary bypass graft; Z86.73 Personal history of transient ischemic attack (TIA), and cerebral infarction without residual deficits; Z98.1 Arthrodesis status; Z90.49 Acquired absence of other specified parts of digestive tract; Z98.84 Bariatric surgery status; Z95.5 Presence of coronary angioplasty implant and graft
CPT/HCPCS: 36415; 36600; 51702; 71045; 71250; 74176; 76775; 78580; 80053; 81001; 82375; 82805; 83050; 83605; 83690; 83735; 84439; 84443; 84480; 85025; 85027; 87040; 87077; 87086; 87186; 87637; 93005; 93970; 94640; 96361; 96365; 96366; 96375; 96376; 99285; A9270; A9540; J0696; J0780; J1170; J1650; J2405; J2930; J7030; J7050

== ENCOUNTER 2023-02-25 10:30 | Outpatient (CLI) | payer MEDICARE, MEDICAID, SELFPAY ==
--- NOTE | ~2023-02-25 | US_ITS ---
EXAMINATION: US retroperitoneal comp DATE: 02/25/2023 11:21 INDICATION: RT HYDROURETER TECHNIQUE: Multiple grayscale and Doppler ultrasound images of the kidneys were obtained. COMPARISON: 01/18/2023 FINDINGS: The right kidney measures 10.0 x 4.3 x 3.6 cm. The left kidney measures 9.7 x 4.3 x 3.5 cm. The kidne ys demonstrate normal parenchymal echogenicity. No suspicious renal mass. There is no hydronephrosis. The bladder is normal. IMPRESSION: Unremarkable renal sonogram findings. Reviewed, dictated and finalized at location K.
== END 2023-02-25 10:31 | disposition home or self-care (01) ==
PROVIDERS: PCP Internal Medicine Infectious Disease; Visit Provider Nurse Practitioner Adult Health
DX: N13.4 Hydroureter (principal)
CPT/HCPCS: 76770

== ENCOUNTER 2023-05-09 11:59 | Outpatient (CLI) | payer MEDICARE, MEDICAID, SELFPAY ==
--- NOTE | ~2023-05-09 | MR_ITS ---
EXAMINATION: MRA neck wo con DATE: 05/09/2023 13:46 INDICATION: Syncope and collapse. TECHNIQUE: Magnetic resonance angiography (MRA) of the neck was performed without intravenous contras t. Sequences included axial 2D-time of flight T1-weighted FSPGR, axial Inhance, and coronal T1-weight ed FSPGR without and with intravenous contrast. COMPARISON: Carotid ultrasound 01/23/2021 FINDINGS: There is plaque in the proximal internal carotid arteries. There is 24% stenosis of the proximal righ t internal carotid artery relative to normal distal artery lumen diameter (NASCET criteria). There i s 0% stenosis of the proximal left internal carotid artery relative to normal distal artery lumen marbella meter. The vertebral arteries are not evaluated due to motion artifact. IMPRESSION: 1. 24% stenosis of the proximal right internal carotid artery relative to normal distal artery lumen diameter (NASCET criteria). 2. 0% stenosis of the proximal left internal carotid artery relative to normal distal artery lumen di ameter. Reviewed, dictated and finalized at location A. IMPRESSION: 1. 24% stenosis of the proximal right internal carotid artery relative to eduardo l distal artery lumen diameter (NASCET criteria). 2. 0% stenosis of the proximal left internal carotid artery relative to normal distal artery lumen diameter.
--- NOTE | ~2023-05-09 | MR_ITS ---
EXAMINATION: MRA brain wo con DATE: 05/09/2023 13:46 INDICATION: Syncope and collapse. TECHNIQUE: Magnetic resonance angiography (MRA) of the brain was performed without intravenous contra st with T1-weighted SPGR by the 3D [id number] technique. Maximum intensity projection 3D-reconstr uctions were obtained. COMPARISON: Brain MRI 01/24/2021 FINDINGS: Left vertebral artery is dominant. There is no significant stenosis of basilar artery or the posterio r cerebral arteries. The posterior communicating arteries are normal. There is no significant stenosi s of the intracranial internal carotid arteries or anterior or middle cerebral arteries. Anterior com municating artery is normal. There is no aneurysm. IMPRESSION: 1. No aneurysm or significant intracranial arterial stenosis. Reviewed, dictated and finalized at location A.
== END 2023-05-09 12:00 | disposition home or self-care (01) ==
PROVIDERS: PCP Internal Medicine Infectious Disease; Visit Provider Student in an Organized Health Care Education/Training Program
DX: R55 Syncope and collapse (principal); I65.21 Occlusion and stenosis of right carotid artery
CPT/HCPCS: 70544; 70547

== ENCOUNTER 2023-10-25 14:30 | Outpatient (RCR) | payer MEDICARE, MEDICAID, SELFPAY ==
--- NOTE | 2023-10-04 15:23 | PTOPEVAL1 ---
Assessment and note entered by Daysi Veloz, PT Evaluation Information Assessment Status Evaluation Diagnosis low back pain Onset over 1 yr ago Subjective Information chronic pain in spine-- neck and back; to have MRI next week of cervical and lumbar spine; have not had PT for her low back in the past ACTIVITY: do not use assistive device, live alone, do light home and self care tasks; daughter assists PRN; Reported Pain Level Pain Score 9: Self Report Additional Pain Score Comments pain range 6-10/10 in low back, radicular R LE to lateral calf- constant/ radicular L LE to knee- intermittent; increase pain: walking over 100' decrease pain: hot shower, every 12 hours- hydrocodone also have neck pain and arm pain Assessment PT Clinical Summary Giulia has the diagnosis of low back pain, with radicular into both LE's R > L. Self assessment Oswestry score of 72% limitation in activity level -- decreased sitting, standing, walking, sleeping tolerances. She lives alone, with daughter assisting PRN. She also reports neck pain and hands and arms going numb. An MRI is scheduled next week for cervical and lumbar spine. With the evaluation: poor standing position of her trunk and legs; decreased strength and mobility of trunk and hips due to pain; in supine hamstring stretch with SLR, both hips flexion, IR and ER motions all increase pain; she is hypersensitive to light touch over hips and back. Walking tolerance of 100' then had to stop due to back pain. Discussed aquatic therapy with her, she is not interested in doing water exercises--not like water, will catch pneumonia with the cold weather. Skilled PT services are indicated for modalities to decrease pain, therapeutic exercises to increase strength and flexibility of trunk and hips, with education for home exercises and pain management. Plan of Care Interventions Electrical Stimulation,Hot Pack/Cold Pack,Manual Therapy,Neuro Re-education,Patient Education,The
--- NOTE | 2023-10-04 15:23 | OPREHPOC ---
Outpatient Therapy Plan of Care This is a Multidisciplinary Plan of Care that may contain components documented by all disciplines (PT, OT, and ST.) PT Problem 1 PT Problem #1 Knowledge Deficit PT Goal 1 Goal * indep with HEP PT Problem 2 PT Problem #2 Pain PT Goal 1 Goal 1* decrease pain to 8/10 at worst 2* self assessment Oswestry score of 64% limitation in activity 3* pt able to state 3 methods to decrease her pain PT Problem 3 PT Problem #3 Impaired Strength PT Goal 1 Goal 1* pt perform standing trunk and hip strengthening exercises x 10 reps with 1 UE support 2* pt walking tolerance of 200' before have to sit down due to pain
--- NOTE | 2023-10-22 14:19 | PCPTNOTE ---
Pt did not show for scheduled appointment. Called and spoke with Pt. She apologized because she did not have this appointment on her calendar; only had Saturday's appointment at 14:30. Confirmed with Pt about her upcoming appointment on Saturday10/25/23 @ 14:30.
--- NOTE | 2023-10-25 15:08 | PTOPDC ---
Assessment and note entered by Daysi Veloz, PT Evaluation Information Assessment Status Discharge Diagnosis low back pain Onset over 1 yr ago Subjective Information feel like she is the same as when she started therapy but want to continue coming to therapy; dr khoury last week was rescheduled by and will be Oct 31; after have therapy first thing want to do is go home and take a pain pill; pain is not bearable from the neck and back; is able to do her light home things, daughter assist with shopping, cleaning chores; Reported Pain Level Pain Score Self Report Additional Pain Score Comments pain range of the past week: -16/08; neck pain, both arms go numb, headaches; back pain, both hips and legs, intermittent in LE: L to knee & R to mid calf increase pain: breathing, doing things decrease pain: pain meds every 6 hours- hydrocodone & muscle relaxer; hot shower wake up at least 3x/night due to head, arm pain, back pain; Oswestry self assessment functional limitation score of 72%; Assessment PT Clinical Summary Giulia has received 5 PT sessions. Compared to initial evaluation: pain rating from -08/13 and now -16/08; radicular pain is the same: R to calf and L to knee- intermittent; slight increase in hip strength but pain increases with exercises and reports after therapy, go home and take a pain pill; supine R and L hip flexion to 90', IR and ER motions all increase her pain; walking distance increased from 100' to 150' before have to sit down; Oswestry self assessment functional limitation score is the same at 72% limitation in activity level; Discussed wheeled walker and aquatic therapy with her. She is not interested in either one. She has been educated on few exercises for home and she reports performing them. Heat and pain pills are the only thing she reports ease her pain. Giulia has multiple areas of pain--headache, neck pain, UE pain, back pain, hip and into R and L LE's The goals were partially met. Discharge PT services. She has a follow up dr khoruy next week. Plan of Care PT Services Indicated
== END 2023-10-29 11:01 | disposition home or self-care (01) ==
LOC: ANHPT 14:30
PROVIDERS: PCP Internal Medicine Infectious Disease
DX: M54.50 Low back pain, unspecified (principal)
CPT/HCPCS: 97110; 97116; 97161; 97530

== ENCOUNTER 2023-11-13 09:37 | Outpatient (CLI) | payer MEDICARE, MEDICAID, SELFPAY ==
--- NOTE | ~2023-11-13 | CT_ITS ---
EXAMINATION: CT brain wo con DATE: 11/13/2023 10:04 INDICATION: Headache TECHNIQUE: Computed tomography (CT) of the head was performed without intravenous contrast. The mA wa s adjusted according to patient size. Iterative reconstruction technique was employed. Exam dose: 60 5.33 mGy-cm total exam DLP. COMPARISON: 05/09/2023 MRA brain 10/22/2022 CT brain FINDINGS: Prominent bilateral carotid siphon internal carotid artery calcifications. Left and right v ertebral artery and basilar artery calcification. There is nonspecific diminished attenuation of the cerebral white matter, likely due to chronic small vessel ischemic change. Small lacunar infarct of the head of the right caudate nucleus. There is cerebral cortical atrophy particularly prominent in the frontal areas. Normal ventricular size. No intracranial mass lesion or hemorrhage or cerebrovascular accident, midli ne shift or mass effect is detected. No subdural or epidural hematoma. No interval fracture or bone destruction of the cranial vault. There is a left nasal antral window. There are bilateral mastoid effusions, greater on the right. IMPRESSION: No acute finding or significant change since 10/22/2022 Reviewed, dictated and finalized at Location [facility]. Reviewed, dictated and finalized at location B. GER NICU
== END 2023-11-13 09:38 | disposition home or self-care (01) ==
PROVIDERS: PCP Internal Medicine Infectious Disease; Visit Provider Student in an Organized Health Care Education/Training Program
DX: R51.9 Headache, unspecified (principal)
CPT/HCPCS: 70450

== ENCOUNTER 2023-12-12 13:06 | Outpatient (CLI) | payer MEDICARE, MEDICAID, SELFPAY ==
--- NOTE | ~2023-12-12 | XR_ITS ---
EXAMINATION: XR chest 2V DATE: 12/12/2023 13:53 INDICATION: Chronic obstructive lung disease TECHNIQUE: Frontal and lateral views of the chest are obtained COMPARISON: 01/20/2023; CT, 01/18/2023 FINDINGS: The lungs are free of acute opacities. There is a small right pleural effusion. Also noted is a small, chronic loculated left pleural effusion posteriorly. There is no pneumothorax. The heart size is normal. Median sternotomy wires and mediastinal surgical clips are seen, likely from prior co ronary artery bypass grafting. A loop recorder is implanted anteriorly in the left chest wall. There are partially imaged changes of posterior cervical fusion. Surgical changes are also noted in the mid line upper abdomen. There is moderate thoracic spondylosis. IMPRESSION: 1. No acute cardiopulmonary abnormality. 2. Small bilateral pleural effusions. Reviewed, dictated and finalized at location L. DREN'S ATTENDANT
[2023-12-12 13:49] LABS: Basophils Absolute Auto 0.1 K/mm3 (0.0-0.1); Eosinophils Absolute Auto 0.2 K/mm3 (0-0.3); Eosinophils Percent Auto 3.4 % (0-4.4); Hematocrit 37.4 % (37.0-47.0); Hemoglobin 11.6 g/dL (12.0-15.0); Immature Granulocyte Absolute 0.02 K/mm3 (0.00-0.031); Immature Granulocyte Percent A 0.3 % (0-0.5); Lymphocytes Absolute Auto 2.25 K/mm3 (0.9-3.2); Lymphocytes Percent Auto 31.8 % (18.3-44.2); Mean Corpuscular Hemoglobin 29.2 pg (26-34); Mean Corpuscular Volume 94.2 fl (80-100); Mean Platelet Volume 8.3 fl (7.4-10.4); Monocytes Absolute Auto 0.5 K/mm3 (0.1-0.6); Monocytes Percent Auto 6.9 % (2.6-8.5); Neutrophils Percent Auto 56.6 % (45.5-73.1); Platelet Count Result 416 k/mm3 (150-375); Red Blood Count 3.97 M/mm3 (4.2-5.4); Red Cell Distribution Width 14.6 % (11.5-14.5); White Blood Count 7.1 K/mm3 (4.5-10.0)
[2023-12-12 14:03] LABS: Alanine Aminotransferase 14 U/L (6-35); Albumin Level 3.6 g/dL (3.5-5.1); Alkaline Phosphatase 191 U/L (38-126); Anion Gap 6 mmol/L (8-16); Aspartate Amino Transferase 20 U/L (14-36); Bilirubin,Total 0.4 mg/dL (0.2-1.3); Blood Urea Nitrogen 19 mg/dL (7-17); Calcium 9.3 mg/dL (8.4-10.2); Carbon Dioxide 25 mmol/L (22-30); Chloride 108 mmol/L (98-107); Estimated Glomerular Filt Rate > 60; Glucose 105 mg/dL (65-110); Potassium 4.3 mmol/L (3.4-5.0); Sodium 139 mmol/L (137-145)
[2023-12-12 14:38] LABS: Erythrocyte Sedimentation Rate 29 mm/hr (0-20)
== END 2023-12-12 13:07 | disposition home or self-care (01) ==
PROVIDERS: PCP Internal Medicine Infectious Disease; Referring Provider Internal Medicine Infectious Disease; Visit Provider Student in an Organized Health Care Education/Training Program
DX: R51.9 Headache, unspecified (principal); I25.10 Atherosclerotic heart disease of native coronary artery without angina pectoris; R63.4 Abnormal weight loss; J90 Pleural effusion, not elsewhere classified
CPT/HCPCS: 36415; 71046; 80053; 85025; 85652; 86038; 86140

== ENCOUNTER 2024-08-27 09:53 | Emergency (ER) | payer MEDICARE, MEDICAID, SELFPAY ==
[2024-08-27] VITALS (7 sets, daily range): BP systolic 142–194; BP diastolic 69–79; PULSE 49–58; RESP 16–19; O2SAT 97–100
--- NOTE | ~2024-08-27 | XR_ITS ---
CHEST RADIOGRAPH, PA AND LATERAL CLINICAL HISTORY: chest pain, HX OF AORTIC ANEURYSM . COMPARISON: 12/12/2023 TECHNIQUE: PA and lateral views of the chest. FINDINGS Sternal wires and mediastinal clips are identified, the wires are midline and intact. The remainder of the cardiomediastinal silhouette is otherwise unremarkable. Interval removal of the loop recorder seen on previous examination. Multiple surgical clips within the upper abdomen. Blunting of the right costophrenic sulcus suggests a small right-sided pleural effusion minimally inc reased from December examination. Remainder of the lungs are clear. Visualized osseous structures and soft tissues are unremarkable. IMPRESSION: Small right-sided pleural effusion without focal infiltrate. Reviewed, dictated and finalized at location A.
--- NOTE | 2024-08-27 10:04 | ECG_ITS ---
Test Date: 2024-08-27 10:03:42 Measurements Intervals [place] Rate: 59 P: 36 LA: 185 QRS: 72 QRSD: 147 T: 60 QT: 473 QTc: 470 Interpretive Statements SINUS BRADYCARDIA RIGHT BUNDLE BRANCH BLOCK [120+ ms QRS DURATION, UPRIGHT V1, 40+ ms S IN I/aVL/V4/V5/V6] No previous ECG available for comparison Electronically Signed On 08-27-2024 15:25:05 CDT by Shalom Canas M.D.
[2024-08-27 10:15] LABS: Basophils Absolute Auto 0.1 K/mm3 (0.0-0.1); Eosinophils Absolute Auto 0.4 K/mm3 (0-0.3); Hematocrit 40.2 % (37.0-47.0); Immature Granulocyte Absolute 0.02 K/mm3 (0.00-0.031); Immature Granulocyte Percent A 0.3 % (0-0.5); Lymphocytes Absolute Auto 1.79 K/mm3 (0.9-3.2); Lymphocytes Percent Auto 26.7 % (18.3-44.2); Mean Corpuscular HGB Conc 32.3 g/dl (32-36); Mean Corpuscular Volume 92.8 fl (80-100); Monocytes Absolute Auto 0.5 K/mm3 (0.1-0.6); Monocytes Percent Auto 7.6 % (2.6-8.5); Neutrophils Absolute Auto 3.9 K/mm3 (1.3-6.7); Neutrophils Percent Auto 58.4 % (45.5-73.1); Platelet Count Result 263 k/mm3 (150-375); Red Blood Count 4.33 M/mm3 (4.2-5.4); White Blood Count 6.7 K/mm3 (4.5-10.0)
[2024-08-27 10:24] LABS: Alanine Aminotransferase 8 U/L (6-35); Albumin Level 4.2 g/dL (3.5-5.1); Alkaline Phosphatase 165 U/L (38-126); Anion Gap 7 mmol/L (4-12); Aspartate Amino Transferase 21 U/L (14-36); Bilirubin,Total 0.6 mg/dL (0.2-1.3); Blood Urea Nitrogen 16 mg/dL (7-17); Calcium 9.6 mg/dL (8.4-10.2); Carbon Dioxide 28 mmol/L (22-30); Chloride 105 mmol/L (98-107); Estimated CRCL calculation 34 ml/min; Estimated Glomerular Filt Rate > 60; Glucose 97 mg/dL (65-110); Lipase 20 U/L (23-300); Potassium 3.9 mmol/L (3.4-5.0); Sodium 140 mmol/L (137-145)
[2024-08-27 10:26] LABS: Partial Thromboplastin Time 27.1 Seconds (22.3-36.8); Prothrombin Time 13.5 Seconds (11.1-14.7)
[2024-08-27 10:36] LABS: Troponin I < 0.012 ng/mL (0.000-0.034)
--- NOTE | 2024-08-27 11:58 | ED_ITS ---
HPI - Chest Pain General Chief Complaint: Chest Pain Stated Complaint: cp Time Seen by Provider: 08/27/24 10:12 Source: patient Mode of arrival: ambulatory Limitations: no limitations History of Present Illness HPI narrative: This is a 78-year-old female with past medical history significant for stroke, chronic obstructive pulmonary disease, coronary disease, degenerative disc disease, dyslipidemia, hypertension, restless leg syndrome, spinal stenosis, tobacco dependence. Status post Billroth type 2 surgery.here with a complaints of left sided chest pain for quite some time ,pain gets worse with touch and mo vement . she denies any SOB . No fever has occasional cough which is from her COPD. MD complaint: chest pain Pertinent past history: coronary artery disease Onset (ago): week(s) Timing of current episode: constant and still present Pain location: left chest Pain radiation: none Severity: moderate Quality: sharp Relieving factors: nothing Exacerbating factors: nothing Treatment prior to arrival: none Risk Factors Coronary artery disease risk factors: smoking history Thoracic aortic dissection risk factors: none Related Data Home Medications Medication Instructions Recorded Confirmed albuterol sulfate 90 mcg/actuation 2 mcg inhalation Q4-6H PRN Short 01/22/21 02/05/24 aerosol inhaler (ProAir HFA) of breath hydrocodone 5 mg-acetaminophen 325 1 tablet PO Q12H PRN pain 07/16/22 02/05/24 mg tablet fluticasone fur. 100 mcg-umeclid 1 inh inhalation DAILY 01/17/23 02/05/24 62.5 mcg-vilant 25 mcg inhalat.powder (Trelegy Ellipta) lisinopril 10 mg tablet 10 mg PO DAILY 01/17/23 02/05/24 Allergies Allergy/AdvReac Type Severity Reaction Status Date / Time Iodinated Contrast Media Allergy Severe RASH, Verified 08/27/24 09:54 DIFFICULTY BREATHING iodine Allergy Severe RASH,DIFFICULTY Verified 08/27/24 09:54 BREATHING erythromycin base Allergy Intermediate RASH, Verified 08/27/24 09:54 SORES IN MOUTH magnesium hydroxide Allergy Intermediate Vomiting Verified 08/27/24 09:54 Sulfa (Sulfonamide Allergy Intermediate RASH,SORES Verified 08/27/24 09:54 Antibiotics) IN MOUTH cholestyramine Allergy Unknown RASH AND Verified 08/27/24 09:54 VOMITING Penicillins Allergy Unknown RASH,DIFFICULTY Verified 08/27/24 09:54 BREATHING sulfur dioxide Allergy Unknown Unknown Verified 08/27/24 09:54 ibuprofen Allergy Difficulty Verified 08/27/24 09:54 Breathing Review of Systems Review of Systems: All systems reviewed & are unremarkable except as noted in HPI and below Constitutional: Constitutional: Reports no additional constitutional complaint s Eyes: Eyes: Reports no additional eye complaints ENT: Reports system reviewed and no additional complaints, except as documented Cardiovascular: Cardiovascular: Reports no additional cardiovascular complaints Respiratory: Respiratory: Reports no additional respiratory complaints Gastrointestinal: Gastrointestinal: Reports no additional gastrointestinal complaints Genitourinary: Genitourinary: Reports no additional female genitourinary complaints Musculoskeletal: Musculoskeletal: Reports no additional musculoskeletal complaints Integumentary/Breasts: Skin/Breast: Reports system reviewed and no additional complaints, except as docu Neurologic: Reports system reviewed and no additional complaints, except as documented Psychiatric: Psychiatric: Reports no additional psychiatric complaints Endocrine: Endocrine: Reports no additional endocrine complaints [facility] Past Medical History Medical History Aneurysm of infrarenal abdominal aorta Measuring at least 4.1 centimeters on imaging dated 01/22/2021. Cerebrovascular accident Cholangitis due to bile duct calculus with obstruction Chronic obstructive pulmonary disease Congestive heart failure Coronary artery disease Non STEMI in January 2014. Status post angioplasty and three-vessel CABG. Degenerative disc disease History of anemia History of peptic ulcer disease Hyperlipidemia Hypertension Nausea and vomiting in adult Restless leg syndrome Spinal stenosis Tobacco abuse Upper abdominal pain Surgical History Surgical History H/O cataract extraction History of Billroth II operation History of bladder suspension procedure History of cervical spinal surgery Micro anterior cervical decompression diskectomy and fusion at C5-C6, C6-C7. History of cholecystectomy History of colonoscopy with polypectomy History of gastric bypass History of hemorrhoidectomy History of partial colectomy History of salpingo-oophorectomy History of three vessel coronary artery bypass (~01/2014) FOUNTAIN to LAD, vein graft to a diagonal, vein graft to PDA. Performed at [facility]. Stented coronary artery Family History Family History Father Suicide and self-inflicted injury Sibling COPD (chronic obstructive pulmonary disease) Heart disease Sibling Lung cancer Mother Alzheimer's dementia Social History Social History Social History: Giulia is somewhat confident filling out medical forms. In the last 12 months she has not received assistance from an organization or program. The patient is . She has 3 children. She is retired. Surrogate decision maker: Anne-Marie Saldana, daughter. Code status: Full code. Smoking packs per day: 1 Smoking cigarettes per day: 20.0 Years smoked: 60 Smoking pack-years: 60.00 Smoking status: Current every day smoker Tobacco type: cigarettes Second hand tobacco smoke exposure: No Alcohol intake: never Substance use: never Substance use type: does not use Do You Feel Safe in your Home?: Yes Lack of Transportation: No Lack of Food: Never True Current Housing: Decline to Answer Concerned About Future Housing: Decline to Answer Difficulty Paying Gas/Electric Bills: Decline to Answer Difficulty Paying for Meds: Decline to Answer Currently Unemployed: Decline to Answer Education: Decline to Answer Difficulty w/ Childcare or Family Care: Decline to Answer Living arrangements: alone Additional living arrangements comments: Lives alone in her own home in [place]. In the process of moving to [place]. Additional occupation/education comments: Retired. Gender identity (if verbalized by the patient): Female Spiritual care concerns: No Exam Narrative: GENERAL: Well-appearing, well-nourished, and in no acute distress. HEAD: Normocephalic, atraumatic. EYES: PERRLA and EOMI. ENT: Nares clear. NECK: Supple. CHEST: Clear to auscultation. No respiratory distress. Mild tenderness on gentle palpation of the left chest wall, no rash noted HEART: Regular rate and rhythm. No murmur heard. Normal peripheral pulses. ABDOMEN: Soft, nontender, nondistended, normal active bowel sounds. EXTREMITIES: Normal range of motion. No edema. SKIN: Warm, dry, no rash. NEURO: No focal deficits. Alert and oriented x3. PSYCH: Normal mood and affect. Course Course Emergency Course: Patient comfortably resting informed her about the lab work, a chest x-ray and EKG findings. Patient states that she has lidocaine patches at home but she barely uses it I advised her to apply patch on the left side of her chest, follow-up with the primary doctor. Vital Signs Vital signs: Vital Signs Pulse Rate 58 L 08/27/24 10:00 Respiratory Rate 16 08/27/24 10:00 Blood Pressure 194/79 H 08/27/24 10:00 Pulse Oximetry 100 08/27/24 10:00 Oxygen Delivery Room Air 08/27/24 10:00 Pulse Rate 58 L 08/27/24 11:01 Respiratory Rate 18 08/27/24 11:01 Blood Pressure 149/77 H 08/27/24 11:01 Pulse Oximetry 97 08/27/24 11:01 Oxygen Delivery Room Air 08/27/24 10:10 MDM - Chest Pain Lab Data 08/27/24 10:08 08/27/24 10:08 Labs: Lab Results 08/27/24 Range/Units 10:08 WBC 6.7 (4.5-10.0) K/mm3 RBC 4.33 (4.2-5.4) M/mm3 Hgb 13.0 (12.0-15.0) g/dL Hct 40.2 (37.0-47.0) % MCV 92.8 (80-100) fl MCH 30.0 (26-34) pg MCHC 32.3 (32-36) g/dl RDW 14.0 (11.5-14.5) % Plt Count 263 (150-375) k/mm3 MPV 9.0 (7.4-10.4) fl Immature Gran % (Auto) 0.3 (0-0.5) % Neut % (Auto) 58.4 (45.5-73.1) % Lymph % (Auto) 26.7 (18.3-44.2) % [place] % (Auto) 7.6 (2.6-8.5) % Eos % (Auto) 6.0 H (0-4.4) % Baso % (Auto) 1.0 (0.2-1.2) % Lymph # (Auto) 1.79 (0.9-3.2) K/mm3 [place] # (Auto) 0.5 (0.1-0.6) K/mm3 Eos # (Auto) 0.4 H (0-0.3) K/mm3 Baso # (Auto) 0.1 (0.0-0.1) K/mm3 Abs Immat Gran (auto) 0.02 (0.00-0.031) K/mm3 Absolute Neuts (auto) 3.9 (1.3-6.7) K/mm3 Absolute Nucleated RBC 0.000 (0.0-0.012) K/mm3 Nucleated RBC % 0.0 (0.0-0.2) % PT 13.5 (11.1-14.7) Seconds INR 1.0 APTT 27.1 (22.3-36.8) Seconds Sodium 140 (137-145) mmol/L Potassium 3.9 (3.4-5.0) mmol/L Chloride 105 (98-107) mmol/L Carbon Dioxide 28 (22-30) mmol/L Anion Gap 7 (4-12) mmol/L BUN 16 (7-17) mg/dL Creatinine 0.90 (0.7-1.0) mg/dL Estim Creat Clear Calc 34 ml/min Estimated GFR > 60 (59 - ) Glucose 97 (65-110) mg/dL Calcium 9.6 (8.4-10.2) mg/dL Total Bilirubin 0.6 (0.2-1.3) mg/dL AST 21 (14-36) U/L ALT 8 (6-35) U/L Alkaline Phosphatase 165 H (38-126) U/L Troponin I < 0.012 (0.000-0.034) ng/mL Total Protein 8.0 (6.3-8.2) g/dL Albumin 4.2 (3.5-5.1) g/dL Lipase 20 L (23-300) U/L Imaging Data Radiologist's impression: ITS Impressions Chest X-Ray 08/27/24 10:25 IMPRESSION: Small right-sided pleural effusion without focal infiltrate. ECG Data EKG #1: ECG completion date: 08/27/24 ECG completion time: 10:03 EKG Interpretation: normal rate (59), sinus rhythm, non-specific ST changes, NL axis and no acute changes Discharge Plan Discharge Clinical Impression: Anterior chest wall pain Patient Disposition: Home, Self-Care Condition: Stable Instructions: Chest Wall Pain (ED) Additional Instructions: Continue home medication apply lidocaine patches on the chest. Follow with your primary doctor Prescriptions: No Action gabapentin 100 mg capsule 200 mg PO TID Qty: 90 6RF Rx Instructions: INCREASE GABAPENTIN TO 200 MG 3 TIMES A DAY FOR 2 WEEKS AND IF TOLERATED DEPENDING UPON SIDE EFFECTS SUCH DROWSINESS YOU MAY INCREASE THIS FURTHER TO 300 MG 3 TIMES A DAY mirtazapine [Remeron] 15 mg tablet 7.5 mg PO QHS Qty: 30 5RF acetaminophen 500 mg tablet 1,000 mg PO TID PRN (Reason: kana) 7 Days Qty: 42 0RF albuterol sulfate [ProAir HFA] 90 mcg/actuation HFA aerosol inhaler 2 mcg INHALATION Q4-6H PRN (Reason: Short of breath) hydrocodone-acetaminophen 5-325 mg tablet 1 tablet PO Q12H PRN (Reason: pain) lisinopril 10 mg tablet 10 mg PO DAILY Trelegy Ellipta 100-62.5-25 mcg blister with device 1 inh INHALATION DAILY tamsulosin 0.4 mg Capsule 0.4 mg PO QHS Qty: 30 0RF cyproheptadine 4 mg tablet 4 mg PO .prn Qty: 60 1RF Rx Instructions: ONE TABLET EVERY 8 HOURS IF NEEDED. Follow-up/Referrals: Rai,Héctor Stewart [Primary Care Provider] - Time of Disposition: 12:11
== END 2024-08-27 12:13 | disposition home or self-care (01) ==
PROVIDERS: Emergency Provider Family Medicine; PCP Internal Medicine Infectious Disease
DX: R07.89 Other chest pain (principal); E78.49 Other hyperlipidemia; J44.9 Chronic obstructive pulmonary disease, unspecified; I25.10 Atherosclerotic heart disease of native coronary artery without angina pectoris; I50.9 Heart failure, unspecified; I11.0 Hypertensive heart disease with heart failure; E78.5 Hyperlipidemia, unspecified; Z98.84 Bariatric surgery status; F17.210 Nicotine dependence, cigarettes, uncomplicated
CPT/HCPCS: 36415; 71046; 80053; 83690; 84484; 85025; 85610; 85730; 93005; 99284

== ENCOUNTER 2024-10-06 14:42 | Outpatient (CLI) | payer MEDICARE, MEDICAID, SELFPAY ==
--- NOTE | ~2024-10-06 | CT_ITS ---
CT Scan of the Chest without Contrast: Clinical Indication: Pleural effusion Technique: Contiguous sections were acquired throughout the chest without intravenous contrast. Dose reduction technique was used on this scan by utilizing automated exposure control and iterative recon struction technique. The dose-length product (DLP) was 180.53 mGy-cm. COMPARISON: 01/18/2023 Findings: There is no evidence of any significant mediastinal, hilar or axillary lymphadenopathy. There are ext ensive atherosclerotic calcifications of the aorta and coronary arteries. There is no evidence of pleural or pericardial effusion. There is moderate to advanced emphysema. There is minimal left basilar peripheral chronic atelectasis or scarring. Images through the upper abdomen reveal partially imaged infrarenal abdominal aortic aneurysm measuri ng up to at least 4.8 cm in diameter.. Impression: No pleural effusion. Moderate to advanced emphysema with mild left basilar atelectasis or scarring. Reviewed, dictated and finalized at [facility]. NG WINDER Impression: No pleural effusion. Moderate to advanced emphysema with mild left basilar atelectasis or scarring.
== END 2024-10-06 14:43 | disposition home or self-care (01) ==
PROVIDERS: PCP Internal Medicine Infectious Disease; Visit Provider Internal Medicine Infectious Disease
DX: J43.9 Emphysema, unspecified (principal); J90 Pleural effusion, not elsewhere classified
CPT/HCPCS: 71250

== ENCOUNTER 2025-02-10 14:31 | Outpatient (CLI) | payer MEDICARE, MEDICAID, SELFPAY ==
--- NOTE | ~2025-02-10 | MM_ITS ---
EXAMINATION: MM screening surekha BI w rohith HISTORY: Screening TECHNIQUE: Craniocaudal and mediolateral oblique 3-D tomosynthesis images were obtained and synthetic 2-D images were generated. CAD analysis was submitted and interpreted. COMPARISON: Comparison to multiple prior studies sequentially, with oldest reviewed study dated 07/14. BREAST PARENCHYMAL COMPOSITION: Not dense: There are scattered areas of fibroglandular density. FINDINGS: There is no evidence of suspicious mass, calcification, or architectural distortion to sugg est malignancy in either breast. There has been no suspicious interval change. IMPRESSION: 1. No mammographic evidence of malignancy. 2. Recommend routine screening mammography in one year. BI-RADS Category 1: Negative Reviewed, dictated and finalized at location A.
--- OUTSIDE RECORDS SUMMARY | 2025-02-10 16:13 | XMS_ITS | Continuity of Care Document ---
Author Organization [facility] Address [address] [place] [address] [place] [address] Phone Care Team Providers Care Filler Shredder Name Role Phone Mer Buchanan MD Unavailable Unavailable Allergies, Adverse Reactions, Alerts Substance Reaction Status Criticality Sulfa (Sulfonamide Antibiotics) Active No Information morphine Active No Information MAGNESIUM Active No Information Iodinated Contrast Media Active No Information erythromycin base Active No Informa tion PROPOXYPHENE NAPSYLATE Active No In formation acetaminophen Active No Information Medications Medication Instructions Dosage Effective Dates (start - stop) Status Comments Advair Diskus 250 mcg-50 mcg/dose powder for inhalation inhale 1 puff by inhalation route 2 times every day in the morning and evening approximately 12 hours apart 1.00 puff - Active Aleve 220 mg capsule - Active cyclobenzaprine 5 mg tablet take 1 tablet by oral route 3 times every day 5 MG - Active diclofenac sodium 75 mg tablet,delayed release take 1 tablet by oral route 2 times every day 75 MG - Active Pro Air INHALATION INHALER - Active ropinirole 0.5 mg tablet take 1 tablet by oral route 3 times every day 0.5 MG - Active Tylenol-Codeine #3 300 mg-30 mg tablet take 1 tablet by oral route every 6 hours as needed - Active Advance Directives Directive Yes / No Effective Date File Name No Information Encounters Encounter Description Practice Location Reason(s) For Visit Diagnoses Date Provider Providers Copied on Encounter [facility], [address], [place], [place], [id number], tel:[phone] [employer] Professional No Information Oct-201 [address] [place], [address], [place]. tel:[phone] Family History Family Member Type Diagnosis Age At Onset No Information Payers Payer name Insurance type Covered constitution party ID Authoriza tion(s) No Information Social History Type Description Quantity Date Captured Comments Sex Female Smoking Status No Information Chief Complaint And Reason For Visit No Information Reason For Referral Reason For Referral No Information History Of Present Illness Encounter Date Complaint History Of Prese nt Illness No Information Functional Status Date Functional Assessmen t No Information Instructions Date Instruction Additional Infor mation No Information Assessments Type Assessment Date No Information Patient Care Teams Name Effective Dates (start - stop) Status Members No Information
--- OUTSIDE RECORDS SUMMARY | 2025-02-10 16:13 | XMS_ITS | Clinical Summary ---
Author Organization [facility] Address [address] [place] [address] Care Team Providers Care Food Service Manager Name Role Phone Unknown, Provider Primary Care Provider Unavaila ble Source Comments [facility],non-owned Affiliates and Associated Physician Practices is amultiple site organization consisting of ambulatory clinics and hospital sitesin [place], [place], [place] and [place]. This disclosure is being madepursuant to the Care Everywhere program and may not contain all information available regarding this patient. Last updated 18.[facility] Allergies Active Allergy Reactions Criticality Noted Date Comments Cholestyramine Angioedema,Other High 12/27/2016 blisters blisters Citrate Unknown Low 03/14/2017 Contrast-Iodinated Agents For Ct/Other Unknown,Anaphylaxis, Rash,Shortness of Breath High 12/27/2016 Erythromycin Urticaria,Itching,Un known,Rash,Shortness of Breath High 12/27/2016 Iodine Unknown 12/26/2019 Maalox Maximum Strength Shortness of Breath High Magnesium Unknown Low 03/14/2017 Magnesium Citrate Anaphylaxis,Other High 05/26/2019 Reaction: Reaction: ANAPHYLAXIS, Magnesium Sulfate Angioedema High 05/26/2019 Morphine Unknown Low 03/14/2017 Penicillin G Unknown Low 03/14/2017 Penicillins Urticaria,Itching,Un known Medium 12/27/2016 Propoxyphene N-Apap Unknown Low 03/14/2017 Questran Unknown Low 03/14/2017 Sulfa Antibiotics Unknown 12/26/2019 Sulfacetamide Unknown Low 03/14/2017 Vancomycin Unknown Low 07/30/2012 Medications * Be aware that medications may not be up to date on this document. Alwaysverify current medications with the patient. Medication Sig Dispensed Refills Start Date End Date Status albuterol HFA (Proventil; Ventolin; Proair) 108 (90 Base) MCG/ACT inhaler Inhale 1 (one) puff by mouth every 6 hours as needed for Shortness of Breath, Wheezing or Cough Active HYDROcodone-acetamin ophen ([place]) 5-325 MG tablet Take 1 (one) tablet by mouth every 12 hours as needed for Pain 02/05/2023 Active gabapentin (Neurontin) 100 MG capsule Take 1 (one) capsule by mouth 2 times daily 02/12/2023 Active atorvastatin (Lipitor) 80 MG tablet Take 1 (one) tablet by mouth at bedtime 07/31/2023 Active Trelegy Ellipta 100-62.5-25 MCG/ACT Inhale 1 (one) puff by mouth once daily 09/11/2023 Active lisinopril (Prinivil; Zestril) 10 MG tablet Take 1 (one) tablet by mouth once daily Active rOPINIRole (Requip) 1 MG tablet Take 1 (one) tablet by mouth at bedtime 07/22/2023 Active nitroGLYCERIN (Nitrolingual) 0.4 MG/SPRAY spray Dissolve 1 (one) spray under the tongue every 5 minutes as needed for Angina Active Rburnrw-Riozgqb-Oimg yl Breezy (Salonpas) 3.1-6-10 % PTCH 1 patch by Apply externally route as directed Active Multiple Vitamins-Minerals (PRESERVISION AREDS 2+MULTI VIT PO) Take 1 tablet by mouth as directed Active lidocaine (Lidoderm) 5 % patch Apply 1 (one) patch to skin once daily as needed Apply patch to most painful area and remove after 12 hours. May reapply a new patch 12 hours later. 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 03/06/2023 Terminal esophageal web 03/06/2023 03/06/20 Urinary incontinence 03/06/2023 03/06/2023 Urinary tract infectious disease 03/06/2023 03/06/2023 Urinary urgency 03/06/2023 03/06/2023 Chronic obstructive lung disease 02/12/2023 03/06/2023 Abnormal findings on diagnostic imaging of lung 01/01/2023 03/06/2023 Chronic cough 01/01/2023 03/06/2023 Dyspnea on exertion 01/01/2023 03/06/2023 Nicotine dependence 01/01/2023 03/06/2023 Thick sputum 01/01/2023 03/06/2023 Pulmonary emphysema 12/31/2022 09/12/2023 Headache 11/06/2022 03/06/2023 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 0 03/06/2023 Biliary disease 07/19/2022 03/06/2023 Choledocholithiasis 07/19/2022 03/06/2023 Overview (03/06/2023): Added automatically from request for surgery [id number] Encounter for screening for cardiovascular disor ders 06/19/2021 03/06/2023 Abdominal aortic aneurysm without rupture 202003/06/2023 Stress incontinence, female 04/27/2019 05/01/2023 Overview (03/06/2023): Added automatically from request for surgery [id number] Urge incontinence of urine 04/23/201903/06 Abdominal bruit 09/23/2017 03/06/2023 Other specified symptoms and signs involving the circulatory and respiratory systems 09/23/2017 03/06/2023 Elevated CEA 12/27/2016 03/06/2023 Tobacco abuse 12/27/2016 03/06/2023 Mixed hypercholesterolemia and hypertriglyceride lore 05/31/2014 03/06/2023 Atherosclerotic heart diseas e of [place] coronary artery without angina pectoris 11/04/1959 03/06/2023 Dizziness and giddiness 11/04/1959 03/06/20 23 Social History Tobacco Use Types Packs/Day Years Used Date Smoking Tobacco: Every Day Cigarettes Smokeless Tobacco: Never PHQ-2 Answer Date Recorded Patient Health Questionnaire-2 Score 2 10/31/2023 Sex and Gender Information Value Date Recorded Sex Assigned at Not on file Gender Identity Not on file Sexual Orientation Not on file Last Filed Vital Signs Vital Sign Reading Time Taken Comments Blood Pressure 112/75 03/06/2023 3:02 PM CDT Pulse 79 03/06/2023 3:02 PM CDT Temperature 36.8 C (98.2 F) 03/06/2023 3:02 PM CDT Respiratory Rate - - Oxygen Saturation 97% 03/06/2023 3:02 PM CDT Inhaled Oxygen Concentration - - Weight 59.1 kg (130 lb 3.2 oz) 03/06/2023 3:02 P M CDT Height - - Body Mass Index - - Plan of Treatment Health Maintenance Due Date Last Done Comments BONE DENSITY TESTING 1945 DTAP/TDAP/TD VACCINES (1 - Tdap) 1964 PNEUMOCOCCAL VACCINE 50+ (1 of 2 - PCV) 1964 ZOSTER VACCINE (1 of 2) 1995 Respiratory Syncytial Virus (RSV) Vaccine Pt: or over 60 yrs (1 - 1-dose 75+ series) 2020 COVID-19 VACCINE ( - 2023-2 5 season) 2024 DEPRESSION SCREENING 11/04/2024 10/31/2023 MEDICARE AWV CALENDAR YEAR 2024 INFLUENZA VACCINE (Season Ended) 2025 HEPATITIS B VACCINE Aged Out No longe r eligible based on patient's age to complete this topic HIB VACCINE Aged Out No longer eligi ble based on patient's age to complete this topic HPV VACCINE Aged Out No longer eligi ble based on patient's age to complete this topic MENINGOCOCCAL (Group B) VACC INE SHARED DECISION-MAKING Aged Out No longer eligibl e based on patient's age to complete this topic MENINGOCOCCAL GROUPS A/C/Y/W VACCINE Aged Out No longer eligible b ased on patient's age to complete this topic Medical Devices Implanted Type Area Display Decorator Device Identifier Shelf Expiration Date Model / Serial / Lot [employer] Biomonitor Iii Loop Recorder Description:biotronik Biomon itor III Cardiac Stent Stent - Vascular Care Teams Food Service Manager Relationship Specialty Start Date End Date Unknown, Provider PCP - General 09/06/23
--- OUTSIDE RECORDS SUMMARY | 2025-02-10 16:14 | XMS_ITS | Data Portability ---
Author Organization [facility] Address [address] [facility] [place] [address] Care Team Providers Care Manager Presentation Name Role Phone DERECK PUGA [employer] Driver JOHN COOK Block Setter Gypsum [phone] ZEE HASSAN Pain Management JESE SAWYER Neurologist Assessment No assessment recorded. Plan of Treatment Reminders Order Date Submit Date Provider Last Modified By Organization Details Last Modified Time Details Appointments ANY 15 2024 02:15P Uma Atwood MD Not available Not available Not available Lab TSH, ultra-sen sitive, serum 2023 024 [facility], [address] [place] [address], [address], [place], [address], 09/18/2024 09:16:33 lipid panel, serum 2023 024 [facility], [address] [place] [address], [address], [place], [address], 05/07/2024 08:23:52 vitamin D, 25-hydrox y, total, serum 2023 024 [facility], [address] [place] [address], [address], [place], [address], 05/07/2024 08:23:54 basic metabolic 1998 panel, serum or plasma 2023 024 [facility], [address], [address], [place], [address], 05/07/2024 08:23:53 CBC 2023 024 [facility], [address], [address], [place], [address], 05/07/2024 08:23:54 TSH + free T4, serum 2023 024 [facility], [address], [address], [place], [address], 06/22/2024 12:30:06 CBC w/ auto diff 2023 024 [facility], [address], [address], [place], [address], 12/12/2023 15:55:46 CMP, serum or plasma 2023 024 B[facility]NT [facility], [address] [facility], [address], [place], [address], 12/12/2023 15:55:[address] referral 2023 024 NANCY Rae MD (Neurology), [address] [place] [address] [address], [place], [address], 12/03/2024 05:06:56 orthopedi c spine surgeon referral - Severe spinal stenosis, LBP 2022 023 NANCY Tai MD, [address] [place], [address], 10/31/2023 22:19:23 Procedures None recorded. Surgeries None recorded. Imaging CT, chest, w/o contrast 2023 024 [facility] (Imaging), [facility] [address], [address], 10/07/2024 09:04:40 XR, chest 2023 024 [facility] (One Call Scheduling), [address] [facility], [place], [address], 12/12/2023 18:20:22 Medication Orders ropinirol e 1 mg tablet 2024 025 [facility], [address] [place] [address], [address], 12/18/2024 15:38:23 ergocalci ferol (vitamin D2) 1,250 mcg (50,000 unit) capsule 2024 025 [facility], [address] [place] [address], [address], 12/18/2024 15:38:28 Trelegy Ellipta 100 mcg-62.5 mcg-25 mcg powder for inhalatio n 2024 025 [facility], [address] [place] [address], [address], 12/18/2024 15:38:22 albuterol sulfate HFA 90 mcg/actua tion aerosol inhaler [address] [facility], [address] [place] [address], [address], 12/18/2024 15:42:22 ergocalci ferol (vitamin D2) 1,250 mcg (50,000 unit) capsule 2023 024 [facility], [address] [place] [address], [address], 09/17/2024 15:35:17 ropinirol e 1 mg tablet 2023 024 [facility], [address] [place] [address], [address], 04/23/2024 15:00:34 Trelegy Ellipta 100 mcg-62.5 mcg-25 mcg powder for inhalatio n [address] [facility], [address] [place] [address], [address], 04/23/2024 15:00:35 nicotine 14 mg/24 hr daily transderm al patch 2023 024 [place] [address], [address] [place] [address], [address], 12/18/2024 15:35:56 nicotine 7 mg/24 hr daily transderm al patch 2023 024 [place] [address], [address] [place] [address], [address], 12/18/2024 15:35:59 Vitamin D2 1,250 mcg (50,000 unit) capsule 2023 024 [place] [address], [address] [place] [address], [address], 09/17/2024 15:28:31 Tessalon Perles 100 mg capsule 2023 024 [place] [address], [address] [place] [address], [address], 04/23/2024 14:50:03 hydrocodo ne 5 mg-acetam inophen 325 mg tablet [address] [facility], [address] [place] [address], [address], 08/21/2023 15:56:14 lidocaine 5 % topical patch 2022 023 [place] [address], [address] [place] [address], [address], 08/21/2023 16:07:11 Patient TargetsNo targets recorded. Patient Instructions Encounter Date Encounter Id Patient Instructions Last Modified By Organization Details Last Modified Time 08/21/2023 [id number] cervical spinal stenosis: care instructions oajao Not available 08/21/2023 16:02:12 Pain management as referred Restart Atorvastatin Continue Hydrocodone Stop smoking Spine surgeon Take the blood pressure lowering medication as prescribed Follow up in 4 months with all your medications and PRN oajao Not available 08/21/2023 16:02:23 She is at increased risk of a fatal CV event, she should take her Atorvastatin, Lisinopril and stop smoking. oajao Not available 08/21/2023 15:58:59 11/26/2023 [id number] Quitting Tobacco : Care Instructions oajao Not available 11/26/2023 15:58:48 upper respirator y infection (cold): care instructions oajao Not available 11/26/2023 15:58:48 chronic obstructive pulmonary disease (COPD): care instructions oajao Not available 11/26/2023 15:58:48 learning about copd and how to prevent lung infections oajao Not available 11/26/2023 15:58:48 abnormal weight loss: care instructions oajao Not available 11/26/2023 15:58:47 Tessalon perles Labs CXR Start weekly Vitamin D Follow up in 6 weeks oajao Not available 11/26/2023 15:58:58 04/23/2024 [id number] Labs Pulmonology follow up Most recent consultation note from her neurologist, Dr Jese Sawyer Follow up in 5 months and PRN oajao Not available 04/23/2024 15:07:41 09/17/[id number] New Neurologist Labs Follow up in 6 weeks Addendum Senior services oajao Not available 09/17/2024 16:44:43 12/18/2024 [id number] Neurologist as referred Stop smoking Follow up in 6months oajao Not available 12/18/2024 16:53:52 Reason for Referral Orthopedic Spine Surgeon Ref erral for Spinal stenosis in cervical region Severe spinal stenosis, LBP Severe spinal stenosis, LBP Referring Physician: Pat Atwood, Internal Medicine, Encounter Date: 08/21/2023 Neurologist Referral for Chr onic headache disorder Chronic headaches Referring Physician: Pat Atwood, Internal Medicine, Encounter Date: 09/17/2024 Results Created Date Observation Date Name Description Value Unit Range Abnormal Flag Note LastModifiedBy Organization Detail LastModifiedTime 07/26/20 23 07/26/2023 LIPID PANEL cholesterol, total 176 mg/dL 100-19 9 Not Available [facility] Department [address] [place], [address], 07/26/2023 19:08:29 07/26/20 23 07/26/2023 LIPID PANEL triglyceride s 132 mg/dL 0-149 Not Available [facility] Department [address] [place], [address], 07/26/2023 19:08:29 07/26/20 23 07/26/2023 LIPID PANEL HDL cholesterol 52 mg/dL 40-999 Not Available [facility] Department [address] [place], [address], 07/26/2023 19:08:29 07/26/20 23 07/26/2023 LIPID PANEL VLDL cholesterol vicky 26 mg/dL 5-40 Not Available [facility] Department [address] [place], [address], 07/26/2023 19:08:29 07/26/20 23 07/26/2023 LIPID PANEL LDL chol calc (nih) 117 mg/dL 0-99 above high normal Not Available [facility] Department [address] [place], [address], 07/26/2023 19:08:29 07/26/20 23 07/26/2023 COMP. METAB OLIC PANEL (14) glucose 95 mg/dL 70-99 Not Available [facility] Department [address] [place], [address], 07/26/2023 19:08:30 07/26/20 23 07/26/2023 COMP. METAB OLIC PANEL (14) BUN 15 mg/dL 8-27 Not Available [facility] Department [address] [place], [address], 07/26/2023 19:08:30 07/26/20 23 07/26/2023 COMP. METAB OLIC PANEL (14) creatinine 1.04 mg/dL 0.76-1 .27 Not Available [facility] Department [address] [place], [address], 07/26/2023 19:08:30 07/26/20 23 07/26/2023 COMP. METAB OLIC PANEL (14) eGFR 55 >=60 below low normal Units for eGFR value s are mL/mi n/1.7 3 The eGFR Calcu latio n has not been valid ated for patie nts under the age of 18. If test resul ts are displ ayed for a patie nt under the age of 18, disre lisa that value . Not Available [facility] Department [address] [place] [address], [address], 07/26/2023 19:08:30 07/26/20 23 07/26/2023 COMP. METAB OLIC PANEL (14) BUN/creatini ne ratio 14 10-28 Not Available [facility] Department [address] [place], [address], 07/26/2023 19:08:30 07/26/20 23 07/26/2023 COMP. METAB OLIC PANEL (14) sodium 143 mmol/ L 134-14 4 Not Available [facility] Department [address] [place], [address], 07/26/2023 19:08:30 07/26/20 23 07/26/2023 COMP. METAB OLIC PANEL (14) potassium 5.1 mmol/ L 3.5-5. 2 Not Available [facility] Department [address] [place], [address], 07/26/2023 19:08:30 07/26/20 23 07/26/2023 COMP. METAB OLIC PANEL (14) chloride 107 mmol/ L 96-106 above high normal Not Available [facility] Department [address] [place], [address], 07/26/2023 19:08:30 07/26/20 23 07/26/2023 COMP. METAB OLIC PANEL (14) carbon dioxide, total 24 mmol/ L 20-29 Not Available [facility] Department [address] [place], [address], 07/26/2023 19:08:30 07/26/20 23 07/26/2023 COMP. METAB OLIC PANEL (14) calcium 10.1 mg/dL 8.7-10 .3 Not Available [facility] Department [address] [place], [address], 07/26/2023 19:08:30 07/26/20 23 07/26/2023 COMP. METAB OLIC PANEL (14) protein, total 7.2 g/dL 6.0-8. 5 Not Available [facility] Department [address] [place], [address], 07/26/2023 19:08:30 07/26/20 23 07/26/2023 COMP. METAB OLIC PANEL (14) albumin 4.3 g/dL 3.8-4. 8 Not Available [facility] Department [address] [place], [address], 07/26/2023 19:08:30 07/26/20 23 07/26/2023 COMP. METAB OLIC PANEL (14) globulin, total 2.9 g/dL 1.5-4. 5 Not Available [facility] Department [address] [place], [address], 07/26/2023 19:08:30 07/26/20 23 07/26/2023 COMP. METAB OLIC PANEL (14) A/G ratio 2.0 1.2-2. 2 Not Available [facility] Department [address] [place], [address], 07/26/2023 19:08:30 07/26/20 23 07/26/2023 COMP. METAB OLIC PANEL (14) bilirubin, total 0.3 mg/dL 0.0-1. 2 Not Available [facility] Department [address] [place], [address], 07/26/2023 19:08:30 07/26/20 23 07/26/2023 COMP. METAB OLIC PANEL (14) alkaline phosphatase 227 IU/L 44-121 above high normal Not Available [facility] Department [address] [place], [address], 07/26/2023 19:08:30 07/26/20 23 07/26/2023 COMP. METAB OLIC PANEL (14) AST (SGOT) 15 IU/L 0-40 Not Available [facility] Department [address] [place] [address], [address], 07/26/2023 19:08:30 07/26/20 23 07/26/2023 COMP. METAB OLIC PANEL (14) ALT (SGPT) 7 IU/L 0-32 Not Available [facility] Department [address] [place] [address], [address], 07/26/2023 19:08:30 07/26/20 23 07/26/2023 CBC, PLATE LET, NO DIFFE RENTI AL WBC 7.5 x10e3 /uL 3.4-10 .8 Not Available [facility] Department [address] [place] [address], [address], 07/26/2023 19:08:31 07/26/20 23 07/26/2023 CBC, PLATE LET, NO DIFFE RENTI AL RBC 4.78 x10e6 /uL 3.77-5 .28 Not Available [facility] Department [address] [place] [address], [address], 07/26/2023 19:08:31 07/26/20 23 07/26/2023 CBC, PLATE LET, NO DIFFE RENTI AL hemoglobin 14.2 g/dL 11.1-1 5.9 Not Available [facility] Department [address] [place], [address], 07/26/2023 19:08:31 07/26/2007/26/2023 CBC, PLATE LET, NO DIFFE RENTI AL hematocrit 45.9 % 34.0-4 6.6 Not Available [facility] Department [address] [place], [address], 07/26/2023 19:08:31 07/26/20 23 07/26/2023 CBC, PLATE LET, NO DIFFE RENTI AL MCV 96 fL 79-97 Not Available [facility] Department [address] [place], [address], 07/26/2023 19:08:31 07/26/2007/26/2023 CBC, PLATE LET, NO DIFFE RENTI AL MCH 29.7 pg 26.6-3 3.0 Not Available [facility] Department [address] [place], [address], 07/26/2023 19:08:31 07/26/20 23 07/26/2023 CBC, PLATE LET, NO DIFFE RENTI AL MCHC 30.9 g/dL 31.5-3 5.7 below low normal Not Available [facility] Department [address] [place], [address], 07/26/2023 19:08:31 07/26/2007/26/2023 CBC, PLATE LET, NO DIFFE RENTI AL RDW 14.8 % 11.5-1 4.5 above high normal Not Available [facility] Department [address] [place], [address], 07/26/2023 19:08:31 07/26/2007/26/2023 CBC, PLATE LET, NO DIFFE RENTI AL platelets 308 x10e3 /uL 150-45 0 Mean Plate let Volum e 9.6 fL 8.9-1 2.7 N Not Available [facility] Department [address] [place], [address], 07/26/2023 19:08:31 07/26/20 23 07/26/2023 CBC, PLATE LET, NO DIFFE ABY AL NRBC 0 % 0-0 Not Available [facility] Department [address] [place], [address], 07/26/2023 19:08:31 07/26/20 23 07/27/2023 URINA LYSIS , ROUTI NE specific gravity 1.019 1.005- 1.030 Not Available [facility] ([facility]) [address] [facility], [place], [address], 07/27/2023 07:13:22 07/26/20 23 07/27/2023 URINA LYSIS , ROUTI NE pH 5.5 5.0-7. 5 Not Available [facility] ([facility]) [address] [place], [address], 07/27/2023 07:13:22 07/26/20 23 07/27/2023 URINA LYSIS , ROUTI NE urine-color YELLOW yellow Not Available [facility] ([facility]) [address] [place], [address], 07/27/2023 07:13:22 07/26/20 23 07/27/2023 URINA LYSIS , ROUTI NE appearance CLOUDY clear abnormal Not Available [facility] ([facility]) [address] [place], [address], 07/27/2023 07:13:22 07/26/20 23 07/27/2023 URINA LYSIS , ROUTI NE WBC esterase 2+ negati ve abnormal Not Available [facility] ([facility]) [address] [place], [address], 07/27/2023 07:13:22 07/26/20 23 07/27/2023 URINA LYSIS , ROUTI NE protein NEGATI VE negati ve/tra ce Not Available [facility] ([facility]) [address] [facility] [place], [address], 07/27/2023 07:13:22 07/26/20 23 07/27/2023 URINA LYSIS , ROUTI NE glucose NEGATI VE negati ve Not Available [facility] ([facility]) [address] [facility], [place], [address], 07/27/2023 07:13:22 07/26/20 23 07/27/2023 URINA LYSIS , ROUTI NE ketones NEGATI VE negati ve Not Available [facility] ([facility]) [address] [place], [address], 07/27/2023 07:13:22 07/26/2007/27/2023 URINA LYSIS , ROUTI NE occult blood 1+ negati ve abnormal Not Available [facility] ([facility]) [address] [place], [address], 07/27/2023 07:13:22 07/26/20 23 07/27/2023 URINA LYSIS , ROUTI NE bilirubin NEGATI VE negati ve Not Available [facility] ([facility]) [address] [place], [address], 07/27/2023 07:13:22 07/26/20 23 07/27/2023 URINA LYSIS , ROUTI NE urobilinogen ,semi-qn 0.2 mg/dL 0.2-1. 0 Not Available [facility] ([facility]) [address] [place], [address], 07/27/2023 07:13:22 07/26/2007/27/2023 URINA LYSIS , ROUTI NE nitrite, urine POSITI VE negati ve abnormal Not Available [facility] ([facility]) [address] [place], [address], 07/27/2023 07:13:22 07/26/20 23 07/27/2023 URINA LYSIS , ROUTI NE microscopic examination SEE BELOW: Micro scopi c was indic ated and was perfo rmed. Not Available [facility] ([facility]) [address] [facility], [place], [address], 07/27/2023 07:13:22 07/26/20 23 07/27/2023 TSH TSH 2.360 uIU/m L 0.450- 4.500 Not Available [facility] ([facility]) [address] [facility], [place], [address], 07/27/2023 07:13:23 07/26/20 23 07/27/2023 VITAM IN D, 25-HY DROXY vitamin D, 25-hydroxy 12.6 NG/mL 30.0-1 00.0 below low normal Vitam in D defic iency has been defin ed by the Insti tute of Medic ine and an Endoc rine Socie ty pract ice guide line as a level of serum 25-OH vitam in D less than 20 ng/mL (1,2) . The Endoc rine Socie ty went on to furth er defin e vitam in D insuf ficie ncy as a level betwe en 21 and 29 ng/mL (2). 1. IOM (Inst itute of Medic ine). 2009. Dieta ry refer ence intak es for calci um and D. Maik bowser DC: The [facility] Press . 2. Robb simms MF, Justyna gamboa NC, Sanchez off-F errar i CRAFT, et al. Evalu ation , treat ment, and preve ntion of vitam in D defic iency : an Endoc rine Socie ty clini vicky pract ice guide line. JCEM. 2010; 96(7) :1911 -30. Not Available [facility] ([facility]) [address] [facility], [place], [address], 07/27/2023 07:13:24 07/26/20 23 07/27/2023 MICRO SCOPI C EXAMI NATIO N WBC >30 /hpf 0-5 abnormal Not Available [facility] ([facility]) [address] [facility], [place], [address], 07/27/2023 07:13:23 07/26/20 23 07/27/2023 MICRO SCOPI C EXAMI NATIO N RBC 3-10 /hpf 0-2 abnormal Not Available [facility] ([facility]) [address] [facility], [place], [address], 07/27/2023 07:13:23 07/26/20 23 07/27/2023 MICRO SCOPI C EXAMI NATIO N epithelial cells (non renal) >10 /hpf 0-10 abnormal Not Available [facility] ([facility]) [address] [facility], [place], [address], 07/27/2023 07:13:23 07/26/20 23 07/27/2023 MICRO SCOPI C EXAMI NATIO N casts NONE SEEN /lpf nonese en Not Available [facility] ([facility]) [address] [facility], [place], [address], 07/27/2023 07:13:23 07/26/20 23 07/27/2023 MICRO SCOPI C EXAMI NATIO N bacteria MANY nonese en/few abnormal Not Available [facility] ([facility]) [address] [facility], [place], [address], 07/27/2023 07:13:23 05/06/20 24 05/07/2024 LIPID PANEL cholesterol, total 174 mg/dL 100-19 9 Not Available [facility] ([facility]) [address] [facility], [place], [address], 05/07/2024 08:23:52 05/06/20 24 05/07/2024 LIPID PANEL triglyceride s 105 mg/dL 0-149 Not Available [facility]) [address] [facility], [place], [address], 05/07/2024 08:23:52 05/06/20 24 05/07/2024 LIPID PANEL HDL cholesterol 59 mg/dL >39 Not Available [facility]) [address] [place], [address], 05/07/2024 08:23:52 05/06/20 24 05/07/2024 LIPID PANEL VLDL cholesterol vicky 19 mg/dL 5-40 Not Available [facility]) [address] [place], [address], 05/07/2024 08:23:52 05/06/20 24 05/07/2024 LIPID PANEL LDL chol calc ([facility]) 96 mg/dL 0-99 Not Available [facility]) [address] [place], [address], 05/07/2024 08:23:52 05/06/20 24 05/07/2024 BASIC METAB OLIC PANEL (7) glucose 97 mg/dL 70-99 Not Available [facility] ([facility]) [address] [place], [address], 05/07/2024 08:23:53 05/06/20 24 05/07/2024 BASIC METAB OLIC PANEL (7) BUN 24 mg/dL 8-27 Not Available [facility] ([facility]) [address] [place], [address], 05/07/2024 08:23:53 05/06/20 24 05/07/2024 BASIC METAB OLIC PANEL (7) creatinine 0.96 mg/dL 0.57-1 .00 Not Available [facility] ([facility]) [address] [place], [address], 05/07/2024 08:23:53 05/06/20 24 05/07/2024 BASIC METAB OLIC PANEL (7) eGFR 61 mL/mi n/1.7 3 >59 Not Available [facility] ([facility]) [address] [place], [address], 05/07/2024 08:23:53 05/06/20 24 05/07/2024 BASIC METAB OLIC PANEL (7) BUN/creatini ne ratio 25 12-28 Not Available [facility] ([facility]) [address] [facility], [place], [address], 05/07/2024 08:23:53 05/06/20 24 05/07/2024 BASIC METAB OLIC PANEL (7) sodium 141 mmol/ L 134-14 4 Not Available [facility] ([facility]) [address] [facility], [place], [address], 05/07/2024 08:23:53 05/06/20 24 05/07/2024 BASIC METAB OLIC PANEL (7) potassium 4.7 mmol/ L 3.5-5. 2 Not Available [facility] ([facility]) [address] [facility], [place], [address], 05/07/2024 08:23:53 05/06/20 24 05/07/2024 BASIC METAB OLIC PANEL (7) chloride 103 mmol/ L 96-106 Not Available [facility] ([facility]) [address] [place], [address], 05/07/2024 08:23:53 05/06/20 24 05/07/2024 BASIC METAB OLIC PANEL (7) carbon dioxide, total 21 mmol/ L 20-29 Not Available [facility] ([facility]) [address] [facility], [place], [address], 05/07/2024 08:23:53 05/06/20 24 05/07/2024 CBC, PLATE LET, NO DIFFE RENTI AL WBC 8.9 x10e3 /uL 3.4-10 .8 Not Available [facility] ([facility]) [address] [place], [address], 05/07/2024 08:23:53 05/06/20 24 05/07/2024 CBC, PLATE LET, NO DIFFE RENTI AL RBC 4.44 x10e6 /uL 3.77-5 .28 Not Available [facility] ([facility]) [address] [facility], [place], [address], 05/07/2024 08:23:53 05/06/20 24 05/07/2024 CBC, PLATE LET, NO DIFFE RENTI AL hemoglobin 13.3 g/dL 11.1-1 5.9 Not Available [facility] ([facility]) [address] [facility], [place], [address], 05/07/2024 08:23:53 05/06/20 24 05/07/2024 CBC, PLATE LET, NO DIFFE RENTI AL hematocrit 40.7 % 34.0-4 6.6 Not Available [facility] ([facility]) [address] [facility], [place], [address], 05/07/2024 08:23:53 05/06/20 24 05/07/2024 CBC, PLATE LET, NO DIFFE RENTI AL MCV 92 fL 79-97 Not Available [facility] ([facility]) [address] [facility], [place], [address], 05/07/2024 08:23:53 05/06/20 24 05/07/2024 CBC, PLATE LET, NO DIFFE RENTI AL MCH 30.0 pg 26.6-3 3.0 Not Available [facility] ([facility]) [address] [facility], [place], [address], 05/07/2024 08:23:53 05/06/20 24 05/07/2024 CBC, PLATE LET, NO DIFFE RENTI AL MCHC 32.7 g/dL 31.5-3 5.7 Not Available [facility] ([facility]) [address] [facility], [place], [address], 05/07/2024 08:23:53 05/06/20 24 05/07/2024 CBC, PLATE LET, NO DIFFE RENTI AL RDW 14.6 % 11.7-1 5.4 Not Available [facility] ([facility]) [address] [facility], [place], [address], 05/07/2024 08:23:53 05/06/20 24 05/07/2024 CBC, PLATE LET, NO DIFFE RENTI AL platelets 331 x10e3 /uL 150-45 0 Not Available [facility] ([facility]) [address] [facility], [place], [address], 05/07/2024 08:23:53 05/06/20 24 05/07/2024 VITAM IN D, 25-HY DROXY vitamin D, 25-hydroxy 14.3 NG/mL 30.0-1 00.0 below low normal Vitam in D defic iency has been defin ed by the Insti tute of Medic ine and an Endoc rine Socie ty pract ice guide line as a level of serum 25-OH vitam in D less than 20 ng/mL (1,2) . The Endoc rine Socie ty went on to furth er defin e vitam in D insuf ficie ncy as a level betwe en 21 and 29 ng/mL (2). 1. IOM (Inst itute of Medic ine). 2009. Jennya ry refer ence marsha es for calci um and D. Maik bowser DC: The [facility] Press . 2. Robb simms MF, Justyna ey NC, Sanchez off-F errar i CRAFT, et al. Evalu ation , treat ment, and preve ntion of vitam in D defic iency : an Endoc rine Socie ty clini vicky pract ice guide line. JCEM. 2010; 96(7) :1911 -30. Not Available [facility] ([facility]) [address] [facility], [place], [address], 05/07/2024 08:23:54 09/17/20 24 09/18/2024 TSH TSH 1.440 uIU/m L 0.450- 4.500 Not Available [facility] ([facility]) [address] [facility], [place], [address], 09/18/2024 09:16:33 07/23/20 23 05/09/2023 MR, angio gram, brain , w/o contr ast No observ ation record ed. [facility] [address], [place], [address], 08/21/2023 15:50:16 07/23/20 23 05/09/2023 MR, angio gram, neck, w/o contr ast No observ ation record ed. [place] [id number] [facility] [address], [place], [address], 08/21/2023 15:50:16 07/27/20 23 07/26/2023 DEXA No observ ation record ed. [facility] [address] [place], [address], 08/21/2023 15:50:15 07/29/20 23 07/26/2023 MRI, cervi vicky spine , w/o contr ast No observ ation record ed. [facility] [address] [place], [address], 08/21/2023 15:50:15 07/29/20 23 07/26/2023 MRI, lumba r spine , w/o contr ast No observ ation record ed. [facility] [address] [place], [address], 08/21/2023 15:50:15 11/13/19 24 11/13/2023 CT, head, w/o contr ast No observ ation record ed. [facility] [address] [facility] [address], [place], [address], 11/26/2023 15:36:19 12/12/19 24 12/12/2023 XR, chest No observ ation record ed. [facility] [id number] [facility] [address], [place], [address], 12/20/2023 09:13:31 06/11/20 24 06/11/2024 US, eli hernández for abdom inal aorti c aneur ysm No observ ation record ed. [facility] [address], [place], [address], 09/17/2024 15:22:47 08/27/20 24 08/27/2024 XR, chest No observ ation record ed. [address] [facility], [place], [address], 09/17/2024 15:22:47 10/07/20 24 10/06/2024 CT, chest , w/o contr ast No observ ation record ed. [address], [place], [address], 12/18/2024 15:30:43 02/11/20 25 02/10/2025 MAMMO , eli hernández, digit al, bilat eral No observ ation record ed. [address] [facility], [place], [address], 02/10/2025 17:01:31 Result Notes None recorded. Problems Name Problem SNOMED Code Status Onset Date Resolution Date Notes Provider Name and Address Organization Details Recorded Time Abdominal aortic aneurysm 186249520 Active 2016 Pat Atwood MD Attn: Accounting ,[address] [facility], [place], [address] , [facility] 5 15:39:09 Nicotine dependence 40206853 Active 2017 Not Available [facility] 3 22:38:08 Renal insufficie ncy 823891399 Active 2017 Not Available [facility] 3 22:38:08 History of peptic ulcer 752797932 Active 2017 Not Available [facility] 3 22:38:07 Stenosis of interverte bral foramina 040869500525 Active 2017 Not Available [facility] 3 22:38:07 Colon cancer screening declined 2890262461758 9 Active 2018 Not Available [facility] 3 22:38:07 Incontinen ce of feces 96250497 Active 2018 Not Available [facility] 3 22:38:08 Kidney stone 70947449 Active 2018 Not Available [facility] 3 22:38:08 Statin not tolerated 859936938 Active 2020 Not Available [facility] 3 22:38:07 Cerebral infarction 437816114 Active 2020 Not Available [facility] 3 22:38:08 Osteoarthr itis of elbow 499642135 Active 2021 Not Available [facility] 3 22:38:07 Degenerati ve joint disease involving multiple joints 460912858 Active 2021 Not Available [facility] 3 22:38:07 Aspirin prophylaxi s contra-ind icated 996729852 Active 2021 Not Available [facility] 3 22:38:07 Solitary nodule of lung 293756371 Active 2021 Not Available [facility] 3 22:38:08 Chronic headache disorder 601403989 Active 2022 Not Available [facility] 3 22:38:08 Right carotid artery stenosis 6498510145424 00 Active 2022 Not Available [facility] 3 22:38:07 Chronic obstructiv e pulmonary disease 11810021 Active Not Available [facility] 3 22:38:07 Hyperchole sterolemia 68960374 Active Not Available [facility] 3 22:38:07 Benign hypertensi on 11359671 Active Not Available [facility] 3 22:38:07 Urinary incontinen ce 101304974 Active Not Available [facility] 3 22:38:07 Coronary atheroscle rosis 703465919 Active Not Available [facility] 3 22:38:08 Heart failure 99897394 Active Not Available [facility] 3 22:38:08 Myocardial infarction 80400346 Active Not Available [facility] 3 22:38:07 Laboratory test result abnormal 751366769 Active Not Available [facility] 3 22:38:07 Dysuria 16570539 Active Not Available [facility] 3 22:38:08 Tobacco user 617654962 Active Not Available [facility] 3 22:38:07 Restless legs 48978390 Active Not Available [facility] 3 22:38:07 Low back pain 382284261 Active Not Available [facility] 3 22:38:07 Computed tomography result abnormal 895579623 Active Not Available [facility] 3 22:38:07 Disorder of hair 469997422 Active Not Available [facility] 3 22:38:07 Shoulder pain 43454503 Active Not Available [facility] 3 22:38:08 High carcinoemb ryonic antigen level 681356447 Active Not Available [facility] 3 22:38:08 Alkaline phosphatas e above reference range 928986263 Active Not Available [facility] 3 22:38:07 Chronic peptic ulcer 165926493 Active Not Available [facility] 3 22:38:07 Pelvic mass 69900269 Active Not Available [facility] 3 22:38:08 Disorder of lipid metabolism 494289977 Active Not Available [facility] 3 22:38:07 Aortic aneurysm 40590930 Active Not Available [facility] 3 22:38:08 Polyp of colon 14387200 Active Not Available [facility] 3 22:38:08 Abdominal pain 75027167 Active Not Available [facility] 3 22:38:07 Dizziness 009560303 Active Not Available [facility] 3 22:38:07 Chronic cough 32244216 Active Not Available [facility] 3 22:38:08 Impacted cerumen 57568891 Active Not Available [facility] 3 22:38:07 Insomnia 959811039 Active Not Available [facility] 3 22:38:07 Disorder of back 14107897 Active Not Available [facility] 3 22:38:07 Cramp 98011311 Active Not Available [facility] 3 22:38:08 Weight gain 5334366 Active Not Available [facility] 3 22:38:08 Aspiration of food 43517414 Active Not Available [facility] 3 22:38:08 Abscess 581442058 Active Not Available [facility] 3 22:38:07 Stented coronary artery 710633104 Active 2016 Not Available [facility] 3 22:38:07 Visual impairment 688988273 Active 2016 Not Available [facility] 3 22:38:07 Problem Notes None recorded. Procedures Surgical History Date Name Laterality Status Provider Name and Address Organization Details Recorded Time 09/05/20 22 insertion of biliary stent by ERCP completed Pat Atwood MD Attn: Accounting,[address] [place], [address], [facility] 09/17/2022 11:39:27 06/17/20 21 implantation of patient-activate d cardiac event recorder completed Nallely Whaley MA [facility] 07/19/2021 12:03:56 05/19/20 21 colonoscopy completed Pat Atwood MD Attn: Accounting,[address] [place], [address], [facility] 05/23/2021 11:17:09 06/05/20 19 colonoscopy completed Pat Atwood MD Attn: Accounting,[address] [facility], [place], [address], [facility] 04/29/2020 15:35:44 02/03/20 14 Heart Surgery completed Giulia Zhou MA [facility] 11/22/2015 11:51:08 11/04/19 13 Most Recent Mammogram completed Giulia Zhou MA [facility] 11/22/2015 11:31:24 11/04/18 81 Hysterectomy completed Giulia Zhou MA [facility] 11/22/2015 11:51:08 11/04/18 78 Hysterectomy completed Giulia Zhou MA [facility] 11/22/2015 11:51:08 Back Surgery completed February HORACIO Fair [facility] 09/21/2014 17:13:59 Angioplasty With Stent completed February HORACIO [facility] 09/21/2014 17:13:59 Other completed Giulia Zhou [facility] 11/22/2015 11:51:08 Imaging Results Imaging Date Name Status LastModified by Organiz ation Details LastModified Time 05/09/2023 MR, angiogram, brain, w/o contrast completed [facility] [address], [place], [address], 08/21/2023 15:50:16 05/09/2023 MR, angiogram, neck, w/o contrast completed [address], [address], 08/21/2023 15:50:16 07/26/2023 DEXA completed [facility] [address] [place], [address], 08/21/2023 15:50:15 07/26/2023 MRI, cervical spine, w/o contrast completed [facility] [address] [place], [address], 08/21/2023 15:50:15 07/26/2023 MRI, lumbar spine, w/o contrast completed [facility] [address] [place], [address], 08/21/2023 15:50:15 11/13/2023 CT, head, w/o contrast completed [address] [place] [address], [address], 11/26/2023 15:36:19 12/12/2023 XR, chest completed [address], [address], 12/20/2023 09:13:31 06/11/2024 US, screening for abdominal aortic aneurysm completed [facility] [address], [place], [address], 09/17/2024 15:22:47 08/27/2024 XR, chest completed [address] [place] [address], [address], 09/17/2024 15:22:47 10/06/2024 CT, chest, w/o contrast completed [address], [place], [address], 12/18/2024 15:30:43 02/10/2025 MAMMO, screening, digital, bilateral active [address], [address], 02/10/2025 17:01:31 Procedure Notes None recorded. Medical Equipment None Reported. Allergies Allergen ID Allergen Name Allergen Category Reaction Reaction Severity Criticality Documentation Date Start Date Code Code System Note Provider Name and Address Organization Details Recorded Time 240589 PEG-Prep medicatio n other moderate Not available 06/17/2019 27034 UNK Pt. had blist ers insid e of her lips, cheek s, on her gingi va, and later down her throa t. Not Available Not Available Not Available 408688 Product containin g penicilli n (product) medicatio n Not available Not available Not available 01/13/2020 98419 8001 SNOMED Other react ions and sever ities : 'Adve rse react ion to subst ance' . Not Available Not Available Not Available 908109 nortripty line medicatio n respirato ry distress Not available Not available 03/20/2023 7531 RxNorm Not Available Not Available Not Available 60972 Iodinated contrast media (substanc e) medicatio n Not available Not available Not available 2015 55338 2004 SNOMED Other react ions and sever ities : 'Adve rse react ion to subst ance' . Not Available Not Available Not Available 76298 Substance with sulfonami de structure and antibacte rial mechanism of action (substanc e) medicatio n Not available Not available Not available 2015 86428 8003 SNOMED Other react ions and sever ities : 'Adve rse react ion to subst ance' . Not Available Not Available Not Available 60820 Darvocet- N medicatio n Not available Not available Not available 12/01/2015 30422 UNK Not Available Not Available Not Available 18600 erythromy burton medicatio n Not available Not available Not available 12/01/2015 4053 RxNorm Other react ions and sever ities : 'Adve rse react ion to subst ance' . Not Available Not Available Not Available 48952 morphine medicatio n Not available Not available Not available 12/01/2015 7052 RxNorm Other react ions and sever ities : 'Adve rse react ion to subst ance' . Not Available Not Available Not Available 11978 magnesium medicatio n other moderate Not available 07/11/2016 6574 RxNorm Pt. had blist ers insid e of her lips, cheek s, on her gingi va, and later down her throa t. Not Available Not Available Not Available Medications Name Sig Start Date Stop Date Status Note LastModified by Organization Details LastModified Time Prescript ion - Renewal 09/11 completed Script for refill on Tylenol- Codeine. Not Available Not Available Not Available Prescript ion - New 10/30 completed Not Available Not Available Not Available Prescript ion - Prior Authoriza tion Request 09/11 completed Not Available Not Available Not Available losartan 50 mg tablet Take 1 tablet every other day by oral route as directed . 09/01 completed Not Available Not Available Not Available amoxicill in 500 mg capsule Take 1 capsule every 8 hours by oral route as directed for 5 days. 04/09 completed Not Available Not Available Not Available atorvasta tin 40 mg tablet Take 1 tablet every day by oral route for 90 days. 11/24 completed Not Available Not Available Not Available methocarb debby 500 mg tablet Take 1 tablet twice a day by oral route as needed for 10 days. 08/03 completed ? Not Available Not Available Not Available Augmentin 875 mg-125 mg tablet Take 1 tablet every 12 hours by oral route as directed for 7 days. 01/12 completed Apparent ly allergic to PCN (Hives) Not Available Not Available Not Available atorvasta tin 80 mg tablet TAKE 1 TABLET BY MOUTH ONCE DAILY 12/18 completed Not Available Not Available Not Available nystatin 100,000 unit/mL oral suspensio n TAKE 5 ML BY MOUTH 4 TIMES DAILY DIRECTED FOR 14 DAYS active Not Available Not Available No t Available prednison e 10 mg tablet 10/30 completed Not Available Not Available Not Available doxycycli ne hyclate 100 mg capsule TAKE 1 CAPSULE BY MOUTH TWICE DAILY FOR 10 DAYS 07/19 completed Not Available Not Available Not Available atorvasta tin 20 mg tablet active Not Available Not Available Not Available ropinirol e 1 mg tablet Take 1 tablet every day by oral route at bedtime for 90 days, for Restless legs. 2024 active Not Available Not Available Not Avai lable nicotine 14 mg/24 hr daily transderm al patch Apply 1 patch every day by transder mal route as directed for 14 days. 12/18 completed Not Available Not Available Not Available ipratropi um 0.5 mg-albute rol 3 mg (2.5 mg base)/3 mL nebulizat ion soln 03/16 completed Pt states it makes her feel sick. Not Available Not Available Not Available tizanidin e 2 mg tablet 03/20 completed Not Available Not Available Not Available azithromy burton 250 mg tablet 02/26 completed Not Available Not Available Not Available Coreg 6.25 mg tablet Take 1 tablet twice a day by oral route for 30 days. 10/03 completed Not Available Not Available Not Available tolterodi ne ER 4 mg capsule,e xtended release 24 hr Take 1 capsule every day by oral route. 09/17 completed Not Available Not Available Not Available hydrocodo ne 5 mg-acetam inophen 325 mg tablet TAKE 1 TABLET BY MOUTH THREE TIMES DAILY FOR 30 DAYS active Not Available Not Available No t Available famotidin e 40 mg tablet 03/20 completed Not Available Not Available Not Available prednison e 20 mg tablet TAKE 2 TABLETS BY MOUTH ONCE DAILY FOR 5 DAYS 10/16 completed Not Available Not Available Not Available simvastat in 10 mg tablet 10/03 completed Not Available Not Available Not Available Debrox 6.5 % ear drops Instill 5 drops twice a day by otic route as directed for 4 days. 07/15 completed Not Available Not Available Not Available clindamyc in HCl 150 mg capsule TAKE 1 CAPSULE BY MOUTH THREE TIMES A DAY 09/17 completed Not Available Not Available Not Available metronida zole 500 mg tablet 08/03 completed Not Available Not Available Not Available acetamino phen 300 mg-codein e 30 mg tablet TAKE 1 TABLET BY MOUTH EVERY 12 HOURS NEEDED FOR PAIN 07/19 completed Dried my mouth up and blisters on my tongue Not Available Not Available Not Available clopidogr el 75 mg tablet 01/12 completed Not Available Not Available Not Available ciproflox acin 250 mg tablet TAKE 1 TABLET BY MOUTH TWICE DAILY DIRECTED FOR 3 DAYS 03/16 completed Not Available Not Available Not Available ciproflox acin 500 mg tablet TAKE 1 TABLET BY MOUTH TWICE DAILY 03/20 completed Not Available Not Available Not Available omeprazol e 40 mg capsule,d elayed release 07/19 completed Not Available Not Available Not Available tramadol 50 mg tablet Take 1 tablet every day by oral route as needed for 30 days. 09/19 completed Not Available Not Available Not Available ketorolac 30 mg/mL (1 mL) injection solution Inject 1 mL every day by intramus cular route as directed for 1 day. 05/01 completed Not Available Not Available Not Available simvastat in 40 mg tablet 10/03 completed Not Available Not Available Not Available carvedilo l 3.125 mg tablet 10/03 completed Not Available Not Available Not Available pantopraz ole 20 mg tablet,de layed release 10/03 completed Not Available Not Available Not Available cyprohept adine 4 mg tablet 04/23 completed Not Available Not Available Not Available oxycodone -acetamin ophen 5 mg-325 mg tablet TAKE 1 TABLET BY MOUTH EVERY 6 HOURS NEEDED 07/19 completed Not Available Not Available Not Available tamsulosi n 0.4 mg capsule TAKE 1 CAPSULE BY MOUTH ONCE DAILY AT BEDTIME 04/23 completed Not Available Not Available Not Available meclizine 25 mg tablet 03/20 completed Not Available Not Available Not Available benzonata te 100 mg capsule TAKE 1 CAPSULE BY MOUTH THREE TIMES DAILY NEEDED FOR 5 DAYS 04/23 completed Not Available Not Available Not Available cephalexi n 500 mg capsule Take 1 capsule every 6 hours by oral route as directed for 5 days. 02/03 completed Not Available Not Available Not Available nortripty line 10 mg capsule TAKE 1 CAPSULE BY MOUTH AT BEDTIME 03/20 completed Not Available Not Available Not Available ferrous sulfate 325 mg (65 mg iron) tablet Take 1 tablet 3 times a day by oral route for 30 days. 2014 active GI intolera nce Not Available Not Available Not Available nitrofura ntoin macrocrys leif 100 mg capsule 09/11 completed Not Available Not Available Not Available ropinirol e 0.5 mg tablet Take 1 tablet every day by oral route at bedtime for 90 days. 01/11 completed Not Available Not Available Not Available ramipril 2.5 mg capsule active Not Available Not Available Not Available lisinopri l 10 mg tablet TAKE 1 TABLET BY MOUTH ONCE DAILY active Not Available Not Available No t Available prednison e 50 mg tablet 1st dose [address] drqe3us dose [address] fsmc5ur dose [address] scan 04/09 completed Not Available Not Available Not Available fluoromet holone 0.1 % eye drops,angelita pension active Not Available Not Available Not Available lidocaine 5 % topical patch APPLY ONE PATCH ONCE DAILY DIRECTED active Not Available Not Available No t Available losartan 25 mg tablet Take 1 tablet every day by oral route for 90 days. 02/03 completed Not Available Not Available Not Available Advair Diskus 250 mcg-50 mcg/dose powder for inhalatio n INHALE 1 DOSE BY MOUTH TWICE DAILY 03/20 completed Not Available Not Available Not Available nitroglyc nessa 400 mcg/spray transling ual active Not Available Not Available Not Available nitroglyc nessa 0.4 mg sublingua l tablet active Not Available Not Available Not Available oxybutyni n chloride ER 5 mg tablet,ex tended release 24 hr Take 1 tablet every day by oral route. 09/17 completed Not Available Not Available Not Available gabapenti n 300 mg capsule Take 1 capsule 3 times a day by oral route. 09/17 completed Not Available Not Available Not Available diclofena c sodium 75 mg tablet,de layed release Take 1 tablet twice a day by oral route as needed for 30 days. 07/15 completed Not Available Not Available Not Available acetamino phen 300 mg-codein e 60 mg tablet Take 1 tablet every 4 hours by oral route. 09/17 completed Not Available Not Available Not Available cyanocoba gopal (vit B-12) 1,000 mcg sublingua l tablet Place 1 tablet every day by sublingu al route as directed for 90 days. 01/11 completed Not Available Not Available Not Available lisinopri l 5 mg tablet TAKE 1 TABLET BY MOUTH ONCE DAILY DIRECTED FOR 90 DAYS 08/03 completed Not Available Not Available Not Available mupirocin 2 % topical ointment APPLY A SMALL AMOUNT TO THE AFFECTED AREA BY TOPICAL ROUTE 3 TIMES PER DAY for 5 days 04/09 completed Not Available Not Available Not Available furosemid e 20 mg tablet Take 1 tablet every day by oral route as directed for 90 days. 09/17 completed Not Available Not Available Not Available mirtazapi ne 15 mg tablet active Not Available Not Available Not Available gabapenti n 100 mg capsule TAKE 1 CAPSULE BY MOUTH THREE TIMES DAILY active Not Available Not Available No t Available ergocalci ferol (vitamin D2) 1,250 mcg (50,000 unit) capsule TAKE 1 CAPSULE BY MOUTH ONCE A WEEK DIRECTED active Not Available Not Available No t Available levofloxa burton 500 mg tablet Take 1.5 tablets every 24 hours by oral route as directed for 5 days. 04/29 completed Not Available Not Available Not Available methylpre dnisolone 4 mg tablets in a dose pack TAKE BY MOUTH DIRECTED ON INSIDE OF PACKAGE 11/26 completed Not Available Not Available Not Available albuterol sulfate HFA 90 mcg/actua tion aerosol inhaler Inhale 2 puffs 4 times a day by inhalati on route as needed for 90 days, for COPD. 2024 active Not Available Not Available Not Avai lable oxybutyni n chloride 5 mg tablet active Not Available Not Available Not Available ondansetr on 4 mg disintegr ating tablet Place 1 tablet 3 times a day by translin gual route as needed for 14 days. 11/26 completed Not Available Not Available Not Available amoxicill in 500 mg-potass ium clavulana te 125 mg tablet 10/03 completed Not Available Not Available Not Available nicotine 7 mg/24 hr daily transderm al patch Apply 1 patch every day by transder mal route around the clock for 14 days. 12/18 completed Not Available Not Available Not Available oxycodone 5 mg tablet Take 1 tablet every 4 hours by oral route for 7 days. 12/11 completed Not Available Not Available Not Available Benadryl Allergy 25 mg tablet 2 tablets [address] scan 04/09 completed Not Available Not Available Not Available ezetimibe 10 mg tablet TAKE 1 TABLET BY MOUTH ONCE DAILY DIRECTED FOR 90 DAYS 03/20 completed ? Not Available Not Available Not Available cyclobenz aprine 5 mg tablet 02/03 completed Not Available Not Available Not Available Restasis 0.05 % eye drops in a dropperet te active Not Available Not Available Not Available rosuvasta tin 10 mg tablet Take 1 tablet every other day by oral route as directed for 90 days. 09/[address] puga 09/01/20 19 Not Available Not Available Not Available nitrofura ntoin monohydra te/macroc rystals 100 mg capsule TAKE 1 CAPSULE BY MOUTH TWICE DAILY FOR INFECTIO N FOR 10 DAYS 07/19 completed Not Available Not Available Not Available solifenac in 5 mg tablet Take 1 tablet every day by oral route. 09/17 completed Not Available Not Available Not Available Vesicare 10 mg tablet active Not Available Not Available Not Available Aleve 02/04 completed Not Available Not Available Not Available Benadryl Allergy 03/20 completed Not Available Not Available Not Available cyclobenz aprine 5 mg TID 08/21 completed Not Available Not Available Not Available peg 3350 240 gram-elec trolytes 22.72 gram-6.72 g-5.84 g powdr for soln 09/01 completed Not Available Not Available Not Available Suprep Bowel Prep Kit 17.5 gram-3.13 gram-1.6 gram oral solution USE DIRECTED 07/19 completed Not Available Not Available Not Available Vitamin D3 50 mcg (2,000 unit) capsule Take 1 capsule every day by oral route as directed for 90 days, for Low Vitamin D. 12/18 completed QOD Not Available Not Available Not Available ipratropi um 0.5 mg-albute rol 2.5 mg/2.5 mL solution for nebulizat ion Inhale 3 mL every 6 hours by inhalati on route as needed. active Not Available Not Available No t Available Belsomra 10 mg tablet Take 1 tablet 3 times a week by oral route as needed for 9 days. 09/19 completed Not Available Not Available Not Available Movantik 25 mg tablet active Not Available Not Available Not Available naloxone 4 mg/actuat ion nasal spray CALL 911. ADMINIST ER A SINGLE SPRAY INTRANAS ALLY INTO ONE NOSTRIL UPON SIGNS OF OPIOID OVERDOSE . MAY REPEAT AFTER 3 MINUTES IF NO RESPONSE . active Not Available Not Available No t Available Trelegy Ellipta 100 mcg-62.5 mcg-25 mcg powder for inhalatio n Inhale 1 puff every day by inhalati on route as directed for 90 days, for COPD. 2024 active Not Available Not Available Not Avai lable Shingrix (PF) 50 mcg/0.5 mL intramusc ular suspensio n, kit 02/03 completed Not Available Not Available Not Available Vitals Date Recorded Body height Body mass index (BMI) Body weight Heart rate Oxygen saturation Oxygen saturation in Arterial blood by Pulse oximetry Respiratory rate Systolic blood pressure Diastolic blood pressure Provider Name and Address Organization Details Last Updated DateTime 3 154.305 cm 22 kg/m2 02050.5 6 g 64 /min 96 % 96 % 20 /min 140 mm[Hg] 60 mm[Hg] Giulia Nunn MA [facility] 3 15:35:04 Date Recorded Body height Body mass index (BMI) Body weight Oxygen saturation Oxygen saturation in Arterial blood by Pulse oximetry Heart rate Body temperature Systolic blood pressure Diastolic blood pressure Provider Name and Address Organization Details Last Updated DateTime 4 154.305 cm 19.8 kg/m2 11842.6 1 g 95 % 95 % 74 /min 98.4 [degF] 126 mm[Hg] 60 mm[Hg] Giulia Nunn [place] - [facility] 4 15:26:41 Date Recorded Body height Body mass index (BMI) Body weight Heart rate Oxygen saturation Oxygen saturation in Arterial blood by Pulse oximetry Body temperature Systolic blood pressure Diastolic blood pressure Provider Name and Address Organization Details Last Updated DateTime 4 154.305 cm 20.3 kg/m2 41809.6 7 g 71 /min 99 % 99 % 98.1 [degF] 124 mm[Hg] 68 mm[Hg] Giulia Nunn MA [facility] 4 14:24:28 Date Recorded Body height Body mass index (BMI) Body weight Heart rate Respiratory rate Oxygen saturation Oxygen saturation in Arterial blood by Pulse oximetry Systolic blood pressure Diastolic blood pressure Provider Name and Address Organization Details Last Updated DateTime 4 154.305 cm 19.4 kg/m2 59991.4 2 g 76 /min 18 /min 97 % 97 % 120 mm[Hg] 70 mm[Hg] Giulia Nunn MA [place] - [facility] 4 14:54:27 Date Recorded Body height Body mass index (BMI) Body weight Respiratory rate Heart rate Oxygen saturation Oxygen saturation in Arterial blood by Pulse oximetry Body temperature Systolic blood pressure Diastolic blood pressure Provider Name and Address Organization Details Last Updated DateTime 5 154.305 cm 19.8 kg/m2 83444.6 1 g 18 /min 70 /min 97 % 97 % 97.9 [degF] 126 mm[Hg] 70 mm[Hg] Giulia Nunn [place] - [facility] 5 15:16:10 Social History Question Answer Notes LastModified by Organizat ion Details LastModified Time Tobacco Smoking Status Current Every Day Smoker February HORACIO Fair [place] - [facility] 09/21/2014 17:14:00 Do You Have An Advance Directive? No Information not available 11/22/2015 What Is Your Level Of Alcohol Consumption? None Information not available 11/22/2015 Are You Blind Or Do You Have Difficulty Seeing? No Information not available 02/03/2021 Is Blood Transfusion Acceptable In An Emergency? Yes Information not available 11/22/2015 What Is Your Level Of Caffeine Consumption? Moderate Coffee And Soda Information not available 11/22/2015 How Much Tobacco Do You Chew? None Information not available 11/22/2015 Have You Been To An Area Known To Be High Risk For COVID-19? Yes Information not available 02/03/2021 Are You Currently Employed? No Information not available 11/22/2015 Are You Deaf Or Do You Have Serious Difficulty Hearing? No Information not available 02/03/2021 What Type Of Diet Are You Following? REGULAR Information not available 11/22/2015 Which Illicit Or Recreational Drugs Have You Used? None Information not available 11/22/2015 Do You Or Have You Ever Used E-cigarettes Or Vape? Never Used Electronic Cigarettes Information not available 09/01/2019 Education 12 Information no t available 11/22/2015 What Is Your Occupation? Retired Information not available 11/22/2015 Are There Any Guns Present In Your Home? No Information not available 02/03/2021 Live Alone Or With Others? Alone Information not available 11/22/2015 What Was The Date Of Your Most Recent Tobacco Screening? 12/18/2024 Information not available 12/18/2024 How Many Children Do You Have? 3 Information not available 11/22/2015 What Is Your Current Pack Years? 30ormorepacky ears Information not available 02/03/2021 Performs Monthly Self-breast Exam? No Left Breast Sensitive From Heart Surgery Information not available 11/22/2015 What Is Your Relationship Status? Information not available 11/22/2015 Do You Use Your Seat Belt Or Car Seat Routinely? Yes Information not available 02/03/2021 Are You Sexually Active? No Information not available 11/22/2015 Do You Have Smoke And Carbon Monoxide Detectors In Your Home? Yes Information not available 02/03/2021 At What Age Did You Start Smoking Tobacco? 14 Information not available 02/03/2021 Do You Or Have You Ever Used Smokeless Tobacco? Never Used Smokeless Tobacco Information not available 09/01/2019 How Much Tobacco Do You Smoke? 0.5 PPD Information not available 04/23/2024 General Stress Level High Information not available 11/22/2015 Do You Use Any Illicit Or Recreational Drugs? No Information not available 02/03/2021 Do You Use Sunscreen Routinely? No Information not available 02/03/2021 Has Tobacco Cessation Counseling Been Provided? Yes Information not available 02/03/2021 On What Date Was Tobacco Cessation Counseling Provided? 12/18/2024 Information not available 12/18/2024 How Many Years Have You Smoked Tobacco? 55 asavala Information not available 09/21/2014 Do You Or Have You Ever Used Any Other Forms Of Tobacco Or Nicotine? Yes Information not available 02/03/2021 Sex: Unknown Functional Status Question Answer Note LastModified by Organizat ion Details LastModified Time Are you able to care for yourself? Yes Information not available 03/16/2021 What is your exercise level? Occasional Information not available 11/22/2015 Mental Status None recorded. Family History Relationship Description Onset Age of this Age Resolved Age Notes LastModified by Organization Details LastModified Time Mother Dementia 85 Not availabl e 05/29/2016 12:03:21 Mother Depressive disorder Not available 2015 12:03:21 Father Alcohol abuse from suicid e Not available 05/29/2016 12:03:21 Medical History Condition Response Other Y High Blood Pressure Y Breast Cancer N Kidney or Bladder Problems N Thyroid Problems N Blood Clots N COPD Y Depression N Lung Disease N GI Problems N Acne N Breast Problem N Eating Disorder N Anemia N Anesthesia Complications N Heart Attack ([place]) Y Headaches/Migraines N Anxiety Disorder N Diabetes N Ovarian Cancer N Muscle, Joint, or Bone Problems N Blood Transfusions N Seizures/Epilepsy N Infertility N Polyps N Myocardial Infarction Y Acid Reflux (GERD) N Cancer N Stroke Y Abuse/Domestic Violence N Asthma N Endometriosis N High Cholesterol Y Hepatitis N Liver Disease N Heart Disease Y Pre-Eclampsia N Osteoporosis N Gynecological History Statement/Question Response Abnormal Pap Y On BCP's at Conception? N STIs/STDs N HPV Vaccine Y Most Recent Mammogram 11/04/2012 Age at Menarche 13 Current Control Method None Age at First Child 16 Sexually Active? N Menses Monthly Y Sexual Problems? N Desired Control Method None Obstetrics History GPAL:G 5 P 3 0 2 0 Type Value Multiple Births 1 Full Term 3 Spontaneous 2 Total 5 Immunizations Vaccine Type Date Status Note Provider Nam e and Address Organization Details Recorded Time zoster, unspecified formulation 2 completed Not Available [facility] 07/29/2023 22:38:09 zoster, unspecified formulation 0 completed HORACIO Syl[place], [place] - [facility] 08/21/2023 15:36:25 SARS-COV-2 (COVID-19) vaccine, UNSPECIFIED 1 completed Not Available [facility] 07/29/2023 22:38:09 SARS-COV-2 (COVID-19) vaccine, UNSPECIFIED 1 completed Not Available [facility] 07/29/2023 22:38:09 Influenza, split virus, quadrivalent, preservative 1 completed Not Available [facility] 07/29/2023 22:38:09 COVID-19, mRNA, LNP-S, PF, 30 mcg/0.3 mL dose 1 completed Not Available [facility] 07/29/2023 22:38:09 COVID-19, mRNA, LNP-S, PF, 30 mcg/0.3 mL dose 2 completed Giulia Nunn [place], [place] [facility] 08/21/2023 15:36:25 Influenza, high-dose, trivalent, PF 7 completed Not Available [facility] 07/29/2023 22:38:10 COVID-19, mRNA, LNP-S, PF, 30 mcg/0.3 mL dose 1 completed Not Available [facility] 07/29/2023 22:38:09 COVID-19, mRNA, LNP-S, PF, 30 mcg/0.3 mL dose 1 completed Not Available [facility] 07/29/2023 22:38:09 zoster live 2 completed Not Available [facility] 07/29/2023 22:38:09 Influenza, high-dose, trivalent, PF 9 completed Not Available [facility] 07/29/2023 22:38:09 Influenza, high-dose, quadrivalent, PF 0 completed Not Available [facility] 07/29/2023 22:38:09 Influenza, split virus, trivalent, preservative 4 completed Not Available [facility] 07/29/2023 22:38:10 zoster recombinant 0 completed Not Available [facility] 07/29/2023 22:38:09 COVID-19, mRNA, LNP-S, PF, 30 mcg/0.3 mL dose, virgil-sucrose 2 completed Not Available [facility] 07/29/2023 22:38:09 zoster recombinant 0 completed Not Available [facility] 07/29/2023 22:38:09 pneumococcal polysaccharide PPV23 2 completed Not Available [facility] 07/29/2023 22:38:09 Pneumococcal conjugate PCV20, polysaccharide [id number] conjugate, adjuvant, PF 2 completed Not Available [facility] 07/29/2023 22:38:09 COVID-19, mRNA, LNP-S, bivalent, PF, 30 mcg/0.3 mL dose 2 completed Not Available [facility] 07/29/2023 22:38:09 Influenza, high-dose, quadrivalent, PF 3 completed Not Available [facility] 07/29/2023 22:38:09 Pneumococcal conjugate PCV20, polysaccharide [id number] conjugate, adjuvant, PF 3 completed Not Available [facility] 07/29/2023 22:38:09 RSV, recombinant, protein subunit RSVpreF, adjuvant reconstituted, 0.5 mL, PF 3 completed Not Available [facility] 07/29/2023 22:38:09 COVID-19, mRNA, LNP-S, PF, 50 mcg/0.5 mL 3 completed Giulia Nunn [place], [place] [facility] 08/21/2023 15:36:25 COVID-19, mRNA, LNP-S, PF, virgil-sucrose, 30 mcg/0.3 mL 4 completed Pat Atwood MD Attn: Accounting,[address] [facility], [place], [address], [place] [facility] 04/23/2024 14:40:41 COVID-19, mRNA, LNP-S, PF, virgil-sucrose, 30 mcg/0.3 mL 4 completed Giulia N[place] [facility] 09/17/2024 14:51:12 Influenza, high-dose, trivalent, PF 4 completed Giulia [place] [facility] 09/17/2024 14:51:12 Tdap 7 completed Not Available [facility] 11/21/2019 02:39:19 Influenza, split virus, quadrivalent, PF 8 completed Not Available [facility] 11/21/2019 02:47:21 pneumococcal polysaccharide PPV23 2 completed Not Available [facility] 07/29/2023 22:38:09 Influenza, high-dose, trivalent, PF 5 completed Not Available [facility] 07/29/2023 22:38:09 Pneumococcal conjugate PCV 13 5 completed Not Available [facility] 07/29/2023 22:38:09 Influenza, high-dose, trivalent, PF 6 completed Not Available [facility] 07/29/2023 22:38:09 Pneumococcal conjugate PCV 13 6 completed Not Available [facility] 07/29/2023 22:38:09 Influenza, split virus, quadrivalent, preservative 2 completed Pat Atwood MD Attn: Accounting[address] [place], [address], [facility] - [facility] 08/03/2022 14:11:02 Influenza, split virus, quadrivalent, preservative 7 completed Not Available [facility] 07/29/2023 22:38:09 Past Encounters Encounter ID Performer Location Encounter Start Date Encounter Closed Date Diagnosis/Indication Diagnosis SNOMED-CT Code Diagnosis ICD10 Code Diagnosis Note [id number] HORACIO Fair (Adult Med) [address] [place] [address] 09/21/2014 15:35:09 09/22/2014 21:17:30 Chronic obstructive pulmonary disease 10270540 Stop smoking Hypercholesterolemia [id number] [facility] (Adult Med) [address] [place] [phone] 02/02/2015 11:32:00 02/02/2015 12:26:20 Benign hypertension 78171923 69 y/o WF who was last seen in this office 03/19/2014, in the interim she had her vaginal mesh removed, she can no longer control her ability to urinate. She has gained some weight ~13 lbs since her last visit. Uncontroll ed on Coreg, 3.125mg po bid. I will increase this to 6.25mg po bid Fall She tripped and fell with an injury to the left upper extremity, nasal bones and bruising of the right upper armTendern ess around her nose, left proximal radius and left wrist. NAMITA bandage Urinary incontinence She needs 12-15 or more undergarme nts a day Chronic ob structive pulmonary disease 19571329 Stop smoking, she had Pneumovax in 2011, she needs [id number] Coronary atherosclerosis 036179190 Labs [id number] Pat Atwood MD Stephanie (Adult Med) [address] [place] [phone] 10/03/2015 10:29:22 10/03/2015 12:43:19 Benign hypertension 11867185 I10 70 y/o WF who was last seen in this office 02/2015, in the interim she had her two other surgical procedures and was admitted with a wound infection. She reports uncontroll ed HTN while off her medication s, her BP is normal today. I will monotor this closely. Coronary atherosclerosis 861631516 I25.10 Labs are needed, her Plavix was discontinu ed by Dr. Charlene Puga her cardiologi st during her visit, March 22, 2015 She also cannot take Aspirin due to PUD. Hypercholesterolemia 136 68674 E78.0 Tobacco user 023278092 Z 72.0 Tobacco cessation was discussed, she states that I don't want to Restless legs 50491810 G 25.81 This is apparently a chronic issue, she apparently was treated in the past. I think it is prudent to recheck her iron. Chronic ob structive pulmonary disease 00372869 J44.9 Smoking cessation was discussed, she had Pneumovax in 2011, she needs [id number] A copy of her PFTs will be useful Low back pain 451218664 M54.5 I have requested a copy of her previous MRI from 2009? She can discontinu e Advil and try Diclofenac with a snack or a meal, PRN with pain. Medication monitoring 39 4866676 Z51.81 Screening mammography 24 831509 Z12.31 [id number] MD Stephanie Roberson (Adult Med) [address] [place] [phone] 10/17/2015 10:31:53 10/17/2015 12:29:41 Tobacco user 168829310 Z72.0 Tobacco cessation was discussed, she states that I don't want to Restless legs 52241719 G 25.81 This is apparently a chronic issue, she apparently was treated in the past with improvemen t. She was unable to tolerate the iron due to GI side effects. Laboratory test result abnormal 547361962 R89.9 CBC has improved, she however has elevated LFTS which could be from her medication s. Computed t omography result abnormal 579280710 R93.8 She is woried about the findings on the CT scan done 10/04/2015, I have reassured her, she however appears concerned, I will refer her to the Gynecologi st. [id number] Shimon Brown ([employer]) [address] [place] [phone] 11/22/2015 10:21:59 11/22/2015 12:20:45 Computed tomography result abnormal 552851853 R93.8 Urinary incontinence 165 394596 R32 Tobacco user 052521687 Z 72.0 [id number] MD Stephanie Roberson (Adult Med) [address] [place] [phone] 12/01/2015 11:29:18 12/01/2015 12:14:48 Computed tomography result abnormal 125701326 R93.8 She was seen by Dr. Gifford and she has been referred to [facility], this is in reference to the findings on the CT scan done 10/04/2015, I have once again reassured her. 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 The benefits of lowering her cholestero l and her increased risk of CVS events in view of her age, her use of tobacco producs despite multiple recommenda tions that she stop smoking was discussed. Tobacco cessation was discussed. Laboratory test result abnormal 461966793 R89.9 E78.0 Z51.81 Repeat LFTS have been reordered. Shoulder pain 30866612 M 25.511 R and L shoulder pain [id number] Pat Atwood MD [facility] (Adult Med) [facility] [place] [address] 01/13/2016 11:25:06 01/13/2016 14:04:29 Chronic peptic ulcer 042999191 K27.7 She has been advised to avoid antiplatel et therapy Pelvic mass 31422829 R19 .00 She was seen by Dr. Thurston at [facility], she apparently needs a CT scan. I have reminded her to follow up and with regards to her request for a PET scan, she really should discuss this with Dr. Thurston High carci noembryonic antigen level 331212852 R97.0 I have reviewed the consultati on note from Ms. Retana's visit 12/26/[address] Thurston ([facility]). Her CEA is elevated (7.6, 11/22/2015) A colonoscop y was attempted 09/17/[address] Daniella grady, this was incomplete due to fixation and angulation . A BE was reported to reveal tortuosity of the sigmoid colon. I have previously spoken to Ms. Retana and I have discussed the plan with her in detail. She understand s that CEA is a marker used to monitor colon cancer. She states that she is awaiting a call from Dr. Daniella grady Alkaline p hosphatase above reference range 041426678 R74.8 Elevated alkaline phosphatas e Shoulder pain 93914907 M 25.511 R and L shoulder pain, her xrays were discussed, there is mild AC arthritis. Disorder o f lipid metabolism 944315293 E78.9 Her LDL is too high, try Crestor 10mg po daily, side effects were discussed. She has been taking Lipitor erraticall y as she feels that it is causing her hair loss. Labs in 6 weeks Restless legs 01367404 G 25.81 This is apparently a chronic issue, she apparently was treated in the past with improvemen t. She was unable to tolerate the iron due to GI side effects. Low back pain 261132510 M54.5 She can resume Diclofenac with a snack or a meal, PRN with pain, as well as a short course of Hydrocodon e Screening for osteoporosis 042856524 Z13.820 Patient will be informed of the need for this test [id number] MD Stephanie Roberson (Adult Med) [address] [place] [phone] 04/06/2016 14:36:19 04/06/2016 16:37:14 Aortic aneurysm 89498954 I71.9 Stable infrarenal aneurysm Polyp of colon 91213733 K63.5 The virtual colonoscop y confirms polyps and according to Dr. Daniella grady she needs a repeat test in 3 years, this does not quite explain her elevated CEA Urinary incontinence 165 915444 R32 She needs 12-15 or more undergarme nts a day, she has asked if her recent surgery has contribute d to her urinary frequency and intoninenc e. I have suggested that she follows up with her Urologist, Dr. Gordon? Abdominal pain 12045663 R10.9 She attributes this to gas, she however admits to constipati on and chronic loose watery stools ~7/day. She can tolerate Tramadol PRN as she is not obtaining any relief from the NSAID. Noncomplia nce with medication regimen 124604346 Z91.14 She discontinu ed her Crestor due to dizziness which has improved, I am not quite sure that this is the cause. She has multiple risk factors for CVS events and continues to smoke. Dizziness 789956038 R42 Chronic cough 69374800 R 05 Chronic morning cough Impacted cerumen 3263235 6 H61.21 [id number] MD Stephanie Roberson (Adult Med) [address] [place] [phone] 0 05/29/2016 11:49:04 05/29/2016 12:54:16 High carcinoembryonic antigen level 866855476 R97.0 I have reviewed the consultati on note from Ms. Retana's visit 12/26/[address] Thurston ([facility], who is of the impression that this is a peritoneal inclusion cyst, the elevated CEA of 7.6, 11/22/2015 however remains unexplaine d. A colonoscop y was attempted 09/17/[address] Daniella grady, this was incomplete due to fixation and angulation . A BE was reported to reveal tortuosity of the sigmoid colon. She had a virtual colonoscop y 02/13/2016 which confirmed colonic polyps, I have discussed the plan with her in detail. She understand s that CEA is a marker used to monitor colon cancer, I will recheck her CEA and proceed from there. Insomnia 950984093 G47.0 0 Trial of Belsorma PRN, side effects were discussed. She should not use this with her Tramadol. Chronic ob structive pulmonary disease 49971091 J44.9 Smoking cessation was discussed. Disorder of back 1849450 3 M53.9 Judicious use of Tramadol was discussed Cramp 02330018 R25.2 Dizziness 245092753 R42 MRA of the brain does not explain her dizziness, she has been previously referred to the neurologis t. [id number] Pat Atwood MD [facility] (Adult Med) [address] [place] [phone] 07/11/2016 11:52:18 07/11/2016 12:51:14 Weight gain 1832646 R63.5 Urinary incontinence 165 406335 R32 She was seen by her Urologist, Dr. Gordon, a procedure is planned High carci noembryonic antigen level 799184020 R97.0 I have previously reviewed the consultati on note from Ms. Retana's visit 12/26/[address] Thurston ([facility], who is of the impression that this is a peritoneal inclusion cyst, the elevated CEA of 7.6, 11/22/2015 however remains unexplaine d. The CEA is now down to 6.5 (05/2016) A colonoscop y was attempted 09/17/[address] Daniella grady, this was incomplete due to fixation and angulation . A BE was reported to reveal tortuosity of the sigmoid colon. She had a virtual colonoscop y 02/13/2016 which confirmed colonic polyps, I have discussed the plan with her in detail. She understand s that CEA is a marker used to monitor colon cancer although she does not have this diagnosis, I will seek direction from the oncology team. She billie garg continues to smoke despite multiple suggestion s to stop. Chronic ob structive pulmonary disease 74870120 J44.9 Disorder o f lipid metabolism 971359019 E78.9 On Crestor 10mg po daily. Low back pain 394191408 M54.5 She can continue the Diclofenac with a snack or a meal, PRN with pain, as well the Tramadol. A pain contract needs to be signed, UDS to be done. Aspiration of food 68333 003 T17.928A She describes coughing fits when she drinks water Medication monitoring 39 1618644 Z51.81 Abscess 505388855 L02.91 Healing lesion right scapula [id number] Pat Atwood MD [facility] (Adult Med) [address] [place] [address] 08/22/2016 11:25:54 08/22/2016 12:47:23 Low back pain 386718395 M54.5 She can continue the Diclofenac with a snack or a meal, PRN with pain, the Tramadol was ineffectiv e, she can tolerate Tylenol #3 . A pain contract is on file and a UDS needs to be done. High carci noembryonic antigen level 103773567 R97.0 I have previously reviewed the consultati on note from Ms. Retana's visit 12/26/[address] Thurston ([facility], who is of the impression that this is a peritoneal inclusion cyst, the elevated CEA of 7.6, 11/22/2015 however remains unexplaine d. The CEA is now down to 6.5 (05/2016) A colonoscop y was attempted 09/17/[address] Daniella grady, this was incomplete due to fixation and angulation . A BE was reported to reveal tortuosity of the sigmoid colon. She had a virtual colonoscop y 02/13/2016 which confirmed colonic polyps, I have discussed the plan with her in detail. She understand s that CEA is a marker used to monitor colon cancer although she does not have this diagnosis, I have referred her to the oncology team. She state that she got lost on her way to [place] , I have asked my nurse to give her the instructio ns again. Normal grief reaction 27 0412105 F43.20 Her grandson just tragically [id number] MD Stephanie Roberson (Adult Med) [address] [place] [phone] 09/19/2016 14:23:02 09/19/2016 16:05:46 Low back pain 295086351 M54.5 She can continue the Diclofenac with a snack or a meal, PRN with pain, as well as Tylenol #3 . A pain contract is on file and a UDS needs to be done. Disorder o f lipid metabolism 709446340 E78.9 On Crestor 10mg po daily. Medication monitoring 39 7371506 Z51.81 High carci noembryonic antigen level 578276726 R97.0 I have asked my nurse to give her the instructio ns once again about seeing the oncologist . Spasm of back muscles 20 1142212 M62.998 [id number] MD Stephanie Roberson (Adult Med) [address] [place] [address] 09/11/2017 14:44:44 09/11/2017 15:52:21 Low back pain 233751322 M54.5 Refill Tylenol #3, a pain contract is on file.Discu ssed Dizziness 505930413 R42 The MRA of the brain does not explain her dizziness, she has been previously referred to the neurologis t and I have given her the details. Restless legs 78233639 G 25.81 This is apparently another chronic issue, she apparently was treated in the past with improvemen t. She was unable to tolerate the iron due to GI side effects. Adult [facility] th examination 027269207 Z00.00 Disorder o f lipid metabolism 031727864 E78.9 Previously on Crestor 10mg po daily, she has a coronary stent in place.. Visual impairment 167367 003 H54.7 There are persistent issues ever since her cataract surgery, she was diagnosed with dry eyes and prescribed Restasis Nicotine dependence 5629 4008 F17.200 Stented co ronary artery 733149284 Z95.5 Cramp 86355009 R25.2 Discussed [id number] MD Stephanie Roberson (Adult Med) [address] [place] [address] 18423-397 0 10/30/2017 13:41:07 10/30/2017 15:19:10 Abdominal aortic aneurysm 527728740 I71.4 Discussed, she will follow up with Dr. Puga who ordered the test. Alkaline p hosphatase above reference range 366096742 R74.8 Diabetes m ellitus screening 968741484 Z13.1 Administra tion of diphtheria, pertussis, and tetanus vaccine 695193590 Z23 Low back pain 777443698 M54.5 Refill Tylenol #3, a pain contract is on file and was discussed Esophageal dysphagia 408 33526 R13.19 Coronary arteriosclerosis in mechoopda artery 6462780647 107 I25.10 Nicotine dependence 5629 4008 F17.200 I have strongly urged her to stop smoking. [id number] MD Stephanie Roberson (Adult Med) [address] [place] [address] 78777-494 0 02/26/2018 14:10:44 02/26/2018 15:35:22 Chronic obstructive pulmonary disease 44025242 J44.9 Her PFTS sugest moderate to severe obstructio n. I will add Trelegy as she is not doing well on her current regimen, side effects were discussed in detail. Restless legs 25102609 G 25.81 Low back pain 103950573 M54.5 Refill Tylenol #3, a pain contract is on file. Nicotine dependence 5629 4008 F17.200 I have strongly urged her to stop smoking, she does not want to try Chantix. I will do it on my own . Screening mammography 24 017377 Z12.31 [id number] [facility] [address] [place] [address] 75998-442 0 05/28/2018 14:24:50 05/28/2018 15:09:05 Restless legs 44850173 G25.81 Chronic ob structive pulmonary disease 33458594 J44.9 Low back pain 637713585 M54.5 Refill Tylenol #3, a pain contract is on file.[place] , last refill 02/2018CDA needed Disorder o f lipid metabolism 605731769 E78.9 Medication monitoring 39 2973176 Z51.81 Excessive cerumen in ear canal 584160567 H61.22 Decreased hearing 383211 001 H91.91 History of tobacco use 0582140138 103 Z87.891 I have strongly urged her to stop smoking.[place] PMPLDCT Abdominal pain 67878593 R10.9 [id number] Pat Atwood MD [facility] (Adult Med) [address] [place] [address] 07/15/2018 15:13:02 07/15/2018 17:38:17 Administration of influenza vaccine 83960852 Z23 History of tobacco use 8685639557 103 Z87.891 LDCT Renal insufficiency 7231 10234 N28.9 History of peptic ulcer 944974024 Z87.11 Not a candidate for anti platelet therapy [id number] Pat Atwood MD [facility] (Adult Med) [address] [place] [address] 61044-044 0 10/23/2018 14:07:13 10/23/2018 15:10:27 Chronic obstructive pulmonary disease 03890256 J44.9 Mammography abnormal 168 174067 R92.8 Discussed Benign ess ential hypertension 4662456 I10 Low back pain 156238788 M54.5 Refill Tylenol #3, a pain contract is on file.[place] , last refill 05/29/2018A CDA is on fileUDS 07/08/2018Re peat the MRI as her pain is worse and she describes difficulty ambulating at times.She needs to follow up with Dr Hassan (Pain Management ) Stenosis o f intervertebral foramina 8404508484 09 M99.9 [id number] Pat Atwood MD [facility] (Adult Med) [address] [place] [address] 11874-450 0 12/11/2018 14:20:35 12/11/2018 15:29:57 Lumbar spondylosis 020667866 M47.26 Her pain management provider is on medical eave, she will call their office back. Mammography abnormal 168 075307 R92.8 DiscussedF ollow up MMG+/-US in 6 months Aneurysm o f infrarenal abdominal aorta 465095414 I71.4 4.2 cm 11/22/2018U S follow up in 6 months Multiple n odules of lung 439993704 R91.8 Stable Kidney stone 19990615 N2 0.0 Malaise and fatigue 2717 09869 R53.83 Chronic ob structive pulmonary disease 25295078 J44.9 [id number] MD Stephanie Roberson (Adult Med) [address] [place] [address] 77876-892 0 02/04/2019 16:06:34 02/05/2019 10:52:04 Coronary arteriosclerosis 91958623 I25.10 Unfortkathyt forest she is not a candidate for anticoagul ation due to her previous GI bleed, she needs to see her cardiologi st YNES. Constipation 21766623 K5 9.00 Abdominal aortic aneurysm 674919974 I71.4 Discussed, she will follow up with Dr. Puga. Cellulitis 751286215 L03 .90 Chest pain 84589419 R07. 9 Negative D-Dimer but there is mild RLE swelling and she gives a good history. (Straining , then chest pain) Incontinence of feces 72 144463 R15.9 She describes a 30 year history of fecal incontinen ce [id number] MD Stephanie Roberson (Adult Med) [address] [place] [address] 59228-042 0 04/09/2019 14:10:17 04/09/2019 14:55:46 Screening for malignant neoplasm of colon 873947607 Z12.11 I don't want it Colon [facility] er screening declined 4615990809 9109 Z53.20 Incontinence of feces 72 880530 R15.9 She describes a 30 year history of fecal incontinen ce Kidney stone 79405617 N2 0.0 Nicotine dependence 5629 4008 F17.200 Discussed Essential hypertension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
--- OUTSIDE RECORDS SUMMARY | 2025-02-10 16:14 | XMS_ITS | Data Portability ---
Author Organization [facility] [employer], Main Office Address [address] [place] [address] Care Team Providers Care Project Geophysicist Name Role Phone JIAN CRAWLEY Primary Care Provider [phone] Assessment Encounter Date Assessment Date Assessment LastModified by Organization Details LastModified Time 02/12/2023 02/12/2023 Spent up to 45 minutes preparing to see the patient (eg, review of tests), obtaining and/or reviewing separately obtained history, performing a medically appropriate examination and evaluation, counseling and educating the patient, ordering medications, tests, along with documenting clinical information in the electronic health record, independently interpreting results and communicating results to the patient. Reviewed inpatient medical records Not available 02/12/2023 21:42:38 Plan of Treatment Reminders Order Date Submit Date Provider Last Modified By Organization Details Last Modified Time Details Appointments None record ed. Lab None record ed. Referral None record ed. Procedures None record ed. Surgeries None record ed. Imaging None record ed. Medication Orders None record ed. Patient TargetsNo targets recorded. Patient InstructionsNo instructions recorded. Reason for Referral None Reported. Results Created Date Observation Date Name Description Value Unit Range Abnormal Flag Note LastModifiedBy Organization Detail LastModifiedTime 01/15/2001/14/2023 six minut e walk test* No observ ation record ed. [email or web address] [address], [address], 01/24/2023 11:37:35 01/15/2001/14/2023 compl ete PFT [facility] guadalupe metry * No observ ation record ed. [address], [place], [address], 01/16/2023 16:54:25 02/26/2001/18/2023 CT, chest , w/o contr ast No observ ation record ed. BARCODE Not Available 2022 13:17:21 07/24/20 23 05/09/2023 MR, angio gram, neck, w/ contr ast No observ ation record ed. Not Available 07/31 10:11:16 07/24/20 23 05/09/2023 MR, angio gram, brain , w/ contr ast No observ ation record ed. Not Available 07/31 10:11:17 Result Notes None recorded. Problems Name Problem SNOMED Code Status Onset Date Resolution Date Notes Provider Name and Address Organization Details Recorded Time Urinary incontinence 894606128 Active Not Available [facility] 3 07:32:27 Myocardial infarction 60215773 Active Not Available [facility] 3 07:32:27 Cerebrovascul ar accident 811816932 Active Not Available [facility] 3 07:32:27 Biliary stricture 269031135 Active Not Available [facility] 3 07:32:27 Urinary symptoms 131547454 Active Not Available [facility] 3 07:32:27 Abnormal findings on diagnostic imaging of lung 280213542 Active 2022 Not Available [facility] 3 07:32:27 Thick sputum 227330278 Active 2022 Not Available [facility] 3 07:32:27 Coronary arteriosclero sis 86308390 Active Not Available [facility] 3 07:32:28 Nicotine dependence 22521268 Active 2022 Not Available [facility] 3 07:32:28 Essential hypertension 79784788 Active Not Available [facility] 3 07:32:28 Female stress incontinence 65764400 Active Not Available [facility] 3 07:32:28 Dyspnea on exertion 92048890 Active 2022 Not Available [facility] 3 07:32:28 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 Not Available [facility] 3 07:32:28 Chronic cough 88006729 Active 2022 Not Available [facility] 3 07:32:28 Urinary tract infectious disease 50504532 Active Not Available [facility] 3 07:32:29 Urgent desire to urinate 88852037 Active Not Available [facility] 3 07:32:29 Stricture of colon 3995572 Active Not Available [facility] 3 07:32:29 Pulmonary emphysema 03752461 Active 2022 Not Available [facility] 3 07:32:29 Chronic obstructive pulmonary disease 02950760 Active 2022 Cherelle Tobar, [employer] [address] [facility], [facility] [address], [place], [address] , [facility] [employer] [facility] 15:09:27 Problem Notes None recorded. Procedures Surgical History None recorded. Imaging Results Imaging Date Name Status LastModified by Organization Details LastModified Time 01/14/2023 six minute walk test* completed [address], [address], 01/24/2023 11:37:35 01/14/2023 complete PFT w/ post bronchodilator spirometry* completed [address], [address], 01/16/2023 16:54:25 01/18/2023 CT, chest, w/o contrast completed BARCODE Information not available 02/25/2023 13:17:21 05/09/2023 MR, angiogram, neck, w/ contrast completed Information not available 07/31/2023 10:11:16 05/09/2023 MR, angiogram, brain, w/ contrast completed Information not available 07/31/2023 10:11:17 Procedure Notes None recorded. Medical Equipment None Reported. Allergies Allergen ID Allergen Name Allergen Category Reaction Reaction Severity Criticality Documentation Date Start Date Code Code System Note Provider Name and Address Organization Details Recorded Time 14309 Substance with sulfonami de structure and antibacte rial mechanism of action (substanc e) medicatio n Not available Not available Not available 01/02/2023 61275 8003 SNOMED Not Available [facility] 3 07:43:11 30292 Product containin g penicilli n (product) medicatio n Not available Not available Not available 01/02/2023 07955 8001 SNOMED Not Available [facility] 3 07:43:11 42468 morphine medicatio n Not available Not available Not available 01/02/2023 7052 RxNorm respi rator y depre ssion Not Available [facility] 3 07:43:11 85508 Iodinated contrast media (substanc e) medicatio n Not available Not available Not available 01/02/2023 39404 2004 SNOMED Not Available [facility] 3 07:43:11 49396 erythromy burton medicatio n Not available Not available Not available 01/02/2023 4053 RxNorm Not Available [facility] 3 07:43:11 Medications Name Sig Start Date Stop Date Status Note LastModified by Organization Details LastModified Time methocarbam ol 500 mg tablet active Not Available Not Available Not Available atorvastati n 80 mg tablet active Not Available Not Available Not Available nystatin 100,000 unit/mL oral suspension 5 ML 4 TIMES DAILY DIRECTED FOR 14 DAYS active Not Available Not Available No t Available ropinirole 1 mg tablet TAKE 1 TABLET BY MOUTH ONCE DAILY AT BEDTIME active Not Available Not Available No t Available ipratropium 0.5 mg-albutero l 3 mg (2.5 mg base)/3 mL nebulizatio n soln USE 1 VIAL NEBULIZER QID 01/01 completed Not Available Not Available Not Available hydrocodone 5 mg-acetamin ophen 325 mg tablet TAKE 1 TABLET BY MOUTH EVERY 12 HOURS NEEDED active Not Available Not Available No t Available phenazopyri dine 200 mg tablet Take 1 tablet 3 times a day by oral route for 7 days. 08/09 completed Not Available Not Available Not Available prednisone 20 mg tablet active Not Available Not Available Not Available simvastatin 10 mg tablet active Not Available Not Available Not Available Doc-Q-Lace 100 mg capsule TK ONE C PO BID active Not Available Not Available No t Available metronidazo le 500 mg tablet active Not Available Not Available Not Available clopidogrel 75 mg tablet TK 1 T PO ONCE D active Not Available Not Available No t Available ciprofloxac in 500 mg tablet TAKE 1 TABLET BY MOUTH TWICE DAILY active Not Available Not Available No t Available sulfamethox azole 800 mg-trimetho prim 160 mg tablet Take 1 tablet every 12 hours by oral route with meals for 14 days. 08/16 completed Not Available Not Available Not Available hydrocodone 10 mg-acetamin ophen 325 mg tablet as needed active Not Available Not Available Not Available omeprazole 40 mg capsule,del ayed release active Not Available Not Available Not Available TobraDex 0.3 %-0.1 % eye ointment active Not Available Not Available Not Available simvastatin 40 mg tablet TK 1 T PO QHS active Not Available Not Available No t Available carvedilol 3.125 mg tablet TK 1 T PO BID WITH MEALS active Not Available Not Available No t Available hydromorpho ne 2 mg tablet active Not Available Not Available Not Available famotidine 20 mg tablet active Not Available Not Available Not Available lorazepam 0.5 mg tablet TK 1 T PO Q 8 H PRF ANXIETY active Not Available Not Available No t Available tamsulosin 0.4 mg capsule TAKE 1 CAPSULE BY MOUTH ONCE DAILY AT BEDTIME active Not Available Not Available No t Available nortriptyli ne 10 mg capsule TAKE 1 CAPSULE BY MOUTH AT BEDTIME active Not Available Not Available No t Available ferrous sulfate 325 mg (65 mg iron) tablet TK 1 T PO TID active Not Available Not Available No t Available clotrimazol e-betametha sone 1 %-0.05 % topical cream active Not Available Not Available Not Available ramipril 2.5 mg capsule active Not Available Not Available Not Available lisinopril 10 mg tablet TAKE 1 TABLET BY MOUTH ONCE DAILY active Not Available Not Available No t Available prednisone 50 mg tablet active Not Available Not Available Not Available fluorometho lone 0.1 % eye drops,suspe nsion active Not Available Not Available Not Available lidocaine 5 % topical patch APPLY 1 PATCH TOPICALLY ONCE DAILY (MAY WEAR UP TO 12 HOURS) active Not Available Not Available No t Available promethazin e 25 mg tablet TK 1 T PO Q 8 H PRN N active Not Available Not Available No t Available Advair Diskus 250 mcg-50 mcg/dose powder for inhalation INHALE 1 DOSE BY MOUTH TWICE DAILY active Not Available Not Available No t Available gabapentin 300 mg capsule active Not Available Not Available Not Available lisinopril 5 mg tablet active Not Available Not Available Not Available furosemide 20 mg tablet active Not Available Not Available Not Available gabapentin 100 mg capsule active Not Available Not Available Not Available levofloxaci n 750 mg tablet active Not Available Not Available Not Available methylpredn isolone 4 mg tablets in a dose pack active Not Available Not Available Not Available albuterol sulfate HFA 90 mcg/actuati on aerosol inhaler INHALE 2 PUFFS BY MOUTH EVERY 6 HOURS NEEDED FOR SHORTNESS OF BREATH active Not Available Not Available No t Available Cipro 250 mg tablet Take 1 tablet every 12 hours by oral route for 8 days. 01/26 completed Not Available Not Available Not Available ondansetron 4 mg disintegrat ing tablet DISSOLVE 1 TABLET IN MOUTH EVERY 8 HOURS NEEDED FOR NAUSEA AND VOMITING active Not Available Not Available No t Available lisinopril 2.5 mg tablet active Not Available Not Available Not Available oxycodone 5 mg tablet active Not Available Not Available No t Available ezetimibe 10 mg tablet active Not Available Not Available Not Available Restasis 0.05 % eye drops in a dropperette active Not Available Not Available Not Available Vesicare 5 mg tablet Take 1 tablet every day by oral route. 2013 active Not Available Not Available Not Avai lable Vesicare 10 mg tablet active Not Available Not Available No t Available Advil as needed 2013 active Not Available Not Available Not Avai lable lisinopril 2013 active Not Available Not Available Not Avai lable Vios Aerosol Delivery System USE DIRECTED active Not Available Not Available No t Available naloxone 4 mg/actuatio n nasal spray active Not Available Not Available Not Available Trelegy Ellipta 100 mcg-62.5 mcg-25 mcg powder for inhalation INHALE 1 PUFF ONCE DAILY DIRECTED active Not Available Not Available No t Available Vitals Date Recorded Body mass index (BMI) Body height Oxygen saturation Oxygen saturation in Arterial blood by Pulse oximetry Heart rate Body temperature Body weight Systolic blood pressure Diastolic blood pressure Provider Name and Address Organization Details Last Updated DateTime 3 24.5 kg/m2 157.48 cm 93 % 93 % 82 /min 97.8 [degF] 51693.3 8 g 128 mm[Hg] 70 mm[Hg] Not Available [facility] 3 07:29:28 Date Recorded Body height Body mass index (BMI) Body weight Heart rate Oxygen saturation Oxygen saturation in Arterial blood by Pulse oximetry Body temperature Systolic blood pressure Diastolic blood pressure Provider Name and Address Organization Details Last Updated DateTime 3 157.48 cm 24.1 kg/m2 16189.1 9 g 64 /min 96 % 96 % 97.1 [degF] 112 mm[Hg] 68 mm[Hg] Елена Alvarado RN [place] [facility] [place] [employer] 3 14:54:50 Social History Question Answer Notes LastModified by Organizat ion Details LastModified Time Tobacco Smoking Status Current Every Day Smoker Not Available [facility] 01/02/2023 07:27:18 What Was The Date Of Your Most Recent Tobacco Screening? 01/01/2023 [id number] Information not available 01/02/2023 At What Age Did You Start Smoking Tobacco? 14 [id number] Information not available 01/02/2023 How Much Tobacco Do You Smoke? 1 PPD [id number] Information not available 01/02/2023 Sex: Unknown Functional Status None recorded. Mental Status None recorded. Family History Nothing Reported. Medical History No medical history recorded. Gynecological HistoryNo gynecological history recorded. Obstetrics History GPAL:G 0 P 0 0 0 0 Past Encounters Encounter ID Performer Location Encounter Start Date Encounter Closed Date Diagnosis/Indication Diagnosis SNOMED-CT Code Diagnosis ICD10 Code Diagnosis Note [id number] [facility] Pulmonolo gy Lilly [address] [place] [address] 01/01/2023 00:00:00 01/01/2023 16:32:07 [id number] Cherelle Tobar, [employer] Pulmonolo gy Lilly [address] [place] [address] 02/12/2023 14:46:52 02/12/2023 16:29:14 Abnormal findings on diagnostic imaging of lung 107561386 R91.[address] chest07/24 22 at [facility] re emphysema, GGO to SANKET 4mm, TIB opacities, mucous in the trachea, mucous plugging to RLL1 CTA at [facility]: Severe emphysema, consolidat ion to left lung base, no PE11/2022 at [facility]: Emphysema, chronic filling defects to medial RLL without change from comparison on 07/05/22 (I do not have this dictation) I do not have CD of any outside imagingCT chest completed 01/17/23 with resolution of abnormalit ies: bibasilar atelectasi s and moderate emphysema Chronic ob structive pulmonary disease 90124366 J44.9 PFT completed 01/2023 with moderate obstructio n, FEV1 60%Continu e Trelegy Ellipta Pulmonary emphysema [address] chestDLCO 62% adjusted Nicotine dependence 5629 4008 Z87.891 Smoking cessation counseling and techniques reviewed at length.Lit erature reviewed. Avoid triggers, support groups. Distractio n techniques Greater than 3 but less than 10 minutes spent discussing cessation. Declines NRT. Discussed Rx options if needed in the future. Dyspnea on exertion 6084 5006 R06.09 Alpha1, RAST, IGGs, QUantifero n GOLD and IGE normalBNP mildly elevated, sees cardiology 6MWT normal Chronic cough 83100168 R 05.3 AFB and sputum culture normalShe must quit smoking Health Concerns Section Related Observation LastModified by Organization Detai ls LastModified Time None Recorded Concern Status LastModified by Organization Details LastModified Time None Recorded Advance Directives Directive None Recorded Payers Encounter Date Sequence Insurance Name Policy Number Policy Yee Covered Member ID Yee Member ID Guarantor Name 02/12/2023 1 [facility] [id number] Giulia Retana [id number] Giulia Retana 02/12/2023 2 [place] [facility] Giulia Retana [id number] Giulia Retana Notes Date Note Type Note Provider Name and Address Organization Details Recorded Time 02/12/2023 text/html Ms Retana prestyron nts to follow up on cough, dyspnea, testing, new medications and hospitalization one month agoShtyron was hospitalized a month ago but the only diagnosis she is sure of is UTI.Reports CT imaging while inpatient.Reports no respiratory infection in the last year, she is unsure that she was treatedShe is using her Trelegy Ellipta compliantly and reports good benefit.Current smoker at 1PPD, started at the age of 14Cough has been daily for years, productive mostly in the mornings of white/robertson sputumDenies hemoptysis.No unintentional weight loss or night sweats.Endorses dyspnea with exertional activities.Albuterol use was daily, has decreased slightly with TrelegyNo skin changes, adenopathy, dysphagia, sinus congestion, GERDNo personal history of cancer. Cherelle Tobar, [facility] [address], [facility] [address], [place], [address], [place] [facility] 02/12/2023 21:43:10 OBGyn Episode No OBEpisode recorded.
--- OUTSIDE RECORDS SUMMARY | 2025-02-10 16:14 | XMS_ITS | CONTINUITY OF CARE DOCUMENT ---
Author Name gorge, gorge Address Unknown Organization [facility] Address [address] [place] [address] Phone [phone] Care Team Providers Care Cashier General Name Role Phone Leobardo GALINDO, Stacey Unavailable JIAN CRAWLEY MD Unavailable JIAN CRAWLEY MD Unavailable PROBLEMS Condition Status Date Provider Notes CAD-AK X 3 completed - Stacey Booth MD PEPTIC ULCER DISEASE active ? Stacey Booth MD BACK PAIN, CHRONIC active ? Stacey Booth MD TOBACCO ABUSE active ? Stacey Booth MD PVD completed - Stacey Booth MD CHEST PAIN-11/14 NUC NEG 03/12 NUC NL completed - Stacey Booth MD SHORTNESS OF BREATH smoker, COPD active Stacey Booth MD PALPITATIONS active ? Stacey Booth MD DIZZINESS-10/20 CAROTID NEG active Stacey rose MD CA-04/12 STENT LAD VISION completed - Stacey turcios MD CAD--04/16 3 VSL DISEASE CABG at E . 04/12 LAD vision stent, nl stress nuc 03/18 active Stacey Booth MD ABDOMINAL PAIN-05/15 US ABD BILIARY STONES completed - Wei Jettt CHEST PAIN completed - Stacey Booth MD Hypertension--echo ef nl, 12/2024 active Chase Maldonado Carotid bruit - <50% stenosi s BL active Stacey Booth MD Abdominal bruit active Stacey Booth MD Aortic aneurysm, abdominal, 4.9 cm active Chase Parveenmedzai Preoperative cardiovascular evaluation completed - Chase Ahmedzai Headache active Chase Ahmedzai Subdural hematoma active Stacey Booth MD Abnormal blood chemistry completed - Wei Jettviktoriya Preoperative cardiovascular examination completed - Stacey Booth MD Hypercholesterolemia, mixed active Paris Gr uenenfelder PERICARDIAL EFFUSION-12/16 EC HO SM PERIC EFF EF 72 completed - Stacey Booth MD AVR - METAL VALVE active - Stacey Booth MD EDEMA-07/15 ART DOP NEG completed - Stacey martinez MD ONYCHOMYCOSIS completed - Stacey Booth MD COPD Persistant tobacco abuse active Stacey Booth MD ENCOUNTERS Date Type Provider Location Encounter Diag nosis - In-person encounter Office Visit Stacey Booth MD [facility] Hypertension--echo ef nl, ortic aneurysm, abdominal, 4.9 cm - In-person encounter Office Visit Stacey Booth MD [facility] Preoperative cardiovascular evaluation - In-person encounter Office Visit Agustín Núñez MD [facility] - In-person encounter Office Visit Agustín Núñez MD [facility] - In-person encounter Office Visit Stacey Booth MD [facility] Aortic aneurysm, abdominal, 4.9 cm - In-person encounter Office Visit Stacey Booth MD [facility] - In-person encounter Office Visit Stacey Booth MD [facility] - In-person encounter Office Visit Stacey Booth MD [facility] - In-person encounter Office Visit Stacey Booth MD [facility] Headache - In-person encounter Office Visit Stacey Booth MD [facility] Aortic aneurysm, abdominal, 4.9 cmSubdural hematoma - In-person encounter Office Visit Stacey Booth MD [facility] Hypertension--echo ef nl, 12/2024 - In-person encounter Office Visit Stacey Booth MD [facility] - In-person encounter Office Visit Agustín Núñez MD [facility] - In-person encounter Office Visit Agustín Núñez MD [facility] - In-person encounter Office Visit Stacey Booth MD [facility] - In-person encounter Office Visit Stacey Booth MD [facility] ABDOMINAL PAIN-05/15 US ABD BILIARY STONESAbnormal blood chemistryAortic aneurysm, abdominal, 4.9 cm - In-person encounter Office Visit Stacey Booth MD [facility] - In-person encounter Office Visit Stacey Booth MD [facility] - In-person encounter Office Visit Stacey Booth MD [facility] - In-person encounter Office Visit Stacey Booth MD [facility] - In-person encounter Office Visit Stacey Booth MD [facility] - In-person encounter Office Visit Stacey Booth MD [facility] - In-person encounter Office Visit Stacey Booth MD [facility] Hypertension--echo ef nl, 12/2024 - In-person encounter Office Visit Stacey Booth MD [facility] Preoperative cardiovascular examinationCarotid bruit - <50% stenosis BL - In-person encounter Office Visit Stacey Booth MD [facility] Carotid bruit - <50% stenosis BLAbdominal bruit - In-person encounter Office Visit Roland Bazan MD [facility] Hypertension--echo ef nl, 12/2024 - In-person encounter Office Visit Stacey Booth MD [facility] - In-person encounter Office Visit Stacey Booth MD [facility] CAD--04/16 3 VSL DISEASE CABG at [facility] . 04/12 LAD vision stent, nl stress nuc 03/18 - In-person encounter Office Visit Stacey Booth MD [facility] - In-person encounter Office Visit Stacey Booth MD [facility] - In-person encounter Office Visit Stacey Booth MD [facility] CAD-AK X 3COPD Persistant tobacco abuseONYCHOMYCOSISPVDCHEST PAIN-11/14 NUC NEG 03/12 NUC NLSHORTNESS OF BREATH smoker, COPDEDEMA-07/15 ART DOP NEGCA-04/12 STENT LAD VISIONCAD--04/16 3 VSL DISEASE CABG at E . 04/12 LAD vision stent, nl stress nuc 03/18PERICARDIAL EFFUSION-12/16 ECHO SM PERIC EFF EF 72CHEST PAINHypercholesterolemia, mixed - In-person encounter Office Visit Stacey Booth MD [facility] CAD--04/16 3 VSL DISEASE CABG at E . 04/12 LAD vision stent, nl stress nuc 03/18 - In-person encounter Office Visit Stacey Booth MD [facility] - In-person encounter Office Visit Stacey Booth MD [facility] AVR - METAL VALVE - In-person encounter Office Visit Stacey Booth MD [facility] - In-person encounter Office Visit Stacey Booth MD [facility] - In-person encounter Office Visit Stacey Booth MD [facility] - In-person encounter Office Visit Stacey Booth MD [facility] - In-person encounter Office Visit Stacey Booth MD [facility] - In-person encounter Office Visit Stacey Booth MD [facility] SHORTNESS OF BREATH smoker, COPD - In-person encounter Office Visit Stacey Booth MD [facility] - In-person encounter Office Visit Stacey Booth MD [facility] - In-person encounter Office Visit Stacey Booth MD [facility] - In-person encounter Office Visit Stacey Booth MD [facility] - In-person encounter Office Visit Stacey Booth MD [facility] CHEST PAIN-11/14 NUC NEG 509 NUC NLSHORTNESS OF BREATH smoker, COPD - In-person encounter Office Visit Stacey Booth MD [facility] PEPTIC ULCER DISEASEBACK PAIN, CHRONICTOBACCO ABUSECOPD Persistant tobacco abusePVDCHEST PAIN-11/14 NUC NEG 09 NUC NLSHORTNESS OF BREATH smoker, COPDEDEMA-07/15 ART DOP NEGPALPITATIONSDIZZINESS-10/20 CAROTID NEG VITAL SIGNS Date Observation Value Provider Body Mass Index (Ratio) 18.84 kg/m2 Ramone Booth MD blood pressure, cuff size regular Obi Mercado blood pressure, diastolic 77 mm[Hg] Obi Mercado blood pressure, systolic 149 mm[Hg] Adalgisa Mercado oxygen saturation, oximetry 97 % Marine Mercado pulse rate 64 /min Marine kruger weight E&M 103 [lb_av] Marine Jackson s height E&M 62 [in_i] Marine kruger Body Mass Index (Ratio) 19.39 kg/m2 Ramone Booth MD blood pressure, diastolic 83 mm[Hg] Puja kumar Smiley blood pressure, systolic 157 mm[Hg] Mena patrick Smiley oxygen saturation, oximetry 99 % [facility] pulse rate 70 /min [facility] respiratory rate E&M 12 /min [facility] weight E&M 106 [lb_av] [facility] height E&M 62 [in_i] [facility] blood pressure, cuff size regular [facility] Body Mass Index (Ratio) 19.57 kg/m2 Chase Maldonado weight E&M 107 [lb_av] Paris Hammond [facility] height E&M 62 [in_i] Paris Hammond [facility] Body Mass Index (Ratio) 18.65 kg/m2 Ramone Booth MD blood pressure, diastolic 76 mm[Hg] Bean rret blood pressure, systolic 130 mm[Hg] Eloisa ret pulse rate 80 /min Neil erda blood pressure, cuff size regular Ja rret weight E&M 102 [lb_av] Neil erda y respiratory rate E&M 16 /min Neil height E&M 62 [in_i] Neil erda y Body Mass Index (Ratio) 20.12 kg/m2 Ramone Booth MD blood pressure, diastolic 75 mm[Hg] Maylin nkLogsarah blood pressure, systolic 135 mm[Hg] Teodora Pace blood pressure, cuff size regular kirk blood pressure, diastolic 75 mm[Hg] Bean renaeet blood pressure, systolic 135 mm[Hg] Eloisa sawyer pulse rate 76 /min Neil y oxygen saturation, oximetry 94 % Neil respiratory rate E&M 16 /min Neil weight E&M 110 [lb_av] Neil height E&M 62 [in_i] Neil Body Mass Index (Ratio) 21.95 kg/m2 Ramone Booth MD pulse rate 69 /min Mary Gutiérrez blood pressure, diastolic 63 mm[Hg] Puja Gutiérrez blood pressure, systolic 115 mm[Hg] Phyllis Gutiérrez oxygen saturation, oximetry 93 % Mary Gutiérrez blood pressure, cuff size large Puja josselin Gutiérrez weight E&M 120 [lb_av] Marygenny Gutiérrez height E&M 62 [in_i] Mary Gutiérrez Body Mass Index (Ratio) 24.07 kg/m2 Ramone Booth MD pulse rate 64 /min Isabel Sanz blood pressure, cuff size regular charmaine Umu blood pressure, diastolic 63 mm[Hg] charmaine Umu blood pressure, systolic 144 mm[Hg] [facility] [address] yamil Umu oxygen saturation, oximetry 95 % Isabel Umu respiratory rate E&M 20 /min Isabel Umu weight E&M 131.6 [lb_av] Isabel Umu height E&M 62 [in_i] Isabel Sanz Body Mass Index (Ratio) 24.14 kg/m2 Ramone Booth MD blood pressure, cuff size regular Emilee Mauro blood pressure, diastolic 79 mm[Hg] Ri hansel Mauro blood pressure, systolic 162 mm[Hg] William maxx Mauro oxygen saturation, oximetry 90 % Deborah Mauro respiratory rate E&M 16 /min Jannet Mauro pulse rate 71 /min Deborah ragland weight E&M 132 [lb_av] Chase Cuevaszai height E&M 62 [in_i] Deborah ragland Body Mass Index (Ratio) 24.69 kg/m2 Ramone Booth MD blood pressure, diastolic 93 mm[Hg] Li nkLogic blood pressure, systolic 175 mm[Hg] Teodora kLogic blood pressure, diastolic 93 mm[Hg] Tomasa hamm Karri blood pressure, systolic 175 mm[Hg] Eduardo maxx Zeng oxygen saturation, oximetry 96 % Christina Zeng pulse rate 69 /min Christina hernandez weight E&M 135 [lb_av] Chrisitna hernandez height E&M 62 [in_i] Christina hernandez respiratory rate E&M 16 /min Nadia Zeng blood pressure, cuff size large Tomasa hansel Karri Body Mass Index (Ratio) 26.88 kg/m2 Ramone Booth MD blood pressure, cuff size regular Cy ntcarson Maher blood pressure, diastolic 64 mm[Hg] Cy nthia Gunnar blood pressure, systolic 132 mm[Hg] Sana robert Maher oxygen saturation, oximetry 94 % Rosalierobert Maher pulse rate 80 /min Rosalie Onealbel l respiratory rate E&M 16 /min Rosalierobert Maher weight E&M 147 [lb_av] Rosalie Campbel l height E&M 62 [in_i] Rosalie Fuller l Body Mass Index (Ratio) 27.07 kg/m2 Taew on blood pressure, cuff size large Ke rri Gruenenfelder blood pressure, diastolic 60 mm[Hg] Ke rri Gruenenfelder blood pressure, systolic 130 mm[Hg] Ker ri Gruenenfelder oxygen saturation, oximetry 96 % Paris Gruenenfelder respiratory rate E&M 16 /min Paris G ruenenfelder pulse rate 75 /min Paris Gruenenfe lder weight E&M 148 [lb_av] Paris Gruenenfe lder height E&M 62 [in_i] Paris Gruenenfe er Body Mass Index (Ratio) 26.88 kg/m2 Taew on blood pressure, diastolic 80 mm[Hg] Li nkLogic blood pressure, systolic 180 mm[Hg] Teodora kLogic blood pressure, cuff size regular Ke rri Gruenenfelder blood pressure, diastolic 80 mm[Hg] Ke rri Gruenenfelder blood pressure, systolic 180 mm[Hg] Ker ri Gruenenfelder oxygen saturation, oximetry 95 % Paris Gruenenfelder respiratory rate E&M 16 /min Paris G ruenenfelder pulse rate 69 /min Paris Gruenenfe lder weight E&M 147 [lb_av] Paris Gruenenfe lder height E&M 62 [in_i] Paris Gruenenfe er Body Mass Index (Ratio) 27.25 kg/m2 Ramone Booth MD blood pressure, diastolic 87 mm[Hg] astity Tony blood pressure, systolic 173 mm[Hg] Shira stity Tony oxygen saturation, oximetry 98 % [facility] Tony pulse rate 74 /min [facility] Tony respiratory rate E&M 16 /min Shirastit terrie Tony weight E&M 149 [lb_av] [facility] Tony height E&M 62 [in_i] [facility] Body [facility] Index (Ratio) 27.43 kg/m2 Ramone Booth MD blood pressure, cuff size regular Ke rri [facility] blood pressure, diastolic 60 mm[Hg] Ke rri [facility] blood pressure, systolic 120 mm[Hg] Marlon ri Vicki oxygen saturation, oximetry 98 % Paris Vicki respiratory rate E&M 18 /min Paris G [facility] pulse rate 73 /min Paris Manish [facility] weight E&M 150 [lb_av] Paris Grmaritzanenfe [facility] height E&M 62 [in_i] Paris Andersnenfe [facility] Body Mass Index (Ratio) 27.43 kg/m2 Ramone Booth MD blood pressure, resting Yes Tons sidhu Lira blood pressure, diastolic 81 mm[Hg] To nsha Lira blood pressure, systolic 154 mm[Hg] Ton [facility] oxygen saturation, oximetry 92 % Tonsha Lira respiratory rate E&M 16 /min Tonsha Lira pulse rate 63 /min Tonsha Lira weight E&M 150 [lb_av] Tonsha Lira height E&M 62 [in_i] Tonsha Lira Body Mass Index (Ratio) 27.62 kg/m2 Ramone Booth MD pulse rate 70 /min Rosalie bruce blood pressure, cuff size regular Cy amaya Maher blood pressure, diastolic 64 mm[Hg] Cy amaya Maher blood pressure, systolic 130 mm[Hg] Sana Maher oxygen saturation, oximetry 98 % Rosalie Maher respiratory rate E&M 20 /min Rosalie Maher weight E&M 151 [lb_av] Rosalie Fuller l height E&M 62 [in_i] Rosalie Fuller l Body Mass Index (Ratio) 28.90 kg/m2 Ramone Booth MD blood pressure, cuff size large Cr marta Brock blood pressure, diastolic 75 mm[Hg] Cr marta Gutiérrez blood pressure, systolic 135 mm[Hg] Cry stateo Gutiérrez oxygen saturation, oximetry 95 % Helen Brock respiratory rate E&M 17 /min Helen Brock pulse rate 63 /min Helen Styles s weight E&M 158 [lb_av] Helen Styles s height E&M 62 [in_i] Helen Styles s Body Mass Index (Ratio) 28.35 kg/m2 Ramone Booth MD blood pressure, diastolic 82 mm[Hg] Br ittany Block blood pressure, systolic 148 mm[Hg] Comfort madhu Block oxygen saturation, oximetry 98 % Jessy Block respiratory rate E&M 16 /min Brittan y Block pulse rate 69 /min Jessy Block weight E&M 155 [lb_av] Jessy Block height E&M 62 [in_i] Jessy Block Body Mass Index (Ratio) 28.16 kg/m2 Ramone Booth MD blood pressure, cuff size regular Ke ana Cohen blood pressure, diastolic 80 mm[Hg] Ke rrdavid Mcnamaranenfelder blood pressure, systolic 138 mm[Hg] Marlon Cohen oxygen saturation, oximetry 96 % Paris Cohen respiratory rate E&M 22 /min Paris garciaeldceci pulse rate 71 /min Paris Hammond lder weight E&M 154 [lb_av] Paris Hammond lder height E&M 62 [in_i] Paris Hammond lder Body Mass Index (Ratio) 28.35 kg/m2 Ramone Booth MD oxygen saturation, oximetry 97 % Rosalie Maher pulse rate 70 /min Rosalie Campbel l respiratory rate E&M 20 /min Rosalie Maher blood pressure, cuff size regular Cy ntcarson Maher blood pressure, diastolic 64 mm[Hg] Cy ntsabinaa Maher blood pressure, systolic 150 mm[Hg] Sana jose ca Maher weight E&M 155 [lb_av] Rosalie Campbel l height E&M 62 [in_i] Rosalie Campbel l Body Mass Index (Ratio) 28.31 kg/m2 Ramone Booth MD blood pressure, diastolic 60 mm[Hg] Dre parraUSA [facility] blood pressure, systolic 148 mm[Hg] Ayden farah Sykes oxygen saturation, oximetry 98 % Lisa respiratory rate E&M 16 /min [place] pulse rate 65 /min Lisa weight E&M 154.8 [lb_av] [place] height E&M 62 [in_i] Lisa Sykes Body Mass Index (Ratio) 28.16 kg/m2 Ramone Booth MD blood pressure, diastolic 73 mm[Hg] Rosy Miller blood pressure, systolic 178 mm[Hg] Lashell Miller oxygen saturation, oximetry 98 % Hector Miller respiratory rate E&M 18 /min Mychal Miller pulse rate 56 /min Hector brizuela weight E&M 154 [lb_av] Hector brizuela height E&M 62 [in_i] Hector Sarmiento [facility] Body Mass Index (Ratio) 27.80 kg/m2 Ramone Booth MD blood pressure, diastolic 68 mm[Hg] Ki aidaUSA Health University Hospital blood pressure, systolic 120 mm[Hg] Ayden farah Rodeo oxygen saturation, oximetry 96 % [facility] respiratory rate E&M 16 /min [facility] pulse rate 70 /min [facility] weight E&M 152 [lb_av] LisaUSA [facility] University Hospital height E&M 62 [in_i] [facility] Body Mass Index (Ratio) 27.62 kg/m2 Nhi Bazna MD blood pressure, cuff size regular Ke rri Vicki blood pressure, diastolic 71 mm[Hg] Ke rri Vicki blood pressure, systolic 180 mm[Hg] Marlon Cohen oxygen saturation, oximetry 97 % Paris Cohen respiratory rate E&M 18 /min Paris hopson pulse rate 78 /min Paris Hammond lder weight E&M 151 [lb_av] Paris Hammond lder height E&M 62 [in_i] Paris Hammond lder blood pressure, diastolic 70 mm[Hg] Rosy Ely Miller blood pressure, systolic 124 mm[Hg] Lashell Chávezlars Miller pulse rate 65 /min Hector brizuela oxygen saturation, oximetry 97 % Hector Miller respiratory rate E&M 18 /min Mychal Miller Body Mass Index (Ratio) 27.83 kg/m2 Giulia Miller weight E&M 152.2 [lb_av] Hector nguyen Body Mass Index (Ratio) 28.53 kg/m2 Bets y [place] blood pressure, diastolic 72 mm[Hg] Be tsy [place] blood pressure, systolic 131 mm[Hg] Bet sy [place] pulse rate 61 /min Aleida [place] oxygen saturation, oximetry 99 % Aleida [place] respiratory rate E&M 16 /min Aleida M aynard weight E&M 156 [lb_av] Aleida [place] Body Mass Index (Ratio) 28.53 kg/m2 Anea virgil Brown blood pressure, diastolic 72 mm[Hg] An eatris Brown blood pressure, systolic 157 mm[Hg] Ane atris Brown pulse rate 60 /min Aneatris Brown oxygen saturation, oximetry 97 % Aneatris Brown respiratory rate E&M 18 /min Aneatri s Brown weight E&M 156 [lb_av] Aneatris Brown Body Mass Index (Ratio) 26.70 kg/m2 Anea virgil Brown blood pressure, diastolic 78 mm[Hg] An eatris Brown blood pressure, systolic 157 mm[Hg] Ane atris Brown pulse rate 81 /min Aneatris Brown oxygen saturation, oximetry 97 % Aneatris Brown respiratory rate E&M 20 /min Aneatri s Brown weight E&M 146 [lb_av] Aneatris [facility] Body Mass Index (Ratio) 25.79 kg/m2 Estelle Cohen blood pressure, diastolic 60 mm[Hg] Howie perez Vicki blood pressure, systolic 120 mm[Hg] Marlon hebert Vicki pulse rate 71 /min Paris Hammond er oxygen saturation, oximetry 98 % Paris [place] respiratory rate E&M 16 /min Paris Hancock mark anthony weight E&M 141 [lb_av] Paris Hammond er Body Mass Index (Ratio) 26.07 kg/m2 Yessi feldman Dhaliwal blood pressure, diastolic 70 mm[Hg] Me velasquez Dhaliwal blood pressure, systolic 154 mm[Hg] Anabelle aaron Dhaliwal pulse rate 68 /min Laya Dhaliwal oxygen saturation, oximetry 99 % Laya Dhaliwal respiratory rate E&M 18 /min Laya Dhaliwal weight E&M 142 [lb_av] Laya Dhaliwal Body Mass Index (Ratio) 27.79 kg/m2 Ros Vasquez blood pressure, diastolic 85 mm[Hg] Pato Vasquez blood pressure, systolic 157 mm[Hg] Adonay Vasquez pulse rate 77 /min Jemma Vasquez oxygen saturation, oximetry 98 % Jemam Vasquez respiratory rate E&M 24 /min Jemma palma weight E&M 151.4 [lb_av] Jemma Vasquez blood pressure, diastolic, left arm 81 mm [Hg] Leno Vicente RN blood pressure, systolic, left arm 169 mm [Hg] Leno Vciente RN blood pressure, diastolic, right arm 81 m m[Hg] Leno Vicente RN blood pressure, systolic, right arm 175 m m[Hg] Leno Vicente RN blood pressure, diastolic 81 mm[Hg] Bean Vicente RN blood pressure, systolic 169 mm[Hg] Leno Vicente RN pulse rate 77 /min Leno Vicente RN oxygen saturation, oximetry 98 % Leno Vicente RN respiratory rate E&M 18 /min Leno Lara james RN Body Mass Index (Ratio) 26.62 kg/m2 Leno Vicente RN weight E&M 145 [lb_av] Leno Pagans RN height E&M 62 [in_i] Leno Vicente RN blood pressure, diastolic 78 mm[Hg] Howie Cohen blood pressure, systolic 140 mm[Hg] Marlon Cohen pulse rate 90 /min Paris hernandez oxygen saturation, oximetry 96 % Paris Cohen respiratory rate E&M 20 /min Paris hopson weight E&M 139.8 [lb_av] Paris payne blood pressure, diastolic 94 mm[Hg] Morales blood pressure, systolic 181 mm[Hg] Carlos A Rosario pulse rate 86 /min Laura Rosario oxygen saturation, oximetry 95 % Laura Rosario respiratory rate E&M 18 /min Laura Rosario weight E&M 141 [lb_av] Laura Rosario blood pressure, diastolic 71 mm[Hg] Bean grady Vicente RN blood pressure, systolic 138 mm[Hg] Leno Jules RN pulse rate 70 /min Leno Vicente RN oxygen saturation, oximetry 97 % Leno Vicente RN respiratory rate E&M 16 /min Leno james RN weight E&M 130 [lb_av] Leno Vicente RN blood pressure, diastolic 80 mm[Hg] Shasha eddy [place] blood pressure, diastolic, left arm 80 mm [Hg] Laura Rosario blood pressure, systolic, left arm 138 mm [Hg] Laura Rosario oxygen saturation, oximetry 93 % Carlos Ajethro Rosario blood pressure, systolic 138 mm[Hg] Francisco michelle Ajitlo pulse rate 63 /min Laura Rosario respiratory rate E&M 20 /min Carlos Apuja Rosario weight E&M 127 [lb_av] Antonellapuja Rosario blood pressure, diastolic 83 mm[Hg] Morales blood pressure, systolic 137 mm[Hg] Carlos A morelos Rosario pulse rate 71 /min Carlos Ajethro Rosario oxygen saturation, oximetry 99 % Laura Rosario respiratory rate E&M 16 /min Laura Rosario weight E&M 120 [lb_av] Laura Rosario blood pressure, diastolic 77 mm[Hg] Bean Vicente RN blood pressure, systolic 162 mm[Hg] Leno Vicente RN pulse rate 75 /min Leno Vicente RN oxygen saturation, oximetry 95 % Leno Vicente RN respiratory rate E&M 20 /min Leno james RN weight E&M 122 [lb_av] Leno Vicente RN blood pressure, diastolic 73 mm[Hg] Bean Vicente RN blood pressure, systolic 163 mm[Hg] Leno Vicente RN pulse rate 66 /min Leno Vicente RN oxygen saturation, oximetry 94 % Leno Vicente RN respiratory rate E&M 16 /min Leno james RN weight E&M 121 [lb_av] Leno Vicente RN blood pressure, diastolic 85 mm[Hg] Da helder Hoang blood pressure, systolic 168 mm[Hg] Andrey Hoang pulse rate 68 /min Majo Hoang oxygen saturation, oximetry 97 % Majo Hoang respiratory rate E&M 16 /min Taurus Hoang weight E&M 121 [lb_av] Majo Viktor blood pressure, diastolic, right arm 86 m m[Hg] Daniel [place] blood pressure, systolic, right arm 148 m m[Hg] Daniel [place] blood pressure, diastolic 86 mm[Hg] Shasha seph [place] blood pressure, systolic 148 mm[Hg] Francisco [facility] [place] pulse rate 81 /min [facility], oximetry 97 % [facility] rate E&M 24 /min [facility] weight E&M 124 [lb_av] [facility] blood pressure, diastolic, left arm 79 mm [Hg] Leno Vicente RN blood pressure, systolic, left arm 157 mm [Hg] Leno Vicente RN blood pressure, diastolic, right arm 83 m m[Hg] Leno Vicente RN blood pressure, systolic, right arm 159 m m[Hg] Leno Vicente RN blood pressure, diastolic 79 mm[Hg] Bean Vicente RN blood pressure, systolic 157 mm[Hg] Leno Vicente RN pulse rate 71 /min Leno Vicente RN oxygen saturation, oximetry 99 % Leno Vicente RN respiratory rate E&M 16 /min Leno james RN weight E&M 129 [lb_av] Leno Vicente RN blood pressure, diastolic 76 mm[Hg] Bean Vicente RN blood pressure, systolic 155 mm[Hg] Leno Vicente RN pulse rate 73 /min Leno Vicente RN oxygen saturation, oximetry 97 % Leno Vicente RN respiratory rate E&M 16 /min Leno james RN weight E&M 124 [lb_av] Leno Vicente RN blood pressure, diastolic 84 mm[Hg] Bean Vicente RN blood pressure, systolic 151 mm[Hg] Leno Pagans RN pulse rate 83 /min Leno Pagans RN oxygen saturation, oximetry 98 % Leno Pagans RN respiratory rate E&M 20 /min Leno Bermudez erika RN weight E&M 118 [lb_av] Leno Vicente RN ALLERGIES Allergy Name Onset Date Reaction Criticality Status MORPHINE Low Criticality active ERYTHROMYCIN Low Criticality active CITRATE Low Criticality active MAGNESIUM Low Criticality active IVP DYE Low Criticality active SULFA Low Criticality active PENICILLIN Low Criticality active QUESTRAN Low Criticality active DARVOCET Low Criticality active RESULTS Date Observation Value Provider Reference Range Interpretation Location magnesium, serum 2.3 mg/dL Link[facility] 1.6-2.3 prothrombin time (patient) 9.7 s [facility] 9.1-12.0 international normalized ratio (INR) 0.9 [facility] 0.9-1.2 lipoprotein, beta, serum, point, quantitative, calculated 114 mg/dL [facility] 0-99 High HDL cholesterol, serum 50 mg/dL [facility] >39 triglyceride, serum, random 147 mg/dL [facility] 0-149 cholesterol, serum 190 mg/dL [facility] [phone]/09/ 18 calcium, serum 9.6 mg/dL [facility] 8.7-10.3 carbon dioxide, venous blood 23 mmol/L [facility] 20-29 chloride, serum 105 mmol/L [facility] 96-106 potassium, serum 4.7 mmol/L [facility] 3.5-5.2 sodium, serum 143 mmol/L [facility] [phone]/09/ 18 urea nitrogen/creatinine ratio, serum 11 [facility] 12-28 Low eGFR if 65 mL/min/{1 .73_m2} [facility] >59 eGFR if not 57 mL/min/{1 .73_m2} [facility] >59 Low creatinine, serum 0.98 mg/dL [facility] 0.57-1.00 urea nitrogen, blood 11 mg/dL [facility] 8-27 blood glucose, random 128 mg/dL [facility] 65-99 High basophil count, absolute 0.1 x10E3/uL [facility] 0.0-0.2 Eosinophil Absolute Count 0.3 X10E3/UL [facility] 0.0-0.4 monocyte count, blood, automated 0.5 X10E3/UL [facility] 0.1-0.9 lymphocyte count, blood, automated 2.1 X10E3/UL [facility] 0.7-3.1 Absolute Neutrophils 5.7 X10E3/UL [facility] 1.4-7.0 basophils as percent of blood leukocytes 1 % [facility] Not Estab. eosinophils as percent of blood leukocytes 4 % [facility] Not Estab. monocytes as percent of blood leukocytes 6 % [facility] Not Estab. lymphocytes as percent of blood leukocytes 24 % [facility] Not Estab. neutrophils as percent of blood leukocytes 64 % [facility] Not Estab. platelet count 351 X10E3/UL [facility] [phone]/09/ 18 red blood cell distribution width 13.9 % [facility] 11.7-15.4 mean corpuscular hemoglobin concentration, RBC 32.1 G/DL [facility] 31.5-35.7 mean corpuscular hemoglobin, RBC 29.4 pg [facility] 26.6-33.0 mean corpuscular volume, RBC 92 fL [facility] 79-97 hematocrit, blood 40.8 % [facility] 34.0-46.6 hemoglobin, blood 13.1 g/dL [facility] 11.1-15.9 erythrocyte (RBC) count 4.45 X10E6/UL [facility] 3.77-5.28 leukocyte count, blood 8.8 X10E3/UL [facility] 3.4-10.8 thyroid stimulating hormone, serum 1.800 u[IU]/mL [facility] 0.450-4.500 B-type natriuretic peptide 29.3 pg/mL [facility] 0.0-100.0 lipoprotein, beta, serum, point, quantitative, calculated 103 mg/dL [facility] 0-99 High very low density lipoproteins 36 mg/dL [facility] 5-40 HDL cholesterol, serum 44 mg/dL [facility] >39 triglyceride, serum, random 180 mg/dL [facility] 0-149 High cholesterol, serum 183 mg/dL [facility] [phone]/07/ 28 alanine aminotransferase (SGPT), serum 9 1/L [facility] 0-32 aspartate aminotransferase (SGOT), serum 10 1/L [facility] 0-40 alkaline phosphatase, serum 224 1/L [facility] 39-117 High bilirubin, serum, total 0.3 mg/dL [facility] 0.0-1.2 albumin/globulin ratio, serum 1.4 [facility] 1.2-2.2 globulin, serum 3.1 [facility] 1.5-4.5 albumin, serum 4.2 g/dL [facility] 3.7-4.7 protein, total, serum 7.3 g/dL [facility] 6.0-8.5 calcium, serum 9.7 mg/dL [facility] 8.7-10.3 carbon dioxide, venous blood 24 mmol/L [facility] 20-29 chloride, serum 105 mmol/L [facility] 96-106 potassium, serum 4.1 mmol/L [facility] 3.5-5.2 sodium, serum 143 mmol/L [facility] [phone]/07/ 28 urea nitrogen/creatinine ratio, serum 13 [facility] 12-28 eGFR if 53 mL/min/{1 .73_m2} [facility] >59 Low eGFR if not 46 mL/min/{1 .73_m2} [facility] >59 Low creatinine, serum 1.18 mg/dL [facility] 0.57-1.00 High urea nitrogen, blood 15 mg/dL [facility] 8-27 blood glucose, random 93 mg/dL [facility] 65-99 hemoglobin A1C, blood, as % of total hemoglobin 5.8 % [facility] 4.8-5.6 High platelet count 277 X10E3/UL [facility] [phone]/07/ 28 red blood cell distribution width 14.3 % [facility] 11.7-15.4 mean corpuscular hemoglobin concentration, RBC 32.8 G/DL [facility] 31.5-35.7 mean corpuscular hemoglobin, RBC 29.8 pg [facility] 26.6-33.0 mean corpuscular volume, RBC 91 fL [facility] 79-97 hematocrit, blood 46.1 % [facility] 34.0-46.6 hemoglobin, blood 15.1 g/dL [facility] 11.1-15.9 erythrocyte (RBC) count 5.06 X10E6/UL [facility] 3.77-5.28 leukocyte count, blood 8.9 X10E3/UL [facility] 3.4-10.8 prothrombin time (patient) 10.2 s [facility] 9.1-12.0 international normalized ratio (INR) 1.0 [facility] 0.8-1.2 lipoprotein, beta, serum, point, quantitative, calculated 77 mg/dL [facility] 0-99 very low density lipoproteins 32 mg/dL [facility] 5-40 HDL cholesterol, serum 41 mg/dL [facility] >39 triglyceride, serum, random 160 mg/dL [facility] 0-149 High cholesterol, serum 150 mg/dL [facility] [phone]/12/ 20 calcium, serum 9.7 mg/dL [facility] 8.7-10.3 carbon dioxide, venous blood 24 mmol/L [facility] 18-29 chloride, serum 104 mmol/L [facility] 96-106 potassium, serum 4.4 mmol/L [facility] 3.5-5.2 sodium, serum 145 mmol/L [facility] 134-144 High urea nitrogen/creatinine ratio, serum 17 [facility] 12-28 eGFR if not 66 mL/min/{1 .73_m2} [facility] >59 creatinine, serum 0.88 mg/dL [facility] 0.57-1.00 urea nitrogen, blood 15 mg/dL [facility] 8-27 blood glucose, random 90 mg/dL [facility] 65-99 basophil count, absolute 0.1 x10E3/uL [facility] 0.0-0.2 Eosinophil Absolute Count 0.4 X10E3/UL [facility] 0.0-0.4 monocyte count, blood, automated 0.6 X10E3/UL [facility] 0.1-0.9 lymphocyte count, blood, automated 2.3 X10E3/UL [facility] 0.7-3.1 Absolute Neutrophils 4.9 X10E3/UL [facility] 1.4-7.0 basophils as percent of blood leukocytes 1 % [facility] Not Estab. eosinophils as percent of blood leukocytes 5 % [facility] Not Estab. monocytes as percent of blood leukocytes 7 % [facility] Not Estab. lymphocytes as percent of blood leukocytes 28 % [facility] Not Estab. neutrophils as percent of blood leukocytes 59 % [facility] Not Estab. platelet count 359 X10E3/UL [facility] [phone]/12/ 20 red blood cell distribution width 14.7 % [facility] 12.3-15.4 mean corpuscular hemoglobin concentration, RBC 34.1 G/DL [facility] 31.5-35.7 mean corpuscular hemoglobin, [facility] mean corpuscular volume, RBC 88 fL [facility] 79-97 hematocrit, blood 42.2 % [facility] 34.0-46.6 hemoglobin, blood 14.4 g/dL [facility] 11.1-15.9 erythrocyte (RBC) count 4.80 X10E6/UL [facility] 3.77-5.28 leukocyte count, blood 8.3 X10E3/UL [facility] 3.4-10.8 triglyceride, serum, fasting 252 mg/dL [facility] HDL cholesterol, serum 50 mg/dL [facility] LDL cholesterol, serum 114 mg/dL [facility] cholesterol, serum 214 mg/dL [facility] international normalized ratio (INR) 1.2 [facility] platelet count 352 10*3/mm3 [facility] hematocrit, blood 43.5 % [facility] triglyceride, serum, fasting 156 mg/dL [facility] HDL cholesterol, serum 60 mg/dL [facility] lipoprotein, beta, serum, point, quantitative, calculated 110 mg/dL [facility] cholesterol, serum 201 mg/dL [facility] thyroid stimulating hormone, serum 0.706 u[IU]/mL [facility] B-type natriuretic peptide 19.6 pg/mL [facility] alanine aminotransferase (SGPT), serum 205 1/L [facility] aspartate aminotransferase (SGOT), serum 605 1/L [facility] creatinine, serum 1.01 mg/dL [facility] potassium, serum 3.3 mmol/L [facility] sodium, serum 148 mmol/L [facility] alanine aminotransferase (SGPT), serum 29 1/L [facility] aspartate aminotransferase (SGOT), serum 16 1/L [facility] creatinine, serum 0.78 mg/dL [facility] potassium, serum 3.2 mmol/L [facility] sodium, serum 146 mmol/L [facility] platelet count 408 10*3/mm3 [facility] hematocrit, blood 42.4 % [facility] lipoprotein, beta, serum, point, quantitative, calculated 112 mg/dL [facility] cholesterol, serum 194 mg/dL [facility] thyroid stimulating hormone, serum 1.580 u[IU]/mL [facility] alanine aminotransferase (SGPT), serum 18 1/L [facility] aspartate aminotransferase (SGOT), serum 20 1/L [facility] creatinine, serum 1.02 mg/dL [facility] potassium, serum 4.0 mmol/L [facility] sodium, serum 144 mmol/L [facility] platelet count 398 10*3/uL [facility] red blood cell distribution width 14.1 % [facility] mean corpuscular hemoglobin concentration, RBC 34.8 g/dL [facility] mean corpuscular hemoglobin, RBC 33.7 pg [facility] mean corpuscular volume, RBC 96.8 fL [facility] hematocrit, blood 39.6 % [facility] hemoglobin, blood 13.8 g/dL [facility] erythrocyte (RBC) count 4.09 10*6/mm3 [facility] monocytes as percent of blood leukocytes 1.3 % [facility] lymphocytes as percent of blood leukocytes 19.6 % [facility] leukocyte count, blood 9.4 10*3/mm3 [facility] anion gap, serum 15.0 [facility] estimated glomerular filtration rate 49 mL/min [facility] calcium, serum 9.8 mg/dL [facility] blood glucose, fasting 149 mg/dL [facility] creatinine, serum 1.17 mg/dL [facility] urea nitrogen, blood 22.6 mg/dL [facility] carbon dioxide, serum, total 26 mmol/L [facility] chloride, serum 102 mmol/L [facility] potassium, serum 4.0 mmol/L [facility] sodium, serum 139 mmol/L [facility] platelet count 297 10*3/uL [facility] red blood cell distribution width 14.6 % [facility] mean corpuscular hemoglobin concentration, RBC 32.6 g/dL [facility] mean corpuscular hemoglobin, RBC 30.9 pg [facility] mean corpuscular volume, RBC 94.8 fL [facility] hematocrit, blood 45.4 % [facility] hemoglobin, blood 14.8 g/dL [facility] erythrocyte (RBC) count 4.79 10*6/mm3 [facility] monocytes as percent of blood leukocytes 7.0 % [facility] lymphocytes as percent of blood leukocytes 29.3 % [facility] leukocyte count, blood 8.9 10*3/mm3 [facility] B-type natriuretic peptide 13 pg/mL [facility] albumin/globulin ratio, serum 1.0 [facility] protein, total, serum 6.8 g/dL [facility] albumin, serum 3.4 g/dL [facility] bilirubin, serum, total 0.20 mg/dL [facility] alkaline phosphatase, serum 216 1/L [facility] alanine aminotransferase (SGPT), serum 28 1/L [facility] aspartate aminotransferase (SGOT), serum 14 1/L [facility] blood glucose, fasting 86 mg/dL [facility] creatinine, serum 1.01 mg/dL [facility] urea nitrogen, blood 9 mg/dL [facility] carbon dioxide, serum, total 39 mmol/L [facility] chloride, serum 102 mmol/L [facility] potassium, serum 3.7 mmol/L [facility] sodium, serum 139 mmol/L [facility] thyroid stimulating hormone, serum 1.0 u[IU]/mL Madhavi Teague RN blood glucose, random 85 mg/dL Madhavi Teague RN creatinine, serum 1.0 mg/dL Madhavi Teague RN urea nitrogen, blood 11 mg/dL Madhavi Teague RN carbon dioxide, serum, total 32 mmol/L Madhavi Teague RN chloride, serum 108 mmol/L Madhavi Teague RN potassium, serum 4.4 mmol/L Madhavi Teague RN sodium, serum 146 mmol/L Madhavi Teague RN platelet count 357 10*3/uL Madhavi Teague RN hematocrit, blood 44.9 % Madhavi Teague RN hemoglobin, blood 14.8 g/dL Madhavi Teague RN leukocyte count, blood 10.9 10*3/mm3 Madhavi Teague RN HISTORY OF MEDICATION USE Medication Status Instructions Dates Provider Indications Com ments atorvastatin 20 mg tablet active TAKE 1 TABLET BY MOUTH ONCE DAILY Chase Maldonado atorvastatin 80 mg tablet completed TAKE 1 TABLET BY MOUTH ONCE DAILY - Chase Maldonado lisinopril 10 mg tablet active Take 1 tablet by mouth once daily Chase Maldonado clindamycin HCl 150 mg capsule completed Take 1 capsule by mouth three times a day - Chase Maldonado nitroglycerin 0.4 mg tablet, sublingual active 1 tablet under tongue as directed 1 tablet under tongue for chest pain. May repeat every 5 minutes if still having chest pain- to max of 3 tablets per episode.If no relief after 3rd dose, go to ER Aniya Camara RN albuterol sulfate 90 mcg/actuation HFA aerosol inhaler active Chase Maldonado Trelegy Ellipta 100-62.5-25 mcg blister with device active Chase Maldonado hydrocodone-aceta minophen 5-325 mg tablet active Chase Maldonado Nitrolingual 400 mcg/spray spray,non-aerosol completed Inhale 1 spray into mouth as directed as needed for pain 1 spray on or under the tongue at the first sign of an chest pain. May use up to 3 sprays in 15 min. If no relief call 911 - Aniya Camara RN lisinopril 10 mg tablet completed Take 1 tablet by mouth once daily - Chase Maldonado atorvastatin 80 mg tablet completed one tab daily - Chase Maldonado atorvastatin 80 mg tablet completed - Leno Vicente RN gabapentin 100 mg capsule active Take 1 capsule by mouth twice a day Chase Maldonado tizanidine 2 mg tablet completed Take 1 tablet by mouth every night - Chase Maldonado Pepcid 40 mg tablet completed Take 1 tablet by mouth twice a day starting 07/25 take 1 tablet twice a day, in prep for cath (contrast allergy) - Chase Maldonado Benadryl Allergy 25 mg tablet completed Take 1 tablet by mouth every eight hours starting 07/25 at 2pm, take benadryl 25mg q8hrs. take at 2pm, 10pm, and 6am - Chase Maldonado prednisone 20 mg tablet active Take 2 tablet by mouth every eight hours starting 07/25 take 2 tabs (40mg) every 8hrs in prep for cardiac cath (IV dye allergy). 07/25 take at 2pm, 10pm, 6am 07/26 Ekaterina Abernathy NP Percocet 5-325 mg tablet completed Take 1 tablet by mouth every six hours as needed for pain - Chase Maldonado clindamycin HCl 150 mg capsule completed Take 1 capsule by mouth three times a day - Chase Maldonado Percocet 5-325 mg tablet completed Take 1 tablet by mouth three times a day as needed for pain - Agustín Núñez MD aspirin 81 mg tablet,delayed release (/EC) completed Take 1 tablet by mouth once a day - Chase Maldonado #30, 30 days supply, Prescribed by SYLVESTER MADDEN, Filled 01/25/2021 Wixela Inhub 100-50 mcg/dose blister with device active 1 puff twice a day Paris Cohen meclizine 25 mg tablet active tablet by mouth as needed Paris Cohen lisinopril 10 mg tablet completed TAKE 1 TABLET BY MOUTH EVERY DAY - Neil Dasilva Zetia 10 mg tablet completed 1 tablet by mouth once a day - Chase Maldonado GABAPENTIN 100 MG ORAL CAPSULE completed one capsule once a day at night - Paris Cohen CEPHALEXIN 500 MG ORAL TABLET completed 1 tab every 6 hours for the next 5 days - Rosalie Maher AMOXICILLIN 500 MG ORAL CAPSULE completed 1 tab by mouth every 8 hours - Rosalie Maher LASIX 20 MG ORAL TABLET completed ONE TABLET. ONCE DAILY - Paris Cohen MECLIZINE HCL 12.5 MG ORAL TABLET completed One tablet TID - Rosalie Maher PEPCID 20 MG ORAL TABLET completed 1 tablet at bedtime night before procedure/ 1 tablet morning of procedure - Paris Cohen Benadryl Allergy 25 mg tablet completed 2 tablet by mouth every morning - Kayla Gomez PREDNISONE 50 MG ORAL TABLET completed 1 tablet evening before procedure with dinner/ 1 tablet at bedtime/1table t morning of the procedure - Rosalie Maher EQ MOTION SICKNESS RELIEF 25 MG ORAL TABLET completed One tablet every 8 hours as needed for dizziness - Stacey Booth MD LOSARTAN POTASSIUM 50 MG ORAL TABLET completed Take one tablet daily - Paris Cohen ROSUVASTATIN CALCIUM 10 MG ORAL TABLET completed 1 tab once daily - Stacey Booth MD acetaminophen-cod eine 300-60 mg tablet active 1 tablet by mouth every twelve hours as needed Guillermo Barroso ropinirole 1 mg tablet active tablet by mouth once a day Paris Cohen CYCLOBENZAPRINE HCL 5 MG ORAL TABLET completed 1 tab 3x daily PRN for muscle spasms - Paris Cohen ALEVE 220 MG ORAL TABLET completed 1 tab daily as needed - Jessy Garcia albuterol sulfate 2 mg tablet completed as directed - Chase Maldonado TYLENOL WITH CODEINE #3 TABLET completed as needed - Paris Cohen PROTONIX 20 MG ORAL TABLET DELAYED RELEASE completed ONE TAB. DAILY - Hector Miller VESICARE 10 MG ORAL TABLET completed 1 tab daily - Hector Miller GABAPENTIN 300 MG ORAL CAPSULE completed po at bedtime - Armand Camara PROMETHAZINE HCL 25 MG ORAL TABLET completed as directed - Paris Cohen HYDROCODONE-ACETA MINOPHEN 5-325 MG ORAL TABLET completed three times daily as needed - Hector Miller LORAZEPAM 0.5 MG ORAL TABLET completed as needed - Paris Cohen RAMIPRIL 2.5 MG ORAL CAPSULE completed once daily - Stacey Booth MD PLAVIX 75 MG ORAL TABLET completed ONE TAB. DAILY - Hector Miller CARVEDILOL 3.125 MG ORAL TABLET completed one tab twice daily - Paris Cohen PROAIR HFA 108 (90 Base) MCG/ACT INHALATION AEROSOL SOLUTION completed 2 puffs every 4-6 hours - Hector Miller FUROSEMIDE 20 MG ORAL TABLET completed take 1 tab twice daily - Hector Miller ZOCOR 10 MG ORAL TABLET completed ONE TAB. AT BEDTIME - Stacey Booth MD PEPCID 20 MG ORAL TABLET completed take one tab at 3pm and 9pm the night before your procedure and the last dose the AM of your procedure - Jemma Vasquez PREDNISONE 50 MG ORAL TABLET completed take one tab at 3pm and 9pm the night before your procedure and the last dose the AM of your procedure - Jemma Vasquez DIPHENHYDRAMINE HCL 50 MG TABS completed take one tab at 3pm and 9pm the night before your procedure and the last dose the AM of your procedure - Jemma Vasquez PEPCID 20 MG ORAL TABLET completed ONE TAB.day before procedure at bedtime and one tab morning of procedure - Paris Cohen BENADRYL TABLET completed 50mg morning of procedure - Leno Vicente RN PREDNISONE 50 MG ORAL TABLET completed one tab day before procedure with dinner- one tab day before procedure at bedtime- one tab morning of procedure - Leno Vicente RN LASIX 40 MG ORAL TABLET completed po daily - Leno Vicente RN NEXIUM 20 MG ORAL PACKET completed 1 tab daily - Leno Vicente RN VESICARE completed 1 20mg tab daily - Leno Vicente RN ZOLPIDEM TARTRATE 5 MG ORAL TABLET completed once daily as needed hs - Paris Cohen NORTRIPTYLINE HCL 25 MG ORAL CAPSULE completed one tab daily - Leno Vicente RN FLONASE SUSPENSION completed 2 sprays once daily - Laura Rosario KEFLEX 500 MG ORAL CAPSULE completed four times daily for 7 days - Leno Vicente RN RANEXA 500 MG ORAL TABLET EXTENDED RELEASE 12 HOUR completed ONE TAB. TWICE DAILY for chronic angina - Paris Cohen LISINOPRIL 10 MG ORAL TABLET completed 1 tab daily - Laya Dhaliwal MECLIZINE HCL 25 MG ORAL TABLET CHEWABLE completed po bid - Laura Rosario NICODERM CQ 14 MG/24HR TRANSDERMAL PATCH 24 HOUR completed ONCE DAILY - Laura Rosario LASIX 20 MG ORAL TABLET completed - Leno Vicente RN WELLBUTRIN XL [id number] completed 150 mg daily - Laura Rosario PREDNISONE TABLET completed 20mg - Stacey Booth MD LIDODERM 5 % EXTERNAL PATCH completed every 12 hrs prn - Jemma Vasquez OFLOXACIN 0.3 % OTIC SOLUTION completed ear inf - Laura Rosario DEBROX 6.5 % OTIC SOLUTION completed ear wax removal - Laura Rosario DULCOLAX STOOL SOFTENER CAPSULE completed - Laura Rosario OCUFLOX SOLUTION completed - Laura Rosario DEBROX 6.5 % OTIC SOLUTION completed twice daily - Laura Rosario MEDROL TABLET THERAPY PACK completed as directed - Leno Vicnete RN LEVAQUIN TABS completed as directed - Leno Vicente RN DOC-Q-LACE CAPS completed as directed - Leno Vicente RN KLOR-CON M15 completed 10 meq. Take 1 tab by mouth daily. - Daniel Rowell HYOSCYAMINE SULFATE IR/SR CR-TABS completed 0.125mg daily - Laura Rosario ASPIRIN 81 MG ORAL TABLET completed ONE TAB. DAILY - Laura Rosario PLAVIX 75 MG ORAL TABLET completed ONE TAB. DAILY(on hold 01/28 for eye surgery) - Leno Vicente RN PEPCID 40 MG ORAL TABLET completed One TAB. twice DAILY - Laura Rosario LEVAQUIN 500 MG ORAL TABLET completed one tab. daily - Leno Vicente RN IMDUR 120 MG ORAL TABLET EXTENDED RELEASE 24 HOUR completed ONE TAB. DAILY - Leno Vicente RN RA LAXATIVE TABLET completed ducolax tabs - Daniel Rowell CYCLOBENZAPRINE HCL 10 MG ORAL TABLET completed one tab every 8 hrs daily - Jemma Stueber TOPAMAX TABLET completed 10mg daily - Laura Rosario Nitrolingual 400 mcg/spray spray,non-aerosol completed as needed - Grazyna Gutiérrez RN GNP IBUPROFEN CAPSULE completed 800mg as needed - Stacey Booth MD CALCIUM CARBONATE TABLET completed + D one tab. daily once in a while - Laura Rosario PERCOCET 10-325 MG ORAL TABLET completed as needed - Laya Dhaliwal PROVENTIL HFA AEROSOL SOLUTION completed PRN - Laya Dhaliwal NORTRIPTYLINE HCL CAPSULE completed 25mg daily - Laya Dhaliwal ADVAIR DISKUS 100-50 MCG/DOSE INHALATION AEROSOL POWDER BREATH ACTIVATED completed 1 puff twice daily prn - Paris Cohen CLONAZEPAM TABLET completed 0.5mg daily - Jemma Vasquez NEXIUM 20 MG ORAL CAPSULE DELAYED RELEASE completed ONE TAB. DAILY - Madhavi Teague RN LIPITOR 40 MG ORAL TABLET completed ONE TAB. DAILY - Laura Rosario SOCIAL HISTORY Date Observation Value Provider Underweight yes Stacey Booth MD Exercise counseling No - Patient Refused [facility] passive cigarette sm alisa exposure [facility]tobacco cess ation, patient education and counseling yes Chase angel number of years as a smoker 60 a Chase angel smoking, date started 1958 [facility] smoking history, tot al pack/year 65 [facility], tot [facility] pack/day pkg cig daily [facility] cigarette use yes Chase angel smoking status Current every day sm[facility] alcohol use no [facility] passive cigarette sm alisa exposure yes [facility]tobacco cess ation, patient education and counseling yes Chase angel number of years as a smoker 60 a Chase angel smoking, date started 1958 [facility] smoking history, tot al pack/year 65 [facility], tot [facility] pack/day pkg cig daily [facility] yes Chase Maldonado smoking status Current every day smoker R mtjuani domitila smoking history, tot al pack/year 65 Terri Pickens Underweight no Agustín Kristalit is Underweight no Agustín Giraldoit shannon GALINDO drug use no Chasejuani Maldonado alcohol use no Chasejuani Maldonado passive cigarette sm alisa exposure yes Chase Maldonado smoking/tobacco cess ation, patient education and counseling yes Chasejuani Maldonado number of years as a smoker 60 a Chasejuani Maldonado smoking, date started 1958 Chase Rossi magdalena smoking history, tot al pack/year 60 Chase domitila smoking history, tot al pack/day pkg cig daily Chase domitila cigarette use yes Chase Masonjohn smoking status Current every day smoker R mtjuani domitila Underweight yes Stacey Booth MD drug use no Chase Maldonado alcohol use no Chase Masonjohn passive cigarette sm alisa exposure yes Chasejuani Maldonado smoking/tobacco cess ation, patient education and counseling yes Chase Maldonado number of years as a smoker 60 a Chase Cuevasjohn smoking, date started 1958 Chase Rossi magdalena smoking history, tot al pack/year 60 Chase Maldonado smoking history, tot al pack/day pkg cig daily Chase Sainimljohn cigarette use yes Chase Ahmljohn smoking status Current every day smoker R mtjuani domitila drug use no Chase Cuevaszadavid alcohol use no Chase Ahdomitila passive cigarette sm alisa exposure yes Chase Maldonado smoking/tobacco cess ation, patient education and counseling yes Chase Maldonado number of years as a smoker 60 a Chase Maldonado smoking, date started 1958 Chase flores smoking history, tot al pack/year 60 Chase Maldonado smoking history, tot al pack/day pkg cig daily Chase Maldonado cigarette use yes Chase Maldonado smoking status Current every day smoker R andrew Maldonado social history E&M Marital Statu s: L hiro alone E thnicity: Smoking History: P atient currently smokes every day. P atthomas has been counseled to quit. 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 Chase Maldonado caffeine use, averag e drinks per day 1 /d Mary Gutiérrez passive cigarette sm alisa exposure yes Mary Gutiérrez smoking/tobacco cess ation, patient education and counseling yes Mary Gutiérrez number of years as a smoker 60 a Mary Gutiérrez smoking, date started 1958 Marygenny campos smoking history, tot al pack/year 60 Mary Gutiérrez smoking history, tot al pack/day pkg cig daily Mary Gutiérrez cigarette use yes Mary Gutiérrez smoking status Current every day smoker A mattgenny Gutiérrez social history E&M Marital Statu s: L hiro alone E thnicity: Smoking History: P atthomas currently smokes every day. Chsae Masonjohn smoking history, tot al pack/day pkg cig daily Isabel Sanz cigarette use yes Isabel Sanz smoking status Current every day smoker S nacho [employer] social history reviewed E&M revi ewed - no changes required Chase Maldonado caffeine use, averag e drinks per day 1 /d Deborah Mauro passive cigarette sm alisa exposure yes Deborah Mauro smoking/tobacco cess ation, patient education and counseling yes Deborah Mauro number of years as a smoker 60 a Deborah Mauro smoking, date started 1958 Ivanna Adam smoking history, tot al pack/year 60 Deborah Mauro smoking history, tot al pack/day 1 Deborah Mauro cigarette use yes Deborah ambriz smoking status Current every day smoker R rik Mauro social history reviewed E&M revi ewed - no changes required Chase Maldonado caffeine use, averag e drinks per day 1 /d Christina Curtisand passive cigarette sm alisa exposure yes Christina Curtisand smoking/tobacco cess ation, patient education and counseling yes Christina Zeng number of years as a smoker 60 a Christina Curtisand smoking, date started 1958 Bob Charlesand smoking history, tot al pack/year 60 Christina Curtisand smoking history, tot al pack/day 1 Christina Zeng cigarette use yes Christina Reji carlson smoking status Current every day smoker M rik Zeng social history reviewed E&M revi ewed - no changes required Chase Maldonado social history reviewed E&M revi ewed - no changes required Chase Maldonado caffeine use, averag e drinks per day 1 /d Rosalie Maher passive cigarette sm alisa exposure yes Rosalie Maher smoking/tobacco cess ation, patient education and counseling yes Rosalie Maher number of years as a smoker 60 a Rosalie Maher smoking, date started 1958 Michael Maher smoking history, tot al pack/year 60 Rosalie Maher smoking history, tot al pack/day 1 Rosalie Maher cigarette use yes Rosalie parra smoking status Current every day smoker Oz Maher social history E&M Marital Statu s: L hiro alone E thnicity: Smoking History: P atient currently smokes every day. P atient has been counseled to quit. 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 P atient has been counseled to quit. Guillermo Barroso social history reviewed E&M revi ewed - no changes required Guillermo Barroso caffeine use, averag e drinks per day 1 /d Paris Cohen passive cigarette sm alisa exposure yes Paris Cohen smoking/tobacco cess ation, patient education and counseling yes Paris Cohen number of years as a smoker 10 years or m ore Paris Cohen smoking, date started 1958 Paris Cohen smoking history, tot al pack/year 61 Paris Cohen smoking history, tot al pack/day 1 ppd Paris Cohen cigarette use yes Paris payne smoking status Current every day smoker Hilary Cohen social history E&M Marital Statu s: L hiro alone E thnicity: Smoking History: P atient currently smokes every day. P atient has been counseled to quit. Stacey Booth MD social history reviewed E&M revi ewed - no changes required Stacey Booth MD caffeine use, averag e drinks per day 1 /d Patricia Jimenez passive cigarette sm alisa exposure yes Patricia Jimenez smoking/tobacco cess ation, patient education and counseling yes Patricia Jimenez number of years as a smoker 10 years or m ore Patricia Jimenez smoking, date started 1958 Blake Jimenez smoking history, tot al pack/year 61 Patricia Jimenez smoking history, tot al pack/day 1 ppd Patricia Jimenez cigarette use yes Patricia Jimenez smoking status Current every day smoker C losterrie Tony social history E&M Marital Statu s: L hiro alone E thnicity: Smoking History: P atient currently smokes every day. P atient has been counseled to quit. Wei Gonzalez social history reviewed E&M revi ewed - no changes required Wei Gonzalez caffeine use, averag e drinks per day 1 /d Paris Cohen passive cigarette sm alisa exposure yes Paris Vicki smoking/tobacco cess ation, patient education and counseling yes Paris Cohen number of years as a smoker 10 years or m ore Paris Cohen smoking, date started 1958 Paris Cohen smoking history, tot al pack/year 61 Paris Cohen smoking history, tot al pack/day 1 ppd Paris Cohen cigarette use yes Paris payne smoking status Current every day smoker K cain Cohen smoking history, tot al pack/year 61 Leno Vicente RN smoking history, tot al pack/year 61 Giulia Olmedo RN social history E&M Marital Statu s: L hiro alone E thnicity: Smoking History: P atient currently smokes every day. P atient has been counseled to quit. [facility] reviewed E&M revi ewed - no changes required [facility] caffeine use, averag e drinks per day 1 /d [facility] passive cigarette sm alisa exposure yes [facility] smoking/tobacco cess ation, patient education and counseling yes [facility] number of years as a smoker 10 years or m ore [facility] smoking, date started 1958 [facility] smoking history, tot al pack/year 274 [facility] smoking history, tot al pack/day 3/4 [facility] cigarette use yes [facility] smoking status Current every day smoker T [facility] social history E&M Marital Statu s: L hiro alone E thnicity: Smoking History: P atient currently smokes every day. P atient has been counseled to quit. Stacey Booth MD caffeine use, averag e drinks per day 1 /d Stacey Booth MD passive cigarette sm alisa exposure yes Stacey Booth MD smoking/tobacco cess ation, patient education and counseling yes Stacey Booth MD number of years as a smoker 10 years or m ore Stacey Booth MD smoking, date started 1958 Stacey Booth MD smoking history, tot al pack/year 58 Stacey Booth MD smoking history, tot al pack/day 1/4 Stacey Booth MD cigarette use yes Stacey Hernandez smoking status Current every day smoker T donald Booth MD social history reviewed E&M revi ewed - no changes required Stacey Booth MD smoking/tobacco cess ation, patient education and counseling yes Stacey Booth MD social history E&M Marital Statu s: L hiro alone E thnicity: Smoking History: P atient currently smokes every day. P atient has been counseled to quit. Stacey Booth MD social history reviewed E&M revi ewed - no changes required Stacey Booth MD cigarette use yes Helen Funk ms smoking status Current every day smoker Oz Gutiérrez social history reviewed E&M revi ewed - no changes required Stacey Booth MD social history E&M Marital Statu s: L hiro alone E thnicity: Smoking History: P atient currently smokes every day. P atient has been counseled to quit. Stacey Booth MD alcohol use, average drinks per day none Ejssy Block alcohol use no Jessy Block caffeine use, averag e drinks per day 1 /d Jessy Block drug use no Jessy Block smoking/tobacco cess ation, patient education and counseling yes Jessy Block passive cigarette sm alisa exposure yes Jessy Block number of years as a smoker 10 years or m ore Jessy Block smoking, date started 1958 [place] Block smoking history, tot al pack/year 58 Jessy Block smoking history, tot al pack/day 1/4 Jessy Block cigarette use yes Jessy Block smoking status Current [facility] social history reviewed E&M arvin magaña - no changes required Stacey Booth MD social history E&M Marital Statu s: L hiro alone E thnicity: Smoking History: P atient currently smokes every day. P atient has been counseled to quit. Stacey Booth MD alcohol use, average drinks per day none Paris Cohen alcohol use no Paris hernandez caffeine use, averag e drinks per day 1 /d Paris Cohen drug use no Paris ramirezer smoking/tobacco cess ation, patient education and counseling yes Paris Cohen passive cigarette sm alisa exposure yes Paris Cohen number of years as a smoker 10 years or m ore Paris Cohen smoking, date started 1958 Parisemilee Cohen smoking history, tot al pack/year 58 Paris Vicki smoking history, tot al pack/day 1/4 Paris Cohen cigarette use yes Paris payne smoking status Current every day smoker K cain Vicki caffeine use, averag e drinks per day 1 /d Monica Carringtonirez smoking history, tot al pack/day 1/4 Monica Ashkan cigarette use yes Monica Ashkan smoking status Current every day smoker M ludwin Luther social history E&M Marital Statu s: L hiro alone E thnicity: Smoking History: P atient currently smokes every day. P atient has been counseled to quit. Stacey Booth MD social history reviewed E&M revi ewed - no changes required Stacey Booth MD alcohol use, average drinks per day none Rosalie Maher alcohol use no Rosalie Fuller l caffeine use, averag e drinks per day yes Rosalie Maher drug use no Rosalie bruce smoking/tobacco cess ation, patient education and counseling yes Rosalie Maher passive cigarette sm alisa exposure yes Rosalie Maher number of years as a smoker 10 years or m ore Rosalie Maher smoking, date started 1958 Michael Maher smoking history, tot al pack/year 58 Rosalie Maher smoking history, tot al pack/day 1 Rosalie Maher cigarette use yes Rosalie Nicholson aida smoking status Current every day smoker Oz rodriguezcarson Maher social history reviewed E&M revi ewed - no changes required Stacey Booth MD alcohol use, average drinks per day [facility] use no caffeine use, averag e drinks per day yes drug use no [facility]/tobacco cess [facility]ion, patient education and counseling yes [facility] passive cigarette sm alisa exposure yes [facility] number of years as a smoker 10 years or m ore Lisa Rodeo smoking, date started 1958 Killcristela grady Rodeo smoking history, tot al pack/year 58 Sykes smoking history, tot al pack/day 1 cigarette use yes smoking status Current every day smoker Hilary mckeon Rodeo number of grandchildren Stacey Booth MD T donald Booth MD social history reviewed E&M revi ewed - no changes required Stacey Booth MD alcohol use, average drinks per day none Hector Miller alcohol use no Hector correiaon caffeine use, averag e drinks per day yes Hector Miller drug use no Hector brizuela smoking/tobacco cess ation, patient education and counseling yes Hector Miller passive cigarette sm alisa exposure yes Hector Miller number of years as a smoker 10 years or m ore Hector Miller smoking, date started 1958 Jax Miller smoking history, tot al pack/year 58 Hector Miller smoking history, tot al pack/day 1 Hector Miller cigarette use yes Hector nguyen smoking status Current every day smoker Uma Miller social history E&M Marital Statu s: L hiro alone E thnicity: Smoking History: P claudia currently smokes every day. P claudia has been counseled to quit. Stacey Booth MD social history reviewed E&M revi ewed - no changes required Stacey Booth MD alcohol use, average drinks per day none [facility] alcohol use no [facility] caffeine use, averag e drinks per day yes [facility] drug use no [facility] smoking/tobacco cess ation, patient education and counseling yes [facility] passive cigarette sm alisa exposure yes [facility] number of years as a smoker 10 years or m ore Lisa Sykes smoking, date started 1958 Martin grady Sykes smoking history, tot al pack/year 58 [place] Sykes smoking history, tot al pack/day 1 [place] Sykes cigarette use yes [facility] status Current every day smoker Hilary linda Rodeo number of grandchildren Roland eaton Hortensia MD social history reviewed E&M revi ewed - no changes required Roland Bazan MD alcohol use, average drinks per day none Paris Vicki alcohol use no Paris Magallonshailesh ramirezer caffeine use, averag e drinks per day yes Paris Magallonvaleria drug use no Paris Magallonmaritzawilfrido jameser smoking/tobacco cess ation, patient education and counseling yes Paris Magallonvaleria passive cigarette sm alisa exposure yes Paris Magallonvaleria number of years as a smoker 10 years or m ore Paris Lubinnikiceci smoking, date started 1958 Paris Magallonvaleria smoking history, tot al pack/year 58 Paris Magallonfabceci smoking history, tot al pack/day 1 Paris Magallonlatishamichinikiceci cigarette use yes Paris Magallonmaritzadaysi [facility] smoking status Current every day smoker K cain Magallonvaleria smoking history, tot al pack/year 58 Paris Lubinnikiceci social history reviewed E&M revi ewed - no changes required Stacey Booth MD alcohol use, average drinks per day none Hector Miller alcohol use no Hector brizuela caffeine use, averag e drinks per day yes Hector Miller drug use no Hector brizuela smoking/tobacco cess ation, patient education and counseling yes Hector Miller passive cigarette sm alisa exposure yes Hector Miller number of years as a smoker 10 years or m ore Hector Miller smoking, date started 1958 Jax Miller smoking history, tot al pack/year 50 Hector Miller smoking history, tot al pack/day 1 Hector Miller cigarette use yes Hector nguyen smoking status Current every day smoker M Stephanie Miller social history reviewed E&M revi ewed - no changes required Stacey Booth MD alcohol use, average drinks per day none Aleida Montana alcohol use no Aleida Montana caffeine use, averag e drinks per day yes Aleida Montana drug use no Aleida Montana passive cigarette sm alisa exposure yes Aleida Montana smoking/tobacco cess ation, patient education and counseling yes Aleida Montana number of years as a smoker 10 years or m ore Aleida Montana smoking, date started 1958 Aleida Montana smoking history, tot al pack/year 50 Aleida Montana smoking history, tot al pack/day 3/4 Aleida Montana cigarette use yes Aleida Montana smoking status Current every day smoker B etsy Montana smoking/tobacco cess ation, patient education and counseling yes Stacey Booth MD social history reviewed E&M revi ewed - no changes required Armand Camara smoking status Current every day smoker A navjot Camara social history reviewed E&M revi ewed - no changes required Stacey Booth MD smoking/tobacco cess ation, patient education and counseling yes Stacey Booth MD social history reviewed E&M revi ewed - no changes required Stacey Booth MD alcohol use no Paris hernandez smoking history, tot al pack/year 50 Paris Cohen smoking history, tot al pack/day 3/4 Paris Cohen cigarette use yes Paris payne smoking status Current every day smoker K cain Cohen social history reviewed E&M reviewed Stacey Booth MD smoking history, tot al pack/year 55 Laya Dhaliwal smoking/tobacco cess ation, patient education and counseling yes Stacey Booth MD social history reviewed E&M reviewed Stacey Booth MD smoking history, tot al pack/year 55 Jemma Pedro smoking history, tot al pack/year 54 Leno Vicente RN smoking/tobacco cess ation, patient education and counseling yes Stacey Booth MD drug use no Leno Vicente RN passive cigarette sm alisa exposure yes Leno Vicente RN smoking history, tot al pack/day 1/2 Leno Vicente RN smoking history, tot al pack/year 54 Leno Vicente RN cigarette use yes Leno Vicente RN smoking, date started 1958 Leno mark RN social history reviewed E&M reviewed Leno Vicente RN smoking status smoker - current status unknown Leno Vicente RN social history reviewed E&M reviewed Leno Vicente RN social history reviewed E&M reviewed Leno Vicente RN smoking/tobacco cess ation, patient education and counseling yes Stacey Booth MD social history reviewed E&M reviewed Leno Vicente RN social history reviewed E&M reviewed Stacey Booth MD social history reviewed E&M reviewed Stacey Booth MD smoking/tobacco cess ation, patient education and counseling yes Stacey Booth MD social history reviewed E&M reviewed Leno Vicente RN smoking/tobacco cess ation, patient education and counseling yes Leno Vicente RN social history reviewed E&M reviewed Leno Vicente RN smoking/tobacco cess ation, patient education and counseling yes Leno Vicente RN social history reviewed E&M reviewed Leno Vicente RN smoking/tobacco cess ation, patient education and counseling yes Leno Vicente RN social history reviewed E&M reviewed Leno Vicente RN smoking/tobacco cess ation, patient education and counseling yes Leno Vicente RN social history reviewed E&M reviewed Leno Vicente RN drug use none Stacey Booth MD social history reviewed E&M reviewed Leno Vicente RN social history E&M Marital Statu s: L hiro alone E thnicity: Leno Vicente RN social history reviewed E&M reviewed Leno Vicente RN caffeine use, averag e drinks per day yes [employer] alcohol use, average drinks per day none [employer] number of years as a smoker 10 years or m ore [employer] smoking status Smoker [employer] FUNCTIONAL STATUS Date Observation Value Provider HRA, CV Assess/Plan, Angina (inactive) Management Plan continue current therapy Chase Ahmedzai HRA, CV Assess/Plan, Angina (inactive) Management Plan continue current therapy Chase Ahmedzai HRA, CV Assess/Plan, Angina (inactive) Management Plan continue current therapy Chase Ahmedzai HRA, CV Assess/Plan, Angina (inactive) Management Plan continue current therapy Chase Ahmedzai HRA, CV Assess/Plan, Angina (inactive) Management Plan continue current therapy Chase Ahmedzai HRA, CV Assess/Plan, Angina (inactive) Management Plan continue current therapy Chase Ahmedzai HRA, CV Assess/Plan, Angina (inactive) Management Plan continue current therapy Hcase Ahmedzai HRA, CV Assess/Plan, Angina (inactive) Management Plan continue current therapy Chase Ahmedzai HRA, CV Assess/Plan, Angina (inactive) Management Plan continue current therapy Chase Ahmedzai HRA, CV Assess/Plan, Angina (inactive) Management Plan continue current therapy Chase Ahmedzai HRA, CV Assess/Plan, Angina (inactive) Management Plan schedule PCI Ekaterina Pinedanaima HAMPTON HRA, CV Assess/Plan, Angina (inactive) Management Plan continue current therapy Guillermo Barroso HRA, CV Assess/Plan, Angina (inactive) Management Plan continue current therapy Stacey Booth MD HRA, CV Assess/Plan, Angina (inactive) Management Plan continue current therapy Wei Gonzalez HRA, CV Assess/Plan, Angina (inactive) Management Plan continue current therapy Stacey Booth MD HRA, CV Assess/Plan, Angina (inactive) Management Plan continue current therapy Stacey Booth MD HRA, CV Assess/Plan, Angina (inactive) Management Plan continue current therapy Stacey Booth MD HRA, CV Assess/Plan, Angina (inactive) Management Plan continue current therapy Stacey Booth MD HRA, CV Assess/Plan, Angina (inactive) Management Plan continue current therapy Stacey Booth MD HRA, CV Assess/Plan, Angina (inactive) Management Plan schedule PCI Stacey Booth MD HRA, CV Assess/Plan, Angina (inactive) Management Plan continue current therapy Roland Bazan MD HRA, CV Assess/Plan, Angina (inactive) Management Plan continue current therapy Stacey Booth MD MENTAL STATUS Date Observation Value Provider assessment of judgme nt and insight E&M Alert and oriented to time, place and person. Mood and affect are normal. Stacey Booth MD assessment of judgme nt and insight E&M Alert and oriented to time, place and person. Mood and affect are normal. Stacey Booth MD assessment of judgme nt and insight E&M Alert and oriented to time, place and person. Mood and affect are normal. Leno Vicente RN assessment of judgme nt and insight E&M Alert and oriented to time, place and person. Mood and affect are normal. Leno Vicente RN assessment of judgme nt and insight E&M Alert and oriented to time, place and person. Mood and affect are normal. Leno Vicente RN assessment of judgme nt and insight E&M Alert and oriented to time, place and person. Mood and affect are normal. Leno Vicente RN assessment of judgme nt and insight E&M Alert and oriented to time, place and person. Mood and affect are normal. Stacey Booth MD assessment of judgme nt and insight E&M Alert and oriented to time, place and person. Mood and affect are normal. Stacey Booth MD assessment of judgme nt and insight E&M Alert and oriented to time, place and person. Mood and affect are normal. Leno Vicente RN assessment of judgme nt and insight E&M Alert and oriented to time, place and person. Mood and affect are normal. Leno Vicente RN assessment of judgme nt and insight E&M Alert and oriented to time, place and person. Mood and affect are normal. Leno Vicente RN assessment of judgme nt and insight E&M Alert and oriented to time, place and person. Mood and affect are normal. Leno Vicente RN assessment of judgme nt and insight E&M Alert and oriented to time, place and person. Mood and affect are normal. Leno Vicente RN assessment of judgme nt and insight E&M Alert and oriented to time, place and person. Mood and affect are normal. Leno Vicente RN assessment of judgme nt and insight E&M Alert and oriented to time, place and person. Mood and affect are normal. 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 [id number] [employer] FAMILY [employer] Medicaid 1 [id number] ADVANCE DIRECTIVES Name Date DISCUSSED - NO DECISION MADE TREATMENT PLAN Date Name Performer [id number],Chase Kruger i [id number],Chase Kruger i [id number],Chase Kruger i [id number],S, Chase Ahmedza i [id number],S, Chase Ahmedza i [id number],S, Chase Ahmedza i [id number],S, Chase Ahmedza i [id number],S, Chase Ahmedza i [id number],S, Chase Ahmedza i [id number],S, Chase Ahmedza i [id number],S, Chase Ahmedza i [id number],S, Chase Ahmedza i [id number],S, Chase Ahmedza i [id number],S, Chase Ahmedza i [id number],S, Chase Ahmedza i [id number],S, Chase Ahmedza i [id number],S, Chase Ahmedza i [id number],S, Chase Ahmedza i [id number],S, Chase Ahmedza i [id number],S, Chase Ahmedza i [id number],S, Chase Ahmedza i [id number],S, Chaes Ahmedza i [id number],S, Chase Ahmedza i [id number],S, Chase Ahmedza i [id number],S, Chase Ahmedza i [id number],C,on zeita Linda 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 pt states that pain was relieved with 2 SL NTG. she did not seek medical attention at that time. pt does report recently that she has been experiencing intermittent CP described as 'spasms', intermittent postural dizziness and palpitations, orthopnea, and diaphoresis. she continues to smoke 1ppd/60+ years. since saturday she continues to experience intermittent CP described as 'spasms'. 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 was done using standard technique medial to the left breast T he skin was closed using 4.0 Vicryl. The wound was covered with Dermoband dressing. The patient tolerated the procedure well and there were no complications. Summary Successful Implantation of cardiac loop recorder (BIOTRONIK)Biomonitor III SN [id number]. Guillermo Dharmesh [id number],WVivian she is under significant stress as her nephew from massive heart attack earlier this week BP today: 180/80 P rior BP: 173/87 (05/23/2021) & #13;Labs Reviewed: C reat: 1.18 (05/31/2020) C hol: 183 (05/31/2020) HDL: 44 (05/31/2020) Patoada Dharmesh [id number],SChaseza i [id number],S, Chase Krishnamurthy i [id number],S, Chase Krishnamurthy i [id number],S, Chase Krishnamurthy i [id number],S, Chase Krishnamurthy i [id number],S, Stacey Booth MD [id number],S, Stacey Booth MD [id number],S, Stacey Booth MD [id number],S, Stacey Booth MD [id number],S, Stacey Booth MD [id number],SStacey MD Cardiology Stacey Booth MD Cardiology: H er updated medication list for this problem includes: Lisinopril 10 Mg Tablet (Lisinopril) ..... Take 1 tablet by mouth once daily BP today: 149/77 P rior BP: 157/83 (09/29/2024) Labs Reviewed: C reat: 0.98 (07/22/2021) C hol: 190 (07/22/2021) HDL: 50 (07/22/2021) LDL: 114 (07/22/2021) T (07/22/2021) Orders: R PM (remote patient monitoring) ([id number]) Stacey Booth MD Cardiology:This visi t has been a part of the consistent, comprehensive, and ongoing management of the chronic medical condition(s) listed above for the patient. Her updated medication list for this problem includes: Lisinopril 10 Mg Tablet (Lisinopril) ..... Take 1 tablet by mouth once daily Nitroglycerin 0.4 Mg Tablet, Sublingual (Nitroglycerin) ..... 1 tablet under tongue as directed 1 tablet under tongue for chest pain. may repeat every 5 minutes if still having chest pain- to max of 3 tablets per episode.if no relief after 3rd dose, go to er Stacey Booth MD Cardiology: O rders: A evans Duplex Ultrasound (CPT-[id number]) Stacey Booth MD Cardiology:This visi t has been a part of the consistent, comprehensive, and ongoing management of the chronic medical condition(s) listed above for the patient. Her updated medication list for this problem includes: Lisinopril 10 Mg Tablet (Lisinopril) ..... Take 1 tablet by mouth once daily Nitroglycerin 0.4 Mg Tablet, Sublingual (Nitroglycerin) ..... 1 tablet under tongue as directed 1 tablet under tongue for chest pain. may repeat every 5 minutes if still having chest pain- to max of 3 tablets per episode.if no relief after 3rd dose, go to er Orders: C omplete Echo ([id number]) Stacey Booth MD Cardiology: H er updated medication list for this problem includes: Atorvastatin 20 Mg Tablet (Atorvastatin) ..... Take 1 tablet by mouth once daily [facility]: O rders: A evans Duplex Ultrasound (CPT-[id number]) [facility] Cardiology: H er updated medication list for this problem includes: Lisinopril 10 Mg Tablet (Lisinopril) ..... Take 1 tablet by mouth once daily Orders: C omplete Echo ([id number]) [facility]: H er updated medication list for this problem includes: Lisinopril 10 Mg Tablet (Lisinopril) ..... Take 1 tablet by mouth once daily Nitroglycerin 0.4 Mg Tablet, Sublingual (Nitroglycerin) ..... 1 tablet under tongue as directed 1 tablet under tongue for chest pain. may repeat every 5 minutes if still having chest pain- to max of 3 tablets per episode.if no relief after 3rd dose, go to er Orders: C omplete Echo ([id number]) [facility]: H er updated medication list for this problem includes: Lisinopril 10 Mg Tablet (Lisinopril) ..... Take 1 tablet by mouth once daily Orders: C omplete Echo ([id number]) Chase Ahangel Electrophysiology wound check Ri [facility] Electrophysiology wound check Ri [facility] Electrophysiology-: O rders: 9 9212 Minor 10-19min (CPT-09120) T obacco cessation counseling, 3-10minutes ([id number]) Done by Dr. Wilton Núñez MD [facility]rophys[facility]- [facility]-:AAA 06/11 chris wed 4.8 cm dilitation [facility] Electrophysiology-: H er updated medication list for this problem includes: Nitroglycerin 0.4 Mg Tablet, Sublingual (Nitroglycerin) ..... 1 tablet under tongue as directed 1 tablet under tongue for chest pain. may repeat every 5 minutes if still having chest pain- to max of 3 tablets per episode.if no relief after 3rd dose, go to er Orders: 9 9212 Minor 10-19min (CPT-74573) T obacco cessation counseling, 3-10minutes ([id number]) [facility]- [facility] Cardiology:This visi t has been a part of the consistent, comprehensive, and ongoing management of the chronic medical condition(s) listed above for the patient. Her updated medication list for this problem includes: Nitrolingual 400 Mcg/spray [place],non-aerosol (Nitroglycerin) ..... Inhale 1 spray into mouth as directed as needed for pain 1 spray on or under the tongue at the first sign of an chest pain. may use up to 3 sprays in 15 min. if no relief call 911 Stacey Booth MD Cardiology: B P today: 130/76 P rior BP: 135/75 (11/12/2023) Labs Reviewed: C reat: 0.98 (07/22/2021) C hol: 190 (07/22/2021) HDL: 50 (07/22/2021) LDL: 114 (07/22/2021) T (07/22/2021) Chase Ahmedzai Cardiology: H er updated medication list for this problem includes: Nitrolingual 400 Mcg/spray [place],non-aerosol (Nitroglycerin) ..... Inhale 1 spray into mouth as directed as needed for pain 1 spray on or under the tongue at the first sign of an chest pain. may use up to 3 sprays in 15 min. if no relief call 911 Chase Ahmedzai Cardiology Chase [facility]ai Cardiology Chase Ahmedzai Cardiology: O rders: A evans Duplex Ultrasound (CPT-[id number]) [facility] Ahmedzai Cardiology Chase Ahmedzai Cardiology Chase Ahmedzai Cardiology Chase Ahmedzai Cardiology Chase Ahmedzai Cardiology Chase Ahmed[facility]ai Cardiology [facility] Cardiology Chase [facility]ai Cardiology Chase [facility] Cardiology [facility] Cardiology [facility] Cardiology [facility] Card[facility] Cardiology [facility] Cardiology [facility] Cardiology [facility] Cardiology [facility] Cardiology Chase [facility] Cardiology Chase [facility] Cardiology Chase [facility] Cardiology Chase [facility]ai Cardiology Chase Ahmedzai Cardiology Chase Ahmedzai Electrophysiology:on zeita 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 pt states that pain was relieved with 2 SL NTG. she did not seek medical attention at that time. pt does report recently that she has been experiencing intermittent CP described as 'spasms', intermittent postural dizziness and palpitations, orthopnea, and diaphoresis. she continues to smoke 1ppd/60+ years. since saturday she continues to experience intermittent CP described as 'spasms'. 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 was done using standard technique medial to the left breast T he skin was closed using 4.0 Vicryl. The wound was covered with Dermoband dressing. The patient tolerated the procedure well and there were no complications. Summary S uccessful Implantation of cardiac loop recorder (BIOTRONIK)Biomonitor III SN [id number]. Guillermo Dharmesh Electrophysiology: S shelbi she is under significant stress as her nephew from massive heart attack earlier this week BP today: 180/80 P rior BP: 173/87 (05/23/2021) & #13;Labs Reviewed: C reat: 1.18 (05/31/2020) C hol: 183 (05/31/2020) HDL: 44 (05/31/2020) Guillermo Barroso [facility] Stacey Booth MD Cardiology Stacey Booth MD Cardiology Stacey Booth MD Cardiology Stacey Booth MD Cardiology Stacey Booth MD Cardiology Stacey Booth MD Cardiology Hospital Follow up [facility] Follow up [facility] Telehealth - 3mo fu callback Ton nicci Booth MD Telehealth - 3mo fu callback Ton nicci Booth MD Telehealth - 3mo fu callback Ton nicci Booth MD Telehealth - 3mo fu callback Ton nicci Booth MD Telehealth - 3mo fu callback Rahul Booth MD Cardiology - cpoe, billing, jordi er Stacey Booth MD Cardiology - cpoe, billing, jordi er Stacey Booth MD Cardiology - cpoe, billing, jordi er Stacey Booth MD Cardiology - cpoe, billing, jordi er Stacey Booth MD Cardiology - cpoe, billing, jordi er Stacey Booth MD Cardiology follow up Stacey martinez MD Cardiology follow up Stacey martinez MD Cardiology follow up Stacey martinez MD Cardiology follow up Stacey martinez MD Cardiology Stacey Booth MD Cardiology Stacey Booth MD Cardiology Stacey Booth MD Cardiology Stacey Booth MD Cardiology Stacey Booth MD Cardiology Stacey Booth MD Cardiology Stacey Booth MD Cardiology Stacey Booth MD Cardiology Stacey Booth MD Cardiology Stacey Booth MD Cardiology Follow up Toniya [facility] Cardiology Follow up Toniya [facility] Cardiology Follow up Toniya [facility] Cardiology Follow up Toniya [facility] Cardiology Follow up Toniya Sin [facility] Cardiology follow up Toniya [facility] Cardiology follow up Toniya [facility] Cardiology follow up Toni[facility] Cardiology follow up Toniya [facility] Cardiology follow up Toniya Sing h Cardiology:Recent ca rdiac cath showed open grafts with no new significant CAD of campo vessels. Stacey Booth MD Cardiology Stacey Booth MD Cardiology:WIll repeat. Stacey rose MD Cardiology:Advised to take mecli zine for dizziness. Stacey Booth MD Cardiology:STRONGLY ENCOURAGED TO STOP SMOKING; SMOKING CESSATION TECHNIQUES DISCUSSED. Stacey Booth MD Cardiology Stacey Booth MD Cardiology:Start los arielle 50mg once daily in the morning. Stacey Booth MD Cardiology:Negative carotid duplex recently. Will start meclizine. Stacey Booth MD Cardiology:Will arrange cardiac cath. Stacey Booth MD Cardiology:Strongly advised to q uit. Stacey Booth MD Cardiology:Negative carotid duplex recently. Will start meclizine. Stacey Booth MD Cardiology:Will arrange cardiac cath. Stacey Booth MD Cardiology:Start los arielle 50mg once daily in the morning. Stacey Booth MD Cardiology Stacey Booth MD Cardiology Stacey Booth MD Cardiology:STRONGLY ENCOURAGED TO STOP SMOKING; SMOKING CESSATION TECHNIQUES DISCUSSED. Stacey Booth MD Cardiology: H er updated medication list for this problem includes: Rosuvastatin Calcium 10 Mg Oral Tablet (Rosuvastatin calcium) ..... 1 tab daily Stacey Booth MD Cardiology: O rders: F VC - 16290 ([id number]) F RC - 85849 (56639) D LCO - 15193 (60267) Stacey Booth MD Cardiology Stacey Booth MD Cardiology Follow up :Normally bp runs 120-130. Today it is 180/71 and this could just be an anomaly. Roland Bazan MD Cardiology Follow up Roland woods MD Cardiology Follow up :She is low risk and clear for surgery. Roland Bazan MD Cardiology Stacey Booth MD Cardiology Stacey Booth MD Cardiology Stacey Booth MD Cardiology Stacey Booth MD Cardiology Stacey Booth MD follow up Stacey Booth MD follow up: H er updated medication list for this problem includes: Furosemide 20 Mg Tabs (Furosemide) ..... Take 1 tab twice daily Stacey Booth MD follow up: H er updated medication list for this problem includes: Nitrolingual 0.4 Mg/spray Soln (Nitroglycerin) ..... As needed Plavix 75 Mg Tabs (Clopidogrel bisulfate) ..... One tab. daily Stacey Booth MD Follow up: T he following medications were removed from the medication list: Ramipril 2.5 Mg Caps (Ramipril) ..... Once daily Carvedilol 3.125 Mg Tabs (Carvedilol) ..... One tab twice daily Lorazepam 0.5 Mg Tabs (Lorazepam) ..... As needed Her updated medication list for this problem includes: Nitrolingual 0.4 Mg/spray Soln (Nitroglycerin) ..... As needed Plavix 75 Mg Tabs (Clopidogrel bisulfate) ..... One tab. daily Stacey Booth MD Follow up: T he following medications were removed from the medication list: Ramipril 2.5 Mg Caps (Ramipril) ..... Once daily Carvedilol 3.125 Mg Tabs (Carvedilol) ..... One tab twice daily Her updated medication list for this problem includes: Nitrolingual 0.4 Mg/spray Soln (Nitroglycerin) ..... As needed Plavix 75 Mg Tabs (Clopidogrel bisulfate) ..... One tab. daily Stacey Booth MD Follow up: T he following medications were removed from the medication list: Ramipril 2.5 Mg Caps (Ramipril) ..... Once daily Her updated medication list for this problem includes: Furosemide 20 Mg Tabs (Furosemide) ..... Take 1 tab twice daily Stacey Booth MD Follow Up: T he following medications were removed from the medication list: Proventil Hfa Aers (Albuterol sulfate aers) ..... Prn Her updated medication list for this problem includes: Advair Diskus 100-50 Mcg/dose Misc (Fluticasone-salmeterol) ..... 1 puff twice daily prn Proair Hfa 108 (90 Base) Mcg/act Aers (Albuterol sulfate) ..... 2 puffs every 4-6 hours BP today: 154/70 Prior BP: 157/85 (12/01/2013) Pulmonary Functions Reviewed: O 2 sat: 99 (04/20/2014) Stacey Booth MD Follow Up: T he following medications were removed from the medication list: Lisinopril 10 Mg Tabs (Lisinopril) ..... 1 tab daily Zocor 10 Mg Tabs (Simvastatin) ..... One tab. at bedtime H er updated medication list for this problem includes: Nitrolingual 0.4 Mg/spray Soln (Nitroglycerin) ..... As needed Carvedilol 3.125 Mg Tabs (Carvedilol) ..... One tab twice daily Plavix 75 Mg Tabs (Clopidogrel bisulfate) ..... One tab. daily Ramipril 2.5 Mg Caps (Ramipril) ..... Once daily BP today: 154/70 Prior BP: 157/85 (12/01/2013) N uclear Stress Findings: 1. Abnormal myocardial perfusion imaging after vasodilator stress with Regadenoson. 2 . Normal left ventricular systolic function with a calculated ejection fraction of 73%. 3 . Myocardial scintigraphy demonstrates a small partially reversible lateral wall defect consistent with ischemia. - (04/08/2013) C ardiac Cath: Severe two-vessel disease as described above. Ejection fraction of 30%. Ventricular akinesis of the anterolateral diaphragmatic and severe hypokinesis at the apex looking like takotsubo. - [facility] (01/21/2014) C ardiac Cath Comments: Successful primary stent of the mid LAD from 70 to 0 with a 3 x 18mm Vision. [facility] (04/11/2009) C arotid Doppler/Duplex: BILATERAL NORMAL DUPLEX CAROTID DOPPLER STUDY. THERE IS NO EVIDENCE OF SIGNIFICANT ARTERIAL STENOSIS ON EITHER SIDE. NORMAL ANTEGRADE VERTEBRAL FLOW. - (01/24/2014) A rterial Doppler (leg): No evidence of pseudoaneurysm or AV fistula formation in the right leg. - (07/17/2011) C HOL: 214 (12/01/2013) LDL: 114 (12/01/2013) HDL: 50 (12/01/2013) T (12/01/2013) H gb: 13.8 (06/12/2011) HCT: 43.5 (04/20/2013) Platelets: 352 (04/20/2013) R BC: 4.09 (06/12/2011) WBC: 9.4 (06/12/2011) B UN: 22.6 (06/12/2011) Creat: 1.01 (04/20/2013) Glucose: 149 (06/12/2011) N a+: 148 (04/20/2013) K+: 3.3 (04/20/2013) Cl: 102 (06/12/2011) INR: 1.2 (04/21/2013) T SH: 0.706 (04/20/2013) Stacey Booth MD Follow Up: T he following medications were removed from the medication list: Lisinopril 10 Mg Tabs (Lisinopril) ..... 1 tab daily Her updated medication list for this problem includes: Nitrolingual 0.4 Mg/spray Soln (Nitroglycerin) ..... As needed Carvedilol 3.125 Mg Tabs (Carvedilol) ..... One tab twice daily Plavix 75 Mg Tabs (Clopidogrel bisulfate) ..... One tab. daily Ramipril 2.5 Mg Caps (Ramipril) ..... Once daily BP today: 154/70 Prior BP: 157/85 (12/01/2013) N uclear Stress Findings: 1. Abnormal myocardial perfusion imaging after vasodilator stress with Regadenoson. 2 . Normal left ventricular systolic function with a calculated ejection fraction of 73%. 3 . Myocardial scintigraphy demonstrates a small partially reversible lateral wall defect consistent with ischemia. - (04/08/2013) C ardiac Cath: Severe two-vessel disease as described above. Ejection fraction of 30%. Ventricular akinesis of the anterolateral diaphragmatic and severe hypokinesis at the apex looking like takotsubo. - [facility] (01/21/2014) C ardiac Cath Comments: Successful primary stent of the mid LAD from 70 to 0 with a 3 x 18mm Vision. [facility] (04/11/2009) C arotid Doppler/Duplex: BILATERAL NORMAL DUPLEX CAROTID DOPPLER STUDY. THERE IS NO EVIDENCE OF SIGNIFICANT ARTERIAL STENOSIS ON EITHER SIDE. NORMAL ANTEGRADE VERTEBRAL FLOW. - (01/24/2014) A rterial Doppler (leg): No evidence of pseudoaneurysm or AV fistula formation in the right leg. - (07/17/2011) C HOL: 214 (12/01/2013) LDL: 114 (12/01/2013) HDL: 50 (12/01/2013) T (12/01/2013) H gb: 13.8 (06/12/2011) HCT: 43.5 (04/20/2013) Platelets: 352 (04/20/2013) R BC: 4.09 (06/12/2011) WBC: 9.4 (06/12/2011) B UN: 22.6 (06/12/2011) Creat: 1.01 (04/20/2013) Glucose: 149 (06/12/2011) N a+: 148 (04/20/2013) K+: 3.3 (04/20/2013) Cl: 102 (06/12/2011) INR: 1.2 (04/21/2013) T SH: 0.706 (04/20/2013) Stacey Booth MD Follow Up: T he following medications were removed from the medication list: Gnp Ibuprofen Caps (Ibuprofen caps) ..... 800mg as needed Lisinopril 10 Mg Tabs (Lisinopril) ..... 1 tab daily Her updated medication list for this problem includes: Furosemide 20 Mg Tabs (Furosemide) ..... Take 1 tab twice daily Ramipril 2.5 Mg Caps (Ramipril) ..... Once daily BP today: 154/70 Prior BP: 157/85 (12/01/2013) H gb: 13.8 (06/12/2011) HCT: 43.5 (04/20/2013) Platelets: 352 (04/20/2013) R BC: 4.09 (06/12/2011) WBC: 9.4 (06/12/2011) B UN: 22.6 (06/12/2011) Creat: 1.01 (04/20/2013) Glucose: 149 (06/12/2011) N a+: 148 (04/20/2013) K+: 3.3 (04/20/2013) Cl: 102 (06/12/2011) CHOL: 214 (12/01/2013) LDL: 114 (12/01/2013) HDL: 50 (12/01/2013) T (12/01/2013) T SH: 0.706 (04/20/2013) Cardiac Cath: Severe two-vessel disease as described above. Ejection fraction of 30%. Ventricular akinesis of the anterolateral diaphragmatic and severe hypokinesis at the apex looking like takotsubo. - [facility] (01/21/2014) C ardiac Cath Comments: Successful primary stent of the mid LAD from 70 to 0 with a 3 x 18mm Vision. [facility] (04/11/2009) Stacey Booth MD Follow Up: T he following medications were removed from the medication list: Prednisone 50 Mg Tabs (Prednisone) ..... Take one tab at 3pm and 9pm the night before your procedure and the last dose the am of your procedure Her updated medication list for this problem includes: Gnp Ibuprofen Caps (Ibuprofen caps) ..... 800mg as needed Lisinopril 10 Mg Tabs (Lisinopril) ..... 1 tab daily Stacey Booth MD Follow Up: H er updated medication list for this problem includes: Nitrolingual 0.4 Mg/spray Soln (Nitroglycerin) ..... As needed Lisinopril 10 Mg Tabs (Lisinopril) ..... 1 tab daily Orders: Clementine THEODORE (CPT-[id number]) Stacey Booth MD Follow Up: T he following medications were removed from the medication list: Clonazepam Tabs (Clonazepam tabs) ..... 0.5mg daily Her updated medication list for this problem includes: Nitrolingual 0.4 Mg/spray Soln (Nitroglycerin) ..... As needed Lisinopril 10 Mg Tabs (Lisinopril) ..... 1 tab daily Stacey Booth MD Follow Up: H er updated medication list for this problem includes: Nitrolingual 0.4 Mg/spray Soln (Nitroglycerin) ..... As needed Lisinopril 10 Mg Tabs (Lisinopril) ..... 1 tab daily Stacey Booth MD Follow Up: H er updated medication list for this problem includes: Advair Diskus 100-50 Mcg/dose Misc (Fluticasone-salmeterol) ..... 1 puff twice daily prn Proventil Hfa Aers (Albuterol sulfate aers) ..... Prn BP today: 157/85 Prior BP: 169/81 (04/06/2013) Pulmonary Functions Reviewed: O 2 sat: 98 (12/01/2013) Stacey Booth MD Follow Up: T he following medications were removed from the medication list: Pepcid 20 Mg Tabs (Famotidine) ..... Take one tab at 3pm and 9pm the night before your procedure and the last dose the am of your procedure BP today: 157/85 Prior BP: 169/81 (04/06/2013) D iscussed lifestyle modifications, diet, antacids/medications, and preventive measures. Handout provided. Stacey Booth MD dizziness: T he following medications were removed from the medication list: Plavix 75 Mg Tabs (Clopidogrel bisulfate) ..... One tab. daily(on hold 01/28 for eye surgery) Imdur 120 Mg Tb24 (Isosorbide mononitrate) ..... One tab. daily Her updated medication list for this problem includes: Clonazepam Tabs (Clonazepam tabs) ..... 0.5mg daily Nitrolingual 0.4 Mg/spray Soln (Nitroglycerin) ..... As needed Lisinopril 5 Mg Tabs (Lisinopril) ..... 1/2 tab. daily Stacey Booth MD dizziness: T he following medications were removed from the medication list: Plavix 75 Mg Tabs (Clopidogrel bisulfate) ..... One tab. daily(on hold 01/28 for eye surgery) Imdur 120 Mg Tb24 (Isosorbide mononitrate) ..... One tab. daily Her updated medication list for this problem includes: Nitrolingual 0.4 Mg/spray Soln (Nitroglycerin) ..... As needed Lisinopril 5 Mg Tabs (Lisinopril) ..... 1/2 tab. daily BP today: 169/81 Prior BP: 140/78 (05/27/2012) N uclear Stress Findings: 1. Regadenoson mediated myocardial perfusion study 2 . Normal left ventricular systolic function with a calculated ejection fraction of 66%. 3 . No obvious significant scintigraphic evidence of myocardial ischemia or scar. (11/30/2010) C ardiac Cath: No new coronary disease. - [facility] (06/12/2011) C ardiac Cath Comments: Successful primary stent of the mid LAD from 70 to 0 with a 3 x 18mm Vision. [facility] (04/11/2009) C arotid Doppler/Duplex: Minimal plaque both carotid bifurication. Normal flow both internals. Right vertebral not seen. - [facility] (12/11/2011) A rterial Doppler (leg): No evidence of pseudoaneurysm or AV fistula formation in the right leg. - [facility] (07/17/2011) C HOL: 194 (05/21/2012) LDL: 112 (05/21/2012) Hgb: 13.8 (06/12/2011) HCT: 42.4 (05/21/2012) Platelets: 408 (05/21/2012) R BC: 4.09 (06/12/2011) WBC: 9.4 (06/12/2011) B UN: 22.6 (06/12/2011) Creat: 1.02 (05/21/2012) Glucose: 149 (06/12/2011) N a+: 144 (05/21/2012) K+: 4.0 (05/21/2012) Cl: 102 (06/12/2011) TSH: 1.580 (05/21/2012) O rders: E KG (CPT-71057) Stacey Booth MD dizziness: T he following medications were removed from the medication list: Lasix 40 Mg Tabs (Furosemide) ..... Po daily Prednisone 50 Mg Tabs (Prednisone) ..... One tab day before procedure with dinner- one tab day before procedure at bedtime- one tab morning of procedure Her updated medication list for this problem includes: Gnp Ibuprofen Caps (Ibuprofen caps) ..... 800mg as needed Lisinopril 5 Mg Tabs (Lisinopril) ..... 1/2 tab. daily BP today: 169/81 Prior BP: 140/78 (05/27/2012) H gb: 13.8 (06/12/2011) HCT: 42.4 (05/21/2012) Platelets: 408 (05/21/2012) R BC: 4.09 (06/12/2011) WBC: 9.4 (06/12/2011) B UN: 22.6 (06/12/2011) Creat: 1.02 (05/21/2012) Glucose: 149 (06/12/2011) N a+: 144 (05/21/2012) K+: 4.0 (05/21/2012) Cl: 102 (06/12/2011) CHOL: 194 (05/21/2012) LDL: 112 (05/21/2012) TSH: 1.580 (05/21/2012) Cardiac Cath: No new coronary disease. - [facility] (06/12/2011) C ardiac Cath Comments: Successful primary stent of the mid LAD from 70 to 0 with a 3 x 18mm Vision. [facility] (04/11/2009) Stacey Booth MD follow up: H er updated medication list for this problem includes: Lisinopril 5 Mg Tabs (Lisinopril) ..... 1/2 tab. daily Lasix 40 Mg Tabs (Furosemide) ..... Po daily BP today: 140/78 Prior BP: 181/94 (05/20/2012) N uclear Stress Findings: 1. Regadenoson mediated myocardial perfusion study 2 . Normal left ventricular systolic function with a calculated ejection fraction of 66%. 3 . No obvious significant scintigraphic evidence of myocardial ischemia or scar. (11/30/2010) E chocardiogram: TDS. Normal MV. Calcified AV without stenosis. LVH. Normal LV function. LV diastolic dysfunction. Small pericardial effusion. Normal aortic velocities. Trace mitral regurgitation. Trace tricupsid regurgitation. RVSP 15mmHg. EF 72%. - [facility] (12/10/2011) C ardiac Cath: No new coronary disease. - [facility] (06/12/2011) C ardiac Cath Comments: Successful primary stent of the mid LAD from 70 to 0 with a 3 x 18mm Vision. [facility] (04/11/2009) H gb: 13.8 (06/12/2011) HCT: 39.6 (06/12/2011) RBC: 4.09 (06/12/2011) WBC: 9.4 (06/12/2011) B UN: 22.6 (06/12/2011) Creat: 1.17 (06/12/2011) Glucose: 149 (06/12/2011) N a+: 139 (06/12/2011) K+: 4.0 (06/12/2011) Cl: 102 (06/12/2011) SGOT (AST): 14 (10/03/2009) SGPT (ALT): 28 (10/03/2009) TSH: 1.0 (04/05/2009) Stacey Booth MD follow up Stacey Booth MD follow up: T he following medications were removed from the medication list: Ranexa 500 Mg Tb12 (Ranolazine) ..... One tab. twice daily for chronic angina Her updated medication list for this problem includes: Clonazepam Tabs (Clonazepam tabs) ..... 0.5mg daily Nitrolingual 0.4 Mg/spray Soln (Nitroglycerin) ..... As needed Plavix 75 Mg Tabs (Clopidogrel bisulfate) ..... One tab. daily(on hold 01/28 for eye surgery) Imdur 120 Mg Tb24 (Isosorbide mononitrate) ..... One tab. daily Lisinopril 5 Mg Tabs (Lisinopril) ..... 1/2 tab. daily BP today: 140/78 Prior BP: 181/94 (05/20/2012) H gb: 13.8 (06/12/2011) HCT: 39.6 (06/12/2011) RBC: 4.09 (06/12/2011) WBC: 9.4 (06/12/2011) B UN: 22.6 (06/12/2011) Creat: 1.17 (06/12/2011) Glucose: 149 (06/12/2011) N a+: 139 (06/12/2011) K+: 4.0 (06/12/2011) Cl: 102 (06/12/2011) Anion Gap: 15.0 (06/12/2011) Calcium: 9.8 (06/12/2011) TSH: 1.0 (04/05/2009) Nuclear Stress Findings: 1. Regadenoson mediated myocardial perfusion study 2 . Normal left ventricular systolic function with a calculated ejection fraction of 66%. 3 . No obvious significant scintigraphic evidence of myocardial ischemia or scar. (11/30/2010) E chocardiogram: TDS. Normal MV. Calcified AV without stenosis. LVH. Normal LV function. LV diastolic dysfunction. Small pericardial effusion. Normal aortic velocities. Trace mitral regurgitation. Trace tricupsid regurgitation. RVSP 15mmHg. EF 72%. - [facility] (12/10/2011) C ardiac Cath: No new coronary disease. - [facility] (06/12/2011) C ardiac Cath Comments: Successful primary stent of the mid LAD from 70 to 0 with a 3 x 18mm Vision. [facility] (04/11/2009) Stacey Booth MD ascitis : T he following medications were removed from the medication list: Calcium Tabs (Calcium carbonate tabs) ..... + d one tab. daily once in a while Her updated medication list for this problem includes: Lisinopril 5 Mg Tabs (Lisinopril) ..... 1/2 tab. daily Lasix 40 Mg Tabs (Furosemide) ..... Po daily BP today: 181/94 Prior BP: 138/71 (01/29/2012) N uclear Stress Findings: 1. Regadenoson mediated myocardial perfusion study 2 . Normal left ventricular systolic function with a calculated ejection fraction of 66%. 3 . No obvious significant scintigraphic evidence of myocardial ischemia or scar. (11/30/2010) E chocardiogram: TDS. Normal MV. Calcified AV without stenosis. LVH. Normal LV function. LV diastolic dysfunction. Small pericardial effusion. Normal aortic velocities. Trace mitral regurgitation. Trace tricupsid regurgitation. RVSP 15mmHg. EF 72%. - [facility] (12/10/2011) C ardiac Cath: No new coronary disease. - [facility] (06/12/2011) C ardiac Cath Comments: Successful primary stent of the mid LAD from 70 to 0 with a 3 x 18mm Vision. [facility] (04/11/2009) H gb: 13.8 (06/12/2011) HCT: 39.6 (06/12/2011) RBC: 4.09 (06/12/2011) WBC: 9.4 (06/12/2011) B UN: 22.6 (06/12/2011) Creat: 1.17 (06/12/2011) Glucose: 149 (06/12/2011) N a+: 139 (06/12/2011) K+: 4.0 (06/12/2011) Cl: 102 (06/12/2011) SGOT (AST): 14 (10/03/2009) SGPT (ALT): 28 (10/03/2009) TSH: 1.0 (04/05/2009) Stacey Booth MD ascitis Stacey Booth MD ascitis : H er updated medication list for this problem includes: Clonazepam Tabs (Clonazepam tabs) ..... 0.5mg daily Nitrolingual 0.4 Mg/spray Soln (Nitroglycerin) ..... As needed Plavix 75 Mg Tabs (Clopidogrel bisulfate) ..... One tab. daily(on hold 01/28 for eye surgery) Imdur 120 Mg Tb24 (Isosorbide mononitrate) ..... One tab. daily Lisinopril 5 Mg Tabs (Lisinopril) ..... 12 tab. daily Ranexa 500 Mg Tb12 (Ranolazine) ..... One tab. twice daily for chronic angina BP today: 181/94 Prior BP: 138/71 (01/29/2012) H gb: 13.8 (06/12/2011) HCT: 39.6 (06/12/2011) RBC: 4.09 (06/12/2011) WBC: 9.4 (06/12/2011) B UN: 22.6 (06/12/2011) Creat: 1.17 (06/12/2011) Glucose: 149 (06/12/2011) N a+: 139 (06/12/2011) K+: 4.0 (06/12/2011) Cl: 102 (06/12/2011) Anion Gap: 15.0 (06/12/2011) Calcium: 9.8 (06/12/2011) TSH: 1.0 (04/05/2009) Nuclear Stress Findings: 1. Regadenoson mediated myocardial perfusion study 2 . Normal left ventricular systolic function with a calculated ejection fraction of 66%. 3 . No obvious significant scintigraphic evidence of myocardial ischemia or scar. (11/30/2010) E chocardiogram: TDS. Normal MV. Calcified AV without stenosis. LVH. Normal LV function. LV diastolic dysfunction. Small pericardial effusion. Normal aortic velocities. Trace mitral regurgitation. Trace tricupsid regurgitation. RVSP 15mmHg. EF 72%. - [facility] (12/10/2011) C ardiac Cath: No new coronary disease. - [facility] (06/12/2011) C ardiac Cath Comments: Successful primary stent of the mid LAD from 70 to 0 with a 3 x 18mm Vision. [facility] (04/11/2009) Stacey Booth MD ascitis : H er updated medication list for this problem includes: Clonazepam Tabs (Clonazepam tabs) ..... 0.5mg daily Nitrolingual 0.4 Mg/spray Soln (Nitroglycerin) ..... As needed Plavix 75 Mg Tabs (Clopidogrel bisulfate) ..... One tab. daily(on hold 01/28 for eye surgery) Imdur 120 Mg Tb24 (Isosorbide mononitrate) ..... One tab. daily Lisinopril 5 Mg Tabs (Lisinopril) ..... 1/2 tab. daily Ranexa 500 Mg Tb12 (Ranolazine) ..... One tab. twice daily for chronic angina Orders: E KG (CPT-[id number]) BP today: 181/94 Prior BP: 138/71 (01/29/2012) Hgb: 13.8 (06/12/2011) HCT: 39.6 (06/12/2011) RBC: 4.09 (06/12/2011) WBC: 9.4 (06/12/2011) B UN: 22.6 (06/12/2011) Creat: 1.17 (06/12/2011) Glucose: 149 (06/12/2011) N a+: 139 (06/12/2011) K+: 4.0 (06/12/2011) Cl: 102 (06/12/2011) Anion Gap: 15.0 (06/12/2011) Calcium: 9.8 (06/12/2011) TSH: 1.0 (04/05/2009) Nuclear Stress Findings: 1. Regadenoson mediated myocardial perfusion study 2 . Normal left ventricular systolic function with a calculated ejection fraction of 66%. 3 . No obvious significant scintigraphic evidence of myocardial ischemia or scar. (11/30/2010) E chocardiogram: TDS. Normal MV. Calcified AV without stenosis. LVH. Normal LV function. LV diastolic dysfunction. Small pericardial effusion. Normal aortic velocities. Trace mitral regurgitation. Trace tricupsid regurgitation. RVSP 15mmHg. EF 72%. - [facility] (12/10/2011) C ardiac Cath: No new coronary disease. - [facility] (06/12/2011) C ardiac Cath Comments: Successful primary stent of the mid LAD from 70 to 0 with a 3 x 18mm Vision. [facility] (04/11/2009) Stacey Booth MD ascitis : H er updated medication list for this problem includes: Nitrolingual 0.4 Mg/spray Soln (Nitroglycerin) ..... As needed Plavix 75 Mg Tabs (Clopidogrel bisulfate) ..... One tab. daily(on hold 01/28 for eye surgery) Imdur 120 Mg Tb24 (Isosorbide mononitrate) ..... One tab. daily Lisinopril 5 Mg Tabs (Lisinopril) ..... 1/2 tab. daily Ranexa 500 Mg Tb12 (Ranolazine) ..... One tab. twice daily for chronic angina BP today: 181/94 Prior BP: 138/71 (01/29/2012) N uclear Stress Findings: 1. Regadenoson mediated myocardial perfusion study 2 . Normal left ventricular systolic function with a calculated ejection fraction of 66%. 3 . No obvious significant scintigraphic evidence of myocardial ischemia or scar. (11/30/2010) C ardiac Cath: No new coronary disease. - [facility] (06/12/2011) C ardiac Cath Comments: Successful primary stent of the mid LAD from 70 to 0 with a 3 x 18mm Vision. [facility] (04/11/2009) C arotid Doppler/Duplex: Minimal plaque both carotid bifurication. Normal flow both internals. Right vertebral not seen. - [facility] (12/11/2011) A rterial Doppler (leg): No evidence of pseudoaneurysm or AV fistula formation in the right leg. - (07/17/2011) H gb: 13.8 (06/12/2011) HCT: 39.6 (06/12/2011) RBC: 4.09 (06/12/2011) WBC: 9.4 (06/12/2011) B UN: 22.6 (06/12/2011) Creat: 1.17 (06/12/2011) Glucose: 149 (06/12/2011) N a+: 139 (06/12/2011) K+: 4.0 (06/12/2011) Cl: 102 (06/12/2011) TSH: 1.0 (04/05/2009) Stacey Booth MD follow up: H er updated medication list for this problem includes: Advair Diskus 100-50 Mcg/dose Misc (Fluticasone-salmeterol) ..... 1 puff twice daily Proventil Hfa Aers (Albuterol sulfate aers) ..... Prn BP today: 138/80 Prior BP: 137/83 (06/05/2011) Pulmonary Functions Reviewed: O 2 sat: 93 (06/25/2011) Stacey Booth MD follow up: H er updated medication list for this problem includes: Calcium Tabs (Calcium carbonate tabs) ..... + d one tab. daily once in a while Lasix 20 Mg Tabs (Furosemide) Lisinopril 5 Mg Tabs (Lisinopril) ..... One tab. daily Orders: e Prescribe - Check this box if eRx is used (CPT-G8553) BP today: 138/80 Prior BP: 137/83 (06/05/2011) N uclear Stress Findings: 1. Regadenoson mediated myocardial perfusion study 2 . Normal left ventricular systolic function with a calculated ejection fraction of 66%. 3 . No obvious significant scintigraphic evidence of myocardial ischemia or scar. (11/30/2010) E chocardiogram: Normal left ventricular systolic function. Normal left ventricular size. Normal left ventricular wall thickness. Normal left ventricular diastolic function. Normal E/E` 7.5. Left ventricular ejection fraction is estimated at 60%. No significant valvular abnormalities. - [facility] (11/30/2010) C ardiac Cath: No new coronary disease. - [facility] (06/12/2011) C ardiac Cath Comments: Successful primary stent of the mid LAD from 70 to 0 with a 3 x 18mm Vision. [facility] (04/11/2009) H gb: 13.8 (06/12/2011) HCT: 39.6 (06/12/2011) RBC: 4.09 (06/12/2011) WBC: 9.4 (06/12/2011) B UN: 22.6 (06/12/2011) Creat: 1.17 (06/12/2011) Glucose: 149 (06/12/2011) N a+: 139 (06/12/2011) K+: 4.0 (06/12/2011) Cl: 102 (06/12/2011) SGOT (AST): 14 (10/03/2009) SGPT (ALT): 28 (10/03/2009) TSH: 1.0 (04/05/2009) Stacey Booth MD follow up: H er updated medication list for this problem includes: Clonazepam Tabs (Clonazepam tabs) ..... 0.5mg daily Nitrolingual 0.4 Mg/spray Soln (Nitroglycerin) ..... As needed Plavix 75 Mg Tabs (Clopidogrel bisulfate) ..... One tab. daily Imdur 120 Mg Tb24 (Isosorbide mononitrate) ..... One tab. daily Lisinopril 5 Mg Tabs (Lisinopril) ..... One tab. daily Ranexa 500 Mg Tb12 (Ranolazine) ..... One tab. twice daily for chronic angina Orders: e Prescribe - Check this box if eRx is used (CPT-G8553) BP today: 138/80 Prior BP: 137/83 (06/05/2011) H gb: 13.8 (06/12/2011) HCT: 39.6 (06/12/2011) RBC: 4.09 (06/12/2011) WBC: 9.4 (06/12/2011) B UN: 22.6 (06/12/2011) Creat: 1.17 (06/12/2011) Glucose: 149 (06/12/2011) N a+: 139 (06/12/2011) K+: 4.0 (06/12/2011) Cl: 102 (06/12/2011) Anion Gap: 15.0 (06/12/2011) Calcium: 9.8 (06/12/2011) TSH: 1.0 (04/05/2009) Nuclear Stress Findings: 1. Regadenoson mediated myocardial perfusion study 2 . Normal left ventricular systolic function with a calculated ejection fraction of 66%. 3 . No obvious significant scintigraphic evidence of myocardial ischemia or scar. (11/30/2010) E chocardiogram: Normal left ventricular systolic function. Normal left ventricular size. Normal left ventricular wall thickness. Normal left ventricular diastolic function. Normal E/E` 7.5. Left ventricular ejection fraction is estimated at 60%. No significant valvular abnormalities. - [facility] (11/30/2010) C ardiac Cath: No new coronary disease. - [facility] (06/12/2011) C ardiac Cath Comments: Successful primary stent of the mid LAD from 70 to 0 with a 3 x 18mm Vision. [facility] (04/11/2009) Stacey Booth MD follow up: H er updated medication list for this problem includes: Clonazepam Tabs (Clonazepam tabs) ..... 0.5mg daily Nitrolingual 0.4 Mg/spray Soln (Nitroglycerin) ..... As needed Plavix 75 Mg Tabs (Clopidogrel bisulfate) ..... One tab. daily Imdur 120 Mg Tb24 (Isosorbide mononitrate) ..... One tab. daily Lisinopril 5 Mg Tabs (Lisinopril) ..... One tab. daily Ranexa 500 Mg Tb12 (Ranolazine) ..... One tab. twice daily for chronic angina Orders: e Prescribe - Check this box if eRx is used (CPT-G8553) BP today: 138/80 Prior BP: 137/83 (06/05/2011) H gb: 13.8 (06/12/2011) HCT: 39.6 (06/12/2011) RBC: 4.09 (06/12/2011) WBC: 9.4 (06/12/2011) B UN: 22.6 (06/12/2011) Creat: 1.17 (06/12/2011) Glucose: 149 (06/12/2011) N a+: 139 (06/12/2011) K+: 4.0 (06/12/2011) Cl: 102 (06/12/2011) Anion Gap: 15.0 (06/12/2011) Calcium: 9.8 (06/12/2011) TSH: 1.0 (04/05/2009) Nuclear Stress Findings: 1. Regadenoson mediated myocardial perfusion study 2 . Normal left ventricular systolic function with a calculated ejection fraction of 66%. 3 . No obvious significant scintigraphic evidence of myocardial ischemia or scar. (11/30/2010) E chocardiogram: Normal left ventricular systolic function. Normal left ventricular size. Normal left ventricular wall thickness. Normal left ventricular diastolic function. Normal E/E` 7.5. Left ventricular ejection fraction is estimated at 60%. No significant valvular abnormalities. - [facility] (11/30/2010) C ardiac Cath: No new coronary disease. - [facility] (06/12/2011) C ardiac Cath Comments: Successful primary stent of the mid LAD from 70 to 0 with a 3 x 18mm Vision. [facility] (04/11/2009) Stacey Booth MD follow up: H er updated medication list for this problem includes: Nitrolingual 0.4 Mg/spray Soln (Nitroglycerin) ..... As needed Plavix 75 Mg Tabs (Clopidogrel bisulfate) ..... One tab. daily Imdur 120 Mg Tb24 (Isosorbide mononitrate) ..... One tab. daily Lisinopril 5 Mg Tabs (Lisinopril) ..... One tab. daily Ranexa 500 Mg Tb12 (Ranolazine) ..... One tab. twice daily for chronic angina Orders: e Prescribe - Check this box if eRx is used (CPT-G8553) BP today: 138/80 Prior BP: 137/83 (06/05/2011) N uclear Stress Findings: 1. Regadenoson mediated myocardial perfusion study 2 . Normal left ventricular systolic function with a calculated ejection fraction of 66%. 3 . No obvious significant scintigraphic evidence of myocardial ischemia or scar. (11/30/2010) C ardiac Cath: No new coronary disease. - [facility] (06/12/2011) C ardiac Cath Comments: Successful primary stent of the mid LAD from 70 to 0 with a 3 x 18mm Vision. [facility] (04/11/2009) C arotid Doppler/Duplex: Normal carotid duplex exam. [facility] (04/01/2009) A rterial Doppler (leg): Normal arterial flow of the upper extremities. [facility] (04/01/2009) H gb: 13.8 (06/12/2011) HCT: 39.6 (06/12/2011) RBC: 4.09 (06/12/2011) WBC: 9.4 (06/12/2011) B UN: 22.6 (06/12/2011) Creat: 1.17 (06/12/2011) Glucose: 149 (06/12/2011) N a+: 139 (06/12/2011) K+: 4.0 (06/12/2011) Cl: 102 (06/12/2011) TSH: 1.0 (04/05/2009) Stacey Booth MD : T he following medications were removed from the medication list: Aspirin 81 Mg Tabs (Aspirin) ..... One tab. daily Her updated medication list for this problem includes: Calcium Tabs (Calcium carbonate tabs) ..... + d one tab. daily once in a while Lasix 20 Mg Tabs (Furosemide) Orders: e Prescribe - Check this box if eRx is used (CPT-G8553) Stacey Booth MD : T he following medications were removed from the medication list: Aspirin 81 Mg Tabs (Aspirin) ..... One tab. daily Her updated medication list for this problem includes: Clonazepam Tabs (Clonazepam tabs) ..... 0.5mg daily Nitrolingual 0.4 Mg/spray Soln (Nitroglycerin) ..... As needed Plavix 75 Mg Tabs (Clopidogrel bisulfate) ..... One tab. daily Imdur 120 Mg Tb24 (Isosorbide mononitrate) ..... One tab. daily Orders: e Prescribe - Check this box if eRx is used (CPT-G8553) Stacey Booth MD : T he following medications were removed from the medication list: Aspirin 81 Mg Tabs (Aspirin) ..... One tab. daily Her updated medication list for this problem includes: Clonazepam Tabs (Clonazepam tabs) ..... 0.5mg daily Nitrolingual 0.4 Mg/spray Soln (Nitroglycerin) ..... As needed Plavix 75 Mg Tabs (Clopidogrel bisulfate) ..... One tab. daily Imdur 120 Mg Tb24 (Isosorbide mononitrate) ..... One tab. daily Orders: e Prescribe - Check this box if eRx is used (CPT-G8553) Stacey Booth MD : T he following medications were removed from the medication list: Lipitor 40 Mg Tabs (Atorvastatin calcium) ..... One tab. daily Aspirin 81 Mg Tabs (Aspirin) ..... One tab. daily & #13;Her updated medication list for this problem includes: Nitrolingual 0.4 Mg/spray Soln (Nitroglycerin) ..... As needed Plavix 75 Mg Tabs (Clopidogrel bisulfate) ..... One tab. daily Imdur 120 Mg Tb24 (Isosorbide mononitrate) ..... One tab. daily BP today: 137/83 Prior BP: 162/77 (12/04/2010) N uclear Stress Findings: 1. Regadenoson mediated myocardial perfusion study 2. Normal left ventricular systolic function with a calculated ejection fraction of 66%. 3 . No obvious significant scintigraphic evidence of myocardial ischemia or scar. (11/30/2010) C ardiac Cath: Patent Vision stent in fhte LAD. No change in the right coronary lesion. The last time she had a stress test after her last cardiac cath which was normal and the lesion is unchanged. Tobacco abuse counseled to quit smoking. 6-[place] Angio-Seal device placed with excellent hemastasis. [facility] (08/01/2009) C ardiac Cath Comments: Successful primary stent of the mid LAD from 70 to 0 with a 3 x 18mm Vision. [facility] (04/11/2009) C arotid Doppler/Duplex: Normal carotid duplex exam. [facility] (04/01/2009) A rterial Doppler (leg): Normal arterial flow of the upper extremities. [facility] (04/01/2009) H gb: 14.8 (10/03/2009) HCT: 45.4 (10/03/2009) RBC: 4.79 (10/03/2009) WBC: 8.9 (10/03/2009) B UN: 9 (10/03/2009) Creat: 1.01 (10/03/2009) Glucose: 86 (10/03/2009) N a+: 139 (10/03/2009) K+: 3.7 (10/03/2009) Cl: 102 (10/03/2009) TSH: 1.0 (04/05/2009) Stacey Booth MD test results Stacey Booth MD test results : H er updated medication list for this problem includes: Clonazepam Tabs (Clonazepam tabs) ..... 0.5mg daily Nitrolingual 0.4 Mg/spray Soln (Nitroglycerin) ..... As needed Plavix 75 Mg Tabs (Clopidogrel bisulfate) ..... One tab. daily Aspirin 81 Mg Tabs (Aspirin) ..... One tab. daily Imdur 120 Mg Tb24 (Isosorbide mononitrate) ..... One tab. daily BP today: 162/77 Prior BP: 163/73 (06/27/2010) H gb: 14.8 (10/03/2009) HCT: 45.4 (10/03/2009) RBC: 4.79 (10/03/2009) WBC: 8.9 (10/03/2009) B UN: 9 (10/03/2009) Creat: 1.01 (10/03/2009) Glucose: 86 (10/03/2009) N a+: 139 (10/03/2009) K+: 3.7 (10/03/2009) Cl: 102 (10/03/2009) TSH: 1.0 (04/05/2009) Nuclear Stress Findings: 1. Regadenoson mediated myocardial perfusion study 2 . Normal left ventricular systolic function with a calculated ejection fraction of 66%. 3 . No obvious significant scintigraphic evidence of myocardial ischemia or scar. [facility] (11/30/2010) E chocardiogram: Normal left ventricular systolic function. Normal left ventricular size. Normal left ventricular wall thickness. Normal left ventricular diastolic function. Normal E/E` 7.5. Left ventricular ejection fraction is estimated at 60%. No significant valvular abnormalities. - [facility] (11/30/2010) C ardiac Cath: Patent Vision stent in fhte LAD. No change in the right coronary lesion. The last time she had a stress test after her last cardiac cath which was normal and the lesion is unchanged. Tobacco abuse counseled to quit smoking. 6-[place] Angio-Seal device placed with excellent hemastasis. [facility] [place] (08/01/2009) C ardiac Cath Comments: Successful primary stent of the mid LAD from 70 to 0 with a 3 x 18mm Vision. [facility] (04/11/2009) Stacey Booth MD test results : H er updated medication list for this problem includes: Clonazepam Tabs (Clonazepam tabs) ..... 0.5mg daily Nitrolingual 0.4 Mg/spray Soln (Nitroglycerin) ..... As needed Plavix 75 Mg Tabs (Clopidogrel bisulfate) ..... One tab. daily Aspirin 81 Mg Tabs (Aspirin) ..... One tab. daily Imdur 120 Mg Tb24 (Isosorbide mononitrate) ..... One tab. daily BP today: 162/77 Prior BP: 163/73 (06/27/2010) H gb: 14.8 (10/03/2009) HCT: 45.4 (10/03/2009) RBC: 4.79 (10/03/2009) WBC: 8.9 (10/03/2009) B UN: 9 (10/03/2009) Creat: 1.01 (10/03/2009) Glucose: 86 (10/03/2009) N a+: 139 (10/03/2009) K+: 3.7 (10/03/2009) Cl: 102 (10/03/2009) TSH: 1.0 (04/05/2009) Nuclear Stress Findings: 1. Regadenoson mediated myocardial perfusion study 2 . Normal left ventricular systolic function with a calculated ejection fraction of 66%. 3 . No obvious significant scintigraphic evidence of myocardial ischemia or scar. (11/30/2010) E chocardiogram: Normal left ventricular systolic function. Normal left ventricular size. Normal left ventricular wall thickness. Normal left ventricular diastolic function. Normal E/E` 7.5. Left ventricular ejection fraction is estimated at 60%. No significant valvular abnormalities. - [facility] (11/30/2010) C ardiac Cath: Patent Vision stent in fhte LAD. No change in the right coronary lesion. The last time she had a stress test after her last cardiac cath which was normal and the lesion is unchanged. Tobacco abuse counseled to quit smoking. 6-[place] Angio-Seal device placed with excellent hemastasis. [facility] [place] (08/01/2009) C ardiac Cath Comments: Successful primary stent of the mid LAD from 70 to 0 with a 3 x 18mm Vision. [facility] (04/11/2009) Stacey Booth MD test results : H er updated medication list for this problem includes: Lipitor 40 Mg Tabs (Atorvastatin calcium) ..... One tab. daily Nitrolingual 0.4 Mg/spray Soln (Nitroglycerin) ..... As needed Plavix 75 Mg Tabs (Clopidogrel bisulfate) ..... One tab. daily Aspirin 81 Mg Tabs (Aspirin) ..... One tab. daily Imdur 120 Mg Tb24 (Isosorbide mononitrate) ..... One tab. daily BP today: 162/77 Prior BP: 163/73 (06/27/2010) N uclear Stress Findings: 1. Regadenoson mediated myocardial perfusion study 2 . Normal left ventricular systolic function with a calculated ejection fraction of 66%. 3 . No obvious significant scintigraphic evidence of myocardial ischemia or scar. (11/30/2010) C ardiac Cath: Patent Vision stent in fhte LAD. No change in the right coronary lesion. The last time she had a stress test after her last cardiac cath which was normal and the lesion is unchanged. Tobacco abuse counseled to quit smoking. 6-[place] Angio-Seal device placed with excellent hemastasis. [facility] (08/01/2009) C ardiac Cath Comments: Successful primary stent of the mid LAD from 70 to 0 with a 3 x 18mm Vision. [facility] (04/11/2009) C arotid Doppler/Duplex: Normal carotid duplex exam. [facility] (04/01/2009) A rterial Doppler (leg): Normal arterial flow of the upper extremities. [facility] (04/01/2009) H gb: 14.8 (10/03/2009) HCT: 45.4 (10/03/2009) RBC: 4.79 (10/03/2009) WBC: 8.9 (10/03/2009) B UN: 9 (10/03/2009) Creat: 1.01 (10/03/2009) Glucose: 86 (10/03/2009) N a+: 139 (10/03/2009) K+: 3.7 (10/03/2009) Cl: 102 (10/03/2009) TSH: 1.0 (04/05/2009) Stacey Booth MD test results : H er updated medication list for this problem includes: Lipitor 40 Mg Tabs (Atorvastatin calcium) ..... One tab. daily Nitrolingual 0.4 Mg/spray Soln (Nitroglycerin) ..... As needed Plavix 75 Mg Tabs (Clopidogrel bisulfate) ..... One tab. daily Aspirin 81 Mg Tabs (Aspirin) ..... One tab. daily Imdur 120 Mg Tb24 (Isosorbide mononitrate) ..... One tab. daily BP today: 162/77 Prior BP: 163/73 (06/27/2010) N uclear Stress Findings: 1. Regadenoson mediated myocardial perfusion study 2 . Normal left ventricular systolic function with a calculated ejection fraction of 66%. 3 . No obvious significant scintigraphic evidence of myocardial ischemia or scar. (11/30/2010) C ardiac Cath: Patent Vision stent in fhte LAD. No change in the right coronary lesion. The last time she had a stress test after her last cardiac cath which was normal and the lesion is unchanged. Tobacco abuse counseled to quit smoking. 6-[place] Angio-Seal device placed with excellent hemastasis. [facility] (08/01/2009) C ardiac Cath Comments: Successful primary stent of the mid LAD from 70 to 0 with a 3 x 18mm Vision. [facility] (04/11/2009) C arotid Doppler/Duplex: Normal carotid duplex exam. [facility] (04/01/2009) A rterial Doppler (leg): Normal arterial flow of the upper extremities. [facility] (04/01/2009) H gb: 14.8 (10/03/2009) HCT: 45.4 (10/03/2009) RBC: 4.79 (10/03/2009) WBC: 8.9 (10/03/2009) B UN: 9 (10/03/2009) Creat: 1.01 (10/03/2009) Glucose: 86 (10/03/2009) N a+: 139 (10/03/2009) K+: 3.7 (10/03/2009) Cl: 102 (10/03/2009) TSH: 1.0 (04/05/2009) Stacey Booth MD test results : H er updated medication list for this problem includes: Nitrolingual 0.4 Mg/spray Soln (Nitroglycerin) ..... As needed Plavix 75 Mg Tabs (Clopidogrel bisulfate) ..... One tab. daily Aspirin 81 Mg Tabs (Aspirin) ..... One tab. daily Imdur 120 Mg Tb24 (Isosorbide mononitrate) ..... One tab. daily BP today: 162/77 Prior BP: 163/73 (06/27/2010) N uclear Stress Findings: 1. Regadenoson mediated myocardial perfusion study 2 . Normal left ventricular systolic function with a calculated ejection fraction of 66%. 3 . No obvious significant scintigraphic evidence of myocardial ischemia or scar. (11/30/2010) C ardiac Cath: Patent Vision stent in fhte LAD. No change in the right coronary lesion. The last time she had a stress test after her last cardiac cath which was normal and the lesion is unchanged. Tobacco abuse counseled to quit smoking. 6-[place] Angio-Seal device placed with excellent hemastasis. [facility] (08/01/2009) C ardiac Cath Comments: Successful primary stent of the mid LAD from 70 to 0 with a 3 x 18mm Vision. [facility] (04/11/2009) C arotid Doppler/Duplex: Normal carotid duplex exam. [facility] (04/01/2009) A rterial Doppler (leg): Normal arterial flow of the upper extremities. [facility] (04/01/2009) H gb: 14.8 (10/03/2009) HCT: 45.4 (10/03/2009) RBC: 4.79 (10/03/2009) WBC: 8.9 (10/03/2009) B UN: 9 (10/03/2009) Creat: 1.01 (10/03/2009) Glucose: 86 (10/03/2009) N a+: 139 (10/03/2009) K+: 3.7 (10/03/2009) Cl: 102 (10/03/2009) TSH: 1.0 (04/05/2009) Echocardiogram: Normal left ventricular systolic function. Normal left ventricular size. Normal left ventricular wall thickness. Normal left ventricular diastolic function. Normal E/E` 7.5. Left ventricular ejection fraction is estimated at 60%. No significant valvular abnormalities. - [facility] (11/30/2010) Stacey Booth MD leg pain : H er updated medication list for this problem includes: Lipitor 40 Mg Tabs (Atorvastatin calcium) ..... One tab. daily Nitrolingual 0.4 Mg/spray Soln (Nitroglycerin) ..... As needed Plavix 75 Mg Tabs (Clopidogrel bisulfate) ..... One tab. daily Aspirin 81 Mg Tabs (Aspirin) ..... One tab. daily Imdur 120 Mg Tb24 (Isosorbide mononitrate) ..... One tab. daily B P today: 163/73 Prior BP: 168/85 (03/20/2010) N uclear Stress Findings: Adenosine mediated myocardial perfusion study Normal left ventricular systolic function with a calculated ejection fraction of 69%. No obvious significant scintigraphic evidence of myocardial ischemia or scar. E (03/31/2009) C ardiac Cath: Patent Vision stent in fhte LAD. No change in the right coronary lesion. The last time she had a stress test after her last cardiac cath which was normal and the lesion is unchanged. Tobacco abuse counseled to quit smoking. 6-[place] Angio-Seal device placed with excellent hemastasis. [facility] (08/01/2009) C ardiac Cath Comments: Successful primary stent of the mid LAD from 70 to 0 with a 3 x 18mm Vision. [facility] (04/11/2009) C arotid Doppler/Duplex: Normal carotid duplex exam. [facility] (04/01/2009) A rterial Doppler (leg): Normal arterial flow of the upper extremities. [facility] (04/01/2009) H gb: 14.8 (10/03/2009) HCT: 45.4 (10/03/2009) RBC: 4.79 (10/03/2009) WBC: 8.9 (10/03/2009) B UN: 9 (10/03/2009) Creat: 1.01 (10/03/2009) Glucose: 86 (10/03/2009) N a+: 139 (10/03/2009) K+: 3.7 (10/03/2009) Cl: 102 (10/03/2009) TSH: 1.0 (04/05/2009) Stacey Booth MD leg pain : H er updated medication list for this problem includes: Nitrolingual 0.4 Mg/spray Soln (Nitroglycerin) ..... As needed Plavix 75 Mg Tabs (Clopidogrel bisulfate) ..... One tab. daily Aspirin 81 Mg Tabs (Aspirin) ..... One tab. daily Imdur 120 Mg Tb24 (Isosorbide mononitrate) ..... One tab. daily BP today: 163/73 Prior BP: 168/85 (03/20/2010) N uclear Stress Findings: Adenosine mediated myocardial perfusion study Normal left ventricular systolic function with a calculated ejection fraction of 69%. No obvious significant scintigraphic evidence of myocardial ischemia or scar. E (03/31/2009) C ardiac Cath: Patent Vision stent in fhte LAD. No change in the right coronary lesion. The last time she had a stress test after her last cardiac cath which was normal and the lesion is unchanged. Tobacco abuse counseled to quit smoking. 6-[place] Angio-Seal device placed with excellent hemastasis. [facility] (08/01/2009) C ardiac Cath Comments: Successful primary stent of the mid LAD from 70 to 0 with a 3 x 18mm Vision. [facility] (04/11/2009) C arotid Doppler/Duplex: Normal carotid duplex exam. [facility] (04/01/2009) Arterial Doppler (leg): Normal arterial flow of the upper extremities. [facility] (04/01/2009) H gb: 14.8 (10/03/2009) HCT: 45.4 (10/03/2009) RBC: 4.79 (10/03/2009) WBC: 8.9 (10/03/2009) B UN: 9 (10/03/2009) Creat: 1.01 (10/03/2009) Glucose: 86 (10/03/2009) N a+: 139 (10/03/2009) K+: 3.7 (10/03/2009) Cl: 102 (10/03/2009) TSH: 1.0 (04/05/2009) Echocardiogram: Normal LV systolic function and size. Mild concentric LVH. EF 60% E /E` IS 6. Trace MR. Non-specific thickening of the MVL. Trace TR. [facility] (03/31/2009) Stacey Booth MD leg pain Stacey Booth MD leg pain : H er updated medication list for this problem includes: Calcium Tabs (Calcium carbonate tabs) ..... + d one tab. daily once in a while Aspirin 81 Mg Tabs (Aspirin) ..... One tab. daily BP today: 163/73 Prior BP: 168/85 (03/20/2010) N uclear Stress Findings: Adenosine mediated myocardial perfusion study Normal left ventricular systolic function with a calculated ejection fraction of 69%. No obvious significant scintigraphic evidence of myocardial ischemia or scar. [facility] (03/31/2009) E chocardiogram: Normal LV systolic function and size. Mild concentric LVH. EF 60% E /E` IS 6. Trace MR. Non-specific thickening of the MVL. Trace TR. [facility] (03/31/2009) C ardiac Cath: Patent Vision stent in fhte LAD. No change in the right coronary lesion. The last time she had a stress test after her last cardiac cath which was normal and the lesion is unchanged. Tobacco abuse counseled to quit smoking. 6-[place] Angio-Seal device placed with excellent hemastasis. [facility] (08/01/2009) C ardiac Cath Comments: Successful primary stent of the mid LAD from 70 to 0 with a 3 x 18mm Vision. [facility] (04/11/2009) H gb: 14.8 (10/03/2009) HCT: 45.4 (10/03/2009) RBC: 4.79 (10/03/2009) WBC: 8.9 (10/03/2009) B UN: 9 (10/03/2009) Creat: 1.01 (10/03/2009) Glucose: 86 (10/03/2009) N a+: 139 (10/03/2009) K+: 3.7 (10/03/2009) Cl: 102 (10/03/2009) SGOT (AST): 14 (10/03/2009) SGPT (ALT): 28 (10/03/2009) TSH: 1.0 (04/05/2009) Stacey Booth MD leg pain Stacey Booth MD leg pain : H er updated medication list for this problem includes: Clonazepam Tabs (Clonazepam tabs) ..... 0.5mg daily Nitrolingual 0.4 Mg/spray Soln (Nitroglycerin) ..... As needed Plavix 75 Mg Tabs (Clopidogrel bisulfate) ..... One tab. daily Aspirin 81 Mg Tabs (Aspirin) ..... One tab. daily Imdur 120 Mg Tb24 (Isosorbide mononitrate) ..... One tab. daily BP today: 163/73 Prior BP: 168/85 (03/20/2010) H gb: 14.8 (10/03/2009) HCT: 45.4 (10/03/2009) RBC: 4.79 (10/03/2009) WBC: 8.9 (10/03/2009) B UN: 9 (10/03/2009) Creat: 1.01 (10/03/2009) Glucose: 86 (10/03/2009) N a+: 139 (10/03/2009) K+: 3.7 (10/03/2009) Cl: 102 (10/03/2009) TSH: 1.0 (04/05/2009) Nuclear Stress Findings: Adenosine mediated myocardial perfusion study Normal left ventricular systolic function with a calculated ejection fraction of 69%. No obvious significant scintigraphic evidence of myocardial ischemia or scar. [facility] (03/31/2009) E chocardiogram: Normal LV systolic function and size. Mild concentric LVH. EF 60% E /E` IS 6. Trace MR. Non-specific thickening of the MVL. Trace TR. [facility] (03/31/2009) C ardiac Cath: Patent Vision stent in fhte LAD. No change in the right coronary lesion. The last time she had a stress test after her last cardiac cath which was normal and the lesion is unchanged. Tobacco abuse counseled to quit smoking. 6-[place] Angio-Seal device placed with excellent hemastasis. [facility] (08/01/2009) C ardiac Cath Comments: Successful primary stent of the mid LAD from 70 to 0 with a 3 x 18mm Vision. [facility] (04/11/2009) Stacey Booth MD leg pain : H er updated medication list for this problem includes: Clonazepam Tabs (Clonazepam tabs) ..... 0.5mg daily Nitrolingual 0.4 Mg/spray Soln (Nitroglycerin) ..... As needed Plavix 75 Mg Tabs (Clopidogrel bisulfate) ..... One tab. daily Aspirin 81 Mg Tabs (Aspirin) ..... One tab. daily Imdur 120 Mg Tb24 (Isosorbide mononitrate) ..... One tab. daily BP today: 163/73 Prior BP: 168/85 (03/20/2010) H gb: 14.8 (10/03/2009) HCT: 45.4 (10/03/2009) RBC: 4.79 (10/03/2009) WBC: 8.9 (10/03/2009) B UN: 9 (10/03/2009) Creat: 1.01 (10/03/2009) Glucose: 86 (10/03/2009) N a+: 139 (10/03/2009) K+: 3.7 (10/03/2009) Cl: 102 (10/03/2009) TSH: 1.0 (04/05/2009) Nuclear Stress Findings: Adenosine mediated myocardial perfusion study Normal left ventricular systolic function with a calculated ejection fraction of 69%. No obvious significant scintigraphic evidence of myocardial ischemia or scar. [facility]NE (03/31/2009) E chocardiogram: Normal LV systolic function and size. Mild concentric LVH. EF 60% E /E` IS 6. Trace MR. Non-specific thickening of the MVL. Trace TR. [facility] (03/31/2009) C ardiac Cath: Patent Vision stent in fhte LAD. No change in the right coronary lesion. The last time she had a stress test after her last cardiac cath which was normal and the lesion is unchanged. Tobacco abuse counseled to quit smoking. 6-[place] Angio-Seal device placed with excellent hemastasis. [facility] (08/01/2009) C ardiac Cath Comments: Successful primary stent of the mid LAD from 70 to 0 with a 3 x 18mm Vision. [facility] (04/11/2009) Stacey Booth MD leg pain : H er updated medication list for this problem includes: Lipitor 40 Mg Tabs (Atorvastatin calcium) ..... One tab. daily Nitrolingual 0.4 Mg/spray Soln (Nitroglycerin) ..... As needed Plavix 75 Mg Tabs (Clopidogrel bisulfate) ..... One tab. daily Aspirin 81 Mg Tabs (Aspirin) ..... One tab. daily Imdur 120 Mg Tb24 (Isosorbide mononitrate) ..... One tab. daily B P today: 163/73 Prior BP: 168/85 (03/20/2010) N uclear Stress Findings: Adenosine mediated myocardial perfusion study Normal left ventricular systolic function with a calculated ejection fraction of 69%. No obvious significant scintigraphic evidence of myocardial ischemia or scar. [facility] (03/31/2009) C ardiac Cath: Patent Vision stent in fhte LAD. No change in the right coronary lesion. The last time she had a stress test after her last cardiac cath which was normal and the lesion is unchanged. Tobacco abuse counseled to quit smoking. 6-[place] Angio-Seal device placed with excellent hemastasis. [facility] (08/01/2009) C ardiac Cath Comments: Successful primary stent of the mid LAD from 70 to 0 with a 3 x 18mm Vision. [facility] (04/11/2009) C arotid Doppler/Duplex: Normal carotid duplex exam. [facility] (04/01/2009) A rterial Doppler (leg): Normal arterial flow of the upper extremities. [facility] (04/01/2009) H gb: 14.8 (10/03/2009) HCT: 45.4 (10/03/2009) RBC: 4.79 (10/03/2009) WBC: 8.9 (10/03/2009) B UN: 9 (10/03/2009) Creat: 1.01 (10/03/2009) Glucose: 86 (10/03/2009) N a+: 139 (10/03/2009) K+: 3.7 (10/03/2009) Cl: 102 (10/03/2009) TSH: 1.0 (04/05/2009) Stacey Booth MD leg pain : H er updated medication list for this problem includes: Lipitor 40 Mg Tabs (Atorvastatin calcium) ..... One tab. daily Nitrolingual 0.4 Mg/spray Soln (Nitroglycerin) ..... As needed Plavix 75 Mg Tabs (Clopidogrel bisulfate) ..... One tab. daily Aspirin 81 Mg Tabs (Aspirin) ..... One tab. daily Imdur 120 Mg Tb24 (Isosorbide mononitrate) ..... One tab. daily B P today: 163/73 Prior BP: 168/85 (03/20/2010) N uclear Stress Findings: Adenosine mediated myocardial perfusion study Normal left ventricular systolic function with a calculated ejection fraction of 69%. No obvious significant scintigraphic evidence of myocardial ischemia or scar. E (03/31/2009) C ardiac Cath: Patent Vision stent in fhte LAD. No change in the right coronary lesion. The last time she had a stress test after her last cardiac cath which was normal and the lesion is unchanged. Tobacco abuse counseled to quit smoking. 6-[place] Angio-Seal device placed with excellent hemastasis. [facility] (08/01/2009) C ardiac Cath Comments: Successful primary stent of the mid LAD from 70 to 0 with a 3 x 18mm Vision. [facility] (04/11/2009) C arotid Doppler/Duplex: Normal carotid duplex exam. [facility] (04/01/2009) A rterial Doppler (leg): Normal arterial flow of the upper extremities. [facility] (04/01/2009) H gb: 14.8 (10/03/2009) HCT: 45.4 (10/03/2009) RBC: 4.79 (10/03/2009) WBC: 8.9 (10/03/2009) B UN: 9 (10/03/2009) Creat: 1.01 (10/03/2009) Glucose: 86 (10/03/2009) N a+: 139 (10/03/2009) K+: 3.7 (10/03/2009) Cl: 102 (10/03/2009) TSH: 1.0 (04/05/2009) Stacey Booth MD chest pain: H er updated medication list for this problem includes: Advair Diskus 100-50 Mcg/dose Misc (Fluticasone-salmeterol) ..... 1 puff twice daily Proventil Hfa Aers (Albuterol sulfate aers) ..... Prn BP today: 168/85 Prior BP: 148/86 (10/11/2009) Pulmonary Functions Reviewed: O 2 sat: 97 (03/20/2010) Stacey Booth MD chest pain: H er updated medication list for this problem includes: Nitrolingual 0.4 Mg/spray Soln (Nitroglycerin) ..... As needed Plavix 75 Mg Tabs (Clopidogrel bisulfate) ..... One tab. daily Aspirin 81 Mg Tabs (Aspirin) ..... One tab. daily Imdur 120 Mg Tb24 (Isosorbide mononitrate) ..... One tab. daily BP today: 168/85 Prior BP: 148/86 (10/11/2009) N uclear Stress Findings: Adenosine mediated myocardial perfusion study Normal left ventricular systolic function with a calculated ejection fraction of 69%. No obvious significant scintigraphic evidence of myocardial ischemia or scar. E (03/31/2009) C ardiac Cath: Patent Vision stent in fhte LAD. No change in the right coronary lesion. The last time she had a stress test after her last cardiac cath which was normal and the lesion is unchanged. Tobacco abuse counseled to quit smoking. 6-[place] Angio-Seal device placed with excellent hemastasis. [facility] (08/01/2009) C ardiac Cath Comments: Successful primary stent of the mid LAD from 70 to 0 with a 3 x 18mm Vision. [facility] (04/11/2009) C arotid Doppler/Duplex: Normal carotid duplex exam. [facility] (04/01/2009) Arterial Doppler (leg): Normal arterial flow of the upper extremities. [facility] (04/01/2009) H gb: 14.8 (10/03/2009) HCT: 45.4 (10/03/2009) RBC: 4.79 (10/03/2009) WBC: 8.9 (10/03/2009) B UN: 9 (10/03/2009) Creat: 1.01 (10/03/2009) Glucose: 86 (10/03/2009) N a+: 139 (10/03/2009) K+: 3.7 (10/03/2009) Cl: 102 (10/03/2009) TSH: 1.0 (04/05/2009) Echocardiogram: Normal LV systolic function and size. Mild concentric LVH. EF 60% E /E` IS 6. Trace MR. Non-specific thickening of the MVL. Trace TR. [facility] (03/31/2009) Stacey Booth MD chest pain: H er updated medication list for this problem includes: Calcium Tabs (Calcium carbonate tabs) ..... + d one tab. daily Aspirin 81 Mg Tabs (Aspirin) ..... One tab. daily & #13;BP today: 168/85 Prior BP: 148/86 (10/11/2009) N uclear Stress Findings: Adenosine mediated myocardial perfusion study Normal left ventricular systolic function with a calculated ejection fraction of 69%. No obvious significant scintigraphic evidence of myocardial ischemia or scar. CNE (03/31/2009) E chocardiogram: Normal LV systolic function and size. Mild concentric LVH. EF 60% E /E` IS 6. Trace MR. Non-specific thickening of the MVL. Trace TR. [facility] (03/31/2009) C ardiac Cath: Patent Vision stent in fhte LAD. No change in the right coronary lesion. The last time she had a stress test after her last cardiac cath which was normal and the lesion is unchanged. Tobacco abuse counseled to quit smoking. 6-[place] Angio-Seal device placed with excellent hemastasis. [facility] (08/01/2009) C ardiac Cath Comments: Successful primary stent of the mid LAD from 70 to 0 with a 3 x 18mm Vision. [facility] (04/11/2009) H gb: 14.8 (10/03/2009) HCT: 45.4 (10/03/2009) RBC: 4.79 (10/03/2009) WBC: 8.9 (10/03/2009) B UN: 9 (10/03/2009) Creat: 1.01 (10/03/2009) Glucose: 86 (10/03/2009) N a+: 139 (10/03/2009) K+: 3.7 (10/03/2009) Cl: 102 (10/03/2009) SGOT (AST): 14 (10/03/2009) SGPT (ALT): 28 (10/03/2009) TSH: 1.0 (04/05/2009) Stacey Booth MD chest pain: H er updated medication list for this problem includes: Clonazepam Tabs (Clonazepam tabs) ..... 0.5mg daily Nitrolingual 0.4 Mg/spray Soln (Nitroglycerin) ..... As needed Plavix 75 Mg Tabs (Clopidogrel bisulfate) ..... One tab. daily Aspirin 81 Mg Tabs (Aspirin) ..... One tab. daily Imdur 120 Mg Tb24 (Isosorbide mononitrate) ..... One tab. daily BP today: 168/85 Prior BP: 148/86 (10/11/2009) H gb: 14.8 (10/03/2009) HCT: 45.4 (10/03/2009) RBC: 4.79 (10/03/2009) WBC: 8.9 (10/03/2009) B UN: 9 (10/03/2009) Creat: 1.01 (10/03/2009) Glucose: 86 (10/03/2009) N a+: 139 (10/03/2009) K+: 3.7 (10/03/2009) Cl: 102 (10/03/2009) TSH: 1.0 (04/05/2009) Nuclear Stress Findings: Adenosine mediated myocardial perfusion study Normal left ventricular systolic function with a calculated ejection fraction of 69%. No obvious significant scintigraphic evidence of myocardial ischemia or scar. CNE (03/31/2009) E chocardiogram: Normal LV systolic function and size. Mild concentric LVH. EF 60% E /E` IS 6. Trace MR. Non-specific thickening of the MVL. Trace TR. [facility] (03/31/2009) C ardiac Cath: Patent Vision stent in fhte LAD. No change in the right coronary lesion. The last time she had a stress test after her last cardiac cath which was normal and the lesion is unchanged. Tobacco abuse counseled to quit smoking. 6-[place] Angio-Seal device placed with excellent hemastasis. [facility] (08/01/2009) C ardiac Cath Comments: Successful primary stent of the mid LAD from 70 to 0 with a 3 x 18mm Vision. [facility] (04/11/2009) Stacey Booth MD chest pain: H er updated medication list for this problem includes: Clonazepam Tabs (Clonazepam tabs) ..... 0.5mg daily Nitrolingual 0.4 Mg/spray Soln (Nitroglycerin) ..... As needed Plavix 75 Mg Tabs (Clopidogrel bisulfate) ..... One tab. daily Aspirin 81 Mg Tabs (Aspirin) ..... One tab. daily Imdur 120 Mg Tb24 (Isosorbide mononitrate) ..... One tab. daily BP today: 168/85 Prior BP: 148/86 (10/11/2009) H gb: 14.8 (10/03/2009) HCT: 45.4 (10/03/2009) RBC: 4.79 (10/03/2009) WBC: 8.9 (10/03/2009) B UN: 9 (10/03/2009) Creat: 1.01 (10/03/2009) Glucose: 86 (10/03/2009) N a+: 139 (10/03/2009) K+: 3.7 (10/03/2009) Cl: 102 (10/03/2009) TSH: 1.0 (04/05/2009) Nuclear Stress Findings: Adenosine mediated myocardial perfusion study Normal left ventricular systolic function with a calculated ejection fraction of 69%. No obvious significant scintigraphic evidence of myocardial ischemia or scar. CNE (03/31/2009) E chocardiogram: Normal LV systolic function and size. Mild concentric LVH. EF 60% E /E` IS 6. Trace MR. Non-specific thickening of the MVL. Trace TR. [facility] (03/31/2009) C ardiac Cath: Patent Vision stent in fhte LAD. No change in the right coronary lesion. The last time she had a stress test after her last cardiac cath which was normal and the lesion is unchanged. Tobacco abuse counseled to quit smoking. 6-[place] Angio-Seal device placed with excellent hemastasis. [facility] (08/01/2009) C ardiac Cath Comments: Successful primary stent of the mid LAD from 70 to 0 with a 3 x 18mm Vision. [facility] (04/11/2009) Orders: S ashwin Study (*) Stacey Booth MD chest pain: H er updated medication list for this problem includes: Lipitor 40 Mg Tabs (Atorvastatin calcium) ..... One tab. daily Nitrolingual 0.4 Mg/spray Soln (Nitroglycerin) ..... As needed Plavix 75 Mg Tabs (Clopidogrel bisulfate) ..... One tab. daily Aspirin 81 Mg Tabs (Aspirin) ..... One tab. daily Imdur 120 Mg Tb24 (Isosorbide mononitrate) ..... One tab. daily B P today: 168/85 Prior BP: 148/86 (10/11/2009) N uclear Stress Findings: Adenosine mediated myocardial perfusion study Normal left ventricular systolic function with a calculated ejection fraction of 69%. No obvious significant scintigraphic evidence of myocardial ischemia or scar. E (03/31/2009) C ardiac Cath: Patent Vision stent in fhte LAD. No change in the right coronary lesion. The last time she had a stress test after her last cardiac cath which was normal and the lesion is unchanged. Tobacco abuse counseled to quit smoking. 6-[place] Angio-Seal device placed with excellent hemastasis. [facility] (08/01/2009) C ardiac Cath Comments: Successful primary stent of the mid LAD from 70 to 0 with a 3 x 18mm Vision. [facility] (04/11/2009) C arotid Doppler/Duplex: Normal carotid duplex exam. [facility] (04/01/2009) A rterial Doppler (leg): Normal arterial flow of the upper extremities. [facility] (04/01/2009) H gb: 14.8 (10/03/2009) HCT: 45.4 (10/03/2009) RBC: 4.79 (10/03/2009) WBC: 8.9 (10/03/2009) B UN: 9 (10/03/2009) Creat: 1.01 (10/03/2009) Glucose: 86 (10/03/2009) N a+: 139 (10/03/2009) K+: 3.7 (10/03/2009) Cl: 102 (10/03/2009) TSH: 1.0 (04/05/2009) O rders: E KG (CPT-59488) Stacey Booth MD chest pain: H er updated medication list for this problem includes: Lipitor 40 Mg Tabs (Atorvastatin calcium) ..... One tab. daily Nitrolingual 0.4 Mg/spray Soln (Nitroglycerin) ..... As needed Plavix 75 Mg Tabs (Clopidogrel bisulfate) ..... One tab. daily Aspirin 81 Mg Tabs (Aspirin) ..... One tab. daily Imdur 120 Mg Tb24 (Isosorbide mononitrate) ..... One tab. daily B P today: 168/85 Prior BP: 148/86 (10/11/2009) N uclear Stress Findings: Adenosine mediated myocardial perfusion study Normal left ventricular systolic function with a calculated ejection fraction of 69%. No obvious significant scintigraphic evidence of myocardial ischemia or scar. E (03/31/2009) C ardiac Cath: Patent Vision stent in fhte LAD. No change in the right coronary lesion. The last time she had a stress test after her last cardiac cath which was normal and the lesion is unchanged. Tobacco abuse counseled to quit smoking. 6-[place] Angio-Seal device placed with excellent hemastasis. [facility] (08/01/2009) C ardiac Cath Comments: Successful primary stent of the mid LAD from 70 to 0 with a 3 x 18mm Vision. [facility] (04/11/2009) C arotid Doppler/Duplex: Normal carotid duplex exam. [facility] (04/01/2009) A rterial Doppler (leg): Normal arterial flow of the upper extremities. [facility] (04/01/2009) H gb: 14.8 (10/03/2009) HCT: 45.4 (10/03/2009) RBC: 4.79 (10/03/2009) WBC: 8.9 (10/03/2009) B UN: 9 (10/03/2009) Creat: 1.01 (10/03/2009) Glucose: 86 (10/03/2009) N a+: 139 (10/03/2009) K+: 3.7 (10/03/2009) Cl: 102 (10/03/2009) TSH: 1.0 (04/05/2009) Stacey Booth MD test results-episode of chest pa in Stacey Booth MD test results-episode of chest pa in Stacey Booth MD test results-episode of chest pain: H er updated medication list for this problem includes: Clonazepam Tabs (Clonazepam tabs) ..... 0.5mg daily Nitrolingual 0.4 Mg/spray Soln (Nitroglycerin) ..... As needed BP today: 155/76 Prior BP: 151/84 (02/14/2009) N uclear Stress Findings: Adenosine mediated myocardial perfusion study Normal left ventricular systolic function with a calculated ejection fraction of 69%. No obvious significant scintigraphic evidence of myocardial ischemia or scar. [facility] (03/31/2009) E chocardiogram: Normal LV systolic function and size. Mild concentric LVH. EF 60% E /E` IS 6. Trace MR. Non-specific thickening of the MVL. Trace TR. [facility] (03/31/2009) Stacey Booth MD test results-episode of chest pain: H er updated medication list for this problem includes: Clonazepam Tabs (Clonazepam tabs) ..... 0.5mg daily Nitrolingual 0.4 Mg/spray Soln (Nitroglycerin) ..... As needed BP today: 155/76 Prior BP: 151/84 (02/14/2009) N uclear Stress Findings: Adenosine mediated myocardial perfusion study Normal left ventricular systolic function with a calculated ejection fraction of 69%. No obvious significant scintigraphic evidence of myocardial ischemia or scar. [facility] (03/31/2009) E chocardiogram: Normal LV systolic function and size. Mild concentric LVH. EF 60% E /E` IS 6. Trace MR. Non-specific thickening of the MVL. Trace TR. [facility] (03/31/2009) Orders: E KG (CPT-42540) Stacey Booth MD test results-episode of chest pain: H er updated medication list for this problem includes: Calcium Tabs (Calcium carbonate tabs) ..... + d one tab. daily BP today: 155/76 Prior BP: 151/84 (02/14/2009) N uclear Stress Findings: Adenosine mediated myocardial perfusion study Normal left ventricular systolic function with a calculated ejection fraction of 69%. No obvious significant scintigraphic evidence of myocardial ischemia or scar. [facility] (03/31/2009) E chocardiogram: Normal LV systolic function and size. Mild concentric LVH. EF 60% E /E` IS 6. Trace MR. Non-specific thickening of the MVL. Trace TR. [facility] (03/31/2009) Stacey Booth MD test results-episode of chest pain: H er updated medication list for this problem includes: Nitrolingual 0.4 Mg/spray Soln (Nitroglycerin) ..... As needed Imdur 60 Mg Tb24 (Isosorbide mononitrate) ..... One tab. daily BP today: 155/76 Prior BP: 151/84 (02/14/2009) N uclear Stress Findings: Adenosine mediated myocardial perfusion study Normal left ventricular systolic function with a calculated ejection fraction of 69%. No obvious significant scintigraphic evidence of myocardial ischemia or scar. [facility] (03/31/2009) C arotid Doppler/Duplex: Normal carotid duplex exam. [facility] (04/01/2009) E chocardiogram: Normal LV systolic function and size. Mild concentric LVH. EF 60% E /E` IS 6. Trace MR. Non-specific thickening of the MVL. Trace TR. [facility] (03/31/2009) Stacey Booth MD cp-sob Stacey Booth MD cp-sob: H er updated medication list for this problem includes: Advair Diskus 100-50 Mcg/dose Misc (Fluticasone-salmeterol) ..... 1 puff twice daily Proventil Hfa Aers (Albuterol sulfate aers) ..... Prn BP today: 151/84 Prior BP: / () Pulmonary Functions Reviewed: O 2 sat: 98 (02/14/2009) Stacey Booth MD cp-sob Stacey Booth MD cp-sob Stacey Booth MD cp-sob: H er updated medication list for this problem includes: Nexium 20 Mg Cpdr (Esomeprazole magnesium) ..... One tab. daily BP today: 151/84 Prior BP: / () D iscussed lifestyle modifications, diet, antacids/medications, and preventive measures. Handout provided. Stacey Booth MD cp-sob: H er updated medication list for this problem includes: Lipitor 40 Mg Tabs (Atorvastatin calcium) ..... One tab. daily Nitrolingual 0.4 Mg/spray Soln (Nitroglycerin) ..... As needed BP today: 151/84 Prior BP: / () Orders: E KG (CPT-[id number]) Stacey Booth MD Date Name Aorta Duplex Ultraso und RPM (remote patient monitoring) Complete Echo Aorta Duplex Ultraso und Aorta Duplex Ultraso und Stress Regadenoson Aorta Duplex Ultraso und Arterial Duplex Bi-L ower EX MAGNESIUM PROTHROMBIN TIME WIT H INR LIPID PANEL CBC (INCLUDES DIFF/P LT) BASIC METABOLIC PANE L W/EGFR Cardiac Cath - Left - [facility] CXR- PA/Lat URINALYSIS, COMPLETE W/REFLEX TO CULTURE COMPREHENSIVE METABO LIC PANEL, W/EGFR CBC (INCLUDES DIFF/P LT) CBC (INCLUDES DIFF/P LT) LIPID PANEL BASIC METABOLIC PANE L W/EGFR Loop Rec Implant - S [facility] TSH, 3RD GENERATION W/REFLEX TO FT4 Stress Regadenoson Complete Echo HEMOGLOBIN A1c B TYPE NATRIURETIC P EPTIDE (BNP) LIPID PANEL COMPREHENSIVE METABO LIC PANEL, W/EGFR CBC (H/H, RBC, INDIC ES, WBC, PLT) Stress Regadenoson Carotid Duplex Bilat eral Aorta Duplex Ultraso und (AAA) PROTHROMBIN TIME WIT H INR CBC (INCLUDES DIFF/P LT) LIPID PANEL BASIC METABOLIC PANE L W/EGFR DLCO - 60002 FRC - 34268 FVC - 53569 Aorta Duplex Ultraso und (AAA) Carotid Duplex Bilat eral Sleep Study Arterial Duplex Uppe r Extremity Bilateral Arterial Duplex Lowe r Extremity Bilateral Carotid Duplex Bilat eral Stress Test - Adenos ine Complete Echo HISTORY OF PROCEDURES Procedure Date Procedure Name Provider Procedure Notes S tatus Complex e/m visit add on Stacey Booth MD completed Complex e/m visit add on Stacey Booth MD completed Complex e/m visit add on Stacey Booth MD completed EKG Stacey Booth MD completed EKG Stacey Booth MD completed EKG Agustín kruger MD completed EKG Agustín kruger MD completed Regadenoson, 4 units Stacey Booth MD completed Cardiolite, 2 units Stacey Booth MD completed SPECT Images Stacey Booth MD complet ed Stress EKG Stacey Booth MD completed EKG Stacey Booth MD completed Schedule Followup Stacey Booth MD in 6 mo co mpleted EKG Stacey Booth MD completed SNOMED-CT: 565612862 Smoking Cessation Counseling Stacey Booth MD completed SNOMED-CT: 248597023914412 Current Medications Documented Stacey Booth MD completed SNOMED-CT: 44742798 Physical Exam, Performed: Pulse Exam of Foot Stacey Booth MD completed EKG Stacey Booth MD completed SNOMED-CT: [id number] Current Medications Documented Stacey Booth MD completed BLOOD COUNT HEMOGLOBIN Stacey Booth MD completed FVC / MVV with bronchodilator - 80379 Stacey Booth MD completed FRC - 01964 Stacey Booth MD complete d SpO2 - 57752 Stacey Booth MD complet ed DLCO - 17652 Stacey Booth MD complet ed EKG Stacey Booth MD completed SNOMED-CT: 890066480110143 Current Medications Documented Stacey Booth MD completed SNOMED-CT: 496829294 Smoking Cessation Counseling Roland Bazan MD completed SNOMED-CT: 85428140 Physical Exam, Performed: Pulse Exam of Foot Roland Bazan MD completed SNOMED-CT: [id number] Current Medications Documented Roland Bazan MD completed SNOMED-CT: 60142394 Physical Exam, Performed: Pulse Exam of Foot Stacey Booth MD completed SNOMED-CT: [id number] Current Medications Documented Stacey Booth MD completed EKG Stacey Booth MD completed EKG Stacey Booth MD completed EKG Stacey Booth MD completed EKG Stacey Booth MD completed EKG Stacey Booth MD completed EKG Stacey Booth MD completed EKG Stacey Booth MD completed ePrescribe - Check t his box if eRx is used Stacey Booth MD completed ePrescribe - Check t his box if eRx is used Stacey Booth MD completed EKG Stacey Booth MD completed EKG Stacey Booth MD completed EKG Stacey Booth MD completed EKG Stacey Booth MD completed EKG Stacey Booth MD completed
== END 2025-02-10 14:32 | disposition home or self-care (01) ==
LOC: ANHIMG 14:33
PROVIDERS: PCP Internal Medicine Infectious Disease; Visit Provider Internal Medicine Infectious Disease
DX: Z12.31 Encounter for screening mammogram for malignant neoplasm of breast (principal)
CPT/HCPCS: 77063; 77067

== ENCOUNTER 2025-03-05 00:38 | Day surgery (SDC) | payer MEDICARE, MEDICAID, SELFPAY ==
[2025-02-23 13:09] VITALS: BMI 18.5
--- NOTE | 2025-02-23 13:25 | PC.NURSE ---
Report to the Outpatient Waiting Room, entrance under the green pavilion located off [facility], at time _0800am on date ___03/05/25____. Planned Procedure Time: __1000am .? Time changes happen often and if your time is changed the preop area will call you the afternoon before. - You and your visitor will be asked to self-screen and do not enter if you have any COVID symptoms. Please call surgeon if you need to reschedule. - A mask is optional within the hospital at this time. Patients may have clear liquids (water, carbonated beverages, clear teas, apple juice) until 3 hours prior to surgery with a maximum of 20 ounces. - No food from midnight until time of surgery and no smoking, or chewing tobacco (or any form of nicotine). No chewing gum, candy or mints. (0700am) - Take only the following medications with a SIP of water on the morning of surgery: Gabapentin, Hydrocodone if needed DO NOT STOP ANY OF YOUR OTHER PRESCRIPTION MEDICATIONS PRIOR TO SURGERY EXCEPT THE FOLLOWING Hold all vitamins and supplements for 3 days per anesthesiologist. Medications to discontinue per physician None Date to take last dose____None Please no make-up, nail georgian, hairspray, perfume, deodorant, or body powder the day of surgery.? No jewelry (including any body piercings) or valuables the day of surgery, leave them at home.? Please take a shower or bath the night before, or the morning of, surgery with an antibacterial soap.? Wear comfortable, loose fitting clothing.? Children are encouraged to wear pajamas. - Jewelry must be removed prior to entering the operating room.? Rings and piercings that are not removed may be cut off. - The hospital will not accept responsibility for valuables.? - Please leave all valuables, including medications, at home the day of surgery. If you are going home after surgery, a licensed chair car driver must drive you home.? - NO public transportation without another adult if you receive anesthesia. - We recommend that an adult stay with you for 24 hours following discharge. - We also recommend that you do not drive, make important decision, drink alcoholic beverages, or take any drugs that were not prescribed by your health care provider for at least 24 hours after your discharge time. Follow any additional instructions given to you from your surgeon. Telephone instructions given to __patient and asked if any additional questions and then verbalized understanding. Patient advised to call surgeon office or pre surgery nurse liaison [phone] if any additional questions.
--- NOTE | 2025-03-01 04:55 | PM.IMHP ---
H&P: HPI History of Present Illness Date/Time: 03/01/25 04:55 Chief Complaint: mixed incontinence Narrative: mixed urinary incontinence. 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 Spinal stenosis Degenerative disc disease Restless leg syndrome History of anemia Chronic obstructive pulmonary disease Cerebrovascular accident Tobacco abuse Hyperlipidemia Hypertension Coronary artery disease Non STEMI in January 2014. Status post angioplasty and three-vessel CABG. Surgical History Surgical History History of salpingo-oophorectomy H/O cataract extraction History of gastric bypass History of bladder suspension procedure History of hemorrhoidectomy History of cholecystectomy History of Billroth II operation History of partial colectomy History of cervical spinal surgery Micro anterior cervical decompression diskectomy and fusion at C5-C6, C6-C7. History of three vessel coronary artery bypass (~01/2014) FOUNTAIN to LAD, vein graft to a diagonal, vein graft to PDA. Performed at [facility]. History of colonoscopy with polypectomy Stented coronary artery Family History Family History Father Suicide and self-inflicted injury Sibling COPD (chronic obstructive pulmonary disease) Heart disease Sibling Lung cancer Mother Alzheimer's dementia Social History Social History Social History: Giulia is somewhat confident filling out medical forms. In the last 12 months she has not received assistance from an organization or program. The patient is . She has 3 children. She is retired. Surrogate decision maker: Anne-Marie Saldana, daughter. Code status: Full code. Smoking packs per day: 1 Smoking cigarettes per day: 20.0 Years smoked: 64 Smoking pack-years: 64.00 Smoking status: Current every day smoker Tobacco type: cigarettes Second hand tobacco smoke exposure: No Alcohol intake: never Substance use: never Substance use type: does not use Do You Feel Safe in your Home?: Yes Lack of Transportation: No Lack of Food: Never True Current Housing: Decline to Answer Concerned About Future Housing: Decline to Answer Difficulty Paying Gas/Electric Bills: Decline to Answer Difficulty Paying for Meds: Decline to Answer Currently Unemployed: Decline to Answer Education: Decline to Answer Difficulty w/ Childcare or Family Care: Decline to Answer Living arrangements: alone Additional living arrangements comments: Lives alone in her own home in [place]. In the process of moving to [place]. Additional occupation/education comments: Retired. Gender identity (if verbalized by the patient): Female Spiritual care concerns: No Meds Home Medications and Allergies Home Medications ?Medication ?Instructions ?Recorded ?Confirmed ?Type albuterol sulfate 90 mcg/actuation 2 mcg inhalation Q4-6H PRN Short 01/22/21 02/23/25 History aerosol inhaler (ProAir HFA) of breath hydrocodone 5 mg-acetaminophen 325 1 tablet PO Q12H PRN pain 07/16/22 02/23/25 History mg tablet fluticasone fur. 100 mcg-umeclid 1 inh inhalation DAILY 01/17/23 02/23/25 History 62.5 mcg-vilant 25 mcg inhalat.powder (Trelegy Ellipta) lisinopril 10 mg tablet 10 mg PO DAILY 01/17/23 02/23/25 History mirtazapine 15 mg tablet (Remeron) 7.5 mg (1/2 x 15 mg) PO QHS #30 02/05/24 02/23/25 Rx tabs ergocalciferol (vitamin D2) 1,250 1,250 mcg PO WEEKLY 02/23/25 02/23/25 History mcg (50,000 unit) capsule gabapentin 100 mg capsule 200 mg PO Q12H pain 02/23/25 02/23/25 History lidocaine 5 % topical patch 2 patch topical Q24H pain 02/23/25 02/23/25 History Allergies Allergy/AdvReac Type Severity Reaction Status Date / Time cholestyramine Allergy Severe RASH AND Verified 02/23/25 13:03 VOMITING Iodinated Contrast Media Allergy Severe RASH, Verified 02/23/25 13:03 DIFFICULTY BREATHING iodine Allergy Severe RASH,DIFFICULTY Verified 02/23/25 13:03 BREATHING erythromycin base Allergy Intermediate RASH, Verified 02/23/25 13:03 SORES IN MOUTH magnesium hydroxide Allergy Intermediate Vomiting Verified 02/23/25 13:03 Sulfa (Sulfonamide Allergy Intermediate RASH,SORES Verified 02/23/25 13:03 Antibiotics) IN MOUTH Penicillins Allergy Unknown RASH,DIFFICULTY Verified 02/23/25 13:03 BREATHING sulfur dioxide Allergy Unknown Unknown Verified 02/23/25 13:03 ibuprofen Allergy Difficulty Verified 02/23/25 13:03 Breathing Exam Narrative: no acute distress alert and oriented x3 fixed urethra Assessment and Plan Assessment and plan (1) Intrinsic sphincter deficiency (ISD): Code(s): N36.42 - Intrinsic sphincter deficiency (ISD) Status: Acute Assessment and Plan: cystoscopy suburethral injection of implant material / bulking agent. Understands risks of bleeding, infection, lack of efficacy, urinary retention requiring catheterizations, need for repeat procedures. Agrees to proceed
--- OUTSIDE RECORDS SUMMARY | 2025-03-05 00:41 | XMS_ITS | Data Portability ---
Author Organization [facility] Contract Live, Main Office Address [address] [place] [address] Care Team Providers Care Mortar Man Name Role Phone JIAN CRAWLEY Primary Care Provider Assessment Encounter Date Assessment Date Assessment LastModified [...] walk test* No observ ation record ed. [email or web address] [address], [address], 01/24/2023 11:37:35 01/15/2001/14/2023 compl ete PFT w/ post [facility] hodil ator guadalupe metry * No observ ation record ed. [address], [address], 01/16/2023 16:54:25 02/26/2001/18/2023 CT, chest , w/o [...] Address Organization Details Recorded Time Urinary incontinence 160113956 Active Not Available [facility] 3 07:32:27 Myocardial infarction 64092344 Active Not Available [facility] 3 07:32:27 Cerebrovascul ar accident 063340873 Active Not Available [facility] 3 07:32:27 Biliary stricture 141311203 Active Not Available [facility] 3 07:32:27 Urinary symptoms 841336710 Active Not Available [facility] 3 07:32:27 Abnormal findings on diagnostic imaging of lung 143158715 Active 2022 Not Available [facility] 3 07:32:27 Thick sputum 491762847 Active 2022 Not Available [facility] 3 07:32:27 Coronary arteriosclero sis 13841890 Active Not Available [facility] 3 07:32:28 Nicotine dependence 49775554 Active 2022 Not Available [facility] 3 07:32:28 Essential hypertension 16145121 Active Not Available [facility] 3 07:32:28 Female stress incontinence 00476161 Active Not Available [facility] 3 07:32:28 Dyspnea on exertion 40571444 Active 2022 Not Available [facility] 3 07:32:28 Terminal esophageal web 79502930 Active Not Available [facility] 3 07:32:28 Chronic cough 75820715 Active 2022 Not Available [facility] 3 07:32:28 Urinary tract infectious disease 50169627 Active Not Available [facility] 3 07:32:29 Urgent desire to urinate 76919378 Active Not Available [facility] 3 07:32:29 Stricture of colon 1846564 Active Not Available [facility] 3 07:32:29 Pulmonary emphysema 06405320 Active 2022 Not Available [facility] 3 07:32:29 Chronic obstructive pulmonary disease 04010928 Active 2022 Cherelle Tobar, MARGIN CLERK-BC [address] [facility] [facility], [facility] [address], [place], [address] , [facility] [employer] [facility] 15:09:27 Problem Notes None recorded. Procedures Surgical History None recorded. Imaging Results Imaging Date Name Status LastModified by Organization Details LastModified Time 01/14/2023 six minute walk test* completed [address], [address], 01/24/2023 11:37:35 01/14/2023 complete PFT w/ post bronchodilator spirometry* completed [address], [address], 01/16/2023 16:54:25 01/18/2023 CT, chest, w/o contrast [...] Name and Address Organization Details Recorded Time 37447 Substance with sulfonami de structure and antibacte rial mechanism of action (substanc e) medicatio n Not available Not available Not available 01/02/2023 77257 8003 SNOMED Not Available [facility] 3 07:43:11 47681 Product containin g penicilli n (product) medicatio n Not available Not available Not available 01/02/2023 70878 8001 SNOMED Not Available [facility] 3 07:43:11 61128 morphine medicatio n Not available Not available Not available 01/02/2023 7052 RxNorm respi rator y depre ssion Not Available [facility] 3 07:43:11 25066 Iodinated contrast media (substanc e) medicatio n Not available Not available Not available 01/02/2023 33320 2004 SNOMED Not Available [facility] 3 07:43:11 74963 erythromy burton medicatio n Not available Not available Not available 01/02/2023 4053 RxNorm Not Available [facility] 3 07:43:11 Medications Name Sig Start Date [...] % 93 % 82 /min 97.8 [degF] 42398.3 8 g 128 mm[Hg] 70 mm[Hg] Not Available [facility] 3 07:29:28 Date Recorded Body height Body mass index (BMI) Body weight Heart rate Oxygen saturation Oxygen saturation in Arterial blood by Pulse oximetry Body temperature Systolic blood pressure Diastolic blood pressure Provider Name and Address Organization Details Last Updated DateTime 3 157.48 cm 24.1 kg/m2 04268.1 9 g 64 /min 96 % 96 % 97.1 [degF] 112 mm[Hg] 68 mm[Hg] Елена Alvarado RN [place] [facility] [place] [facility] 3 14:54:50 Social History Question Answer Notes LastModified by Organizat ion Details LastModified Time Tobacco Smoking Status Current Every Day Smoker Not Available [facility] 01/02/2023 07:27:18 What Was The Date Of Your Most Recent Tobacco Screening? 01/01/2023 [id number] Information not available 01/02/2023 At What Age Did You Start Smoking Tobacco? 14 [id number] Information not available 01/02/2023 How Much Tobacco Do You Smoke? 1 PPD [id number] 26 Information not available 01/02/2023 Sex: Unknown Functional Status None recorded. Mental Status None recorded. Family History Nothing Reported. Medical History No medical history recorded. Gynecological HistoryNo gynecological history recorded. Obstetrics History GPAL:G 0 P 0 0 0 0 Past Encounters Encounter ID Performer Location Encounter Start Date Encounter Closed Date Diagnosis/Indication Diagnosis SNOMED-CT Code Diagnosis ICD10 Code Diagnosis Note [id number] Cherelle Tobar [facility] [place] [address] [place] [address] 01/01/2023 00:00:00 01/01/2023 16:32:07 [id number] Cherelle Tobar [facility] [place] [address] [place] [address] 02/12/2023 14:46:52 02/12/2023 16:29:14 Abnormal findings on diagnostic imaging of lung 096123826 R91.[address] chest07/[address] [facility] re emphysema, GGO to SANKET 4mm, TIB opacities, mucous in the trachea, mucous plugging to RLL1 CTA at [facility]: Severe emphysema, consolidat ion to left lung base, no PE01/2023 at [facility]: Emphysema, chronic filling defects to medial RLL without change from comparison on 07/05/22 (I do not have this dictation) I do not have CD of any outside imagingCT chest completed 01/17/23 with resolution of abnormalit ies: bibasilar atelectasi s and moderate emphysema Chronic ob structive pulmonary disease 12427214 J44.9 PFT completed 01/2023 with moderate obstructio [...] elevated, sees cardiology 6MWT normal Chronic cough 23937276 R 05.3 AFB and sputum culture normalShe must quit smoking Health Concerns Section Related Observation LastModified by Organization Detai ls LastModified Time None Recorded Concern Status LastModified by Organization Details LastModified Time None Recorded Advance Directives Directive None Recorded Payers Encounter Date Sequence Insurance Name Policy Number Policy Yee Covered Member ID Yee Member ID Guarantor Name 02/12/2023 1 [facility] [id number] Giulia Retana [id number] Giulia Retana 02/12/2023 2 [place] [facility] Giulia Retana [id number] Giulia Retana Notes Date Note Type Note Provider Name and Address Organization Details Recorded Time 02/12/2023 text/html Ms Retana prestyron nts to follow up on cough, dyspnea, testing, new medications and hospitalization one month agoShe was hospitalized a month ago but the [...] GERDNo personal history of cancer. Cherelle Tobar, MARGIN CLERK- [address] [facility], [facility] [address], [place], [address], [place] [facility] 02/12/2023 21:43:10 OBGyn Episode No OBEpisode recorded.
--- OUTSIDE RECORDS SUMMARY | 2025-03-05 00:41 | XMS_ITS | Continuity of Care Document ---
Author Organization [facility] Address [address] [place] [address] [place] [address] Phone Care Team Providers Care Launch Commander [employer] Name Role Phone Mer Buchanan MD Unavailable [...] Diagnoses Date Provider Providers Copied on Encounter [facility], [address], [place], [place], [id number], tel:[phone] [address] [place] SHERMAN Professional No Information Oct-201 [address] [place], [address], [place]. tel:[phone] Family History Family Member Type Diagnosis Age At Onset No Information Payers Payer name Insurance type Covered democrat ID Authoriza tion(s) No Information Social History [...]
--- OUTSIDE RECORDS SUMMARY | 2025-03-05 00:41 | XMS_ITS | Clinical Summary ---
Author Organization [facility] Address [address] [place] [address] Care Team Providers Care Health Sciences Manager Name Role Phone Unknown, Provider Primary Care Provider Unavaila ble Source Comments [facility],non-owned Affiliates and Associated Physician Practices is amultiple site organization consisting of ambulatory clinics and hospital sitesin [place], [place], [place] and [place]. This disclosure is being madepursuant to the Care Everywhere program and may not contain all information available regarding this patient. Last updated 18.[facility] Allergies Active Allergy Reactions Criticality Noted Date [...] document. Alwaysverify current medications with the patient. albuterol HFA (Proventil; Ventolin; Proair) 108 (90 Base) MCG/ACT inhaler Inhale 1 (one) puff by mouth every 6 hours as needed for Shortness of Breath, Wheezing or Cough Active HYDROcodone-dariusz taminophen ([place]) 5-325 MG tablet Take 1 (one) tablet by mouth every 12 hours as needed for Pain 3 Active gabapentin (Neurontin) 100 MG capsule Take 1 (one) capsule by mouth 2 times daily 3 Active atorvastatin (Lipitor) 80 MG tablet Take 1 (one) tablet by mouth at bedtime 3 Active Trelegy Ellipta 100-62.5-25 MCG/ACT Inhale 1 (one) puff by mouth once daily 3 Active lisinopril (Prinivil; Zestril) 10 MG tablet Take 1 (one) tablet by mouth once daily Active rOPINIRole (Requip) 1 MG tablet Take 1 (one) tablet by mouth at bedtime 3 Active nitroGLYCERIN (Nitrolingual) 0.4 MG/SPRAY spray Dissolve 1 (one) spray under the tongue every 5 minutes as needed for Angina Active Camphor-Menthol -Methyl Breezy (Salonpas) 3.1-6-10 % PTCH 1 patch by Apply externally route as directed Active Multiple Vitamins-Minera ls (PRESERVISION AREDS 2+MULTI VIT PO) Take 1 tablet by mouth as directed Active lidocaine (Lidoderm) 5 % patch Apply 1 (one) patch to skin once daily as needed Apply patch to most painful area and remove after 12 hours. May reapply a new patch 12 hours later. 30 patch 3 Active Active Problems Problem Noted Date Diagnosed Date Cerebrovascular accident 03/06/2023 023 Essential hypertension 03/06/2023 3 Myocardial infarction 03/06/2023 03/06/2023 Onychomycosis 03/06/2023 03/06/2023 [...] (03/06/2023): Added automatically from request for surgery [id number] Encounter for screening for cardiovascular disor ders 06/19/2021 03/06/2023 Abdominal aortic aneurysm without rupture 202003/06/2023 Stress incontinence, female 04/27/201901/2023 Overview (03/06/2023): Added automatically from request for surgery [id number] Urge incontinence of urine 04/23/201903/06 Abdominal bruit 09/23/2017 03/06/2023 Other specified symptoms and signs involving the circulatory and respiratory systems 09/23/2017 03/06/2023 Elevated CEA 12/27/2016 03/06/2023 Tobacco abuse 12/27/2016 03/06/2023 Mixed hypercholesterolemia and hypertriglyceride lore 05/31/2014 03/06/2023 Atherosclerotic heart diseas e of [place] coronary artery without angina pectoris 11/04/1959 03/06/2023 Dizziness and giddiness 11/04/1959 03/06/20 23 Social History Tobacco Use Types Packs/Day Years Used Date Smoking Tobacco: Every Day Cigarettes Smokeless Tobacco: Never PHQ-2 Answer Date Recorded Patient Health Questionnaire-2 Score 2 10/31/2023 Comments Unknown Sex and Gender Information Value Date Recorded Sex Assigned at Not on file Legal Sex Female 6:25 AM WEB MASTER Gender Identity Not on file Sexual Orientation [...] this topic Medical Devices Implanted Type Area Last Pattern Grader Device Identifier Shelf Expiration Date Model / Serial / Lot [employer] Biomonitor Iii Loop Recorder Description:bi[employer]ron[employer] Biomon itor III Cardiac Stent Stent - Vascular Insurance MEDICARE [facility] MANAGED MEDICARE ADV [facility] MANAGED MEDICARE ADV MEDICAID - [place] Care Teams Health Sciences Manager Relationship Specialty Start Date End Date Unknown, Provider PCP - General 09/06/23
--- OUTSIDE RECORDS SUMMARY | 2025-03-05 00:42 | XMS_ITS | Data Portability ---
Author Organization [facility] ANASTASIYASheridan Marie Address [address] [facility] [place] [address] Care Team Providers Care Orthodontist Vice President Name Role Phone DERECK PUGA Consulting Solution Director JOHN COOK Database Coordinator ZEE HASSAN Pain Management JESE SAWYER Neurologist Assessment No assessment recorded. Plan of Treatment Reminders Order Date Submit Date Provider Last Modified By Organization Details Last Modified Time Details Appointments ANY 15 2024 02:15P Uma Atwood MD Not available Not available Not available Lab TSH, ultra-sen sitive, serum 2023 024 [facility], [address] [place] [address], [address], [place], [address], 09/18/2024 09:16:33 lipid panel, serum 2023 024 [facility], [address] [place] [address], [address], [place], [address], 05/07/2024 08:23:52 vitamin D, 25-hydrox y, total, serum 2023 024 [facility], [address] [place] [address], [address], [place], [address], 05/07/2024 08:23:54 basic metabolic 1998 panel, serum or plasma 2023 024 [facility], [address], [address], [place], [address], 05/07/2024 08:23:53 CBC 2023 024 [facility], [address], [address], [place], [address], 05/07/2024 08:23:54 TSH + free T4, serum 2023 024 [facility], [address], [address], [place], [address], 06/22/2024 12:30:06 CBC w/ auto diff 2023 024 [facility], [address], [address], [place], [address], 12/12/2023 15:55:46 CMP, serum or plasma 2023 024 [facility], [address] [facility] [address], [address], [place], [address], 12/12/2023 15:55:[address] referral 2023 024 NANCY Rae MD (Neurology), [address] [place] [address] [address], [place], [address], 12/03/2024 05:06:56 orthopedi c spine surgeon referral - Severe spinal stenosis, LBP 2022 023 NANCY Tai MD, [address] [place], [address], 10/31/2023 22:19:23 Procedures None recorded. Surgeries None recorded. Imaging CT, chest, w/o contrast 2023 024 [place] (Imaging), [facility] [address], [address], 10/07/2024 09:04:40 XR, chest 2023 024 [facility] ([facility]), [address] [facility], [place], [address], 12/12/2023 18:20:22 Medication Orders ropinirol e 1 mg tablet 2024 025 [facility], [address] [place] [address], [address], 12/18/2024 15:38:23 ergocalci ferol (vitamin D2) 1,250 mcg (50,000 unit) capsule 2024 025 [facility], [address] [place] [address], [address], 12/18/2024 15:38:28 Trelegy Ellipta 100 mcg-62.5 mcg-25 mcg powder for inhalatio n 2024 025 [facility], [address] [place] [address], [address], 12/18/2024 15:38:22 albuterol sulfate HFA 90 mcg/actua tion aerosol inhaler 2024 025 [facility], [address] [place] [address], [address], 12/18/2024 15:42:22 ergocalci ferol (vitamin D2) 1,250 mcg (50,000 unit) capsule 2023 024 [facility], [address] [place] [address], [address], 09/17/2024 15:35:17 ropinirol e 1 mg tablet 2023 024 [facility], [address] [place] [address], [address], 04/23/2024 15:00:34 Trelegy Ellipta 100 mcg-62.5 mcg-25 mcg powder for inhalatio n 2023 024 [facility], [address] [place] [address], [address], 04/23/2024 15:00:35 nicotine 14 mg/24 hr daily transderm al patch 2023 024 [place] [address], [address] [place] [address], [address], 12/18/2024 15:35:56 nicotine 7 mg/24 hr daily transderm al patch 2023 024 [place] [address], [address] [place] [address], [address], 12/18/2024 15:35:59 Vitamin D2 1,250 mcg (50,000 unit) capsule 2023 024 [place] [address], [address] [place] [address], [address], 09/17/2024 15:28:31 Tessalon Perles 100 mg capsule 2023 024 [place] [address], [address] [place] [address], [address], 04/23/2024 14:50:03 hydrocodo ne 5 mg-acetam inophen 325 mg tablet 2022 023 [facility], [address] [place] [address], [address], 08/21/2023 15:56:14 lidocaine 5 % topical patch 2022 023 [place] [address], [address] [place] [address], [address], 08/21/2023 16:07:11 Patient TargetsNo targets recorded. Patient Instructions Encounter Date Encounter Id Patient Instructions Last Modified By Organization Details Last Modified Time 08/21/2023 [id number] cervical spinal stenosis: care instructions oajao Not [...] smoking. oajao Not available 08/21/2023 15:58:59 11/26/2023 [id number] Quitting Tobacco : Care Instructions oajao Not [...] weeks oajao Not available 11/26/2023 15:58:58 04/23/2024 [id number] Labs Pulmonology follow up Most recent consultation note from her neurologist, Dr Jese Sawyer Follow up in 5 months and PRN oajao Not available 04/23/2024 15:07:41 09/17/[id number] New Neurologist Labs Follow up in 6 weeks Addendum Senior services oajao Not available 09/17/2024 16:44:43 12/18/2024 [id number] Neurologist as referred Stop smoking Follow up [...] total 176 mg/dL 100-19 9 Not Available [facility] [address] [place], [address], 07/26/2023 19:08:29 07/26/20 23 07/26/2023 LIPID PANEL triglyceride s 132 mg/dL 0-149 Not Available [facility] [address] [place], [address], 07/26/2023 19:08:29 07/26/20 23 07/26/2023 LIPID PANEL HDL cholesterol 52 mg/dL 40-999 Not Available [facility] [address] [place], [address], 07/26/2023 19:08:29 07/26/20 23 07/26/2023 LIPID PANEL VLDL cholesterol vicky 26 mg/dL 5-40 Not Available [facility] [address] [place], [address], 07/26/2023 19:08:29 07/26/20 23 07/26/2023 LIPID PANEL LDL chol calc (nih) 117 mg/dL 0-99 above high normal Not Available [facility] [address] [place], [address], 07/26/2023 19:08:29 07/26/20 23 07/26/2023 COMP. METAB OLIC PANEL (14) glucose 95 mg/dL 70-99 Not Available [facility] [address] [place], [address], 07/26/2023 19:08:30 07/26/20 23 07/26/2023 COMP. METAB OLIC PANEL (14) BUN 15 mg/dL 8-27 Not Available [facility] [address] [place], [address], 07/26/2023 19:08:30 07/26/20 23 07/26/2023 COMP. METAB OLIC PANEL (14) creatinine 1.04 mg/dL 0.76-1 .27 Not Available [facility] [address] [place], [address], 07/26/2023 19:08:30 07/26/20 23 07/26/2023 COMP. METAB [...] disre lisa that value . Not Available [facility] [address] [place] [address], [address], 07/26/2023 19:08:30 07/26/20 23 07/26/2023 COMP. METAB OLIC PANEL (14) BUN/creatini ne ratio 14 10-28 Not Available [facility] [address] [place], [address], 07/26/2023 19:08:30 07/26/20 23 07/26/2023 COMP. METAB OLIC PANEL (14) sodium 143 mmol/ L 134-14 4 Not Available [facility] [address] [place], [address], 07/26/2023 19:08:30 07/26/20 23 07/26/2023 COMP. METAB OLIC PANEL (14) potassium 5.1 mmol/ L 3.5-5. 2 Not Available [facility] [address] [place], [address], 07/26/2023 19:08:30 07/26/20 23 07/26/2023 COMP. METAB OLIC PANEL (14) chloride 107 mmol/ L 96-106 above high normal Not Available [facility] [address] [place], [address], 07/26/2023 19:08:30 07/26/20 23 07/26/2023 COMP. METAB OLIC PANEL (14) carbon dioxide, total 24 mmol/ L 20-29 Not Available [facility] [address] [place], [address], 07/26/2023 19:08:30 07/26/20 23 07/26/2023 COMP. METAB OLIC PANEL (14) calcium 10.1 mg/dL 8.7-10 .3 Not Available [facility] [address] [place], [address], 07/26/2023 19:08:30 07/26/20 23 07/26/2023 COMP. METAB OLIC PANEL (14) protein, total 7.2 g/dL 6.0-8. 5 Not Available [facility] [address] [place], [address], 07/26/2023 19:08:30 07/26/20 23 07/26/2023 COMP. METAB OLIC PANEL (14) albumin 4.3 g/dL 3.8-4. 8 Not Available [facility] [address] [place], [address], 07/26/2023 19:08:30 07/26/20 23 07/26/2023 COMP. METAB OLIC PANEL (14) globulin, total 2.9 g/dL 1.5-4. 5 Not Available [facility] [address] [place], [address], 07/26/2023 19:08:30 07/26/20 23 07/26/2023 COMP. METAB OLIC PANEL (14) A/G ratio 2.0 1.2-2. 2 Not Available [facility] [address] [place], [address], 07/26/2023 19:08:30 07/26/20 23 07/26/2023 COMP. METAB OLIC PANEL (14) bilirubin, total 0.3 mg/dL 0.0-1. 2 Not Available [facility] [address] [place], [address], 07/26/2023 19:08:30 07/26/20 23 07/26/2023 COMP. METAB OLIC PANEL (14) alkaline phosphatase 227 IU/L 44-121 above high normal Not Available [facility] [address] [place], [address], 07/26/2023 19:08:30 07/26/20 23 07/26/2023 COMP. METAB OLIC PANEL (14) AST (SGOT) 15 IU/L 0-40 Not Available [facility] [address] [place] [address], [address], 07/26/2023 19:08:30 07/26/20 23 07/26/2023 COMP. METAB OLIC PANEL (14) ALT (SGPT) 7 IU/L 0-32 Not Available [facility] [address] [place] [address], [address], 07/26/2023 19:08:30 07/26/20 23 07/26/2023 CBC, PLATE LET, NO DIFFE RENTI AL WBC 7.5 x10e3 /uL 3.4-10 .8 Not Available [facility] [address] [place] [address], [address], 07/26/2023 19:08:31 07/26/20 23 07/26/2023 CBC, PLATE LET, NO DIFFE RENTI AL RBC 4.78 x10e6 /uL 3.77-5 .28 Not Available [facility] [address] [place] [address], [address], 07/26/2023 19:08:31 07/26/20 23 07/26/2023 CBC, PLATE LET, NO DIFFE RENTI AL hemoglobin 14.2 g/dL 11.1-1 5.9 Not Available [facility] [address] [place], [address], 07/26/2023 19:08:31 07/26/2007/26/2023 CBC, PLATE LET, NO DIFFE RENTI AL hematocrit 45.9 % 34.0-4 6.6 Not Available [facility] [address] [place], [address], 07/26/2023 19:08:31 07/26/20 23 07/26/2023 CBC, PLATE LET, NO DIFFE RENTI AL MCV 96 fL 79-97 Not Available [facility] [address] [place], [address], 07/26/2023 19:08:31 07/26/2007/26/2023 CBC, PLATE LET, NO DIFFE RENTI AL MCH 29.7 pg 26.6-3 3.0 Not Available [facility] [address] [place], [address], 07/26/2023 19:08:31 07/26/20 23 07/26/2023 CBC, PLATE LET, NO DIFFE RENTI AL MCHC 30.9 g/dL 31.5-3 5.7 below low normal Not Available [facility] [address] [place], [address], 07/26/2023 19:08:31 07/26/2007/26/2023 CBC, PLATE LET, NO DIFFE RENTI AL RDW 14.8 % 11.5-1 4.5 above high normal Not Available [facility] [address] [place], [address], 07/26/2023 19:08:31 07/26/2007/26/2023 CBC, PLATE LET, NO DIFFE RENTI AL platelets 308 x10e3 /uL 150-45 0 Mean Plate let Volum e 9.6 fL 8.9-1 2.7 N Not Available [facility] [address] [place], [address], 07/26/2023 19:08:31 07/26/20 23 07/26/2023 CBC, PLATE LET, NO DIFFE ABY AL NRBC 0 % 0-0 Not Available [facility] [address] [place], [address], 07/26/2023 19:08:31 07/26/20 23 07/27/2023 URINA LYSIS , ROUTI NE specific gravity 1.019 1.005- 1.030 Not Available [facility] ([facility]) [address] [facility], [place], [address], 07/27/2023 07:13:22 07/26/20 23 07/27/2023 URINA LYSIS , ROUTI NE pH 5.5 5.0-7. 5 Not Available [facility] ([facility]) [address] [place], [address], 07/27/2023 07:13:22 07/26/20 23 07/27/2023 URINA LYSIS , ROUTI NE urine-color YELLOW yellow Not Available [facility] ([facility]) [address] [place], [address], 07/27/2023 07:13:22 07/26/20 23 07/27/2023 URINA LYSIS , ROUTI NE appearance CLOUDY clear abnormal Not Available [facility] ([facility]) [address] [place], [address], 07/27/2023 07:13:22 07/26/20 23 07/27/2023 URINA LYSIS , ROUTI NE WBC esterase 2+ negati ve abnormal Not Available [facility] ([facility]) [address] [place], [address], 07/27/2023 07:13:22 07/26/20 23 07/27/2023 URINA LYSIS , ROUTI NE protein NEGATI VE negati ve/tra ce Not Available [facility] ([facility]) [address] [place], [address], 07/27/2023 07:13:22 07/26/20 23 07/27/2023 URINA LYSIS , ROUTI NE glucose NEGATI VE negati ve Not Available [facility] ([facility]) [address] [facility], [place], [address], 07/27/2023 07:13:22 07/26/20 23 07/27/2023 URINA LYSIS , ROUTI NE ketones NEGATI VE negati ve Not Available [facility] ([facility]) [address] [place], [address], 07/27/2023 07:13:22 07/26/2007/27/2023 URINA LYSIS , ROUTI NE occult blood 1+ negati ve abnormal Not Available [facility] ([facility]) [address] [place], [address], 07/27/2023 07:13:22 07/26/20 23 07/27/2023 URINA LYSIS , ROUTI NE bilirubin NEGATI VE negati ve Not Available [facility] ([facility]) [address] [place], [address], 07/27/2023 07:13:22 07/26/20 23 07/27/2023 URINA LYSIS , ROUTI NE urobilinogen ,semi-qn 0.2 mg/dL 0.2-1. 0 Not Available [facility] ([facility]) [address] [place], [address], 07/27/2023 07:13:22 07/26/2007/27/2023 URINA LYSIS , ROUTI NE nitrite, urine POSITI VE negati ve abnormal Not Available [facility] ([facility]) [address] [place], [address], 07/27/2023 07:13:22 07/26/20 23 07/27/2023 URINA LYSIS , ROUTI NE microscopic examination SEE BELOW: Micro scopi c was indic ated and was perfo rmed. Not Available [facility] ([facility]) [address] [facility], [place], [address], 07/27/2023 07:13:22 07/26/20 23 07/27/2023 TSH TSH 2.360 uIU/m L 0.450- 4.500 Not Available [facility] ([facility]) [address] [facility], [place], [address], 07/27/2023 07:13:23 07/26/20 23 07/27/2023 VITAM IN [...] um and D. Maik bowser DC: [facility] . 2. Robb simms MF, Justyna gamboa [place], Sanchez off-F errar i CRAFT, et al. Evalu ation , treat ment, and preve ntion of vitam in D defic iency : an Endoc rine Socie ty clini vicky pract ice guide line. JCEM. 2010; 96(7) :1911 -30. Not Available [facility] ([facility]) [address] [facility], [place], [address], 07/27/2023 07:13:24 07/26/20 23 07/27/2023 MICRO SCOPI C EXAMI NATIO N WBC >30 /hpf 0-5 abnormal Not Available [facility] ([facility]) [address] [facility], [place], [address], 07/27/2023 07:13:23 07/26/20 23 07/27/2023 MICRO SCOPI C EXAMI NATIO N RBC 3-10 /hpf 0-2 abnormal Not Available [facility] ([facility]) [address] [facility], [place], [address], 07/27/2023 07:13:23 07/26/20 23 07/27/2023 MICRO SCOPI C EXAMI NATIO N epithelial cells (non renal) >10 /hpf 0-10 abnormal Not Available [facility] ([facility]) [address] [facility], [place], [address], 07/27/2023 07:13:23 07/26/20 23 07/27/2023 MICRO SCOPI C EXAMI NATIO N casts NONE SEEN /lpf nonese en Not Available [facility] ([facility]) [address] [facility], [place], [address], 07/27/2023 07:13:23 07/26/20 23 07/27/2023 MICRO SCOPI C EXAMI NATIO N bacteria MANY nonese en/few abnormal Not Available [facility] ([facility]) [address] [facility], [place], [address], 07/27/2023 07:13:23 05/06/20 24 05/07/2024 LIPID PANEL cholesterol, total 174 mg/dL 100-19 9 Not Available [facility] ([facility]) [address] [facility], [place], [address], 05/07/2024 08:23:52 05/06/20 24 05/07/2024 LIPID PANEL triglyceride s 105 mg/dL 0-149 Not Available [facility] ([facility]) [address] [facility], [place], [address], 05/07/2024 08:23:52 05/06/20 24 05/07/2024 LIPID PANEL HDL cholesterol 59 mg/dL >39 Not Available [facility]) [address] [place], [address], 05/07/2024 08:23:52 05/06/20 24 05/07/2024 LIPID PANEL VLDL cholesterol vicky 19 mg/dL 5-40 Not Available [facility] ([facility]) [address] [place], [address], 05/07/2024 08:23:52 05/06/20 24 05/07/2024 LIPID PANEL LDL chol calc ([facility]) 96 mg/dL 0-99 Not Available [facility] ([facility]) [address] [place], [address], 05/07/2024 08:23:52 05/06/20 24 05/07/2024 BASIC METAB OLIC PANEL (7) glucose 97 mg/dL 70-99 Not Available [facility] ([facility]) [address] [place], [address], 05/07/2024 08:23:53 05/06/20 24 05/07/2024 BASIC METAB OLIC PANEL (7) BUN 24 mg/dL 8-27 Not Available [facility] ([facility]) [address] [place], [address], 05/07/2024 08:23:53 05/06/20 24 05/07/2024 BASIC METAB OLIC PANEL (7) creatinine 0.96 mg/dL 0.57-1 .00 Not Available [facility] ([facility]) [address] [place], [address], 05/07/2024 08:23:53 05/06/20 24 05/07/2024 BASIC METAB OLIC PANEL (7) eGFR 61 mL/mi n/1.7 3 >59 Not Available [facility] ([facility]) [address] [place], [address], 05/07/2024 08:23:53 05/06/20 24 05/07/2024 BASIC METAB OLIC PANEL (7) BUN/creatini ne ratio 25 12-28 Not Available [facility]) [address] [facility], [place], [address], 05/07/2024 08:23:53 05/06/20 24 05/07/2024 BASIC METAB OLIC PANEL (7) sodium 141 mmol/ L 134-14 4 Not Available [facility] ([facility]) [address] [facility], [place], [address], 05/07/2024 08:23:53 05/06/20 24 05/07/2024 BASIC METAB OLIC PANEL (7) potassium 4.7 mmol/ L 3.5-5. 2 Not Available [facility] ([facility]) [address] [facility], [place], [address], 05/07/2024 08:23:53 05/06/20 24 05/07/2024 BASIC METAB OLIC PANEL (7) chloride 103 mmol/ L 96-106 Not Available [facility] ([facility]) [address] [place], [address], 05/07/2024 08:23:53 05/06/20 24 05/07/2024 BASIC METAB OLIC PANEL (7) carbon dioxide, total 21 mmol/ L 20-29 Not Available [facility] ([facility]) [address] [facility], [place], [address], 05/07/2024 08:23:53 05/06/20 24 05/07/2024 CBC, PLATE LET, NO DIFFE RENTI AL WBC 8.9 x10e3 /uL 3.4-10 .8 Not Available [facility] ([facility]) [address] [place], [address], 05/07/2024 08:23:53 05/06/20 24 05/07/2024 CBC, PLATE LET, NO DIFFE RENTI AL RBC 4.44 x10e6 /uL 3.77-5 .28 Not Available [facility] ([facility]) [address] [facility], [place], [address], 05/07/2024 08:23:53 05/06/20 24 05/07/2024 CBC, PLATE LET, NO DIFFE RENTI AL hemoglobin 13.3 g/dL 11.1-1 5.9 Not Available [facility] ([facility]) [address] [facility], [place], [address], 05/07/2024 08:23:53 05/06/20 24 05/07/2024 CBC, PLATE LET, NO DIFFE RENTI AL hematocrit 40.7 % 34.0-4 6.6 Not Available [facility] ([facility]) [address] [facility], [place], [address], 05/07/2024 08:23:53 05/06/20 24 05/07/2024 CBC, PLATE LET, NO DIFFE RENTI AL MCV 92 fL 79-97 Not Available [facility] ([facility]) [address] [facility], [place], [address], 05/07/2024 08:23:53 05/06/20 24 05/07/2024 CBC, PLATE LET, NO DIFFE RENTI AL MCH 30.0 pg 26.6-3 3.0 Not Available [facility] ([facility]) [address] [facility], [place], [address], 05/07/2024 08:23:53 05/06/20 24 05/07/2024 CBC, PLATE LET, NO DIFFE RENTI AL MCHC 32.7 g/dL 31.5-3 5.7 Not Available [facility] ([facility]) [address] [facility], [place], [address], 05/07/2024 08:23:53 05/06/20 24 05/07/2024 CBC, PLATE LET, NO DIFFE RENTI AL RDW 14.6 % 11.7-1 5.4 Not Available [facility] ([facility]) [address] [facility], [place], [address], 05/07/2024 08:23:53 05/06/20 24 05/07/2024 CBC, PLATE LET, NO DIFFE RENTI AL platelets 331 x10e3 /uL 150-45 0 Not Available [facility] ([facility]) [address] [facility], [place], [address], 05/07/2024 08:23:53 05/06/20 24 05/07/2024 VITAM IN [...] um and D. Maik bowser DC: [facility] . 2. Robb simms MF, Justyna ey [place], Sanchez off-F errar i CRAFT, et al. Evalu ation , treat ment, and preve ntion of vitam in D defic iency : an Endoc rine Socie ty clini vicky pract ice guide line. JCEM. 2010; 96(7) :1911 -30. Not Available [facility] ([facility]) [address] [facility], [place], [address], 05/07/2024 08:23:54 09/17/20 24 09/18/2024 TSH TSH 1.440 uIU/m L 0.450- 4.500 Not Available [facility] ([facility]) [address] [facility], [place], [address], 09/18/2024 09:16:33 07/23/20 23 05/09/2023 MR, angio gram, brain , w/o contr ast No observ ation record ed. [facility] [address], [place], [address], 08/21/2023 15:50:16 07/23/20 23 05/09/2023 MR, angio gram, neck, w/o contr ast No observ ation record ed. [place] [id number] [facility] [address], [place], [address], 08/21/2023 15:50:16 07/27/20 23 07/26/2023 DEXA No observ ation record ed. [facility] [address] [place], [address], 08/21/2023 15:50:15 07/29/20 23 07/26/2023 MRI, cervi vicky spine , w/o contr ast No observ ation record ed. [facility] [address] [place], [address], 08/21/2023 15:50:15 07/29/20 23 07/26/2023 MRI, lumba r spine , w/o contr ast No observ ation record ed. [facility] [address] [place], [address], 08/21/2023 15:50:15 11/13/19 24 11/13/2023 CT, head, w/o contr ast No observ ation record ed. [facility] [address] [facility] [address], [place], [address], 11/26/2023 15:36:19 12/12/19 24 12/12/2023 XR, chest No observ ation record ed. [place] [id number] [facility] [address], [place], [address], 12/20/2023 09:13:31 06/11/20 24 06/11/2024 US, eli hernández for abdom inal aorti c aneur ysm No observ ation record ed. [facility] [address], [place], [address], 09/17/2024 15:22:47 08/27/20 24 08/27/2024 XR, chest No observ ation record ed. [address] [facility], [place], [address], 09/17/2024 15:22:47 10/07/20 24 10/06/2024 CT, chest , w/o contr ast No observ ation record ed. [address] [facility], [place], [address], 12/18/2024 15:30:43 02/11/20 25 02/10/2025 MAMMO , eli hernández, digit al, bilat eral No observ ation record ed. [place] [id number] [facility] [address] [facility], [place], [address], 02/18/2025 13:01:53 Result Notes None recorded. Problems Name Problem SNOMED Code Status Onset Date Resolution Date Notes Provider Name and Address Organization Details Recorded Time Abdominal aortic aneurysm 636549705 Active 2016 Pat Atwood MD Attn: Accounting [facility], [place], [address] , [facility] 5 15:39:09 Nicotine dependence 00702224 Active 2017 Not Available [facility] 3 22:38:08 Renal insufficie ncy 846009373 Active 2017 Not Available [facility] 3 22:38:08 History of peptic ulcer 663671782 Active 2017 Not Available [facility] 3 22:38:07 Stenosis of interverte bral foramina 504152859332 Active 2017 Not Available [facility] 3 22:38:07 Colon cancer screening declined 8933365859572 9 Active 2018 Not Available [facility] 3 22:38:07 Incontinen ce of feces 85846914 Active 2018 Not Available [facility] 3 22:38:08 Kidney stone 88144522 Active 2018 Not Available [facility] 3 22:38:08 Statin not tolerated 331374287 Active 2020 Not Available [facility] 3 22:38:07 Cerebral infarction 216379723 Active 2020 Not Available [facility] [facility] 3 22:38:08 Osteoarthr itis of elbow 244223377 Active 2021 Not Available [facility] 3 22:38:07 Generalize d osteoarthr itis 112142982 Active 2021 Not Available [facility] 3 22:38:07 Aspirin prophylaxi s contra-ind icated 085225653 Active 2021 Not Available [facility] 3 22:38:07 Solitary nodule of lung 504723268 Active 2021 Not Available [facility] 3 22:38:08 Chronic headache disorder 698971668 Active 2022 Not Available [facility] 3 22:38:08 Right carotid artery stenosis 2626079649672 00 Active 2022 Not Available [facility] 3 22:38:07 Chronic obstructiv e pulmonary disease 91932969 Active Not Available [facility] 3 22:38:07 Hyperchole sterolemia 18121434 Active Not Available [facility] 3 22:38:07 Benign hypertensi on 91013983 Active Not Available [facility] 3 22:38:07 Urinary incontinen ce 637930097 Active Not Available [facility] 3 22:38:07 Coronary atheroscle rosis 549045078 Active Not Available [facility] 3 22:38:08 Heart failure 20652728 Active Not Available [facility] 3 22:38:08 Myocardial infarction 05282585 Active Not Available [facility] 3 22:38:07 Laboratory test result abnormal 665878959 Active Not Available [facility] 3 22:38:07 Dysuria 99452073 Active Not Available [facility] 3 22:38:08 Tobacco user 576035132 Active Not Available [facility] 3 22:38:07 Restless legs 32240162 Active Not Available [facility] 3 22:38:07 Low back pain 387859833 Active Not Available [facility] 3 22:38:07 Computed tomography result abnormal 315674091 Active Not Available [facility] 3 22:38:07 Disorder of hair 032417347 Active Not Available [facility] 3 22:38:07 Pain of shoulder region 88391339 Active Not Available [facility] 3 22:38:08 High carcinoemb ryonic antigen level 299737366 Active Not Available [facility] 3 22:38:08 Alkaline phosphatas e above reference range 984706384 Active Not Available [facility] 3 22:38:07 Chronic peptic ulcer 336898255 Active Not Available [facility] 3 22:38:07 Pelvic mass 72437841 Active Not Available [facility] 3 22:38:08 Disorder of lipid metabolism 643308635 Active Not Available [facility] 3 22:38:07 Aortic aneurysm 08880621 Active Not Available [facility] 3 22:38:08 Polyp of colon 90145795 Active Not Available [facility] 3 22:38:08 Abdominal pain 89142177 Active Not Available [facility] 3 22:38:07 Dizziness 224039075 Active Not Available [facility] 3 22:38:07 Chronic cough 05158281 Active Not Available [facility] 3 22:38:08 Impacted cerumen 36703939 Active Not Available [facility] 3 22:38:07 Insomnia 417100598 Active Not Available [facility] 3 22:38:07 Disorder of back 07845994 Active Not Available [facility] 3 22:38:07 Cramp 34312169 Active Not Available [facility] 3 22:38:08 Weight gain 0425816 Active Not Available [facility] 3 22:38:08 Aspiration of food 66111421 Active Not Available [facility] 3 22:38:08 Abscess 167266468 Active Not Available [facility] 3 22:38:07 Stented coronary artery 684290136 Active 2016 Not Available [facility] 3 22:38:07 Visual impairment 027456813 Active 2016 Not Available [facility] 3 22:38:07 Problem Notes None recorded. Procedures Surgical History Date Name Laterality Status Provider Name and Address Organization Details Recorded Time 09/05/20 22 insertion of biliary stent by ERCP completed Pat Atwood MD Attn: Accounting,[address] [place], [address], [facility] 09/17/2022 11:39:27 06/17/20 21 implantation of patient-activate d cardiac event recorder completed Nallely Whaley MA [facility] 07/19/2021 12:03:56 05/19/20 21 colonoscopy completed Pat Atwood MD Attn: Accounting[address] [place], [address], [facility] 05/23/2021 11:17:09 06/05/20 19 colonoscopy completed Pat Atwood MD Attn: Accounting[address] [place], [address], [facility] 04/29/2020 15:35:44 02/03/20 14 Heart Surgery completed Giulia Zhou MA [facility] 11/22/2015 11:51:08 11/04/19 13 Most Recent Mammogram completed Giulia Zhou MA [facility] 11/22/2015 11:31:24 11/04/18 81 Hysterectomy completed Giulia Zhou MA [facility] 11/22/2015 11:51:08 11/04/18 78 Hysterectomy completed Giulia Zhou MA [facility] 11/22/2015 11:51:08 Back Surgery completed February [facility] 09/21/2014 17:13:59 Angioplasty With Stent completed February [facility] [place] [facility] 09/21/2014 17:13:59 Other completed [facility] [place] [facility] 11/22/2015 11:51:08 Imaging Results Imaging Date Name Status LastModified by Organiz ation Details LastModified Time 05/09/2023 MR, angiogram, brain, w/o contrast completed [facility] [address], [place], [address], 08/21/2023 15:50:16 05/09/2023 MR, angiogram, neck, w/o contrast completed [address], [address], 08/21/2023 15:50:16 07/26/2023 DEXA completed [facility] [address] [place], [address], 08/21/2023 15:50:15 07/26/2023 MRI, cervical spine, w/o contrast completed [facility] [address] [place], [address], 08/21/2023 15:50:15 07/26/2023 MRI, lumbar spine, w/o contrast completed [facility] [address] [place], [address], 08/21/2023 15:50:15 11/13/2023 CT, head, w/o contrast completed [address] [place] [address], [address], 11/26/2023 15:36:19 12/12/2023 XR, chest completed [address] [place] [address], [address], 12/20/2023 09:13:31 06/11/2024 US, screening for abdominal aortic aneurysm completed [facility] [address], [place], [address], 09/17/2024 15:22:47 08/27/2024 XR, chest completed [address] [facility], [place], [address], 09/17/2024 15:22:47 10/06/2024 CT, chest, w/o contrast completed [address] [facility], [place], [address], 12/18/2024 15:30:43 02/10/2025 MAMMO, screening, digital, bilateral completed [address] [address], [place], [address], 02/18/2025 13:01:53 Procedure Notes None recorded. Medical Equipment None Reported. Allergies Allergen ID Allergen Name Allergen Category Reaction Reaction Severity Criticality Documentation Date Start Date Code Code System Note Provider Name and Address Organization Details Recorded Time 445946 PEG-Prep medicatio n other moderate Not available 06/17/2019 57183 UNK Pt. had blist ers insid e of her lips, cheek s, on her gingi va, and later down her throa t. Mervat Barroso RN [facility], [place] - [facility] 9 12:55:26 207885 Product containin g penicilli n (product) medicatio n Not available Not available Not available 01/13/2020 26499 8001 SNOMED Other react ions and sever ities : 'Adve rse react ion to subst ance' . Pat Atwood MD Attn: Alfredo g,[address] [facility], [place], [address], [place] - [facility] 3 15:09:40 792608 nortripty line medicatio n respirato ry distress Not available Not available 03/20/2023 7531 RxNorm Pat Atwood MD Attn: Accountin g,[address] [facility], [place], [address], [place] [facility] 3 15:09:08 26662 Iodinated contrast media (substanc e) medicatio n Not available Not available Not available 2015 82462 2004 SNOMED Other react ions and sever ities : 'Adve rse react ion to subst ance' . Pat Atwood MD Attn: Alfredo horn,[address] [place], [place], [address] [place] [address] 2, [facility] 3 15:09:40 39013 Substance with sulfonami de structure and antibacte rial mechanism of action (substanc e) medicatio n Not available Not available Not available 2015 87007 8003 SNOMED Other react ions and sever ities : 'Adve rse react ion to subst ance' . Pat Atwood MD Attn: Alfredo justina,[address] [place], [place], [address] [place] [address] 2, [facility] 3 15:09:40 31280 Darvocet- N medicatio n Not available Not available Not available 12/01/2015 39753 UNK Sangita Bean, [facility], [place] - [facility] 6 11:41:57 04807 erythromy burton medicatio n Not available Not available Not available 12/01/2015 4053 RxNorm Other react ions and sever ities : 'Adve rse react ion to subst ance' . Pat Atwood MD Attn: Alfredo justina,[address] [place], [place], [address] [place] [address] 2, [facility] 3 15:09:40 52895 morphine medicatio n Not available Not available Not available 12/01/2015 7052 RxNorm Other react ions and sever ities : 'Adve rse react ion to subst ance' . Pat Atwood MD Attn: Alfredo horn,[address] [place], [place], [address] [place] [address] 2, [facility] 3 15:09:40 58593 magnesium medicatio n other moderate Not available 07/11/2016 6574 RxNorm Pt. had blist ers insid e of her lips, cheek s, on her gingi va, and later down her throa t. Mervat Barroso RN null, [place] - [facility] 9 12:55:07 Medications Name Sig Start Date Stop Date [...] 1st dose [address] mgmq2ru dose [address] zjox2ic dose [address] scan [...] Updated DateTime 3 154.305 cm 22 kg/m2 53505.5 6 g 64 /min 96 % 96 % 20 /min 140 mm[Hg] 60 mm[Hg] Giulia Nunn [place] - [facility] 3 15:35:04 Date Recorded Body height Body mass index (BMI) Body weight Oxygen saturation Oxygen saturation in Arterial blood by Pulse oximetry Heart rate Body temperature Systolic blood pressure Diastolic blood pressure Provider Name and Address Organization Details Last Updated DateTime 4 154.305 cm 19.8 kg/m2 07523.6 1 g 95 % 95 % 74 /min 98.4 [degF] 126 mm[Hg] 60 mm[Hg] Giulia Nunn MA [facility] 4 15:26:41 Date Recorded Body height Body mass index (BMI) Body weight Heart rate Oxygen saturation Oxygen saturation in Arterial blood by Pulse oximetry Body temperature Systolic blood pressure Diastolic blood pressure Provider Name and Address Organization Details Last Updated DateTime 4 154.305 cm 20.3 kg/m2 58190.6 7 g 71 /min 99 % 99 % 98.1 [degF] 124 mm[Hg] 68 mm[Hg] Giulia Nunn MA [facility] 4 14:24:28 Date Recorded Body height Body mass index (BMI) Body weight Heart rate Respiratory rate Oxygen saturation Oxygen saturation in Arterial blood by Pulse oximetry Systolic blood pressure Diastolic blood pressure Provider Name and Address Organization Details Last Updated DateTime 4 154.305 cm 19.4 kg/m2 58860.4 2 g 76 /min 18 /min 97 % 97 % 120 mm[Hg] 70 mm[Hg] Giulia Arline [place] - [facility] 4 14:54:27 Date Recorded Body height Body mass index (BMI) Body weight Respiratory rate Heart rate Oxygen saturation Oxygen saturation in Arterial blood by Pulse oximetry Body temperature Systolic blood pressure Diastolic blood pressure Provider Name and Address Organization Details Last Updated DateTime 5 154.305 cm 19.8 kg/m2 58970.6 1 g 18 /min 70 /min 97 % 97 % 97.9 [degF] 126 mm[Hg] 70 mm[Hg] Giulia Arline [place] [facility] 5 15:16:10 Social History Question Answer Notes LastModified by Organizat ion Details LastModified Time Tobacco Smoking Status Current Every Day Smoker February [facility] [place] [facility] 09/21/2014 17:14:00 Do You Have An Advance [...] Depressive disorder Not available 2015 12:03:21 Father Harmful pattern of use of alcohol from suicid e Not available 05/29/2016 12:03:21 Medical History Condition Response Other Y High Blood Pressure Y Breast Cancer N Thyroid Problems N Kidney or Bladder Problems N Lung Disease N GI Problems N Depression N COPD Y Blood Clots N Acne N Eating Disorder N Breast Problem N Anemia N Anesthesia Complications N Heart Attack ([place]) Y Headaches/Migraines N Ovarian Cancer N Diabetes N Anxiety Disorder N Muscle, Joint, or Bone Problems N Blood Transfusions N Seizures/Epilepsy N Polyps N Infertility N Myocardial Infarction Y Acid Reflux (GERD) [...] zoster, unspecified formulation 2 completed Not Available [facility] 07/29/2023 22:38:09 zoster, unspecified formulation 0 completed Giulia Nunn [place] null, [place] - [facility] 08/21/2023 15:36:25 SARS-COV-2 (COVID-19) vaccine, UNSPECIFIED 1 completed Not Available [facility] 07/29/2023 22:38:09 SARS-COV-2 (COVID-19) vaccine, UNSPECIFIED 1 completed Not Available [facility] 07/29/2023 22:38:09 Influenza, split virus, quadrivalent, preservative 1 completed Not Available [facility] 07/29/2023 22:38:09 COVID-19, mRNA, LNP-S, PF, 30 mcg/0.3 mL dose 1 completed Not Available [facility] 07/29/2023 22:38:09 COVID-19, mRNA, LNP-S, PF, 30 mcg/0.3 mL dose 2 completed Giulia Nunn [place] null, [place] [facility] 08/21/2023 15:36:25 Influenza, high-dose, trivalent, PF 7 completed Not Available [facility] 07/29/2023 22:38:10 COVID-19, mRNA, LNP-S, PF, 30 mcg/0.3 mL dose 1 completed Not Available [facility] 07/29/2023 22:38:09 COVID-19, mRNA, LNP-S, PF, 30 mcg/0.3 mL dose 1 completed Not Available [facility] 07/29/2023 22:38:09 zoster live 2 completed Not Available [facility] 07/29/2023 22:38:09 Influenza, high-dose, trivalent, PF 9 completed Not Available [facility] 07/29/2023 22:38:09 Influenza, high-dose, quadrivalent, PF 0 completed Not Available [facility] 07/29/2023 22:38:09 Influenza, split virus, trivalent, preservative 4 completed Not Available [facility] 07/29/2023 22:38:10 zoster recombinant 0 completed Not Available [facility] 07/29/2023 22:38:09 COVID-19, mRNA, LNP-S, PF, 30 mcg/0.3 mL dose, virgil-sucrose 2 completed Not Available [facility] 07/29/2023 22:38:09 zoster recombinant 0 completed Not Available [facility] 07/29/2023 22:38:09 pneumococcal polysaccharide PPV23 2 completed Not Available [facility] 07/29/2023 22:38:09 Pneumococcal conjugate PCV20, polysaccharide [id number] conjugate, adjuvant, PF 2 completed Not Available [facility] 07/29/2023 22:38:09 COVID-19, mRNA, LNP-S, bivalent, PF, 30 mcg/0.3 mL dose 2 completed Not Available [facility] 07/29/2023 22:38:09 Influenza, high-dose, quadrivalent, PF 3 completed Not Available [facility] 07/29/2023 22:38:09 Pneumococcal conjugate PCV20, polysaccharide [id number] conjugate, adjuvant, PF 3 completed Not Available [facility] 07/29/2023 22:38:09 RSV, recombinant, protein subunit RSVpreF, adjuvant reconstituted, 0.5 mL, PF 3 completed Not Available [facility] 07/29/2023 22:38:09 COVID-19, mRNA, LNP-S, PF, 50 mcg/0.5 mL 3 completed Giulia Nunn [place], [place] [facility] 08/21/2023 15:36:25 COVID-19, mRNA, LNP-S, PF, virgil-sucrose, 30 mcg/0.3 mL 4 completed Pat Atwood MD Attn: Accounting[address] [place], [address], [place] [facility] 04/23/2024 14:40:41 COVID-19, mRNA, LNP-S, PF, virgil-sucrose, 30 mcg/0.3 mL 4 completed [facility] [facility] 09/17/2024 14:51:12 Influenza, high-dose, trivalent, PF 4 completed Giulia Nunn [place], [place] [facility] 09/17/2024 14:51:12 Tdap 7 completed Not Available [facility] 11/21/2019 02:39:19 Influenza, split virus, quadrivalent, PF 8 completed Not Available [facility] 11/21/2019 02:47:21 pneumococcal polysaccharide PPV23 2 completed Not Available [facility] 07/29/2023 22:38:09 Influenza, high-dose, trivalent, PF 5 completed Not Available [facility] 07/29/2023 22:38:09 Pneumococcal conjugate PCV 13 5 completed Not Available [facility] 07/29/2023 22:38:09 Influenza, high-dose, trivalent, PF 6 completed Not Available [facility] 07/29/2023 22:38:09 Pneumococcal conjugate PCV 13 6 completed Not Available [facility] 07/29/2023 22:38:09 Influenza, split virus, quadrivalent, preservative 2 completed Pat Atwood MD Attn: Accounting[address] [place], [address], [facility] 08/03/2022 14:11:02 Influenza, split virus, quadrivalent, preservative 7 completed Not Available [facility] 07/29/2023 22:38:09 Past Encounters Encounter ID Performer Location Encounter Start Date Encounter Closed Date Diagnosis/Indication Diagnosis SNOMED-CT Code Diagnosis ICD10 Code Diagnosis Note [id number] [facility] [address] [place] [id number] 09/21/2014 15:35:09 09/22/2014 21:17:30 Chronic obstructive pulmonary disease 29120765 Stop smoking Hypercholesterolemia 83698902 [id number] MD [facility] [address] [place] [id number] 02/02/2015 11:32:00 02/02/2015 12:26:20 Benign hypertension 58150247 69 y/o WF who was last seen in this office 03/19/2014, in the interim she had her vaginal mesh removed, she can no longer control her ability to urinate. She has gained some weight ~13 lbs since her last visit. Uncontrol ed on Coreg, 3.125mg po bid. I will increase this to 6.25mg po bid Fall She tripped and fell with an injury to the left upper extremity, nasal bones and bruising of the right upper armTendern ess around her nose, left proximal radius and left wrist. NAMITA bandage Urinary incontinence 003114536 She needs 12-15 or more undergarme nts a day Chronic ob structive pulmonary disease 01371145 Stop smoking, she had Pneumovax in 2011, she needs [id number] Coronary atherosclerosis 467751215 Labs [id number] MD Stephanie Roberson (Adult Med) [address] [place] [phone] 10/03/2015 10:29:22 10/03/2015 12:43:19 Benign hypertension 82984380 I10 70 y/o WF who was last seen in this office 02/2015, in the interim she had her two other surgical procedures and was admitted with a wound infection. She reports uncontroll ed HTN while off her medication s, her BP is normal today. I will monotor this closely. Coronary atherosclerosis 901462784 I25.10 Labs are needed, her Plavix was discontinu ed by Dr. Charlene Puga her cardiologi st during her visit, March 22, 2015 She also cannot take Aspirin due to PUD. Hypercholesterolemia 136 69484 E78.0 Tobacco user 762672453 Z 72.0 Tobacco cessation was discussed, she states that I don't want to Restless legs 91733299 G 25.81 This is apparently a chronic issue, she apparently was treated in the past. I think it is prudent to recheck her iron. Chronic ob structive pulmonary disease 64197381 J44.9 Smoking cessation was discussed, she had Pneumovax in 2011, she needs Larbfkr70 A copy of her PFTs will be useful Low back pain 872838075 M54.5 I have requested a copy of her previous MRI from 2009? She can discontinu e Advil and try Diclofenac with a snack or a meal, PRN with pain. Medication monitoring 39 7975070 Z51.81 Screening mammography 24 726962 Z12.31 [id number] MD [facility] [address] [place] [phone] 10/17/2015 10:31:53 10/17/2015 12:29:41 Tobacco user 712744777 Z72.0 Tobacco cessation was discussed, she states that I don't want to Restless legs 20944006 G 25.81 This is apparently a chronic issue, she apparently was treated in the past with improvemen t. She was unable to tolerate the iron due to GI side effects. Laboratory test result abnormal 562583932 R89.9 CBC has improved, she however has elevated LFTS which could be from her medication s. Computed t omography result abnormal 726841008 R93.8 She is woried about the findings on the CT scan done 10/04/2015, I have reassured her, she however appears concerned, I will refer her to the Gynecologi st. [id number] MD Stephanie Isabel ([employer]) [address] [place] [id number] 11/22/2015 10:21:59 11/22/2015 12:20:45 Computed tomography result abnormal 879097247 R93.8 Urinary incontinence 165 019257 R32 Tobacco user 671123277 Z 72.0 [id number] MD Stephanie Roberson (Adult Med) [address] [place] [id number] 12/01/2015 11:29:18 12/01/2015 12:14:48 Computed tomography result abnormal 739811468 R93.8 She was seen by Dr. Gifford and she has been referred to [facility], this is in reference to the findings on the CT scan done 10/04/2015, I have once again reassured her. 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 The benefits of lowering her cholestero l and her increased risk of CVS events in view of her age, her use of tobacco producs despite multiple recommenda tions that she stop smoking was discussed. Tobacco cessation was discussed. Laboratory test result abnormal 238652101 R89.9 E78.0 Z51.81 Repeat LFTS have been reordered. Pain of sh oulder region 15316624 M25.511 R and L shoulder pain [id number] MD Stephanie Roberson (Adult Med) [address] [place] [address] [id number] 01/13/2016 11:25:06 01/13/2016 14:04:29 Chronic peptic ulcer 587285608 K27.7 She has been advised to avoid antiplatel et therapy Pelvic mass 99108697 R19 .00 She was seen by Dr. Thurston at [facility], she apparently needs a CT scan. I have reminded her to follow up and with regards to her request for a PET scan, she really should discuss this with Dr. Thurston High carci noembryonic antigen level 674609073 R97.0 I have reviewed the consultati on note from Ms. Retana's visit 12/26/[address] Thurston (Body Press Operator Oncology). Her CEA is elevated (7.6, 11/22/2015) [...] grady Alkaline p hosphatase above reference range 010036354 R74.8 Elevated alkaline phosphatas e Pain of sh oulder region 04354555 M25.511 R and L shoulder pain, her xrays were discussed, there is mild AC arthritis. 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 She has been taking Lipitor erraticall y as she feels that it is causing her hair loss. Labs in 6 weeks Restless legs 65898357 G 25.81 This is apparently a chronic issue, she apparently was treated in the past with improvemen t. She was unable to tolerate the iron due to GI side effects. Low back pain 669827416 M54.5 She can resume Diclofenac with a snack or a meal, PRN with pain, as well as a short course of Hydrocodon e Screening for osteoporosis 316544332 Z13.820 Patient will be informed of the need for this test [id number] MD Stephanie Roberson (Adult Med) [facility] [place] [phone] 04/06/2016 14:36:19 04/06/2016 16:37:14 Aortic aneurysm 14396653 I71.9 Stable infrarenal aneurysm Polyp of colon 50255558 K63.5 The virtual colonoscop y confirms polyps and according to Dr. Daniella grady she needs a repeat test in 3 years, this does not quite explain her elevated CEA Urinary incontinence 165 454081 R32 She needs 12-15 or more undergarme nts a day, she has asked if her recent surgery has contribute d to her urinary frequency and intoninenc e. I have suggested that she follows up with her Urologist, Dr. Gordon? Abdominal pain 98660983 R10.9 She attributes this to gas, she however admits to constipati on and chronic loose watery stools ~7/day. She can tolerate Tramadol PRN as she is not obtaining any relief from the NSAID. Noncomplia nce with medication regimen 793485375 Z91.14 She discontinu ed her Crestor due to dizziness which has improved, I am not quite sure that this is the cause. She has multiple risk factors for CVS events and continues to smoke. Dizziness 324915320 R42 Chronic cough 38549274 R 05 Chronic morning cough Impacted cerumen 5282341 6 H61.21 [id number] Pat Atwood MD [facility] (Adult Med) [address] [place] [address] [phone] 0 05/29/2016 11:49:04 05/29/2016 12:54:16 High carcinoembryonic antigen level 468179327 R97.0 I have reviewed the consultati on note from Ms. Retana's visit 12/26/[address] Thurston ([facility] [employer] [facility] On[facility], who is of the impression that [...] her CEA and proceed from there. Insomnia 642429653 G47.0 0 Trial of Belsorma PRN, side effects were discussed. She should not use this with her Tramadol. Chronic ob structive pulmonary disease 66523814 J44.9 Smoking cessation was discussed. Disorder of back 4646327 3 M53.9 Judicious use of Tramadol was discussed Cramp 53731488 R25.2 Dizziness 172546470 R42 MRA of the brain does not explain her dizziness, she has been previously referred to the neurologis t. [id number] Pat Atwood MD [facility] (Adult Med) [address] [place] [address] [phone] 0 07/11/2016 11:52:18 07/11/2016 12:51:14 Weight gain 5092892 R63.5 Urinary incontinence 165 829236 R32 She was seen by her Urologist, Dr. Gordon, a procedure is planned High carci noembryonic antigen level 574515896 R97.0 I have previously reviewed the consultati on note from Ms. Retana's visit 12/26/[address] Thurston ([facility] [employer] [facility], who is of the impression that [...] seek direction from the oncology team. She unfortunat forest continues to smoke despite multiple suggestion s to stop. Chronic ob structive pulmonary disease 61914994 J44.9 Disorder o f lipid metabolism 958877908 E78.9 On Crestor 10mg po daily. Low back pain 784042095 M54.5 She can continue the Diclofenac with a snack or a meal, PRN with pain, as well the Tramadol. A pain contract needs to be signed, UDS to be done. Aspiration of food 15854 003 T17.928A She describes coughing fits when she drinks water Medication monitoring 39 0411273 Z51.81 Abscess 451519557 L02.91 Healing lesion right scapula [id number] MD Stephanie Roberson (Adult Med) [address] [place] [address] [phone] 0 08/22/2016 11:25:54 08/22/2016 12:47:23 Low back pain 995293098 M54.5 She can continue the Diclofenac with a snack or a meal, PRN with pain, the Tramadol was ineffectiv e, she can tolerate Tylenol #3 . A pain contract is on file and a UDS needs to be done. High carci noembryonic antigen level 644114243 R97.0 I have previously reviewed the consultati on note from Ms. Retana's visit 12/26/[address] Thurston ([facility] [employer] [facility], who is of the impression that [...] she got lost on her way to [place] , I have asked my nurse to give her the instructio ns again. Normal grief reaction 27 0994944 F43.20 Her grandson just tragically [id number] MD Stephanie Roberson (Adult Med) [address] [place] [address] [phone] 0 09/19/2016 14:23:02 09/19/2016 16:05:46 Low back pain 656827667 M54.5 She can continue the Diclofenac with a snack or a meal, PRN with pain, as well as Tylenol #3 . A pain contract is on file and a UDS needs to be done. Disorder o f lipid metabolism 058003066 E78.9 On Crestor 10mg po daily. Medication monitoring 39 9904428 Z51.81 High carci noembryonic antigen level 545875662 R97.0 I have asked my nurse to give her the instructio ns once again about seeing the oncologist . Spasm of back muscles 20 1557333 M62.139 [id number] MD Stephanie Roberson (Adult Med) [address] [place] [address] [phone] 0 09/11/2017 14:44:44 09/11/2017 15:52:21 Low back pain 148208029 M54.5 Refill Tylenol #3, a pain contract is on file.Discu ssed Dizziness 678359182 R42 The MRA of the brain does not explain her dizziness, she has been previously referred to the neurologis t and I have given her the details. Restless legs 60503442 G 25.81 This is apparently another chronic issue, she apparently was treated in the past with improvemen t. She was unable to tolerate the iron due to GI side effects. Adult [facility] th examination 006795446 Z00.00 Disorder o f lipid metabolism 765864046 E78.9 Previously on Crestor 10mg po daily, she has a coronary stent in place.. Visual impairment 949552 003 H54.7 There are persistent issues ever since her cataract surgery, she was diagnosed with dry eyes and prescribed Restasis Nicotine dependence 5629 4008 F17.200 Stented co ronary artery 796984865 Z95.5 Cramp 94737804 R25.2 Discussed [id number] MD Stephanie Roberson (Adult Med) [address] [place] [address] [phone] 0 10/30/2017 13:41:07 10/30/2017 15:19:10 Abdominal aortic aneurysm 597824829 I71.4 Discussed, she will follow up with Dr. Puga who ordered the test. Alkaline p hosphatase above reference range 138657489 R74.8 Diabetes m ellitus screening 898670661 Z13.1 Administra tion of diphtheria, pertussis, and tetanus vaccine 821465073 Z23 Low back pain 551003972 M54.5 Refill Tylenol #3, a pain contract is on file and was discussed Esophageal dysphagia 408 16318 R13.19 Coronary arteriosclerosis in [place] artery 3138415318 107 I25.10 Nicotine dependence 5629 4008 F17.200 I have strongly urged her to stop smoking. [id number] MD Stephanie Roberson (Adult Med) [address] [place] [address] [phone] 0 02/26/2018 14:10:44 02/26/2018 15:35:22 Chronic obstructive pulmonary disease 11267285 J44.9 Her PFTS sugest moderate to severe obstructio n. I will add Trelegy as she is not doing well on her current regimen, side effects were discussed in detail. Restless legs 97791334 G 25.81 Low back pain 404048678 M54.5 Refill Tylenol #3, a pain contract is on file. Nicotine dependence 5629 4008 F17.200 I have strongly urged her to stop smoking, she does not want to try Chantix. I will do it on my own . Screening mammography 24 770461 Z12.31 [id number] MD Stephanie Roberson (Adult Med) [address] [place] [address] [phone] 0 05/28/2018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
--- NOTE | 2025-03-05 07:15 | WPDHPUPDATE1 ---
History and Physical Update Update Date/Time: 03/05/25 07:15 History and Physical has been reviewed, including an updated exam of the patient. There are NO changes in the patient's condition. Risks, benefits, and alternatives have been discussed and questions answered. Patient agrees to proceed with procedure.
[2025-03-05 08:30] VITALS: BP 136/53; PULSE 57; RESP 16; TEMP 36.6; O2SAT 97; BMI 19.0
--- NOTE | 2025-03-05 09:17 | WPDANESEPPF ---
Anes - Initial Pre Proc Eval Procedure: Operation Date: 03/05/25 10:00 Proposed Procedures p Cystoscopy, Injection Bulking Agent - Enmanuel Barajas MD Date/Time: 03/05/25 09:17 Surgeon: Enmanuel Barajas MD Pre Op Diagnosis: ID Patient Data Age: 79 Gender: F Height: 1.57 m Weight: 46 kg Allergies Allergy/AdvReac Type Severity Reaction Status Date / Time cholestyramine Allergy Severe RASH AND Verified 02/23/25 13:03 VOMITING Iodinated Contrast Media Allergy Severe RASH, Verified 02/23/25 13:03 DIFFICULTY BREATHING iodine Allergy Severe RASH,DIFFICULTY Verified 02/23/25 13:03 BREATHING erythromycin base Allergy Intermediate RASH, Verified 02/23/25 13:03 SORES IN MOUTH magnesium hydroxide Allergy Intermediate Vomiting Verified 02/23/25 13:03 Sulfa (Sulfonamide Allergy Intermediate RASH,SORES Verified 02/23/25 13:03 Antibiotics) IN MOUTH Penicillins Allergy Unknown RASH,DIFFICULTY Verified 02/23/25 13:03 BREATHING sulfur dioxide Allergy Unknown Unknown Verified 02/23/25 13:03 ibuprofen Allergy Difficulty Verified 02/23/25 13:03 Breathing Home Medications ?Medication ?Instructions ?Recorded ?Confirmed ?Type albuterol sulfate 90 mcg/actuation 2 mcg inhalation Q4-6H PRN Short 01/22/21 02/23/25 History aerosol inhaler (ProAir HFA) of breath hydrocodone 5 mg-acetaminophen 325 1 tablet PO Q12H PRN pain 07/16/22 02/23/25 History mg tablet fluticasone fur. 100 mcg-umeclid 1 inh inhalation DAILY 01/17/23 02/23/25 History 62.5 mcg-vilant 25 mcg inhalat.powder (Trelegy Ellipta) lisinopril 10 mg tablet 10 mg PO DAILY 01/17/23 02/23/25 History mirtazapine 15 mg tablet (Remeron) 7.5 mg (1/2 x 15 mg) PO QHS #30 02/05/24 02/23/25 Rx tabs ergocalciferol (vitamin D2) 1,250 1,250 mcg PO WEEKLY 02/23/25 02/23/25 History mcg (50,000 unit) capsule gabapentin 100 mg capsule 200 mg PO Q12H pain 02/23/25 02/23/25 History lidocaine 5 % topical patch 2 patch topical Q24H pain 02/23/25 02/23/25 History Patient hx anesthesia problems: none Family hx anesthesia problems: none Results Review: All pre-operative results and documents have been reviewed as part of the pre-operative evaluation. [facility] Past Medical History Medical History Congestive heart failure Nausea and vomiting in adult Cholangitis due to bile duct calculus with obstruction Upper abdominal pain History of peptic ulcer disease Aneurysm of infrarenal abdominal aorta Measuring at least 4.1 centimeters on imaging dated 01/22/2021. Spinal stenosis Degenerative disc disease Restless leg syndrome History of anemia Chronic obstructive pulmonary disease Cerebrovascular accident Tobacco abuse Hyperlipidemia Hypertension Coronary artery disease Non STEMI in January 2014. Status post angioplasty and three-vessel CABG. Surgical History Surgical History History of salpingo-oophorectomy H/O cataract extraction History of gastric bypass History of bladder suspension procedure History of hemorrhoidectomy History of cholecystectomy History of Billroth II operation History of partial colectomy History of cervical spinal surgery Micro anterior cervical decompression diskectomy and fusion at C5-C6, C6-C7. History of three vessel coronary artery bypass (~01/2014) FOUNTAIN to LAD, vein graft to a diagonal, vein graft to PDA. Performed at [facility]. History of colonoscopy with polypectomy Stented coronary artery Family History Family History Father Suicide and self-inflicted injury Sibling COPD (chronic obstructive pulmonary disease) Heart disease Sibling Lung cancer Mother Alzheimer's dementia Social History Social History Social History: Giulia is somewhat confident filling out medical forms. In the last 12 months she has not received assistance from an organization or program. The patient is . She has 3 children. She is retired. Surrogate decision maker: Anne-Marie Saldana, daughter. Code status: Full code. Smoking packs per day: 1 Smoking cigarettes per day: 20.0 Years smoked: 64 Smoking pack-years: 64.00 Smoking status: Current every day smoker Tobacco type: cigarettes Second hand tobacco smoke exposure: No Alcohol intake: never Substance use: never Substance use type: does not use Do You Feel Safe in your Home?: Yes Lack of Transportation: No Lack of Food: Never True Current Housing: Decline to Answer Concerned About Future Housing: Decline to Answer Difficulty Paying Gas/Electric Bills: Decline to Answer Difficulty Paying for Meds: Decline to Answer Currently Unemployed: Decline to Answer Education: Decline to Answer Difficulty w/ Childcare or Family Care: Decline to Answer Living arrangements: alone Additional living arrangements comments: Lives alone in her own home in [place]. In the process of moving to [place]. Additional occupation/education comments: Retired. Gender identity (if verbalized by the patient): Female Spiritual care concerns: No Anes - Eval Final PreProcedure Day of Procedure 03/05/25 09:17 Patient weight: obese Heart: regular rate and rhythm Lungs: clear to auscultation Airway: Mallampati scale class III Neurological: alert and oriented Last oral intake: >/= 8 hours ASA classification: IV Emergent: no Anesthetic plan: proceed Anesthesia type and monitoring: general LMA and standard monitoring Results Review: All pre-operative results and documents have been reviewed as part of the pre-operative evaluation. Informed Consent: The patient's anesthetic plan and its attendant risks and benefits were discussed with the patient/family/POA. Questions were solicited and answers provided to the satisfaction of the patient/family/POA.
[2025-03-05 09:28] VITALS: BP 127/46; PULSE 73; RESP 14; O2SAT 100
[2025-03-05] MEDS: LACTATED RINGERS 1,000 ML 30 ML IV CONT (09:28)
[2025-03-05] MEDS: LIDOCAINE 2% GEL UROJET 10 ML PKG MUCOUS MEM (09:45)
[2025-03-05] MEDS: ceFAZolin 2 GM/D5W 50 ML 2 GM/50 ML BAG IVPB (09:45)
--- NOTE | 2025-03-05 10:14 | W.PM.PROC2 ---
Procedure Note - Detailed Date of Procedure 03/05/25 Pre-op Diagnosis Intrinsic sphincter deficiency Post-op Diagnosis Same Procedure Performed Cystoscopy with suburethral injection of implant material Surgeon Enmanuel Barajas MD Anesthesia MAC and Local Indications She has mixed incontinence. She is here today for treatment of her intrinsic sphincter deficiency. She understands it will not help urgency urge leakage. She understands risks of bleeding, infection, damage to the urethra, lack of efficacy, urinary retention requiring catheterization, need for repeat procedures. She also understands it will not help overactive bladder. She also understands my goal was improvement rather than cure Findings Uncomplicated bulking agent injection Description of Procedure She was correctly identified. Informed consent obtained. From the operating room. She was given monitored anesthesia care. She was placed in dorsal lithotomy position. She was prepped draped sterile fashion. Given appropriate perioperative antibiotics. Time-out performed. Cystoscopy revealed a bladder without abnormalities. Ureteral orifices were normal. No bladder tumors. Urethra was open consistent with intrinsic sphincter deficiency. I chose a site in the mid urethra 2 cm distal bladder neck. I injected bulking agent circumferentially. I performed several large pillows collapsing the urethra. I used both syringes. Left the bladder partially full. She was awakened transferred to PACU in stable condition. Drains No Packing No Pathology None sent Complications No immediate complications Condition Stable Disposition PACU
[2025-03-05 10:52] VITALS: BP 121/47; PULSE 74; RESP 14; O2SAT 100
== END 2025-03-05 11:09 | disposition home or self-care (01) ==
PROVIDERS: PCP Internal Medicine Infectious Disease; Visit Provider Urology
PROC: 3E0K8GC Introduction of Other Therapeutic Substance into Genitourinary Tract, Via Natural or Artificial Opening Endoscopic (ICD-10-PCS; CPT 51715; principal; 2025-03-05 10:00)
DX: N36.42 Intrinsic sphincter deficiency (ISD) (principal); F17.210 Nicotine dependence, cigarettes, uncomplicated
CPT/HCPCS: 51715; J0690; J2003; J2405; J2704; J3010; J7120; L8606

== ENCOUNTER 2025-10-25 08:03 | Outpatient (CLI) | payer MEDICARE, MEDICAID, SELFPAY ==
--- NOTE | ~2025-10-25 | CT_ITS ---
EXAMINATION:CT lung screening DATE: 10/25/2025 08:28 INDICATION: Nicotine dependence. TECHNIQUE: Computed tomography (CT) of the chest was performed without intravenous contrast. Automated exposure control and iterative reconstruction technique were employed. The dose-length product (DLP) was 56.73 mGy-cm. COMPARISON: Chest CT 10/06/2024 FINDINGS: There is moderate emphysema. There are centrilobular nodules and tree-in-bud opacities in the right middle lobe and lower lobes and lingula. There is posterior pleural thickening bilaterally. There is posterior rounded atelectasis in the lower lobes bilaterally. No pleural effusion. The heart size is normal. There are coronary artery calcifications. There are changes of coronary artery bypass grafting. No pericardial effusion. There are surgical changes of the stomach. There are changes of cholecystectomy. There are changes of posterior fusion procedure in cervical spine. There is severe thoracic spondylosis. IMPRESSION: 1. Bilateral pneumonia. Lung-RADS category 0: Incomplete. Noncontrast low-dose chest CT is recommended in 1-3 months. Reviewed, dictated and finalized at location E. UNTS PAYABLE ADMINISTRATOR
--- OUTSIDE RECORDS SUMMARY | 2025-10-25 08:15 | XMS_ITS | Clinical Summary ---
Author Organization [facility] Address [address] [place] [address] Care Team Providers Care Network Operations Center Engineer Name Role Phone Pat Atwood MD Primary Care Provider Source Comments [facility],non-owned Affiliates and Associated Physician Practices is amultiple site organization consisting of ambulatory clinics and hospital sitesin [place], [place], [place] and [place]. This disclosure is being madepursuant to the Care Everywhere program and may not contain all information available regarding this patient. Last updated 18.[facility] Allergies Active Allergy Reactions Criticality Noted Date [...] Breath, Wheezing or Cough Active HYDROcodone-dariusz taminophen (Canones) 5-325 MG tablet Take 1 (one) tablet [...] (03/06/2023): Added automatically from request for surgery [id number] Encounter for screening for cardiovascular disor ders 06/19/2021 03/06/2023 Abdominal aortic aneurysm without rupture 202003/06/2023 Stress incontinence, female 04/27/201901/2023 Overview (03/06/2023): Added automatically from request for surgery [id number] Urge incontinence of urine 04/23/201903/06 Abdominal bruit 09/23/2017 03/06/2023 Other specified symptoms and signs involving the circulatory and respiratory systems 09/23/2017 03/06/2023 Elevated CEA 12/27/2016 03/06/2023 Tobacco abuse 12/27/2016 03/06/2023 Mixed hypercholesterolemia and hypertriglyceride lore 05/31/2014 03/06/2023 Atherosclerotic heart diseas e of [place] coronary artery without angina pectoris 11/04/1959 03/06/2023 Dizziness and giddiness 11/04/1959 03/06/20 23 Encounters Date Type Department Care Team Description 09/09/2025 Transcribe Orders [facility] - Centralized Scheduling [address] [place] [address] Pat Atwood MD Intractable chronic cluster headache from Last 3 Months Social History Tobacco Use Types Packs/Day Years Used Date Smoking Tobacco: Every Day Cigarettes Smokeless Tobacco: Never PHQ-2 Answer Date Recorded Patient Health Questionnaire-2 Score 2 10/31/2023 Comments Unknown Sex and Gender Information Value Date Recorded Sex Assigned at Not on file 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[employer] Gender Identity Not on file Sexual Orientation [...] yrs (1 - 1-dose 75+ series) 2020 DEPRESSION SCREENING 11/04/2024 10/31/2023 MEDICARE AWV CALENDAR YEAR 2024 COVID-19 VACCINE (1 - 2024-2 6 season) 2025 INFLUENZA VACCINE (#1) 2025 HEPATITIS B VACCINE Aged Out No [...] this topic Medical Devices Implanted Type Area Esl Professor Device Identifier Shelf Expiration Date Model / Serial / Lot [employer] Biomonitor Iii Loop Recorder Description:biotronik Biomon itor III Cardiac Stent Stent - Vascular Insurance [facility] MANAGED MEDICARE FORMERLY [facility] MEDICAID - [place] Care Teams Network Operations Center Engineer Relationship Specialty [place] [address] [place] [phone] PCP - General Internal Medicine 09/13/25
== END 2025-10-25 08:04 | disposition home or self-care (01) ==
PROVIDERS: PCP Internal Medicine Infectious Disease; Visit Provider Internal Medicine Infectious Disease
DX: Z12.2 Encounter for screening for malignant neoplasm of respiratory organs (principal); Z87.891 Personal history of nicotine dependence; J18.9 Pneumonia, unspecified organism
CPT/HCPCS: 71271

== ENCOUNTER 2025-11-02 11:17 | Outpatient (CLI) | payer MEDICARE, MEDICAID, SELFPAY ==
--- NOTE | 2025-11-02 12:00 | ECG_ITS ---
Test Date: 2025-11-02 11:55:44 Measurements Intervals [place] Rate: 59 P: 56 [place]: 180 QRS: 70 QRSD: 139 T: 56 QT: 433 QTc: 430 Interpretive Statements SINUS BRADYCARDIA WITH MARKED SINUS ARRHYTHMIA RIGHT BUNDLE BRANCH BLOCK BASELINE ARTIFACT- I, II, III, AVR, AVL, AVF, V4 ABNORMAL ECG Compared to ECG 08/27/2024 10:03:42 No significant changes Electronically Signed On 11-02-2025 19:26:34 CYBER INSTRUCTOR by Jhonathan Lloyd D.O.
--- OUTSIDE RECORDS SUMMARY | 2025-11-02 12:06 | XMS_ITS | Data Portability ---
Author Organization [place] [facility] Address [address] [facility] [place] [address] Care Team Providers Care Lithography Contact Worker Name Role Phone DERECK PUGA White Sugar Boiler JOHN COOK Ladderman ZEE HASSAN Pain Management JESE SAWYER Neurologist Assessment No assessment recorded. Plan of Treatment Reminders Order Date Submit Date Provider Last Modified By Organization Details Last Modified Time Details Appointments ANY 15 2025 02:00P M Pat Atwood MD Not available Not available Not available Lab rapid strep group A, throat 2024 025 [facility] In-Office Order, Internal Use Only DO Not Attach Compendium DO Not Attach Compendium, Do Not Delete/merge, [id number] 10/14/2025 20:26:08 influenza virus A + B + SARS-CoV- 2 (COVID19) Ag panel, rapid IA, upper respirato ry specimen 2024 025 PAYAL In-Office Order, Internal Use Only DO Not Attach Compendium DO Not Attach Compendium, Do Not Delete/merge, [id number] 10/13/2025 15:56:11 CBC 2024 025 PA[facility]AL [facility], [address] [place] [address], [address], [place], [address], 07/02/2025 08:23:45 CMP, serum or plasma 2024 025 [facility], [address], [address], [place], [address], 07/02/2025 08:23:44 lipid panel, serum 2024 025 [facility], [address], [address], [place], [address], 07/02/2025 08:23:43 TSH, ultra-sen sitive, serum 2023 024 [facility], [address], [address], [place], [address], 09/18/2024 09:16:33 lipid panel, serum 2023 024 [facility], [address], [address], [place], [address], 05/07/2024 08:23:52 vitamin D, 25-hydrox y, total, serum 2023 024 PA[facility]AL [facility], [address], [address], [place], [address], 05/07/2024 08:23:54 basic metabolic 1998 panel, serum or plasma 2023 024 [facility], [address], [address], [place], [address], 05/07/2024 08:23:53 CBC 2023 024 [facility], [address], [address], [place], [address], 05/07/2024 08:23:54 Referral orthopedi c surgeon referral 2024 025 [facility], [address] [place] [address], [place], [address], 08/16/2025 12:11:[address] referral 2023 024 [facility] Care Physician Referral Management, [address] [facility], [facility] Care [address], [place], [address], 10/13/2025 12:45:18 Procedures None recorded. Surgeries None recorded. Imaging LDCT, chest, for lung cancer screening - Pesonal decision making was done 2024 [facility], [facility] [address], [address], 10/25/2025 19:16:53 CT, chest, w/o contrast 2023 024 [facility] (Imaging), [address] [facility] [address], [place], [address], 10/07/2024 09:04:40 Medication Orders Tamiflu 75 mg capsule 2024 [facility], [address] [place] [address], [address], 10/25/2025 05:02:19 prednison e 20 mg tablet 2024 025 [facility], [address] [place], [address], 10/25/2025 05:02:26 Trelegy Ellipta 100 mcg-62.5 mcg-25 mcg powder for inhalatio n 2024 025 [facility], [address] [place], [address], 06/17/2025 15:26:18 albuterol sulfate HFA 90 mcg/actua tion aerosol inhaler 2024 025 [facility], [address] [place], [address], 06/17/2025 15:26:15 ropinirol e 1 mg tablet 2024 025 [facility], [address] [place] [address], [address], 12/18/2024 15:38:23 ergocalci ferol (vitamin D2) 1,250 mcg (50,000 unit) capsule 2024 025 [facility], [address] [place] [address], [address], 12/18/2024 15:38:28 Trelegy Ellipta 100 mcg-62.5 mcg-25 mcg powder for inhalatio n 2024 025 [facility], [address] [place] [address], [address], 12/18/2024 15:38:22 albuterol sulfate HFA 90 mcg/actua tion aerosol inhaler 2024 025 [facility], [address] [place] [address], [address], 12/18/2024 15:42:22 ergocalci ferol (vitamin D2) 1,250 mcg (50,000 unit) capsule 2023 024 [facility], [address] [place] [address], [address], 09/17/2024 15:35:17 ropinirol e 1 mg tablet 2023 024 [facility], [address] [place] [address], [address], 04/23/2024 15:00:34 Trelegy Ellipta 100 mcg-62.5 mcg-25 mcg powder for inhalatio n 2023 024 [facility], [address] [place] [address], [address], 04/23/2024 15:00:35 Patient TargetsNo targets recorded. Patient Instructions Encounter Date Encounter Id Patient Instructions Last Modified By Organization Details Last Modified Time 04/23/2024 [id number] Labs Pulmonology follow up Most recent consultation note from her neurologist, Dr Jese Sawyer Follow up in 5 months and PRN oajao Not available 04/23/2024 15:07:41 09/17/[id number] New Neurologist Labs Follow up in 6 weeks Addendum Senior services oajao Not available 09/17/2024 16:44:43 12/18/2024 [id number] Neurologist as referred Stop smoking Follow up in 6months oajao Not available 12/18/2024 16:53:52 06/17/2025 [id number] X-ray reports Orthopedics Labs Follow up in 4 months for the MEERA [email or web address] Not available 06/17/2025 15:28:11 10/13/2025 [id number] advance care planning: care instructions oajao Not available 10/13/2025 15:02:44 preventing falls : care instructions oajao Not available 10/13/2025 15:02:44 Quitting Tobacco : Care Instructions oajao Not available 10/13/2025 15:02:44 Medicare Wellnes s Preventive Checklist oajao Not available 10/13/2025 15:02:44 eating healthy foods: care instructions oajao Not available 10/13/2025 15:02:44 AD8 Dementia Screening Interview oajao Not available 10/13/2025 15:02:44 Tamiflu Prednisone OTC Sudafed LDCT Follow up in 4 months and PRN oajao Not available 10/13/2025 15:55:04 Reason for Referral Neurologist Referral for Chr onic headache disorder Chronic headaches Referring Physician: Pat Atwood, Internal Medicine, Encounter Date: 09/17/2024 Orthopedic Surgeon Referral for Pain of left shoulder joint Acute on chronic left shoulder pain, recent trauma Referring Physician: Pat Atwood, Internal Medicine, Encounter Date: 06/17/2025 Results Created Date Observation Date Name Description Value Unit Range Abnormal Flag Note LastModifiedBy Organization Detail LastModifiedTime 05/06/20 24 05/07/2024 LIPID PANEL cholesterol, total 174 mg/dL 100-19 9 Not Available [facility] ([facility]) [address] [place], [address], 05/07/2024 08:23:52 05/06/20 24 05/07/2024 LIPID PANEL triglyceride s 105 mg/dL 0-149 Not Available [facility] ([facility]) [address] [place], [address], 05/07/2024 08:23:52 05/06/20 24 05/07/2024 LIPID PANEL HDL cholesterol 59 mg/dL >39 Not Available [facility] ([facility]) [address] [place], [address], 05/07/2024 08:23:52 05/06/20 24 05/07/2024 LIPID PANEL VLDL cholesterol vicky 19 mg/dL 5-40 Not Available [facility] ([facility]) [address] [place], [address], 05/07/2024 08:23:52 05/06/20 24 05/07/2024 LIPID PANEL LDL chol calc ([facility]) 96 mg/dL 0-99 Not Available [facility] ([facility]) [address] [place], [address], 05/07/2024 08:23:52 05/06/20 24 05/07/2024 BASIC METAB OLIC PANEL (7) glucose 97 mg/dL 70-99 Not Available [facility] ([facility]) [address] [place], [address], 05/07/2024 08:23:53 05/06/20 24 05/07/2024 BASIC METAB OLIC PANEL (7) BUN 24 mg/dL 8-27 Not Available [facility] ([facility]) [address] [place], [address], 05/07/2024 08:23:53 05/06/20 24 05/07/2024 BASIC METAB OLIC PANEL (7) creatinine 0.96 mg/dL 0.57-1 .00 Not Available [facility] ([facility]) [address] [facility] [place], [address], 05/07/2024 08:23:53 05/06/20 24 05/07/2024 BASIC METAB OLIC PANEL (7) eGFR 61 mL/mi n/1.7 3 >59 Not Available [facility] ([facility]) [address] [facility] [place], [address], 05/07/2024 08:23:53 05/06/20 24 05/07/2024 BASIC METAB OLIC PANEL (7) BUN/creatini ne ratio 25 12-28 Not Available [facility] ([facility]) [address] [facility] [place], [address], 05/07/2024 08:23:53 05/06/20 24 05/07/2024 BASIC METAB OLIC PANEL (7) sodium 141 mmol/ L 134-14 4 Not Available [facility] ([facility]) [address] [facility] [place], [address], 05/07/2024 08:23:53 05/06/20 24 05/07/2024 BASIC METAB OLIC PANEL (7) potassium 4.7 mmol/ L 3.5-5. 2 Not Available [facility] ([facility]) [address] [facility] [place], [address], 05/07/2024 08:23:53 05/06/20 24 05/07/2024 BASIC METAB OLIC PANEL (7) chloride 103 mmol/ L 96-106 Not Available [facility] ([facility]) [address] [facility] [place], [address], 05/07/2024 08:23:53 05/06/20 24 05/07/2024 BASIC METAB OLIC PANEL (7) carbon dioxide, total 21 mmol/ L 20-29 Not Available [facility] ([facility]) [address] [facility] [place], [address], 05/07/2024 08:23:53 05/06/20 24 05/07/2024 CBC, PLATE LET, NO DIFFE RENTI AL WBC 8.9 x10e3 /uL 3.4-10 .8 Not Available [facility] ([facility]) [address] [facility], [place], [address], 05/07/2024 08:23:53 05/06/20 24 05/07/2024 CBC, PLATE LET, NO DIFFE RENTI AL RBC 4.44 x10e6 /uL 3.77-5 .28 Not Available [facility] ([facility]) [address] [place], [address], 05/07/2024 08:23:53 05/06/20 24 05/07/2024 CBC, PLATE LET, NO DIFFE RENTI AL hemoglobin 13.3 g/dL 11.1-1 5.9 Not Available [facility] ([facility]) [address] [place], [address], 05/07/2024 08:23:53 05/06/20 24 05/07/2024 CBC, PLATE LET, NO DIFFE RENTI AL hematocrit 40.7 % 34.0-4 6.6 Not Available [facility] ([facility]) [address] [place], [address], 05/07/2024 08:23:53 05/06/20 24 05/07/2024 CBC, PLATE LET, NO DIFFE RENTI AL MCV 92 fL 79-97 Not Available [facility] ([facility]) [address] [place], [address], 05/07/2024 08:23:53 05/06/20 24 05/07/2024 CBC, PLATE LET, NO DIFFE RENTI AL MCH 30.0 pg 26.6-3 3.0 Not Available [facility] ([facility]) [address] [place], [address], 05/07/2024 08:23:53 05/06/20 24 05/07/2024 CBC, PLATE LET, NO DIFFE RENTI AL MCHC 32.7 g/dL 31.5-3 5.7 Not Available [facility] ([facility]) [address] [facility], [place], [address], 05/07/2024 08:23:53 05/06/20 24 05/07/2024 CBC, PLATE LET, NO DIFFE RENTI AL RDW 14.6 % 11.7-1 5.4 Not Available [facility] ([facility]) [address] [facility], [place], [address], 05/07/2024 08:23:53 05/06/20 24 05/07/2024 CBC, PLATE LET, NO DIFFE RENTI AL platelets 331 x10e3 /uL 150-45 0 Not Available [facility] ([facility]) [address] [facility], [place], [address], 05/07/2024 08:23:53 05/06/20 24 05/07/2024 VITAM IN [...] um and D. Maik bowser [place]: The [facility] . 2. Robb simms [place], [place] ey [place], Bisch off-F errar i CRAFT, et al. Evalu ation , treat ment, and preve ntion of vitam in D defic iency : an Endoc rine Socie ty clini vicky pract ice guide line. JCEM. 2010; 96(7) :1911 -30. Not Available [facility] ([facility]) [address] [facility] [place], [address], 05/07/2024 08:23:54 09/17/20 24 09/18/2024 TSH TSH 1.440 uIU/m L 0.450- 4.500 Not Available [facility] ([facility]) [address] [facility] [place], [address], 09/18/2024 09:16:33 07/01/20 25 07/02/2025 LIPID PANEL cholesterol, total 184 mg/dL 100-19 9 Not Available [facility] ([facility]) [address] [facility] [place], [address], 07/02/2025 08:23:43 07/01/20 25 07/02/2025 LIPID PANEL triglyceride s 118 mg/dL 0-149 Not Available [facility] ([facility]) [address] [facility] [place], [address], 07/02/2025 08:23:43 07/01/20 25 07/02/2025 LIPID PANEL HDL cholesterol 61 mg/dL >39 Not Available [facility] ([facility]) [address] [facility] [place], [address], 07/02/2025 08:23:43 07/01/20 25 07/02/2025 LIPID PANEL VLDL cholesterol vicky 21 mg/dL 5-40 Not Available [facility] ([facility]) [address] [facility] [place], [address], 07/02/2025 08:23:43 07/01/20 25 07/02/2025 LIPID PANEL LDL chol calc ([facility]) 102 mg/dL 0-99 above high normal Not Available [facility] ([facility]) [address] [facility] [place], [address], 07/02/2025 08:23:43 07/01/20 25 07/02/2025 CMP14 +EGFR glucose 102 mg/dL 70-99 above high normal Not Available [facility] ([facility]) [address] [place], [address], 07/02/2025 08:23:44 07/01/20 25 07/02/2025 CMP14 +EGFR BUN 12 mg/dL 8-27 Not Available [facility] ([facility]) [address] [place], [address], 07/02/2025 08:23:44 07/01/20 25 07/02/2025 CMP14 +EGFR creatinine 1.04 mg/dL 0.57-1 .00 above high normal Not Available [facility] ([facility]) [address] [place], [address], 07/02/2025 08:23:44 07/01/20 25 07/02/2025 CMP14 +EGFR eGFR 55 mL/mi n/1.7 3 >59 below low normal Not Available [facility] ([facility]) [address] [place], [address], 07/02/2025 08:23:44 07/01/20 25 07/02/2025 CMP14 +EGFR BUN/creatini ne ratio 12 12-28 Not Available [facility] ([facility]) [address] [place], [address], 07/02/2025 08:23:44 07/01/20 25 07/02/2025 CMP14 +EGFR sodium 143 mmol/ L 134-14 4 Not Available [facility] ([facility]) [address] [place], [address], 07/02/2025 08:23:44 07/01/20 25 07/02/2025 CMP14 +EGFR potassium 4.6 mmol/ L 3.5-5. 2 Not Available [facility] ([facility]) [address] [place], [address], 07/02/2025 08:23:44 07/01/20 25 07/02/2025 CMP14 +EGFR chloride 106 mmol/ L 96-106 Not Available [facility] ([facility]) [address] [facility], [place], [address], 07/02/2025 08:23:44 07/01/20 25 07/02/2025 CMP14 +EGFR carbon dioxide, total 24 mmol/ L 20- Not Available [facility] ([facility]) [address] [facility], [place], [address], 07/02/2025 08:23:44 07/01/20 25 07/02/2025 CMP14 +EGFR calcium 9.6 mg/dL 8.7-10 .3 Not Available [facility] ([facility]) [address] [facility], [place], [address], 07/02/2025 08:23:44 07/01/2007/02/2025 CMP14 +EGFR protein, total 6.1 g/dL 6.0-8. 5 Not Available [facility] ([facility]) [address] [facility], [place], [address], 07/02/2025 08:23:44 07/01/20 25 07/02/2025 CMP14 +EGFR albumin 3.7 g/dL 3.8-4. 8 below low normal Not Available [facility] ([facility]) [address] [place], [address], 07/02/2025 08:23:44 07/01/20 25 07/02/2025 CMP14 +EGFR globulin, total 2.4 g/dL 1.5-4. 5 Not Available [facility] ([facility]) [address] [place], [address], 07/02/2025 08:23:44 07/01/20 25 07/02/2025 CMP14 +EGFR bilirubin, total 0.2 mg/dL 0.0-1. 2 Not Available [facility] ([facility]) [address] [facility], [place], [address], 07/02/2025 08:23:44 07/01/20 25 07/02/2025 CMP14 +EGFR alkaline phosphatase 185 IU/L 44-121 above high normal Not Available [facility] ([facility]) [address] [facility], [place], [address], 07/02/2025 08:23:44 07/01/20 25 07/02/2025 CMP14 +EGFR AST (SGOT) 10 IU/L 0-40 Not Available [facility] ([facility]) [address] [facility], [place], [address], 07/02/2025 08:23:44 07/01/20 25 07/02/2025 CMP14 +EGFR ALT (SGPT) 7 IU/L 0-32 Not Available [facility] ([facility]) [address] [facility], [place], [address], 07/02/2025 08:23:44 07/01/20 25 07/02/2025 CBC, PLATE LET, NO DIFFE RENTI AL WBC 7.5 x10e3 /uL 3.4-10 .8 Not Available [facility] ([facility]) [address] [facility], [place], [address], 07/02/2025 08:23:45 07/01/20 25 07/02/2025 CBC, PLATE LET, NO DIFFE RENTI AL RBC 4.35 x10e6 /uL 3.77-5 .28 Not Available [facility] ([facility]) [address] [facility] [place], [address], 07/02/2025 08:23:45 07/01/20 25 07/02/2025 CBC, PLATE LET, NO DIFFE RENTI AL hemoglobin 13.3 g/dL 11.1-1 5.9 Not Available [facility] ([facility]) [address] [facility], [place], [address], 07/02/2025 08:23:45 07/01/2007/02/2025 CBC, PLATE LET, NO DIFFE RENTI AL hematocrit 40.8 % 34.0-4 6.6 Not Available [facility] ([facility]) [address] [place], [address], 07/02/2025 08:23:45 07/01/2007/02/2025 CBC, PLATE LET, NO DIFFE RENTI AL MCV 94 fL 79-97 Not Available [facility] ([facility]) [address] [facility], [place], [address], 07/02/2025 08:23:45 07/01/2007/02/2025 CBC, PLATE LET, NO DIFFE RENTI AL MCH 30.6 pg 26.6-3 3.0 Not Available [facility] ([facility]) [address] [facility], [place], [address], 07/02/2025 08:23:45 07/01/2007/02/2025 CBC, PLATE LET, NO DIFFE RENTI AL MCHC 32.6 g/dL 31.5-3 5.7 Not Available [facility] ([facility]) [address] [place], [address], 07/02/2025 08:23:45 07/01/2007/02/2025 CBC, PLATE LET, NO DIFFE RENTI AL RDW 13.6 % 11.7-1 5.4 Not Available [facility] ([facility]) [address] [place], [address], 07/02/2025 08:23:45 07/01/2007/02/2025 CBC, PLATE LET, NO DIFFE RENTI AL platelets 325 x10e3 /uL 150-45 0 Not Available [facility] ([facility]) [address] [place], [address], 07/02/2025 08:23:45 10/13/2010/13/2025 influ mary kay virus A + B + SARS- CoV-2 (COVI D19) Ag panel , rapid IA, upper respi rator y speci men Flu B positi ve Not Available In-Office Order Internal Use Only DO Not Attach Compendium DO Not Attach Compendium, Do Not Delete/merge, [id number] 10/13/2025 15:21:02 10/13/20 25 10/13/2025 influ mary kay virus A + B + SARS- CoV-2 (COVI D19) Ag panel , rapid IA, upper respi rator y speci men Flu A negati ve Not Available In-Office Order Internal Use Only DO Not Attach Compendium DO Not Attach Compendium, Do Not Delete/merge, [id number] 10/13/2025 15:21:02 10/13/20 25 10/13/2025 influ mary kay virus A + B + SARS- CoV-2 (COVI D19) Ag panel , rapid IA, upper respi rator y speci men Rapid SARS CoV 2 Ag, QL IA, respiratory specimen negati ve Not Available In-Office Order Internal Use Only DO Not Attach Compendium DO Not Attach Compendium, Do Not Delete/merge, [id number] 10/13/2025 15:21:02 06/11/20 24 06/11/2024 US, eli hernández for abdom inal aorti c aneur ysm No observ ation record ed. [facility] [address], [place], [address], 09/17/2024 15:22:47 08/27/20 24 08/27/2024 XR, chest No observ ation record ed. [address], [place], [address], 09/17/2024 15:22:47 10/07/20 24 10/06/2024 CT, chest , w/o contr ast No observ ation record ed. [address], [place], [address], 12/18/2024 15:30:43 02/11/20 25 02/10/2025 MAMMO , eli hernández, digit al, bilat eral No observ ation record ed. [facility] [address], [place], [address], 06/17/2025 15:10:11 10/15/20 25 10/15/2025 imagi ng/di agnos tic resul t No observ ation record ed. [facility] [address], [place], [address], 10/22/2025 17:11:50 10/25/20 25 10/25/2025 LDCT, chest , for lung cance r eli hernández No observ ation record ed. [facility] [address], [place], [address], 10/26/2025 15:19:09 Result Notes None recorded. Problems Name Problem SNOMED Code Status Onset Date Resolution Date Notes Provider Name and Address Organization Details Recorded Time Chronic obstructiv e pulmonary disease 99638036 Active Not Available [facility] 3 22:38:07 Hyperchole sterolemia 95982091 Active Not Available [facility] 3 22:38:07 Benign hypertensi on 41098196 Active Not Available [facility] 3 22:38:07 Urinary incontinen ce 178255940 Active Not Available [facility] 3 22:38:07 Coronary atheroscle rosis 246714058 Active Not Available [facility] 3 22:38:08 Heart failure 07661498 Active Not Available [facility] 3 22:38:08 Myocardial infarction 27764858 Active Not Available [facility] 3 22:38:07 Laboratory test result abnormal 415273603 Active Not Available [facility] 3 22:38:07 Dysuria 64662425 Active Not Available [facility] 3 22:38:08 Tobacco user 473055697 Active Not Available [facility] 3 22:38:07 Restless legs syndrome 24678466 Active Not Available [facility] 3 22:38:07 Low back pain 327699565 Active Not Available [facility] 3 22:38:07 Computed tomography result abnormal 998313970 Active Not Available [facility] 3 22:38:07 Disorder of hair 747689175 Active Not Available [facility] 3 22:38:07 Pain of shoulder region 68165005 Active Not Available [facility] 3 22:38:08 High carcinoemb ryonic antigen level 281390508 Active Not Available [facility] 3 22:38:08 Alkaline phosphatas e above reference range 785129501 Active Not Available [facility] 3 22:38:07 Chronic peptic ulcer 800891498 Active Not Available [facility] 3 22:38:07 Pelvic mass 86138365 Active Not Available [facility] 3 22:38:08 Disorder of lipid metabolism 190896596 Active Not Available [facility] 3 22:38:07 Aortic aneurysm 53846109 Active Not Available [facility] 3 22:38:08 Polyp of colon 17520228 Active Not Available [facility] 3 22:38:08 Abdominal pain 75885389 Active Not Available [facility] 3 22:38:07 Dizziness 833837136 Active Not Available [facility] 3 22:38:07 Chronic cough 81210447 Active Not Available [facility] 3 22:38:08 Impacted cerumen 80027261 Active Not Available [facility] 3 22:38:07 Insomnia 174975981 Active Not Available [facility] 3 22:38:07 Disorder of back 13462212 Active Not Available [facility] 3 22:38:07 Cramp 34163468 Active Not Available [facility] 3 22:38:08 Weight gain 4823217 Active Not Available [facility] 3 22:38:08 Aspiration of food 78119532 Active Not Available [facility] 3 22:38:08 Abscess 333020257 Active Not Available [facility] 3 22:38:07 Stented coronary artery 612103360 Active 2016 Not Available [facility] 3 22:38:07 Visual impairment [id number] Active 2016 Not Available [facility] 3 22:38:07 Abdominal aortic aneurysm 441333601 Active 2016 Pat Atwood MD Attn: Accounting ,[address] [facility], [place], [address] , [facility] - [facility] 5 15:39:09 Nicotine dependence 64362307 Active 2017 Not Available [facility] 3 22:38:08 Renal insufficie ncy 161876013 Active 2017 Not Available [facility] 3 22:38:08 History of peptic ulcer 351098228 Active 2017 Not Available [facility] 3 22:38:07 Stenosis of interverte bral foramina 638425132626 Active 2017 Not Available [facility] 3 22:38:07 Colon cancer screening declined 4872954156244 9 Active 2018 Not Available [facility] 3 22:38:07 Incontinen ce of feces 36642440 Active 2018 Not Available [facility] 3 22:38:08 Kidney stone 66400470 Active 2018 Not Available [facility] 3 22:38:08 Statin not tolerated 901287452 Active 2020 Not Available [facility] 3 22:38:07 Cerebral infarction 741660870 Active 2020 Not Available [facility] 3 22:38:08 Osteoarthr itis of elbow 271111739 Active 2021 Not Available [facility] 3 22:38:07 Generalize d osteoarthr itis 039990795 Active 2021 Not Available [facility] 3 22:38:07 Aspirin prophylaxi s contra-ind icated 538146262 Active 2021 Not Available [facility] 3 22:38:07 Solitary nodule of lung 649617758 Active 2021 Not Available [facility] 3 22:38:08 Chronic headache disorder 405892007 Active 2022 Not Available [facility] 3 22:38:08 Right carotid artery stenosis 6484461339368 00 Active 2022 Not Available [facility] 3 22:38:07 Problem Notes Documentation Provider Name and Address Organization Details Recorded Time Pain Management Consult Note : This document (1 of 1) was received from [email or web address] [email or web address], [place] [id number] buuteeq on 07/17/2024 through Direct Message along with the following message body content: Patient Name: GIULIA REN. Patient : 1945. Patient . Pat Atwood MD Attn: Accounting,[address] [place], [address], [facility] 09/17/2024 15:22:48 Procedures Surgical History Date Name Laterality Status Provider Name and Address Organization Details Recorded Time 2024 cystoscopic suburethral injection in female completed Pat Atwood MD Attn: Accounting ,[address] [place], [address] , [facility] 5 11:54:35 2021 endoscopic retrograde cholangiopancreatography with insertion of biliary stent completed Pat Atwood MD Attn: Accounting ,[address] [place], [address] , [facility] 2 11:39:27 2020 implantation of patient-activated cardiac event recorder completed Nallely Whaley MA [place] - [place] 1 12:03:56 2020 colonoscopy completed Pat Atwood MD Attn: Accounting ,[address] [place], [address] , [facility] 1 11:17:09 2018 colonoscopy completed Pat Atwood MD Attn: Accounting ,[address] [facility], [place], [address] , [facility] 0 15:35:44 2013 Heart Surgery completed Giulia [facility]HORACIO [facility] 6 11:51:08 2012 Most Recent Mammogram completed Giulia ZhouHORACIO [facility] 6 11:31:24 1980 Hysterectomy completed Giulia ZhouHORACIO [facility] 6 11:51:08 1977 Hysterectomy completed Giulia ZhouHORACIO [facility] 6 11:51:08 Back Surgery completed February MarvHORACIO [facility] 4 17:13:59 Angioplasty With Stent completed Ap MarvHORACIO [facility] 4 17:13:59 Other completed Giulia BarriosHORACIO whitney [facility] 6 11:51:08 Imaging Results None recorded. Procedure Notes None recorded. Medical Equipment None Reported. Allergies Allergen ID Allergen Name Allergen Category Reaction Reaction Severity Criticality Documentation Date Start Date Code Code System Note Provider Name and Address Organization Details Recorded Time 698621 PEG-Prep medicatio n other moderate Not available 06/17/2019 Pt. had blist ers insid e of her lips, cheek s, on her gingi va, and later down her throa t. Mervat Barroso RN [facility], [place] - [facility] 9 12:55:26 553260 Product containin g penicilli n (product) medicatio n Not available Not available Not available 01/13/2020 58079 8001 SNOMED Other react ions and sever ities : 'Adve rse react ion to subst ance' . Pat Atwood MD Attn: Accountin g,[address] [facility], [place], [address], [facility] 3 15:09:40 277601 nortripty line medicatio n respirato ry distress Not available Not available 03/20/2023 7531 RxNorm Pat Atwood MD Attn: Alfredo horn,[address] [facility], [place], [address], [facility] 3 15:09:08 891788 iodine medicatio n Not available Not available Not available 09/01/20252019 5933 RxNorm unrec ogniz ed react ion (text : Unkno wn, code: 95067 5006) (from exter nal sourc e) Not Available payal - External Data Service - prod 5 10:31:22 194965 vancomyci n medicatio n Not available Not available Not available 09/01/20252019 78544 RxNorm unrec ogniz ed react ion (text : Unkno wn, code: 44632 5006) (from exter nal sourc e) Not Available payal - External Data Service - prod 5 10:31:22 862312 cholestyr amine resin medicatio n angioedem a Not available high 09/01/20252016 2447 RxNorm blist ers blist ers unrec ogniz ed react ion (text : Other , code: 61378 07) (from exter nal sourc e) Not Available payal - External Data Service - prod 5 10:34:30 337424 citrate medicatio n Not available Not available low 09/01/20252016 40163 0 RxNorm unrec ogniz ed react ion (text : Unkno wn, code: 38406 5006) (from exter nal sourc e) Not Available payal - External Data Service - prod 5 10:34:30 807849 aluminum hydroxide / magnesium hydroxide / simethico ne medicatio n dyspnea Not available high 09/01/20252018 55592 8 RxNorm Not Available payal - External Data Service - prod 5 10:34:30 336315 magnesium citrate medicatio n anaphylax is Not available high 09/01/20252018 57703 RxNorm React ion: React ion: ANAPH YLAXI S, unrec ogniz ed react ion (text : Other , code: 05285 07) [facility] Not Available payal - External Data Service - prod 5 10:34:30 479034 magnesium sulfate medicatio n angioedem a Not available high 09/01/20252018 6585 RxNorm Not Available payal - External Data Service - prod 5 10:34:30 159609 penicilli n G Not available Not available Not available low 09/01/20252016 7980 RxNorm unrec ogniz ed react ion (text : Unkno wn, code: 23766 5006) (from exter [facility] sour e) Not Available payal - External Data Service - prod 5 10:34:30 906053 sulfaceta mide medicatio n Not available Not available low 09/01/20252016 23121 RxNorm unrec ogniz ed react ion (text : Unkno wn, code: 96842 5006) [facility] Not Available payal - External Data Service - prod 10:34:30 358815 propoxyph kenneth napsylate medicatio n Not available Not available Not available 09/02/20252016 8786 RxNorm Not Available payal - External Data Service - prod 15:46:54 680434 acetamino phen medicatio n Not available Not available Not available 09/02/20252016 161 RxNorm Not Available payal [employer] External Data Service - prod 15:46:54 62683 Iodinated contrast media (substanc e) medicatio n Not available Not available Not available 2015 62927 2004 SNOMED Other react ions and sever ities : 'Adve rse react ion to subst ance' . Pat Atwood MD Attn: Alfredo horn,[address] [place], [address] [place] [address] 3 15:09:40 39827 Substance with sulfonami de structure and antibacte rial mechanism of action (substanc e) medicatio n Not available Not available Not available 2015 14213 8003 SNOMED Other react ions and sever ities : 'Adve rse react ion to subst ance' . Pat Atwood MD Attn: Alfredo horn,[address] [facility], [place], [place], [address] [place] [address], [facility] 3 15:09:40 92371 Darvocet- N medicatio n Not available Not available Not available 12/01/2015 Sangita Villafana MA null, [place] - [place] 6 11:41:57 43989 erythromy burton medicatio n Not available Not available Not available 12/01/2015 4053 RxNorm Other react ions and sever ities : 'Adve rse react ion to subst ance' . Pat Atwood MD Attn: Alfredo horn,[address] [facility], [place], [place], [address] [place] [address] 2, [facility] 3 15:09:40 16120 morphine medicatio n Not available Not available Not available 12/01/2015 7052 RxNorm Other react ions and sever ities : 'Adve rse react ion to subst ance' . Pat Atwood MD Attn: Alfredo horn,[address] [facility], [place], [place], [address] [place] [address], [facility] 3 15:09:40 38225 magnesium medicatio n other moderate Not available 07/11/2016 6574 RxNorm Pt. had blist ers insid e of her lips, cheek s, on her gingi va, and later down her throa t. Mervat Barroso RN [facility], [place] - [place] 9 12:55:07 Medications Name Sig [...] Available atorvasta tin 20 mg tablet active Once in a while I do 10/13/20 25 Not Available Not Available Not Available ropinirol e 1 mg tablet TAKE 1 TABLET BY MOUTH ONCE DAILY AT BEDTIME FOR RESTLESS LEGS active Not Available Not Available No t Available nicotine 14 mg/24 hr daily transderm al [...] Not Available azithromy burton 250 mg tablet TAKE 2 TABLETS BY MOUTH ON DAY 1, AND THEN TAKE 1 TABLET BY MOUTH ONCE A DAY ON DAY 2 THROUGH DAY 5 10/10 completed Not Available Not Available Not Available [...] 1 TABLET BY MOUTH THREE TIMES DAILY active Not Available Not Available No t Available famotidin e 40 mg tablet 03/20 completed Not Available Not Available Not Available prednison e 20 mg tablet Take 2 tablets every day by oral route as directed for 5 days. 10/25 completed Not Available Not Available Not Available [...] completed Not Available Not Available Not Available Tamiflu 75 mg capsule Take 1 capsule twice a day by oral route around the clock for 5 days, for Influenz a. 10/25 completed Not Available Not Available Not Available [...] 1st dose [address] [id number] dose [address] [id number] dose [address] scan 04/09 completed Not Available Not Available Not Available fluoromet holone 0.1 % eye drops,angelita pension active Not Available Not Available Not Available lidocaine 5 % topical patch APPLY ONE PATCH TOPICALL Y TO CLEAN, DRY SKIN. LEAVE ON FOR 12 HOURS THEN REMOVE. MUST WAIT AT LEAST 12 HOURS BEFORE APPLYING PATCH(ES ) AGAIN. active Not Available Not Available No t [...] t Available levofloxa burton 500 mg tablet TAKE 1 TABLET BY MOUTH EVERY 24 HOURS DIRECTED FOR 5 DAYS, FOR PNEUMONI A active Not Available Not Available No t Available methylpre dnisolone 4 mg tablets in a dose pack TAKE BY MOUTH DIRECTED ON INSIDE OF PACKAGE 10/13 completed Not Available Not Available Not Available albuterol sulfate HFA 90 mcg/actua tion aerosol inhaler INHALE 2 PUFFS BY MOUTH 4 TIMES DAILY NEEDED FOR COPD active Not Available Not Available No t Available oxybutyni n chloride 5 mg tablet active [...] % eye drops in a dropperet te INSTILL 1 DROP INTO EACH EYE TWICE DAILY active Not Available Not Available No t Available rosuvasta tin 10 mg tablet Take 1 tablet every other day by oral route as directed for 90 days. 09/[address] puga 09/01/20 19 Not Available Not Available Not Available nitrofura ntoin monohydra te/macroc rystals 100 mg capsule TAKE 1 CAPSULE BY MOUTH TWICE DAILY 06/17 completed Not Available Not Available Not Available trospium 20 mg tablet TAKE 1 TABLET BY MOUTH TWICE DAILY active Not Available Not Available No t Available solifenac in 5 mg tablet Take [...] hours by inhalati on route as needed. 10/13 completed Not Available Not Available Not Available Belsomra 10 mg tablet Take 1 [...] mcg-62.5 mcg-25 mcg powder for inhalatio n INHALE 1 PUFF BY MOUTH ONCE DAILY DIRECTED active Not Available Not Available No t Available Shingrix (PF) 50 mcg/0.5 mL intramusc ular suspensio n, kit 02/03 completed Not Available Not Available Not Available Vitals Date Recorded Body height Body mass index (BMI) Body weight Respiratory rate Heart rate Oxygen saturation Body temperature Systolic And Diastolic Provider Name and Address Organization Details Last Updated DateTime 5 154.305 cm 19.8 kg/m2 11725.6 1 g 18 /min 70 /min 97 % 97.9 [degF] 126/70 mm[Hg] Giulia Nunn [facility] 5 15:16:10 Date Recorded Body height Body mass index (BMI) Body weight Heart rate Oxygen saturation Body temperature Systolic And Diastolic Provider Name and Address Organization Details Last Updated DateTime 4 154.305 cm 20.3 kg/m2 81793.6 7 g 71 /min 99 % 98.1 [degF] 124/68 mm[Hg] Giulia Nunn MA [facility] 4 14:24:28 Date Recorded Body height Body mass index (BMI) Body weight Heart rate Oxygen saturation Respiratory rate Body temperature Systolic And Diastolic Provider Name and Address Organization Details Last Updated DateTime 5 154.305 cm 19.7 kg/m2 06343.8 1 g 78 /min 95 % 16 /min 98.4 [degF] 136/70 mm[Hg] Giulia Nunn MA [facility] 5 15:07:19 Date Recorded Body height Body mass index (BMI) Body weight Heart rate Respiratory rate Oxygen saturation Systolic And Diastolic Provider Name and Address Organization Details Last Updated DateTime 4 154.305 cm 19.4 kg/m2 51396.4 2 g 76 /min 18 /min 97 % 120/70 mm[Hg] Giulia Nunn [facility] 4 14:54:27 Date Recorded Body height Body mass index (BMI) Body weight Respiratory rate Oxygen saturation Heart rate Body temperature Systolic And Diastolic Provider Name and Address Organization Details Last Updated DateTime 5 154.305 cm 19.4 kg/m2 97978.9 8 g 18 /min 96 % 62 /min 97.6 [degF] 120/60 mm[Hg] Giulia Nunn [place] [facility] 5 14:55:18 Social History Question Answer Notes LastModified by Organizat ion Details LastModified Time Tobacco Smoking Status Current Every Day Smoker February Marv HORACIO janet, [place] - [facility] 09/21/2014 17:14:00 Do You Have An Advance Directive? No Information not available 11/22/2015 Are You Blind [...] Yes Information not available 02/03/2021 Are You Deaf Or Do You Have Serious Difficulty Hearing? No Information not available 02/03/2021 What Type Of Diet Are You Following? REGULAR Information not available 11/22/2015 Which Illicit Or Recreational Drugs Have You Used? None Information not available 11/22/2015 Education 12 Information no t available 11/22/2015 Are There Any Guns Present In Your Home? No Information not available 02/03/2021 Live Alone Or With Others? Alone Information not available 11/22/2015 What Was The Date Of Your Most Recent Tobacco Screening? 10/13/2025 Information not available 10/13/2025 How Many Children Do You Have? 3 Information not available 11/22/2015 What Is Your Current Pack Years? 30ormorepack years Information not available 02/03/2021 Performs Monthly Self-breast [...] Smoking Tobacco? 14 Information not available 02/03/2021 How Much Tobacco Do You Smoke? 0.5 PPD Information not available 04/23/2024 General Stress Level High Information not available 11/22/2015 Do You Use Sunscreen Routinely? No Information not available 02/03/2021 Has Tobacco Cessation Counseling Been Provided? Yes Information not available 02/03/2021 On What Date Was Tobacco Cessation Counseling Provided? 10/13/2025 Information not available 10/13/2025 How Many Years Have You Smoked Tobacco? 55 asavala Information not available 09/21/2014 Sex: Unknown Functional Status Question Answer Note LastModified by Organizat ion Details LastModified Time Do you use any illicit or recreational drugs? No Information not available 02/03/2021 Do you or have you ever used any other forms of tobacco or nicotine? Yes Information not available 02/03/2021 What is your level of alcohol consumption? None Information not available 11/22/2015 Do you or have you ever used smokeless tobacco? Never used smokeless tobacco Information not available 09/01/2019 Are you currently employed? No Information not available 11/22/2015 Are you able to care for yourself independently? Yes Information not available 03/16/2021 What is your occupation? retired Information not available 11/22/2015 Do you or have you ever used e-cigarettes or vape? Never used electronic cigarettes Information not available 09/01/2019 What is your exercise level? Occasional Information [...] Problems N Kidney or Bladder Problems N GI Problems N Lung Disease N Depression N COPD Y Blood Clots N Acne N Breast Problem N Eating Disorder N Anemia N Anesthesia Complications N Heart Attack ([place]) Y Headaches/Migraines N Anxiety Disorder N Diabetes [...] zoster, unspecified formulation 2 completed Not Available [facility] 07/29/2023 22:38:09 zoster, unspecified formulation 0 completed HORACIO [place] - [facility] 08/21/2023 15:36:25 SARS-COV-2 (COVID-19) vaccine, UNSPECIFIED 1 completed Not Available [facility] 07/29/2023 22:38:09 SARS-COV-2 (COVID-19) vaccine, UNSPECIFIED 1 completed Not Available [facility] 07/29/2023 22:38:09 Influenza, split virus, quadrivalent, preservative 1 completed Not Available [facility] 07/29/2023 22:38:09 COVID-19, mRNA, LNP-S, PF, 30 mcg/0.3 mL dose 1 completed Not Available [facility] 07/29/2023 22:38:09 COVID-19, mRNA, LNP-S, PF, 30 mcg/0.3 mL dose 2 completed HORACIO [place] [facility] 08/21/2023 15:36:25 Influenza, high-dose, trivalent, PF 7 completed Not Available [facility] 07/29/2023 22:38:10 COVID-19, mRNA, LNP-S, PF, 30 mcg/0.3 mL dose 1 completed Not Available [facility] 07/29/2023 22:38:09 COVID-19, mRNA, LNP-S, PF, 30 mcg/0.3 mL dose 1 completed Not Available [facility] 07/29/2023 22:38:09 zoster live 2 completed Not Available [facility] 07/29/2023 22:38:09 Influenza, high-dose, trivalent, PF 9 completed Not Available [facility] 07/29/2023 22:38:09 Influenza, high-dose, quadrivalent, PF 0 completed Not Available [facility] 07/29/2023 22:38:09 Influenza, split virus, trivalent, preservative 4 completed Not Available [facility] 07/29/2023 22:38:10 zoster recombinant 0 completed Not Available [facility] 07/29/2023 22:38:09 COVID-19, mRNA, LNP-S, PF, 30 mcg/0.3 mL dose, virgil-sucrose 2 completed Not Available [facility] 07/29/2023 22:38:09 zoster recombinant 0 completed Not Available [facility] 07/29/2023 22:38:09 pneumococcal polysaccharide PPV23 2 completed Not Available [facility] 07/29/2023 22:38:09 Pneumococcal conjugate PCV20, polysaccharide [id number] conjugate, adjuvant, PF 2 completed Not Available [facility] 07/29/2023 22:38:09 COVID-19, mRNA, LNP-S, bivalent, PF, 30 mcg/0.3 mL dose 2 completed Not Available [facility] 07/29/2023 22:38:09 Influenza, high-dose, quadrivalent, PF 3 completed Not Available [facility] 07/29/2023 22:38:09 Pneumococcal conjugate PCV20, polysaccharide [id number] conjugate, adjuvant, PF 3 completed Not Available [facility] 07/29/2023 22:38:09 RSV, recombinant, protein subunit RSVpreF, adjuvant reconstituted, 0.5 mL, PF 3 completed Not Available [facility] 07/29/2023 22:38:09 COVID-19, mRNA, LNP-S, PF, 50 mcg/0.5 mL 3 completed H[place]ACIO [place], [place] - [facility] 08/21/2023 15:36:25 COVID-19, mRNA, LNP-S, PF, virgil-sucrose, 30 mcg/0.3 mL 4 completed Pat Atwood MD Attn: Accounting[address] [place], [address], [place] [facility] 04/23/2024 14:40:41 COVID-19, mRNA, LNP-S, PF, virgil-sucrose, 30 mcg/0.3 mL 4 completed Giulia Nunn [place] null, [place] [facility] 09/17/2024 14:51:12 Influenza, high-dose, trivalent, PF 4 completed Giulia Nunn [place], [place] [facility] 09/17/2024 14:51:12 zoster recombinant 5 completed Not Available [facility] 10/13/2025 14:43:20 zoster recombinant 5 completed Not Available [facility] 10/13/2025 14:43:20 COVID-19, mRNA, LNP-S, PF, 30 mcg/0.3 mL dose 1 completed Not Available [facility] 10/13/2025 14:43:20 Pneumococcal conjugate PCV 13 5 completed Not Available [facility] 10/13/2025 14:43:20 Influenza, high-dose, trivalent, PF 5 completed Not Available [facility] 10/13/2025 14:43:20 COVID-19, mRNA, LNP-S, PF, virgil-sucrose, 30 mcg/0.3 mL 5 completed Not Available [facility] 10/13/2025 14:43:20 Tdap 7 completed Not Available [facility] 11/21/2019 02:39:19 Influenza, split virus, quadrivalent, PF 8 completed Not Available [facility] 11/21/2019 02:47:21 pneumococcal polysaccharide PPV23 2 completed Not Available [facility] 07/29/2023 22:38:09 Influenza, high-dose, trivalent, PF 5 completed Not Available [facility] 07/29/2023 22:38:09 Pneumococcal conjugate PCV 13 5 completed Not Available [facility] 07/29/2023 22:38:09 Influenza, high-dose, trivalent, PF 6 completed Not Available [facility] 07/29/2023 22:38:09 Pneumococcal conjugate PCV 13 6 completed Not Available [facility] 07/29/2023 22:38:09 Influenza, split virus, quadrivalent, preservative 2 completed Pat Atwood MD Attn: Accounting[address] [place], [address], [facility] 08/03/2022 14:11:02 Influenza, split virus, quadrivalent, preservative 7 completed Not Available [facility] 07/29/2023 22:38:09 Past Encounters Encounter ID Performer Location Encounter Start Date Encounter Closed Date Diagnosis/Indication Diagnosis SNOMED-CT Code Diagnosis ICD10 Code Diagnosis IMO Codes Diagnosis Note [id number] MD Stephanie Roberson (Adult Med) [address] [place] [address] 09/21/2014 15:35:09 09/22/2014 21:17:30 Chronic obstructive pulmonary disease 64050655 Stop smoking Hypercholesterolemia 60290749 [id number] MD Stephanie Roberson (Adult Med) [address] [place] [phone] 0 02/02/2015 11:32:00 02/02/2015 12:26:20 Benign hypertension 31032017 69 y/o W F who was last seen in this office [...] a day Chronic ob structive pulmonary disease 25526369 Stop smoking, she had Pneumovax in 2011, she needs [id number] Coronary atherosclerosis 435154841 Labs [id number] MD Stephanie Roberson (Adult Med) [address] [place] [phone] 0 10/03/2015 10:29:22 10/03/2015 12:43:19 Benign hypertension 15543908 I10 70 y/o WF who was last seen in this office 02/2015, in the interim she had her two other surgical procedures and was admitted with a wound infection. She reports uncontroll ed HTN while off her medication s, her BP is normal today. I will monotor this closely. Coronary atherosclerosis 529112798 I25.10 Labs are needed, her Plavix was discontinu ed by Dr. Charlene Puga her cardiologi st during her visit, March 22, 2015 She also cannot take Aspirin due to PUD. 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 I think it is prudent to recheck her iron. Chronic ob structive pulmonary disease 94172655 J44.9 Smoking cessation was discussed, she had Pneumovax in 2011, she needs [id number] A copy of her PFTs will be useful Low back pain 796448483 M54.5 I have requested a copy of her previous MRI from 2009? She can discontinu e Advil and try Diclofenac with a snack or a meal, PRN with pain. Medication monitoring 39 2028894 Z51.81 Screening mammography 24 442760 Z12.31 [id number] MD Stephanie Roberson (Adult Med) [address] [place] [phone] 0 10/17/2015 10:31:53 10/17/2015 12:29:41 Tobacco user 961196287 Z72.0 Tobacco cessation was discussed, she states that I don't want to Restless l egs syndrome 64464128 G25.81 This is apparently a chronic issue, she apparently was treated in the past with improvemen t. She was unable to tolerate the iron due to GI side effects. Laboratory test result abnormal 909877989 R89.9 CBC has improved, she however has elevated LFTS which could be from her medication s. Computed t omography result abnormal 572645927 R93.8 She is woried about the findings on the CT scan done 10/04/2015, I have reassured her, she however appears concerned, I will refer her to the Gynecologi st. [id number] Shimon Gifford MD [facility] ([facility]) [address] [place] [address] [phone] 0 11/22/2015 10:21:59 11/22/2015 12:20:45 Computed tomography result abnormal 335789609 R93.8 Urinary incontinence 165 737120 R32 Tobacco user 121628517 Z 72.0 [id number] Pat Atwood MD [facility] (Adult Med) [address] [place] [address] [phone] 0 12/01/2015 11:29:18 12/01/2015 12:14:48 Computed tomography result abnormal 451231613 R93.8 She was seen by Dr. Gifford and she has been referred to [facility], this is in reference to the findings on the CT scan done 10/04/2015, I have once again reassured her. 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 The benefits of lowering her cholestero l and her increased risk of CVS events in view of her age, her use of tobacco producs despite multiple recommenda tions that she stop smoking was discussed. Tobacco cessation was discussed. Laboratory test result abnormal 159883817 R89.9 E78.0 Z51.81 Repeat LFTS have been reordered. Pain of sh oulder region 08200627 M25.511 R and L shoulder pain [id number] Pat Atwood MD [facility] ([facility] Med) [address] [place] [address] [phone] 0 01/13/2016 11:25:06 01/13/2016 14:04:29 Chronic peptic ulcer 952042311 K27.7 She has been advised to avoid antiplatel et therapy Pelvic mass 07721389 R19 .00 She was seen by Dr. Thurston at [facility], she apparently needs a CT scan. I have reminded her to follow up and with regards to her request for a PET scan, she really should discuss this with Dr. Thurston High carci noembryonic antigen level 223069792 R97.0 I have reviewed the consultati on note from Ms. Ren's visit 12/26/[address] Thurston (Trans[facility] Oncology). Her CEA is elevated (7.6, 11/22/2015) A colonoscop y was attempted 09/17/[address] Daniella grady, this was incomplete due to fixation and angulation . A BE was reported to reveal tortuosity of the sigmoid colon. I have previously spoken to Ms. Ren and I have discussed the plan with her in detail. She understand s that CEA is a marker used to monitor colon cancer. She states that she is awaiting a call from Dr. 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 She has been taking Lipitor erraticall y as she feels that it is causing her hair loss. Labs in 6 weeks Restless l egs syndrome 29834601 G25.81 This is apparently a chronic issue, she apparently was treated in the past with improvemen t. She was unable to tolerate the iron due to GI side effects. Low back pain 477959842 M54.5 She can resume Diclofenac with a snack or a meal, PRN with pain, as well as a short course of Hydrocodon e Screening for osteoporosis 026634753 Z13.820 Patient will be informed of the need for this test [id number] MD Stephanie Roberson (Adult Med) [address] [place] [address] [phone] 0 04/06/2016 14:36:19 04/06/2016 16:37:14 Aortic aneurysm 68280165 I71.9 Stable infrarenal aneurysm Polyp of colon 87623000 K63.5 The virtual colonoscop y confirms polyps and according to Dr. Daniella grady she needs a repeat test in 3 years, this does not quite explain her elevated CEA Urinary incontinence 165 149060 R32 She needs 12-15 or more undergarme nts a day, she has asked if her recent surgery has contribute d to her urinary frequency and intoninenc e. I have suggested that she follows up with her Urologist, Dr. Gordon? Abdominal pain 87895908 R10.9 She attributes this to gas, she however admits to constipati on and chronic loose watery stools ~7/day. She can tolerate Tramadol PRN as she is not obtaining any relief from the NSAID. Noncomplia nce with medication regimen 515831305 Z91.14 She discontinu ed her Crestor due to dizziness which has improved, I am not quite sure that this is the cause. She has multiple risk factors for CVS events and continues to smoke. Dizziness 495910996 R42 Chronic cough 35215658 R 05 Chronic morning cough Impacted cerumen 2663631 6 H61.21 [id number] MD Stephanie Roberson (Adult Med) [address] [place] [address] [phone] 0 05/29/2016 11:49:04 05/29/2016 12:54:16 High carcinoembryonic antigen level 026990480 R97.0 I have reviewed the consultati on note from Ms. Ren's visit 12/26/[address] Thurston (Transmitter T[facility] Oncology, who is of the impression that [...] her CEA and proceed from there. Insomnia 964418806 G47.0 0 Trial of Belsorma PRN, side effects were discussed. She should not use this with her Tramadol. Chronic ob structive pulmonary disease 73745810 J44.9 Smoking cessation was discussed. Disorder of back 3122217 3 M53.9 Judicious use of Tramadol was discussed Cramp 22822890 R25.2 Dizziness 008729383 R42 MRA of the brain does not explain her dizziness, she has been previously referred to the neurologis t. [id number] Pat Atwood MD [facility] ([facility]) [address] [place] [address] [phone] 0 07/11/2016 11:52:18 07/11/2016 12:51:14 Weight gain 3231834 R63.5 Urinary incontinence 165 217674 R32 She was seen by her Urologist, Dr. Gordon, a procedure is planned High carci noembryonic antigen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 concentration and memory, patient reportsno decreased concentrating ability,no memory lapses or loss, anddoes not forget words. For speech/motor difficulties, patient reportsno speech difficulties,no difficulty expressing formulated concepts,no difficulty with fine manipulative tasks,no difficulty writing/copying,no slowed reaction time, anddoes not knock things over when trying to pick them up.Functional AbilityFor hearing, patient reportsloss of hearing: in both earsbut reportswears hearing aids. For vision, patient reportsworse near. For instrumental activities of daily living, patient reportsunable to grocery shop without assistanceandunable to to prepare meals without assistancebut reportsable to do house work with limited or no assistance,able to manage medications with limited or no assistance,able to manage money with limited or no assistance, andable to use the phone with limited or no assistance. For activities of daily living, patient reportsable to bathe with limited or no assistance,able to contol urination and bowels,able to dress with limited or no assistance,able to feed self with limited or no assistance,able to get out of chair or bed with limited or no assistance,able to groom with limited or no assistance, andable to toilet with limited or no assistance. For falls risk assessment, patient reportsno frequent falls while walking,no dizziness/vertigo,fall(s) in the past year 0, andfall(s) since last visit0. 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 She is aware that progression of the disease could result in paralysis. In the interim, she also lost her sister. She has been following up with her neurologist, Dr Sawyer. Pat Atwood MD Attn: Accounting, [place], [address], [facility] 04/23/2024 20:02:21 4 text/html ROS as noted in the HPI I went to the hospital like you wanted me Marylou insurance told me to ask you to get someone to clean my houseI don't want to get doped up Ms Ren was seen in the ER with left sided chest wall pain, she was also seen by her neurologist but appears to be less than pleased with the planned treatment. She continues to follow up with pain management but she needs her headaches addressed by a different neurologist. She needs some assistance around the house. Pat Atwood MD Attn: Accounting, [place], [address], [facility] 09/17/2024 16:51:39 5 text/html ROS as noted in the HPI I am doing fine except for my aches and pains Pat Atwood MD Attn: Accounting, [place], [address], [facility] 12/18/2024 16:54:24 5 text/html ShoulderReported by PatientHPIFor hand dominance, patient reportsleft. For location, patient reportsleft. For quality, patient reportsaching. For severity, patient reportsmild. For duration, patient reports___ weeks. For timing, patient reportsacute. For context, patient reportsfall. For alleviating factors, patient reportsnothing helps. For aggravating factors, patient reportsrom. For associated symptoms, patient reportsno weakness,no numbness,no tingling,no swelling,no redness,no warmth,no ecchymosis,no catching/locking,no popping/clicking,no buckling,no grinding,no instability,no radiation down arm,no drainage,no fever,no chills,no weight loss, andno change in bowel/bladder habits. For previous surgery, patient reportsnone. For prior imaging, patient reportsx ray. For previous injections, patient reportsnone. For previous pt, patient reportsnone. For work related, patient reportsno. For working, patient reportsno.ROS as noted in the HPI With my shoulder, they said it was a frozen shoulderThen they said it was a contusion real bad Ms Ren initially hit her left shoulder on the fridge and was seen at urgent care and diagnosed with a frozen shoulder. She then fell again, and was diagnosed with a contusion, she has a limited ROM and pain. Pat Atwood MD Attn: Accounting,[address] [facility], [place], [address], [facility] 06/17/2025 15:44:39 5 text/html MAW 2Reported by PatientSocial/Behavioral HistoryFor fracture risk, patient reportshistory of fracturesandprevious musculoskeletal injuries. For diet and nutrition, patient reportshealthy dietanddiscussed vitamin and supplement use.Mental Status:For concentration and memory, patient reportsno decreased concentrating ability,no memory lapses or loss, anddoes not forget words. For speech/motor difficulties, patient reportsno speech difficulties,no difficulty expressing formulated concepts,no difficulty with fine manipulative tasks,no difficulty writing/copying,no slowed reaction time, anddoes not knock things over when trying to pick them up.Functional AbilityFor hearing, patient reportsloss of hearing: in both ears. For vision, patient reportsworse near. For instrumental activities of daily living, patient reportsunable to do house work without assistanceandunable to grocery shop without assistancebut reportsable to manage medications with limited or no assistance,able to manage money with limited or no assistance,able to prepare meals with limited or no assistance, andable to use the phone with limited or no assistance. For activities of daily living, patient reportsable to bathe with limited or no assistance,able to contol urination and bowels,able to dress with limited or no assistance,able to feed self with limited or no assistance,able to get out of chair or bed with limited or no assistance,able to groom with limited or no assistance, andable to toilet with limited or no assistance. For falls risk assessment, patient reportsno frequent falls while walking,no fall in the past year,no fall since last visit, andno dizziness/vertigo. For home safety, patient reportsno unsafe alexis hazzards,no unsafe stairs,working smoke/co detectors,practicing 'safer sex',no fire arms,has hand bars in the bathroom/shower,good lighting in the home, andreviewed sun protection.ROS as noted in the [facility] Wellness visitI have got a coldShe told me I had flashing Pneumonia She presents with upper respiratory symptoms after she raked her yard, she has a non productive cough, nasal discharge, wheezing but no fever or worsening of her chronic myalgia. Pat Atwood MD Attn: Accounting,[address] [place], [address], [place] [facility] 10/13/2025 16:12:08 OBGyn Episode Ob Episode Information Episode Created Date Number of Fetuses Patient Bloodtype Patient rh Status Prepregnancy Weight lbs Domestic Partner Domestic Partner Phone Father Name Biochemistry Technologist Status 11/22/19 16 1 CLOSED Fetus Data First Name Last Name Admitted to NICU Weight (g) Sex Living Outcome Pediatric Complications Fetus ID Race Codes Race Delivery Type 2891.64 9 F Full Term [address]12 Standard Vaginal Delivery Jose Manuel Calculation Initial [...] Complications Tubal Sterilization Discharge Date Comments 4 [facility] 40 Discharge Information Feeding Method Contraceptive Method Maternal HG B and HCT Levels Ob Episode Information Episode Created Date Number of Fetuses Patient Bloodtype Patient rh Status Prepregnancy Weight lbs Domestic Partner Domestic Partner Phone Father Name Biochemistry Technologist Status 11/22/19 16 1 CLOSED Fetus Data First Name Last Name Admitted to NICU Weight (g) Sex Living Outcome Pediatric Complications Fetus ID Race Codes Race Delivery Type 3146.79 45 M Full Term 25942 Standard Vaginal Delivery Jose Manuel Calculation Initial [...] Complications Tubal Sterilization Discharge Date Comments 2 [place] [address] Discharge Information Feeding Method Contraceptive Method Maternal HG B and HCT Levels Ob Episode Information Episode Created Date Number of Fetuses Patient Bloodtype Patient rh Status Prepregnancy Weight lbs Domestic Partner Domestic Partner Phone Father Name Biochemistry Technologist Status 11/22/19 16 1 CLOSED Fetus Data First Name Last Name Admitted to NICU Weight (g) Sex Living Outcome Pediatric Complications Fetus ID Race Codes Race Delivery Type 3005.04 7 M Full Term [address] Standard Vaginal Delivery Jose Manuel Calculation Initial [...]
--- OUTSIDE RECORDS SUMMARY | 2025-11-02 12:06 | XMS_ITS | Continuity of Care Document ---
Author Organization [facility] (Adult Med) Address [address] [place] [address] Care Team Providers Care Senior Salesforce Developer Name Role Phone DERECK FELIX Asphalt Spreader JOHN COOK Piano And Organ Refinisher ZEE HASSAN Pain Management JESE SAWYER Neurologist [...] DO Not Attach Compendium, Do Not Delete/merge, [id number] 10/14/2025 20:26:08 influenza virus A + B + SARS-CoV- 2 (COVID19) Ag panel, rapid IA, upper respirato ry specimen 2024 025 PAYAL In-Office Order, Internal Use Only DO Not Attach Compendium DO Not Attach Compendium, Do Not Delete/merge, [id number] 10/13/2025 15:56:11 Referral None recorded. Procedures None recorded. Surgeries None recorded. Imaging LDCT, chest, for lung cancer screening - Pesonal decision making was done 2024 025 [facility], [address] [place] [address] [address], [place], [address], 10/25/2025 19:16:53 Medication Orders Tamiflu 75 mg capsule 2024 [facility] [place], [address], 10/25/2025 05:02:19 prednison e 20 mg tablet 2024 025 [facility] [place], [address], 10/25/2025 05:02:26 Patient TargetsNo targets recorded. Patient Instructions Encounter Date Encounter Id Patient Instructions Last Modified By Organization Details Last Modified Time 10/13/2025 [id number] advance care planning: care instructions oajao Not available 10/13/2025 15:02:44 preventing falls : care instructions oajao Not available 10/13/2025 15:02:44 Quitting Tobacco : Care Instructions oajao Not available 10/13/2025 15:02:44 [facility] Prevent[facility] Checklist oajao Not available 10/13/2025 15:02:44 eating healthy foods: care instructions oajao Not available 10/13/2025 15:02:44 AD8 Dementia Screening Interview oajao Not available 10/13/2025 15:02:44 Tamiflu Prednisone OTC Sudafed LDCT Follow up in 4 months and PRN oajao Not available 10/13/2025 15:55:04 Reason for Referral None Reported. Results Created Date Observation Date Name Description Value Unit Range Abnormal Flag Note LastModifiedBy Organization Detail LastModifiedTime 10/13/2010/13/2025 influ mary kay virus A + B + SARS- CoV-2 (COVI D19) Ag panel , rapid IA, upper respi rator y speci men Flu B positi ve Not Available In-Office Order Internal Use Only DO Not Attach Compendium DO Not Attach Compendium, Do Not Delete/merge, [id number] 10/13/2025 15:21:02 10/13/2010/13/2025 influ mary kay virus A + B + SARS- CoV-2 (COVI D19) Ag panel , rapid IA, upper respi rator y speci men Flu A negati ve Not Available In-Office Order Internal Use Only DO Not Attach Compendium DO Not Attach Compendium, Do Not Delete/merge, [id number] 10/13/2025 15:21:02 10/13/2010/13/2025 influ mary kay virus A + B + SARS- CoV-2 (COVI D19) Ag panel , rapid IA, upper respi rator y speci men Rapid SARS CoV 2 Ag, QL IA, respiratory specimen negati ve Not Available In-Office Order Internal Use Only DO Not Attach Compendium DO Not Attach Compendium, Do Not Delete/merge, [id number] 10/13/2025 15:21:02 10/15/20 25 10/15/2025 imagi ng/di agnos tic resul t No observ ation record ed. [facility] [address], [place], [address], 10/22/2025 17:11:50 10/25/20 25 10/25/2025 LDCT, chest , for lung cance r scree edgar No observ ation record ed. [facility] [address], [place], [address], 10/26/2025 15:19:09 Result Notes None recorded. Problems Name Problem SNOMED Code Status Onset Date Resolution Date Notes Provider Name and Address Organization Details Recorded Time Chronic obstructiv e pulmonary disease 40762418 Active Not Available [facility] 3 22:38:07 Hyperchole sterolemia 81171082 Active Not Available [facility] 3 22:38:07 Benign hypertensi on 86944469 Active Not Available [facility] 3 22:38:07 Urinary incontinen ce 869683788 Active Not Available [facility] 3 22:38:07 Coronary atheroscle rosis 971351402 Active Not Available [facility] 3 22:38:08 Heart failure 27186212 Active Not Available [facility] 3 22:38:08 Myocardial infarction 92487308 Active Not Available [facility] 3 22:38:07 Laboratory test result abnormal 968757776 Active Not Available [facility] 3 22:38:07 Dysuria 51696587 Active Not Available [facility] 3 22:38:08 Tobacco user 279310810 Active Not Available [facility] 3 22:38:07 Restless legs syndrome 09730825 Active Not Available [facility] 3 22:38:07 Low back pain 126244436 Active Not Available [facility] 3 22:38:07 Computed tomography result abnormal 037668708 Active Not Available [facility] 3 22:38:07 Disorder of hair 839837215 Active Not Available [facility] 3 22:38:07 Pain of shoulder region 62936565 Active Not Available [facility] 3 22:38:08 High carcinoemb ryonic antigen level 541253697 Active Not Available [facility] 3 22:38:08 Alkaline phosphatas e above reference range 922696280 Active Not Available [facility] 3 22:38:07 Chronic peptic ulcer 074194767 Active Not Available [facility] 3 22:38:07 Pelvic mass 48158827 Active Not Available [facility] 3 22:38:08 Disorder of lipid metabolism 887498936 Active Not Available [facility] 3 22:38:07 Aortic aneurysm 59091863 Active Not Available [facility] 3 22:38:08 Polyp of colon 91505956 Active Not Available [facility] 3 22:38:08 Abdominal pain 48635029 Active Not Available [facility] 3 22:38:07 Dizziness 131421663 Active Not Available [facility] 3 22:38:07 Chronic cough 97901554 Active Not Available [facility] 3 22:38:08 Impacted cerumen 74656593 Active Not Available [facility] 3 22:38:07 Insomnia 311009830 Active Not Available [facility] 3 22:38:07 Disorder of back 51788397 Active Not Available [facility] 3 22:38:07 Cramp 65458221 Active Not Available [facility] 3 22:38:08 Weight gain 4991439 Active Not Available [facility] 3 22:38:08 Aspiration of food 23644296 Active Not Available [facility] 3 22:38:08 Abscess 296209188 Active Not Available [facility] 3 22:38:07 Stented coronary artery 999055713 Active 2016 Not Available [facility] 3 22:38:07 Visual impairment 455156776 Active 2016 Not Available [facility] 3 22:38:07 Abdominal aortic aneurysm 300620319 Active 2016 Pat Atwood MD Attn: Accounting ,[address] [facility], [place], [address] , [facility] 5 15:39:09 Nicotine dependence 80509498 Active 2017 Not Available [facility] 3 22:38:08 Renal insufficie ncy 059571650 Active 2017 Not Available [facility] 3 22:38:08 History of peptic ulcer 972831130 Active 2017 Not Available [facility] 3 22:38:07 Stenosis of interverte bral foramina 092881467402 Active 2017 Not Available [facility] 3 22:38:07 Colon cancer screening declined 1178325862480 9 Active 2018 Not Available [facility] 3 22:38:07 Incontinen ce of feces 56789756 Active 2018 Not Available [facility] 3 22:38:08 Kidney stone 38393571 Active 2018 Not Available [facility] 3 22:38:08 Statin not tolerated 929486990 Active 2020 Not Available [facility] 3 22:38:07 Cerebral infarction 366527315 Active 2020 Not Available [facility] 3 22:38:08 Osteoarthr itis of elbow 854121972 Active 2021 Not Available [facility] 3 22:38:07 Generalize d osteoarthr itis 316640197 Active 2021 Not Available [facility] 3 22:38:07 Aspirin prophylaxi s contra-ind icated 191735747 Active 2021 Not Available [facility] 3 22:38:07 Solitary nodule of lung 227454991 Active 2021 Not Available [facility] 3 22:38:08 Chronic headache disorder 518487923 Active 2022 Not Available [facility] 3 22:38:08 Right carotid artery stenosis 1188449342330 00 Active 2022 Not Available [facility] 3 22:38:07 Problem Notes None recorded. Procedures Surgical History Date Name Laterality Status Provider Name and Address Organization Details Recorded Time 2024 cystoscopic suburethral injection in female completed Pat Atwood MD Attn: Accounting ,[address] [place], [address] , [facility] 5 11:54:35 2021 endoscopic retrograde cholangiopancreatography with insertion of biliary stent completed Pat Atwood MD Attn: Accounting ,[address] [place], [address] , [facility] 2 11:39:27 2020 implantation of patient-activated cardiac event recorder completed Nallely Whaley [place] 1 12:03:56 2020 colonoscopy completed Pat Atwood MD Attn: Accounting ,[address] [place], [address] , [facility] 1 11:17:09 2018 colonoscopy completed Pat Atwood MD Attn: Accounting ,[address] [place], [address] , [facility] 0 15:35:44 2013 Heart Surgery completed Giulia Zhou MA [place] - [facility] 6 11:51:08 2012 Most Recent Mammogram completed Giulia Zhou MA [facility] 6 11:31:24 1980 Hysterectomy completed Giulia Zhou MA [facility] 6 11:51:08 1977 Hysterectomy completed Giuila Zhou MA [facility] 6 11:51:08 Back Surgery completed February HORACIO Fair [facility] 4 17:13:59 Angioplasty With Stent completed Ap HORACIO Fair [facility] 4 17:13:59 Other completed Giulia Zhou MA [facility] 6 11:51:08 Imaging Results None recorded. Procedure Notes None recorded. Medical Equipment None Reported. Allergies Allergen ID Allergen Name Allergen Category Reaction Reaction Severity Criticality Documentation Date Start Date Code Code System Note Provider Name and Address Organization Details Recorded Time 602406 PEG-Prep medicatio n other moderate Not available 06/17/2019 Pt. had blist ers insid e of her lips, cheek s, on her gingi va, and later down her throa t. Mervat Barroso RN [facility], [facility] 9 12:55:26 401818 Product containin g penicilli n (product) medicatio n Not available Not available Not available 01/13/2020 62926 8001 SNOMED Other react ions and sever ities : 'Adve rse react ion to subst ance' . Pat Atwood MD Attn: Accountin g,[address] [place], [address], [facility] 3 15:09:40 334291 nortripty line medicatio n respirato ry distress Not available Not available 03/20/2023 7531 RxNorm Pat Atwood MD Attn: Accountin g,[address] [place], [address], [facility] 3 15:09:08 838251 iodine medicatio n Not available Not available Not available 09/01/20252019 5933 RxNorm unrec ogniz ed react ion (text : Unkno wn, code: 98331 5006) (from exter nal sourc e) Not Available payal - External Data Service - prod 10:31:22 730192 vancomyci n medicatio n Not available Not available Not available 09/01/20252019 23645 RxNorm unrec ogniz ed react ion (text : Unkno wn, code: 12820 5006) (from [facility]) Not Available payal - External Data Service - prod 10:31:22 121792 cholestyr amine resin medicatio n angioedem a Not available high 09/01/20252016 2447 RxNorm blist ers blist ers unrec ogniz ed react ion (text : Other , code: 44884 07) (from [facility]) Not Available payal - External Data Service - prod 10:34:30 894508 citrate medicatio n Not available Not available low 09/01/20252016 27267 0 RxNorm unrec ogniz ed react ion (text : Unkno wn, code: 21080 5006) [facility] Not Available payal - External Data Service - prod 10:34:30 314646 aluminum hydroxide / magnesium hydroxide / simethico ne medicatio n dyspnea Not available high 09/01/20252018 82028 8 RxNorm Not Available payal - External Data Service - prod 10:34:30 260597 magnesium citrate medicatio n anaphylax is Not available high 09/01/20252018 86938 RxNorm React ion: React ion: ANAPH YLAXI S, unrec ogniz ed react ion (text : Other , code: 75025 07) (from [facility]) Not Available payal - External Data Service - prod 10:34:30 631263 magnesium sulfate medicatio n angioedem a Not available high 09/01/20252018 6585 RxNorm Not Available payal - External Data Service - prod 5 10:34:30 567883 penicilli n G Not available Not available Not available low 09/01/20252016 7980 RxNorm unrec ogniz ed react ion (text : Unkno wn, code: 55712 5006) (from exter nal sourc e) Not Available payal - External Data Service - prod 5 10:34:30 281454 sulfaceta mide medicatio n Not available Not available low 09/01/20252016 78165 RxNorm unrec ogniz ed react ion (text : Unkno wn, code: 03922 5006) (from exter nal sourc e) Not Available payal - External Data Service - prod 5 10:34:30 710645 propoxyph kenneth napsylate medicatio n Not available Not available Not available 09/02/20252016 8786 RxNorm Not Available [facility] [employer] - prod 5 15:46:54 773526 acetamino phen medicatio n Not available Not available Not available 09/02/20252016 161 RxNorm Not Available [facility] [employer] - prod 5 15:46:54 06566 Iodinated contrast media (substanc e) medicatio n Not available Not available Not available 2015 96925 2004 SNOMED Other react ions and sever ities : 'Adve rse react ion to subst ance' . Pat Atwood MD Attn: Alfredo g,[address] [place], [address], [facility] 3 15:09:40 67484 Substance with sulfonami de structure and antibacte rial mechanism of action (substanc e) medicatio n Not available Not available Not available 2015 84672 8003 SNOMED Other react ions and sever ities : 'Adve rse react ion to subst ance' . Pat Atwood MD Attn: Accountin g,[address] [place], [address], [facility] 3 15:09:40 63402 Darvocet- N medicatio n Not available Not available Not available 12/01/2015 Sangita VillafanaHORACIO null, [facility] 6 11:41:57 70791 erythromy [place] medicatio n Not available Not available Not available 12/01/2015 4053 RxNorm Other react ions and sever ities : 'Adve rse react ion to subst ance' . Pat Atwood MD Attn: Accountin g,[address] [facility], [place], [address], [facility] 3 15:09:40 05599 morphine medicatio n Not available Not available Not available 12/01/2015 7052 RxNorm Other react ions and sever ities : 'Adve rse react ion to subst ance' . Pat Atwood MD Attn: Accountin g,[address] [facility], [place], [address], [facility] 3 15:09:40 36162 magnesium medicatio n other moderate Not available 07/11/2016 6574 RxNorm Pt. had blist ers insid e of her lips, cheek s, on her gingi va, and later down her throa t. Mervat Barroso RN [facility], [facility] 9 12:55:07 Medications Name Sig Start [...] 1st dose [address] [id number] dose [address] [id number] dose [address] scan [...] 90 days. 09/[address] felix 09/01/20 19 Not Available Not Available Not [...] and Address Organization Details Last Updated DateTime 154.305 cm 19.4 kg/m2 93300.9 8 g 18 /min 96 % 62 /min 97.6 [degF] 120/60 mm[Hg] Giulia ArlineHORACIO guo [place] - [facility] 14:55:18 Social History Question Answer Notes LastModified by Organizat ion Details LastModified Time Tobacco Smoking Status Current Every Day Smoker February [facility]AC[facility] [place], [place] - [facility] 09/21/2014 17:14:00 Do You [...] Anemia N Anesthesia Complications N Heart Attack (MS) Y Headaches/Migraines N Anxiety Disorder N Diabetes [...] zoster, unspecified formulation 2 completed Not Available [facility] 07/29/2023 22:38:09 zoster, unspecified formulation 0 completed HORACIO [place], [place] 08/21/2023 15:36:25 SARS-COV-2 (COVID-19) vaccine, UNSPECIFIED 1 completed Not Available [facility] 07/29/2023 22:38:09 SARS-COV-2 (COVID-19) vaccine, UNSPECIFIED 1 completed Not Available [facility] 07/29/2023 22:38:09 Influenza, split virus, quadrivalent, preservative 1 completed Not Available [facility] 07/29/2023 22:38:09 COVID-19, mRNA, LNP-S, PF, 30 mcg/0.3 mL dose 1 completed Not Available [facility] 07/29/2023 22:38:09 COVID-19, mRNA, LNP-S, PF, 30 mcg/0.3 mL dose 2 completed HORACIO [place], [place] - [facility] 08/21/2023 15:36:25 Influenza, high-dose, trivalent, PF 7 completed Not Available [facility] 07/29/2023 22:38:10 COVID-19, mRNA, LNP-S, PF, 30 mcg/0.3 mL dose 1 completed Not Available [facility] 07/29/2023 22:38:09 COVID-19, mRNA, LNP-S, PF, 30 mcg/0.3 mL dose 1 completed Not Available [facility] 07/29/2023 22:38:09 zoster live 2 completed Not Available [facility] 07/29/2023 22:38:09 Influenza, high-dose, trivalent, PF 9 completed Not Available [facility] 07/29/2023 22:38:09 Influenza, high-dose, quadrivalent, PF 0 completed Not Available [facility] 07/29/2023 22:38:09 Influenza, split virus, trivalent, preservative 4 completed Not Available [facility] 07/29/2023 22:38:10 zoster recombinant 0 completed Not Available [facility] 07/29/2023 22:38:09 COVID-19, mRNA, LNP-S, PF, 30 mcg/0.3 mL dose, virgil-sucrose 2 completed Not Available [facility] 07/29/2023 22:38:09 zoster recombinant 0 completed Not Available [facility] 07/29/2023 22:38:09 pneumococcal polysaccharide PPV23 2 completed Not Available [facility] 07/29/2023 22:38:09 Pneumococcal conjugate PCV20, polysaccharide [id number] conjugate, adjuvant, PF 2 completed Not Available [facility] 07/29/2023 22:38:09 COVID-19, mRNA, LNP-S, bivalent, PF, 30 mcg/0.3 mL dose 2 completed Not Available [facility] 07/29/2023 22:38:09 Influenza, high-dose, quadrivalent, PF 3 completed Not Available [facility] 07/29/2023 22:38:09 Pneumococcal conjugate PCV20, polysaccharide [id number] conjugate, adjuvant, PF 3 completed Not Available [facility] 07/29/2023 22:38:09 RSV, recombinant, protein subunit RSVpreF, adjuvant reconstituted, 0.5 mL, PF 3 completed Not Available [facility] 07/29/2023 22:38:09 COVID-19, mRNA, LNP-S, PF, 50 mcg/0.5 mL 3 completed Giulia Nunn MA null, [place] - [facility] 08/21/2023 15:36:25 COVID-19, mRNA, LNP-S, PF, virgil-sucrose, 30 mcg/0.3 mL 4 completed Pat Atwood MD Attn: Accounting,[address] [place], [address], [place] [facility] 04/23/2024 14:40:41 COVID-19, mRNA, LNP-S, PF, virgil-sucrose, 30 mcg/0.3 mL 4 completed Giulia Nunn [place] null, [place] - [facility] 09/17/2024 14:51:12 Influenza, high-dose, trivalent, PF 4 completed Giulia Nunn [place] null, [place] - [facility] 09/17/2024 14:51:12 zoster recombinant 5 completed Not Available [facility] 10/13/2025 14:43:20 zoster recombinant 5 completed Not Available [facility] 10/13/2025 14:43:20 COVID-19, mRNA, LNP-S, PF, 30 mcg/0.3 mL dose 1 completed Not Available [facility] 10/13/2025 14:43:20 Pneumococcal conjugate PCV 13 5 completed Not Available [facility] 10/13/2025 14:43:20 Influenza, high-dose, trivalent, PF 5 completed Not Available [facility] 10/13/2025 14:43:20 COVID-19, mRNA, LNP-S, PF, virgil-sucrose, 30 mcg/0.3 mL 5 completed Not Available [facility] 10/13/2025 14:43:20 Tdap 7 completed Not Available [facility] 11/21/2019 02:39:19 Influenza, split virus, quadrivalent, PF 8 completed Not Available [facility] 11/21/2019 02:47:21 pneumococcal polysaccharide PPV23 2 completed Not Available [facility] 07/29/2023 22:38:09 Influenza, high-dose, trivalent, PF 5 completed Not Available [facility] 07/29/2023 22:38:09 Pneumococcal conjugate PCV 13 5 completed Not Available [facility] 07/29/2023 22:38:09 Influenza, high-dose, trivalent, PF 6 completed Not Available [facility] 07/29/2023 22:38:09 Pneumococcal conjugate PCV 13 6 completed Not Available [facility] 07/29/2023 22:38:09 Influenza, split virus, quadrivalent, preservative 2 completed Pat Atwood MD Attn: Accounting[address] [place], [address], [facility] 08/03/2022 14:11:02 Influenza, split virus, quadrivalent, preservative 7 completed Not Available [facility] 07/29/2023 22:38:09 Past Encounters Encounter ID Performer Location Encounter Start Date Encounter Closed Date Diagnosis/Indication Diagnosis SNOMED-CT Code Diagnosis ICD10 Code Diagnosis IMO Codes Diagnosis Note [id number] Pat Atwood MD [facility] (Adult Med) [address] [place] [address] 10/13/2025 14:42:10 10/14/2025 10:26:35 Adult health examination 054445896 Z00.00 Health Risk Assessment collected and reviewed History of nicotine dependence 9831617137 49002092 Z87.968 6355760 Pesonal decision making was doneLDCT OV 12/18/2024 I know I should but I enjoy itDiscour aged, she continues to decreased her use. Upper resp iratory tract finding 919088186 R09.89 41473395 Influenza caused by Influenza B virus 14556084 J10.1 681934 Tamiflu Health Concerns Section Related Observation LastModified by Organization Detai ls LastModified Time None Recorded Concern Status LastModified by Organization Details LastModified Time None Recorded Payers Encounter Date Sequence Insurance Name Policy Number Policy Yee Covered Member ID Yee Member ID Guarantor Name 10/13/2025 1 [facility] (MEDICARE REPLACEMENT/AD VANTAGE - HMO) [id number] Giulia Retana [id number] Giulia Retana 10/13/2025 2 [employer] (SECONDARY PLAN WHEN MEDICARE OR MEDICARE REPLACEMENT PRIMARY) Giulia Retana [id number] Giulia Retana Notes Date Note Type Note Provider Name and Address Organization Details Recorded Time 5 text/html MAW 2Reported by PatientSocial/Behavioral HistoryFor [...] andreviewed sun protection.ROS as noted in the HPI Wellness visitI have got a coldShe told me I had flashing Pneumonia She presents with upper respiratory symptoms after she raked her yard, she has a non productive cough, nasal discharge, wheezing but no fever or worsening of her chronic myalgia. Pat Atwood MD Attn: Accounting,[address] [place], [address], [facility] 10/13/2025 16:12:08 OBGyn Episode No OBEpisode recorded.
== END 2025-11-02 11:18 | disposition home or self-care (01) ==
LOC: ANHSURGERY 11:22
PROVIDERS: PCP Internal Medicine Infectious Disease; Visit Provider Urology
DX: Z01.810 Encounter for preprocedural cardiovascular examination (principal); I10 Essential (primary) hypertension; R94.31 Abnormal electrocardiogram [ECG] [EKG]
CPT/HCPCS: 93005